=== PATIENT | female | born 1955 | race Caucasian/White ===

== ENCOUNTER 2017-04-01 11:23 | Inpatient (IN) | payer OTHER ==
[~2017-04-01] VITALS: Ht 152.4 cm; Wt 113.9 kg
[2017-04-01] MEDS ORDERED: NITROGLYCERIN OINT 2% 1GM PACKET EXT ONE (12:30)
[2017-04-01 12:33] LABS: INR 1.1 (0.9-1.1)
--- NOTE | 2017-04-01 12:44 | DIAGNOSTIC IMAGING REPORT ---
CHEST ONE VIEW PORTABLE CLINICAL HISTORY: dyspnea, rales dyspnea COMPARISON STUDY: None FINDINGS: Cardiomegaly. Prominent pulmonary vasculature. Mild pulmonary hyperaeration. Severe degenerative change right shoulder. IMPRESSION: Pulmonary edema versus congestive failure The above report was generated using voice recognition software. It may contain grammatical, syntax or spelling errors. Electronically signed by: Chad Yin M.D. 04/01/2017 12:42 PM Dictated Date/Time: 04/01/2017 12:42 PM
--- NOTE | 2017-04-01 12:46 | EMERGENCY ROOM VISIT NOTE ---
History First contact with patient: 11:47 Chief Complaint: SHORTNESS OF BREATH Stated Complaint: SHORTNESS OF BREATH,DOC REFERRED Nursing Triage Summary: Patient ambulatory to triage. Pt states she needs oxygen. SOB x 1 year but got even worse over the last week. Saw Dr prior to coming and Oxygen was 71%. States she hasn't seen the Dr for 30 years. History of Present Illness The patient is a 62 year old female who presents to the Emergency Room with complaints of dyspnea. The patient has not seen his doctor for 30 years. The patient has had dyspnea for the last year. The dyspnea has markedly worsened over the last 2 weeks. Her family and coworkers have strongly encouraged her to seek medical treatment but she had refused until today. The patient was seen at her family doctor's office. She was found to have oxygen saturation around 64% on room air. She was sent to the emergency department for evaluation. The patient denies any pain. She does report significant dyspnea. She often falls asleep when she is sitting in a chair. She states that she can barely walk anywhere because of the significant exertional dyspnea. She also has orthopnea. She has had a cough. She denies any fevers. She denies any chest pain. She denies any abdominal pain, nausea or vomiting. She reports extremity edema. The patient states she does not have any medical problems. However, she has not seen a doctor for 30 years. Review of Systems A 10 system review of systems was completed with positives and pertinent negatives listed in the HPI. Past Medical/Surgical History Medical Problems: (1) Shortness of breath patient denies Social History Smoking Status: Never Smoker Marital Status: Housing Status: lives with family Occupation Status: employed Current/Historical Medications No Active Prescriptions or Reported Meds Physical Exam Vital Signs Date Time Temp Pulse Resp B/P (MAP) Pulse Ox O2 Delivery O2 Flow Rate FiO2 04/01/17 13:41 84 18 148/82 92 Nasal Cannula 4.0 04/01/17 12:04 85 04/01/17 11:45 86 20 186/94 94 Nasal Cannula 4.0 04/01/17 11:25 36.4 91 24 153/79 66 Room Air 04/01/17 11:25 66 Room Air Physical Exam VITALS: Vitals are noted on the nurse's note and reviewed by myself. The patient's oxygen saturation was 66% on room air when she arrived. She had only minimal dyspnea. She was able to speak in full sentences. GENERAL: This is a 62-year-old female, in no acute distress, nondiaphoretic, well-developed well-nourished. SKIN: There is marked 3+ bilateral pitting edema to the lower extremities that extends to the abdomen. There is cyanosis noted to the tips of the fingers and toes. There is no tenting of the skin. Capillary reflex less than 2 seconds. HEAD: Normocephalic atraumatic. EARS: External auditory canals clear, tympanic membranes pearly [place] without erythema or effusion bilaterally. EYES: Pupils equal round and reactive to light and accommodation. Conjunctivae without injection, sclerae without icterus. Extraocular movements intact. NOSE: Patent, turbinates without inflammation or discharge. MOUTH: Mucous membranes moist. Tonsils are not enlarged. Pharynx without erythema or exudate. Uvula midline. Airway patent. Tongue does not deviate. NECK: Supple without nuchal rigidity. No JVD. HEART: There is a loud systolic murmur which the patient states is none. LUNGS: Mild dyspnea noted. There are marked diffuse rales noted. ABDOMEN: Positive bowel sounds x 4. Distended. No significant tenderness MUSCULOSKELETAL: No muscle atrophy, erythema, noted. Edema as noted above. Full range of motion without joint tenderness in all extremities. No tenderness to palpation. Normal gait. Strength 5/5 throughout. NEURO: Patient was alert and oriented to person place and time. No focal neurological deficits. Medical Decision & Procedures ER Provider Diagnostic Interpretation: CHEST ONE VIEW PORTABLE CLINICAL HISTORY: dyspnea, rales dyspnea COMPARISON STUDY: None FINDINGS: Cardiomegaly. Prominent pulmonary vasculature. Mild pulmonary hyperaeration. Severe degenerative change right shoulder. IMPRESSION: Pulmonary edema versus congestive failure Laboratory Results 04/01/17 12:10 Red Blood Count 4.08, Mean Corpuscular Volume 83.8, Mean Corpuscular Hemoglobin 22.8, Mean Corpuscular Hemoglobin Concent 27.2, Mean Platelet Volume 9.5, Neutrophils (%) (Auto) 74.2, Lymphocytes (%) (Auto) 13.6, Monocytes (%) (Auto) 9.2, Eosinophils (%) (Auto) 2.3, Basophils (%) (Auto) 0.2, Neutrophils # (Auto) 8.98, Lymphocytes # (Auto) 1.65, Monocytes # (Auto) 1.11, Eosinophils # (Auto) 0.28, Basophils # (Auto) 0.03 04/01/17 12:10 Test 04/01/17 12:10 04/01/17 13:22 White Blood Count 12.11 K/uL (4.8-10.8) Red Blood Count 4.08 M/uL (4.2-5.4) Hemoglobin 9.3 g/dL (12.0-16.0) Hematocrit 34.2 % (37-47) Mean Corpuscular Volume 83.8 fL (80-100) Mean Corpuscular Hemoglobin 22.8 pg (25-34) Mean Corpuscular Hemoglobin Concent 27.2 g/dl (32-36) Platelet Count 360 K/uL (130-400) Mean Platelet Volume 9.5 fL (7.4-10.4) Neutrophils (%) (Auto) 74.2 % Lymphocytes (%) (Auto) 13.6 % Monocytes (%) (Auto) 9.2 % Eosinophils (%) (Auto) 2.3 % Basophils (%) (Auto) 0.2 % Neutrophils # (Auto) 8.98 K/uL (1.4-6.5) Lymphocytes # (Auto) 1.65 K/uL (1.2-3.4) Monocytes # (Auto) 1.11 K/uL (0.11-0.59) Eosinophils # (Auto) 0.28 K/uL (0-0.5) Basophils # (Auto) 0.03 K/uL (0-0.2) RDW Standard Deviation 60.8 fL (36.4-46.3) RDW Coefficient of Variation 20.1 % (11.5-14.5) Immature Granulocyte % (Auto) 0.5 % Immature Granulocyte # (Auto) 0.06 K/uL (0.00-0.02) Nucleated RBC Absolute Count (auto) 0.20 K/uL (0-0) Nucleated Red Blood Cells % 1.6 % Hypochromasia PRESENT Anisocytosis PRESENT Prothrombin Time 12.0 SECONDS (9.0-12.0) Prothromb Time International Ratio 1.1 (0.9-1.1) Activated Partial Thromboplast Time 26.6 SECONDS (21.0-31.0) Partial Thromboplastin Ratio 1.0 Anion Gap 3.0 mmol/L (3-11) Est Creatinine Clear Calc Drug Dose 96.4 ml/min Estimated GFR () 106.6 Estimated GFR (Non- 92.0 BUN/Creatinine Ratio 32.3 (10-20) Calcium Level 8.5 mg/dl (8.5-10.1) Magnesium Level 2.3 mg/dl (1.8-2.4) Total Bilirubin 0.4 mg/dl (0.2-1) Aspartate Amino Transf (AST/SGOT) 17 U/L (15-37) Alanine Aminotransferase (ALT/SGPT) 19 U/L (12-78) Alkaline Phosphatase 68 U/L (45-117) Total Creatine Kinase 70 U/L (26-192) Creatine Kinase MB 1.8 ng/ml (0.5-3.6) Creatine Kinase MB Ratio 2.6 (0-3.0) Pro-B-Type Natriuretic Peptide 1515 pg/ml (0-900) Total Protein 6.9 gm/dl (6.4-8.2) Albumin 3.1 gm/dl (3.4-5.0) Globulin 3.8 gm/dl (2.5-4.0) Albumin/Globulin Ratio 0.8 (0.9-2) Venous Blood pH 7.32 (7.36-7.41) Venous Blood Partial Pressure CO2 67 mmHg (38.0-50.0) Venous Blood Partial Pressure O2 37 mmHg Venous Blood HCO3 34 mmol/L Venous Blood Oxygen Saturation 63.2 % Venous Blood Base Excess 6.5 mmol/L Medications Administered Medications (Trade) Dose Ordered Sig/Nicolette Route Start Time Stop Time Status Last Admin Dose Admin Nitroglycerin (Nitroglycerin 2% Oint) 1 inch NOW ONCE EXT 04/01/17 12:30 04/01/17 12:31 DC 04/01/17 12:30 1 INCH Furosemide (Lasix Inj) 20 mg NOW STAT IV 04/01/17 13:42 04/01/17 13:43 DC 04/01/17 13:59 20 MG Furosemide 20 mg/ Syringe 2 ml @ 4 mls/min NOW ONCE IV 04/01/17 14:30 04/01/17 15:30 DC 04/01/17 15:00 4 MLS/MIN Procedure The patient was monitored on a motor power connector. She maintained a normal sinus rhythm. The patient was noted to be hypoxic upon initial evaluation with oxygen saturation 66% on room air. The patient did quite well with 4 L of oxygen via nasal cannula. Her oxygen saturation improved to 97-98%. ECG Indication: SOB/dyspnea Rate (beats per minute): 84 Rhythm: normal sinus Findings: no acute ischemic change Comparison ECG Date: no prior available ED Course The patient was seen and examined. Previous visits were reviewed. The patient does not have a fever. She does have a mild leukocytosis of 12.11. She is mildly anemic with hemoglobin 9.3 and hematocrit 34.2. There is no prior for comparison. She does not have any significant electrolyte abnormalities. Glucose is 111. Initial cardiac markers are not elevated. BNP was 1515. INR was 1.1. Urinalysis suggests contamination. Chest x-ray suggests pulmonary edema versus congestive change The patient was given 1 inch Nitropaste She was given 20 mg IV Lasix. I feel the patient will require significant diuresis. I recommended placing a Calvert catheter but the patient refused. The patient presents to the emergency department with dyspnea. This has been ongoing for the last year but worse over the last 1-2 weeks. The patient does not seek routine medical care. She has not seen a doctor for 30 years. The patient was hypoxic and does have significant peripheral edema. X-ray suggests congestive change. There may be some degree of obesity hypoventilation syndrome as well. The patient seems to compensate fairly well for her significant hypoxia and did well with oxygen via nasal cannula. The patient will require further evaluation and management in the hospital. The case was discussed with the hospitalist service and they will evaluate the patient. The case was discussed with Dr. Lopez who agrees with the assessment and treatment plan. Medical Decision DIFFERENTIAL DIAGNOSIS: Aortic dissection, myocarditis, pericarditis, cervical disc disease, costochondritis, herpes zoster, rib fracture, pleuritis, pneumonia , pulmonary embolus, tension pneumothorax, anxiety disorder, somatoform disorder , choledocholithiasis, status, esophagitis, esophageal spasm, esophageal reflux , esophageal rupture, pancreatitis, peptic ulcer disease, cardiac ischemia, ST elevation HI, acute coronary syndrome, arrhythmia, coronary artery vasospasm. vavular heart disease, coronary artery disease, among others. Medication Reconcilliation Current Medication List: was personally reviewed by me Blood Pressure Screening Patient's blood pressure: Elevated blood pressure Blood pressure disposition: Referred to PCP Impression Primary Impression: Congestive heart failure Additional Impressions: Hypoxia Dyspnea Departure Information Dispostion Admitted as an inpatient Prescriptions No Active Prescriptions or Reported Meds Referrals Dayne Rodriguez III, CRNP (PCP) Patient Instructions [facility] Problem Qualifiers
[2017-04-01 12:49] LABS: BUN/CREATININE RATIO 32.3 (10-20); CALCIUM 8.5 mg/dl (8.5-10.1); CREATININE 0.69 mg/dl (0.60-1.20); MAGNESIUM 2.3 mg/dl (1.8-2.4); POTASSIUM 4.1 mmol/L (3.5-5.1)
[2017-04-01 12:54] LABS: ALB/GLOB RATIO 0.8 (0.9-2); CKMB/CK RATIO 2.6 (0-3.0)
[2017-04-01 13:07] LABS: HEMATOCRIT 34.2 % (37-47); MEAN CELL VOLUME 83.8 fL (80-100); MEAN CORPUSCULAR HEMOGLOBIN 22.8 pg (25-34); MEAN CORPUSCULAR HGB CONC 27.2 g/dl (32-36); MEAN PLATELET VOLUME 9.5 fL (7.4-10.4); PLATELET COUNT 360 K/uL (130-400); RED BLOOD COUNT 4.08 M/uL (4.2-5.4); WHITE BLOOD COUNT 12.11 K/uL (4.8-10.8)
[2017-04-01 13:13] LABS: ANISOCYTOSIS PRESENT; BASO % 0.2 %; BASO ABS # 0.03 K/uL (0-0.2); COMPLETE YES; EOS % 2.3 %; HYPOCHROMIA PRESENT; IG% 0.5 %; LYMPH % 13.6 %; LYMPH ABS # 1.65 K/uL (1.2-3.4); MONO % 9.2 %; NEUT % 74.2 %
[2017-04-01 13:38] LABS: VEN BLD GAS O2 SATURATION 63.2 %; VEN BLOOD GAS BASE EXCESS 6.5 mmol/L
[2017-04-01] MEDS ORDERED: FUROSEMIDE 40 MG/4 ML VIAL IV STA (13:42)
[2017-04-01] MEDS ORDERED: FUROSEMIDE INJ 20 MG in SYRINGE 0 ML IV ONE (14:30)
--- NOTE | 2017-04-01 14:55 | History and Physical ---
History & Physical Date & Time of Service: Apr 01, 2017 at 14:35 Chief Complaint: Shortness Of Breath,Doc Referred Primary Care Physician: Dayne Rodriguez III, CRNP History of Present Illness Source: patient, family This is a 62-year-old female with a past medical history of seasonal allergies and chronic sinusitis who presents to the ER today with worsening shortness of breath 1.5 weeks. She reports not seeing her family physician for greater than 30 years but previously saw Dr. Flor. Patient reports that she has become acutely short of breath with ambulation and can only walk approximately 5 feet before getting short of breath. She denies orthopnea although prefers to sleep in a recliner and has been doing this for some time now. The patient is unaware if she has gained a large amount of weight recently, although thinks that she has gained some weight. She cannot remember the last time she weighed himself. Pt typically eats twice daily, and frequently orders out food. She denies watching her diet or type of fluids she drinks specifically, basically only drinks sweetended ice tea. She denies history of smoking. She reports using nasal saline spray and [id number] congestion for her sinusitis recently. She does not wear oxygen at baseline. She reports taking a full dose aspirin every evening for chronic low back pain. Here in the ER the patient was reported to be satting in the low 60s on room air , BNP is equal to 1515, and a chest x-ray was completed showing pulmonary edema versus congestive failure. At bedside the patient ambulated to the restroom and dropped to 61% on room air, it took her approximately 2 minutes to come back up into the mid 80s to low 90s once placed back on oxygen. Past Medical/Surgical History Chronic sinusitis Shortness of breath Social History Smoking Status: Never Smoker Alcohol Use: patient stopped drinking alcohol approximately 3 years ago where she did drink heavily on weekends, rum Marital Status: Occupational Status: employed (durable medical equipment employee) Allergies Coded Allergies: No Known Allergies (Unverified , 04/01/17) Home Medications No Active Prescriptions or Reported Meds Review of Systems Constitutional: No fever, sweats or chills Eyes: No diplopia, no worsening or blurred vision ENT: normal hearing, no trouble swallowing Respiratory: + short of breath, See HPI. No cough, sputum, or dyspnea at rest. Cardiovascular: No chest pain, tightness or palpitations Abdomen: No pain, nausea, vomiting, diarrhea or constipation, Last BM was this morning. Musculoskeletal: + Chronic low back pain, + swelling worsening in both lower extremities times ~2 weeks. No joint pain, calf pain. Neurologic: No weakness, numbness/tingling, or balance problems Psychiatric: No anxiety or depression Skin: No rash or itch Physical Exam Vital Signs Date Time Temp Pulse Resp B/P (MAP) Pulse Ox O2 Delivery O2 Flow Rate FiO2 04/01/17 13:41 84 18 148/82 92 Nasal Cannula 4.0 04/01/17 12:04 85 04/01/17 11:45 86 20 186/94 94 Nasal Cannula 4.0 04/01/17 11:25 36.4 91 24 153/79 66 Room Air 04/01/17 11:25 66 Room Air General: awake, alert, no apparent distress, morbidly obese BMI equals 50.4 Head: Normocephalic, atraumatic ENT: PERRL, EOMI, no pharyngeal exudate, mucous membranes moist Chest: + On 4 L via NC, + inspiratory and expiratory wheezing throughout, tachypneic with ambulation and O2 sats to 61% on room air. Cardiac: + Tachycardic, no murmur, no JVD, normal peripheral pulses, good capillary refill Abdominal: NABS x 4 quadrants, soft, nontender to palpation, no rebound, guarding or tenderness Extremities: Normal inspection, +2 pitting peripheral edema bilaterally, no erythema, calfs nontender to palpation Psych: Normal mood and affect Neuro: AAO x 3, strength intact bilaterally and related 5/5, no motor deficits, speech is clear, no peripheral sensory deficits Diagnostics Laboratory Results Results Past 24 Hours Test 04/01/17 12:10 04/01/17 12:16 04/01/17 13:22 Range/Units White Blood Count 12.11 4.8-10.8 K/uL Red Blood Count 4.08 4.2-5.4 M/uL Hemoglobin 9.3 12.0-16.0 g/dL Hematocrit 34.2 37-47 % Mean Corpuscular Volume 83.8 80-100 fL Mean Corpuscular Hemoglobin 22.8 25-34 pg Mean Corpuscular Hemoglobin Concent 27.2 32-36 g/dl Platelet Count 360 130-400 K/uL Mean Platelet Volume 9.5 7.4-10.4 fL Neutrophils (%) (Auto) 74.2 % Lymphocytes (%) (Auto) 13.6 % Monocytes (%) (Auto) 9.2 % Eosinophils (%) (Auto) 2.3 % Basophils (%) (Auto) 0.2 % Neutrophils # (Auto) 8.98 1.4-6.5 K/uL Lymphocytes # (Auto) 1.65 1.2-3.4 K/uL Monocytes # (Auto) 1.11 0.11-0.59 K/uL Eosinophils # (Auto) 0.28 0-0.5 K/uL Basophils # (Auto) 0.03 0-0.2 K/uL RDW Standard Deviation 60.8 36.4-46.3 fL RDW Coefficient of Variation 20.1 11.5-14.5 % Immature Granulocyte % (Auto) 0.5 % Immature Granulocyte # (Auto) 0.06 0.00-0.02 K/uL Nucleated RBC Absolute Count (auto) 0.20 0-0 K/uL Nucleated Red Blood Cells % 1.6 % Hypochromasia PRESENT Anisocytosis PRESENT Prothrombin Time 12.0 9.0-12.0 SECONDS Prothromb Time International Ratio 1.1 0.9-1.1 Activated Partial Thromboplast Time 26.6 21.0-31.0 SECONDS Partial Thromboplastin Ratio 1.0 Sodium Level 139 136-145 mmol/L Potassium Level 4.1 3.5-5.1 mmol/L Chloride Level 103 98-107 mmol/L Carbon Dioxide Level 33 21-32 mmol/L Anion Gap 3.0 3-11 mmol/L Blood Urea Nitrogen 22 7-18 mg/dl Creatinine 0.69 0.60-1.20 mg/dl Est Creatinine Clear Calc Drug Dose 96.4 ml/min Estimated GFR () 106.6 Estimated GFR (Non- 92.0 BUN/Creatinine Ratio 32.3 10-20 Random Glucose 111 70-99 mg/dl Calcium Level 8.5 8.5-10.1 mg/dl Magnesium Level 2.3 1.8-2.4 mg/dl Total Bilirubin 0.4 0.2-1 mg/dl Aspartate Amino Transf (AST/SGOT) 17 15-37 U/L Alanine Aminotransferase (ALT/SGPT) 19 12-78 U/L Alkaline Phosphatase 68 45-117 U/L Total Creatine Kinase 70 26-192 U/L Creatine Kinase MB 1.8 0.5-3.6 ng/ml Creatine Kinase MB Ratio 2.6 0-3.0 Troponin I 0.022 0-0.045 ng/ml Pro-B-Type Natriuretic Peptide 1515 0-900 pg/ml Total Protein 6.9 6.4-8.2 gm/dl Albumin 3.1 3.4-5.0 gm/dl Globulin 3.8 2.5-4.0 gm/dl Albumin/Globulin Ratio 0.8 0.9-2 Venous Blood pH 7.38 7.32 7.36-7.41 Venous Blood Partial Pressure CO2 67 38.0-50.0 mmHg Venous Blood Partial Pressure O2 37 mmHg Venous Blood HCO3 34 mmol/L Venous Blood Oxygen Saturation 63.2 % Venous Blood Base Excess 6.5 mmol/L Diagnostic Radiology CHEST ONE VIEW PORTABLE CLINICAL HISTORY: dyspnea, rales dyspnea COMPARISON STUDY: None FINDINGS: Cardiomegaly. Prominent pulmonary vasculature. Mild pulmonary hyperaeration. Severe degenerative change right shoulder. IMPRESSION: Pulmonary edema versus congestive failure The above report was generated using voice recognition software. It may contain grammatical, syntax or spelling errors. Electronically signed by: Chad Yin M.D. 04/01/2017 12:42 PM Dictated Date/Time: 04/01/2017 12:42 PM The status of this report is Signed. EKG Vent. rate 84 BPM VT interval 182 ms QRS duration 88 ms QT/QTc 376/444 ms P-R-T axes 66 38 74 Normal sinus rhythm Normal ECG No previous ECGs available Confirmed by KEYA HERNANDEZ ([id number]) on 04/01/2017 1:32:43 PM Impression Assessment and Plan This is a 62-year-old female with a past medical history of seasonal allergies and chronic sinusitis who presents to the ER today with worsening shortness of breath 1.5 weeks. Shortness of breath - Admit to telemetry for likely new onset of CHF: Patient reports she has been short of breath for a year now, although acutely worsened within the past 1-2 weeks associated with peripheral edema, orthopnea and diminished appetite. - Trend troponins, first set was negative - Echo ordered - Lasix 20 mg IV given in the ER, will order an additional 20 mg IV now. Consider rechecking chest x-ray in the morning. - Potassium 20 Mg Q ordered every morning with aggressive diuresis - Cont Aspirin, pt normally takes 325 QPM for back pain - Checking lipid panel and a hemoglobin A1c with a.m. labs - Strict I's and O's - Daily weights - Heart healthy / low-sodium diet - Currently on 4 L via NC, does not wear supplemental O2 at baseline, may require a 2 step for home oxygen needs. Hgb of 9.3 - Will check iron panel, heme occult stool x 1 - Pt has never had a colonoscopy and denies changes in bowels/dark tarry stools Chronic sinusitis - We will order nasal saline spray the patient has been using this at home Chronic low back pain - Cont asa 325 mg QPM Morbid obesity BMI= 50.4 - Diet and weight loss encouraged at bedside, patient should be encouraged to eat a healthier diet again DVT prophylaxis: Teds, SCDs, heparin subcutaneous CODE STATUS: Full code Disposition: Patient from home, lives with her , CM to assist with discharge planning Level of Care Telemetry Advanced Directives Existing Advance Directive: No Existing Living Will: No Existing Power of Transportation Specialist: No Existing Health Care Proxy: No Resuscitation Status FULL RESUSCITATION VTE Prophylaxis VTE Risk Assessment Done? Y/N: Yes Risk Level: Low Given or contraindicated: Unfractionated heparin SQ, T.E.D. Stockings, SCD's Reviewed: Pt Seen/Exam by Me History Pt states she is feeling a bit improved. LE edema still present, but improving. Ongoing SOB with exertion only. Has not been present at rest during entire episode, but was starting to have SOB with even minimal effort. No chest pain. Tolerating PO without issue. States she has not had a c-scope. Denies blood in stool. Denies prior hx of anemia. Agree with HPI/ROS as noted above. Pt with second hand smoke exposure from grandfather "who I basically lived with ". General Appearance: no apparent distress, obese Respiratory: no respiratory distress, crackles, wheezing Cardiovascular: normal peripheral pulses, regular rate, rhythm Gastrointestinal: non tender, soft Extremities: non-tender, pedal edema (b/l, 2+ pitting) Neurologic/Psychiatric: alert, normal mood/affect, oriented x 3 Skin Characteristics: normal color, warm/dry Assessment/Plan Agree with plan as outlined above Likely CHF exacerbation per CXR and elevated BNP, ECHO pending Nebs for wheezing, possibly related to irritation from CHF, however pt with substantial second hand smoke exposure from grandfather "who I basically lived with" Hold on steroids for now and will likely need formal PFTs once outpt Anemia: microcytic, no hx of c-scope and does not plan to have one hemoccult pending Iron panel, B12, folate pending Morbid obesity: lipids, A1c pending
[2017-04-01 14:59] LABS: URINE APPEARANCE CLEAR (CLEAR); URINE BILIRUBIN NEG (NEG); URINE COLOR YELLOW; URINE EPITHELIAL CELL AUTO >30 /lpf (0-5); URINE NITRITE NEG (NEG); URINE SPECIFIC GRAVITY 1.014 (1.000-1.030); UROBILINOGEN NEG (NEG); ZZUR CULT IF INDIC CLEAN CATCH NO
[2017-04-01 15:04] LABS: MANUAL MICROSCOPIC REQUIRED? NO; REVIEW REQ? NO
[2017-04-01] MEDS ORDERED: ALBUT/IPRATROP 3MG/0.5MG NEB 3 ML VIAL INH PRN (15:15)
[2017-04-01] MEDS: ALBUT/IPRATROP 3MG/0.5MG NEB 3 ML VIAL INH SCH ×2 (16:00→18:58)
[2017-04-01 17:00] VITALS: BP 138/63; PULSE 88; TEMP 37; O2SAT 99; BMI 49.4
--- NOTE | 2017-04-01 18:56 | ECHOCARDIOGRAM REPORT ---
*NOTICE TO RECEIVING REPUBLICAN AGENCY This information is strictly Confidential and protected under [place] law. [place] law prohibits you from making any further disclosure of this information unless further disclosure is expressly permitted by the written consent of the person to whom it pertains or is authorized by law. A general authorization for the release of medical or other information is not sufficient for this purpose. Hospital accepts no responsibility if the information is made available to any other person, INCLUDING THE PATIENT. Interpretation Summary * Name: PAIGE GUZMAN Study Date: 04/01/2017 03:39 PM BP: 148/82 mmHg * Patient Location: [facility] HR: 86 * : 1955 (M/d/yyyy) Gender: Female Height: 60 in * Age: 62 yrs Ethnicity: CA Weight: 257 lb * Ordering Physician: Kamini Chavez * Referring Physician: Dayne Rodriguez * Performed By: Balbina Cardenas RDCS * * Reason For Study: CHF * BSA: 2.1 m2 * Low normal left ventricular systolic function. * Mild concentric left ventricular hypertrophy. * Normal chamber dimensions. * Possible bicuspid aortic valve with moderate stenosis. * Mild aortic regurgitation. * Trace pulmonic, tricuspid, and mitral regurgitation. * Elevated central venous pressure. * Mildly elevated estimated right ventricular systolic pressure. * Elevated left atrial pressure. Procedure Details * A complete two-dimensional transthoracic echocardiogram was performed (2D, M-mode, Doppler and color flow Doppler). * A contrast injection of Definity was performed to improve assessment of LV function. * Contrast was injected into an intravenous site in the left arm. * One vial of Definity ultrasound contrast was diluted in normal saline to a total volume of 10 ml. A total of '2' ml of solution was administered during imaging. * Lot # [id number] of Definity utilized for procedure. * Expiration date APR 26. * The attending nurse who injected the contrast agent was Herbie Osorio RN. Left Ventricle * The left ventricle is normal in size. * There is mild concentric left ventricular hypertrophy. * Ejection Fraction = 50-55%. * Left ventricular systolic function is low normal. * Diastolic dysfunction, Grade II (pseudonormalization pattern). * E/e' consistent with elevated left atrial pressure. * No regional wall motion abnormalities noted. Right Ventricle * The right ventricle is normal in size and function. Atria * The left atrium is moderately dilated. * Right atrial size is normal. * No ASD detected; PFO is not assessed. Mitral Valve * The mitral valve is normal. * There is no mitral valve stenosis. * There is trace mitral regurgitation. Tricuspid Valve * The tricuspid valve is not well visualized. * Right ventricular systolic pressure is elevated at 30-40mmHg. * There is trace tricuspid regurgitation. Aortic Valve * A bicuspid aortic valve cannot be excluded. * Moderate valvular aortic stenosis. * Dimensionless aortic valve index 0.28. * Mild aortic regurgitation. Pulmonic Valve * The pulmonary valve is inadequately visualized, but the Doppler data is adequate for interpretation. * There is no pulmonic valvular stenosis. * Trace pulmonic valvular regurgitation. Great Vessels * The aortic root is normal size. Pericardium/Pleural * There is no pericardial effusion. Great Vessels * The inferior vena cava is mildly dilated. MMode 2D Measurements and Calculations IVSd 1.4 cm LVIDd 4.9 cm LVIDs 3.6 cm LVPWd 1.4 cm IVS/LVPW 0.97 FS 25.6 % EDV(Teich) 111.9 ml ESV(Teich) 55.6 ml EF(Teich) 50.3 % EDV(cubed) 116.4 ml ESV(cubed) 47.9 ml EF(cubed) 58.8 % LV mass(C)d 275.2 grams LV mass(C)dI 132.5 grams/m\S\2 CO(Teich) 4.7 l/min CI(Teich) 2.3 l/min/m\S\2 SV(Teich) 56.2 ml SI(Teich) 27.1 ml/m\S\2 CO(cubed) 5.7 l/min CI(cubed) 2.8 l/min/m\S\2 SV(cubed) 68.4 ml SI(cubed) 33.0 ml/m\S\2 Ao root diam 3.2 cm Ao root area 8.2 cm\S\2 ACS 2.0 cm LA dimension 4.8 cm asc Aorta Diam 3.7 cm LA/Ao 1.5 LVAd ap4 36.1 cm\S\2 LVLd ap4 7.8 cm EDV(MOD-sp4) 139.0 ml LVAs ap4 23.2 cm\S\2 LVLs ap4 6.7 cm ESV(MOD-sp4) 65.3 ml EF(MOD-sp4) 53.0 % LVAd ap2 35.3 cm\S\2 LVLd ap2 7.3 cm EDV(MOD-sp2) 139.0 ml LVAs ap2 22.6 cm\S\2 LVLs ap2 6.3 cm ESV(MOD-sp2) 67.0 ml EF(MOD-sp2) 51.8 % CO(MOD-sp4) 6.2 l/min CI(MOD-sp4) 3.0 l/min/m\S\2 SV(MOD-sp4) 73.7 ml SI(MOD-sp4) 35.5 ml/m\S\2 CO(MOD-sp2) 6.0 l/min CI(MOD-sp2) 2.9 l/min/m\S\2 SV(MOD-sp2) 72.0 ml SI(MOD-sp2) 34.7 ml/m\S\2 Doppler Measurements and Calculations MV E max alhaji 125.1 cm/sec MV A max alhaji 104.8 cm/sec MV E/A 1.2 MV dec time 0.19 sec Ao V2 max 270.1 cm/sec Ao max PG 29.2 mmHg Ao max PG (full) 26.9 mmHg Ao V2 mean 200.3 cm/sec Ao mean PG 18.0 mmHg Ao V2 VTI 57.1 cm AI max alhaji 358.3 cm/sec AI max PG 51.4 mmHg AI dec slope 258.6 cm/sec\S\2 AI P1/2t 405.9 msec LV V1 max PG 2.3 mmHg LV V1 max 75.7 cm/sec SV(Ao) 466.2 ml SI(Ao) 224.5 ml/m\S\2 PA V2 max 138.5 cm/sec PA max PG 7.7 mmHg PA acc slope 1059.0 cm/sec\S\2 PA acc time 0.06 sec TR max alhaji 237.5 cm/sec PA pr(Accel) 53.6 mmHg
[2017-04-01 19:24] VITALS: PULSE 93; O2SAT 91
[2017-04-01 20:00] VITALS: O2SAT 96
[2017-04-01 20:33] VITALS: BP 91/70; PULSE 90; TEMP 36.6; O2SAT 96
[2017-04-01] MEDS: ASPIRIN 325 MG ECTAB PO SCH (20:40)
[2017-04-01] MEDS: HEPARIN SOD 5000 UNIT/0.5 ML CARP SQ SCH (22:08)
[2017-04-02] VITALS (10 sets, daily range): BP systolic 91–137; BP diastolic 56–71; PULSE 72–98; TEMP 36.6–37; O2SAT 91–97
[2017-04-02 05:05] LABS: BUN/CREATININE RATIO 23.6 (10-20); CALCIUM 8.1 mg/dl (8.5-10.1); CREATININE 0.66 mg/dl (0.60-1.20); POTASSIUM 3.9 mmol/L (3.5-5.1)
[2017-04-02 05:13] LABS: CHOLESTEROL/HDL RATIO 3.3; FERRITIN 36.8 ng/ml (8.0-388.0)
[2017-04-02] MEDS: HEPARIN SOD 5000 UNIT/0.5 ML CARP SQ SCH ×3 (06:46→20:58)
[2017-04-02] MEDS: ALBUT/IPRATROP 3MG/0.5MG NEB 3 ML VIAL INH SCH ×4 (08:07→19:00)
[2017-04-02] MEDS: POTASSIUM CHLORIDE 20 MEQ TABCR PO SCH (08:22)
[2017-04-02] MEDS: MAGNESIUM OXIDE 400 MG TAB PO SCH ×2 (08:22→20:57)
[2017-04-02] MEDS ORDERED: FUROSEMIDE INJ 40 MG in SYRINGE 0 ML IV ONE (08:30)
[2017-04-02] MEDS: FERROUS SULFATE 325 MG TAB PO SCH ×3 (08:49→16:57)
[2017-04-02] MEDS: CARVEDILOL 3.125 MG TAB PO SCH ×2 (08:50→20:56)
[2017-04-02] MEDS ORDERED: POTASSIUM CHLORIDE 20 MEQ TABCR PO SCH (09:00)
[2017-04-02] MEDS ORDERED: ASPIRIN 81 MG ECTAB PO SCH (09:00)
[2017-04-02 13:22] LABS: ESTIMATED AVERAGE GLUCOSE 169 mg/dl; HA1C FLAG Normal (Normal)
--- NOTE | 2017-04-02 14:42 | Hospitalist Progress Note ---
Hospitalist Progress Note Date of Service Apr 02, 2017. (Kamini Chavez PA-C) Subjective Pt evaluation today including: conversation w/ patient, physical exam, chart review, lab review, review of studies Pain: None PO Intake: Good Voiding: no voiding problems The patient was seen and examined this morning. Pt reports doing better today, her ability to breath overall is improved. She had peed out a large amount of fluid. Constitutional: No fever, No chills, No sweats Eyes: No redness, No diplopia ENT: No nasal symptoms, No sore throat Respiratory: + wheezing, + dyspnea on exertion (however improved compared to yesterday), No cough, No sputum, No dyspnea at rest Cardiovascular: No chest pain, No palpitations Abdomen: No pain, No nausea, No vomiting, No diarrhea, No constipation Musculoskeletal: + swelling (BLE), No joint pain, No muscle pain Female : No dysuria, No hematuria Neurologic: No weakness, No numbness/tingling Endo: No fatigue Skin: No rash, No itch (Kamini Chavez PA-C) Objective Vital Signs Date Time Temp Pulse Resp B/P (MAP) Pulse Ox O2 Delivery O2 Flow Rate FiO2 04/02/17 12:00 Nasal Cannula 3.0 04/02/17 11:48 36.9 78 20 130/67 (88) 96 Nasal Cannula 2.0 04/02/17 11:15 88 16 96 Nasal Cannula 3.0 04/02/17 08:19 36.7 98 20 116/56 (76) 91 Nasal Cannula 3.0 04/02/17 08:00 Nasal Cannula 3.0 04/02/17 07:32 86 16 96 Nasal Cannula 3.0 04/02/17 04:00 Nasal Cannula 3.0 04/02/17 03:55 36.8 81 21 137/71 (93) 93 Nasal Cannula 3.0 04/02/17 00:10 36.6 84 22 91/57 (68) 91 Nasal Cannula 3.0 04/02/17 00:07 Nasal Cannula 3.0 04/01/17 20:33 36.6 90 22 91/70 (77) 96 Nasal Cannula 2.0 04/01/17 20:00 96 Nasal Cannula 3.0 04/01/17 19:24 93 16 91 Nasal Cannula 3.0 04/01/17 17:00 37.0 88 18 138/63 99 Nasal Cannula 2.0 04/01/17 16:59 85 18 167/89 97 04/01/17 16:56 86 20 95 Nasal Cannula 4.0 04/01/17 15:00 78 18 95 Nasal Cannula 4.0 (Kamini Chavez PA-C) Physical Exam General Appearance: WD/WN, no apparent distress, + obese Eyes: PERRL, EOMI ENT: hearing grossly normal, pharynx normal Neck: supple, no JVD Respiratory/Chest: no respiratory distress, no accessory muscle use, + pertinent finding (on 2 L via NC, + expiratory wheeze in RUL, +diminished breath sounds throughout,) Cardiovascular: regular rate, rhythm, no JVD, + systolic murmur (holosystolic grade III/) Abdomen: normal bowel sounds, non tender, soft, + pertinent finding (obese, + pannis) Extremities: non-tender, normal inspection, no calf tenderness, + pedal edema ( 2+ pitting edema BLE to below the knee.) Neurologic/Psychiatric: alert, normal mood/affect, oriented x 3 Skin: normal color, warm/dry (Kamini Chavez, PA-C) Laboratory Results Last 24 Hours Test 04/01/17 14:40 04/01/17 20:34 04/02/17 04:30 Urine Color YELLOW Urine Appearance CLEAR Urine pH 6.0 Urine Specific [place] 1.014 Urine Protein 1+ Urine Glucose (UA) NEG Urine Ketones NEG Urine Occult Blood TRACE Urine Nitrite NEG Urine Bilirubin NEG Urine Urobilinogen NEG Urine Leukocyte Esterase TRACE Urine WBC (Auto) 1-5 /hpf Urine RBC (Auto) 0-4 /hpf Urine Hyaline Casts (Auto) 0 /lpf Urine Epithelial Cells (Auto) >30 /lpf Urine Bacteria (Auto) NEG Troponin I 0.028 ng/ml 0.020 ng/ml Sodium Level 138 mmol/L Potassium Level 3.9 mmol/L Chloride Level 100 mmol/L Carbon Dioxide Level 38 mmol/L Anion Gap 0.0 mmol/L Blood Urea Nitrogen 16 mg/dl Creatinine 0.66 mg/dl Est Creatinine Clear Calc Drug Dose 99.5 ml/min Estimated GFR () 108.2 Estimated GFR (Non- 93.4 BUN/Creatinine Ratio 23.6 Random Glucose 114 mg/dl Estimated Average Glucose 169 mg/dl Hemoglobin A1c 7.5 % Calcium Level 8.1 mg/dl Iron Level 20 mcg/dl Total Iron Binding Capacity 382 mcg/dl Ferritin 36.8 ng/ml Triglycerides Level 103 mg/dl Cholesterol Level 118 mg/dl HDL Cholesterol 36 mg/dl LDL Cholesterol, Calculated 61 mg/dl VLDL Cholesterol, Calculated 21 mg/dl Cholesterol/HDL Ratio 3.3 Vitamin B12 Level 430 pg/mL Folate 11.35 ng/mL (Kamini Chavez, DELVIS) Assessment and Plan This is a 62-year-old female with a past medical history of seasonal allergies and chronic sinusitis who presents to the ER today with worsening shortness of breath 1.5 weeks. New onset Acute diastolic CHF exacerbation Shortness of breath - Admit to telemetry : Patient reports she has been short of breath for a year now, although acutely worsened within the past 1-2 weeks associated with peripheral edema, orthopnea and diminished appetite. - cardiac biomarkers were negative x 2 - Formal cardiology consult placed per pt request with Dr. Collier - Echo ordered: Grade II diastolic dysfunction with moderate aortic stenosis, trace [place], TR and MR. Likely pulmonary hypertension with elevated right systolic ventricular pressure. * Low normal left ventricular systolic function. * Mild concentric left ventricular hypertrophy. * Normal chamber dimensions. * Possible bicuspid aortic valve with moderate stenosis. * Mild aortic regurgitation. * Trace pulmonic, tricuspid, and mitral regurgitation. * Elevated central venous pressure. * Mildly elevated estimated right ventricular systolic pressure. * Elevated left atrial pressure. - Aggressive IV diuresis to continue, 40 mg this morning, and another dose this afternoon at 1600. - Potassium 20 Mg Q ordered every morning with aggressive diuresis - Cont Aspirin, pt normally takes 325 QPM for back pain - Checking lipid panel - wnl - Strict I's and O's: -1300mL yesterday with Lasix 40 mg IV - Daily weights - Heart healthy / low-sodium diet - Currently on 2 L via NC, does not wear supplemental O2 at baseline, may require a 2 step for home oxygen needs. DM II, new onset - Hgb A1C of 7.5 - Will ask a inclusion special educator to see the patient as she does not have a history of this. - Diet and exercise encouraged at bedside - Start on ISS with accuchecks ACHS Hgb of 9.3 - Will check iron panel, ferritin very low, will start on supplementation - Pt will need outpatient workup at time of discharge with colonoscopy as she has never had one before. Denies changes in bowels/dark tarry stools Chronic sinusitis - We will order nasal saline spray the patient has been using this at home Chronic low back pain - Cont asa 325 mg QPM Morbid obesity BMI= 50.4 - Diet and weight loss encouraged at bedside DVT prophylaxis: Teds, SCDs, heparin subcutaneous CODE STATUS: Full code Disposition: Patient from home, lives with her , CM to assist with discharge planning (Kamini Chavez, DELVIS) Attending Attestation: Pt seen/examined, chart reviewed, care plan d/w TRACEY Chavez. I agree w/ the saleem components of her documentation. Pt feeling better - less cough, wheeze, sob. Still w/ O2 requirement. Family confirms severe snoring. Family concerned about "mental fogginess" for about 2 weeks and tremor for same time. h/o severe restless legs. VSS afebrile gen - obese neck - no obvious JVD heart - 2-3/6 systolic murmur RUSB, RRR, s1, s2 lungs - diffuse rhonchi, wheezing and faint rales bases abd - obese, cannot exclude ascites ext - 1-2+ edema b/l neuro - fine asterixis Hb 9's BMP stable A/P: 1. acute (on probable chronic) diastolic CHF 2. moderate in setting of probable bicuspid valve 3. probable BEN 4. ?hepatic encephalopathy in light of mental fogginess, tremor, and asterixis 5. Fe deficiency anemia 6. acute hypercarbic/hypoxic resp failure 2nd to #1 lasix 40mg IV BID coreg 3.125mg BID agree with aldactone as recommended by Dr. Collier check ammonia due to #4 check TSH due to obesity, etc Ferrous sulfate 325mg TID; will need outpatient GI w/u for the low Fe needs sleep study appreciate Dr. Collier's consultation family updated Bill BAEZA MD (Tyron Baeza MD)
[2017-04-02] MEDS ORDERED: GLUCAGON FOR INJ 1 MG VIAL SQ PRN (14:45)
[2017-04-02] MEDS ORDERED: GLUCOSE 40% GEL 15 GM TUBE PO PRN (14:45)
[2017-04-02] MEDS ORDERED: GLUCOSE 10 TABS/TUBE PO PRN (14:45)
[2017-04-02] MEDS ORDERED: DEXTROSE 50% 50 ML SYR IV PRN (14:45)
[2017-04-02] MEDS ORDERED: FUROSEMIDE INJ 40 MG in SYRINGE 0 ML IV SCH (15:30)
[2017-04-02] MEDS: INSULIN ASPART 100 UNITS/ML 3 ML PEN SC SCH ×2 (16:15→20:26)
--- NOTE | 2017-04-02 17:06 | CARDIOLOGY CONSULTATION ---
DATE OF CONSULTATION: 04/02/2017 REFERRING PHYSICIAN: Tyron Baeza MD ATTENDING PHYSICIAN: Tyron Baeza MD PRIMARY PHYSICIAN: RIC Peña. HISTORY OF PRESENT ILLNESS: The patient is a 62-year-old white female. She has not had medical care for many years. She reports that over the past year, she has had slowly progressing dyspnea on exertion. She attributes this to her weight. In approximately 10 days prior to this admission, she had a marked worsening in her dyspnea on exertion. This progressed on a daily basis to where she was dyspneic with just this walking several feet. She also had dyspnea at rest. She also noted increased orthopnea. She normally sleeps with 2 pillows. In the few nights prior to admission, she was sleeping more upright in a recliner. No definite PND. She normally has nocturia 3-4 times per night. In the few days prior to admission, she was having nocturia on an hourly basis. She has also noted increased edema of her ankles, feet and lower legs over the past week and a half. She did not weigh herself at home. She has had this sensation of increased abdominal girth over the past several days. No complaints of palpitations, lightheadedness, or syncope. No chest pain or other anginal type pains. She states that as a young child, she had a heart murmur. She underwent repair of the patent ductus arteriosus at age 3. This was performed via open heart surgery. Her murmur then resolved. When she was with her daughter, she was again noted to have a heart murmur. Since then, she has been noted to have a heart murmur. No history of rheumatic fever. There is a family history of several cousins having bicuspid aortic valves. No family history of premature coronary artery disease. The patient denies any history of diabetes mellitus, hypertension, or dyslipidemia. No history of cerebrovascular disease or peripheral vascular disease. No prior [facility] admissions. As stated above, the patient has not had medical followup for many years. At the insistence of her family, she did see Mr. Dayne Rodriguez yesterday. She was referred to [facility]. She was seen in the Emergency Department and then admitted to the telemetry unit. In the Emergency Department, she was diagnosed with congestive heart failure. She was given intravenous furosemide. A few hours later, she received another dose of intravenous furosemide. By the evening of April 01, her dyspnea had improved. This morning, she received an additional dose of intravenous furosemide. She states that today, she feels much better than yesterday. She is able to walk in the rock to the nursing station without any dyspnea. Yesterday, she had marked dyspnea just walking from the bed to the toilet. This was a distance of only several feet. She had no orthopnea overnight. No PND. She is not sure if her abdominal girth has changed any since admission. She thinks that her peripheral edema in her legs may be slightly improved today compared to yesterday. She continues without any episodes of lightheadedness. No postural lightheadedness. No palpitations. No syncope. No chest pains or other anginal type pains today. PAST MEDICAL HISTORY: 1. Patent ductus arteriosus. Repair at age 3. 2. Chronic sinusitis. 3. History of heart murmur as an adult. She had a heart murmur when she was a young child, but this resolved after the repair of the PDA. MEDICATIONS AT THE TIME OF ADMISSION: None. ALLERGIES AND ADVERSE DRUG REACTIONS: No known drug allergies. SOCIAL HISTORY: The patient is and lives with her . She has never smoked cigarettes. No alcohol use for approximately the past 3 years. She and her have a daughter. The patient is employed by a [employer]. REVIEW OF SYSTEMS: 1. As above. 2. Cough productive of grayish brown sputum over the past several days. 3. Wheezing over the past few days. 4. No headache, earache, or sore throat. 5. Occasional paresthesias of the lower legs and feet. 6. No focal motor weakness. 7. No acute visual changes. 8. Other than nocturia, no other urinary complaints. 9. Frequent episodes of constipation. 10. No symptoms of GI bleeding. 11. No other bleeding complaints. 12. No significant musculoskeletal type complaints. 13. No skin rash complaints. The patient snores loudly. This is according to her . Her has also noted her to have episodes of apnea. Medications today include furosemide 40 mg IV given this morning. Another dose ordered for 03:30 p.m. Potassium chloride 40 mEq daily, magnesium oxide 400 mg b.i.d., carvedilol 3.125 mg b.i.d., subQ heparin 5000 units q. 8 hours, ferrous sulfate 325 mg b.i.d., aspirin 325 mg daily, and DuoNeb 3 mL q.i.d. Intake and output yesterday 300/1300. Today 520/1500. Yesterday's weight 114.8 kg. Today's weight 114.6 kg. PHYSICAL EXAMINATION: VITAL SIGNS: Late this morning with oral temperature 36.9, pulse 78, blood pressure 130/67, and pulse oximetry on 2 liters per nasal cannula oxygen 96%. On arrival to the Emergency Room yesterday morning, her oxygen saturation was documented to be 66%. GENERAL APPEARANCE: Shows her to be in no distress. HEAD: Normal. EYES: Pupils equal and round. Anicteric. Conjunctivae normal. No xanthelasma. NECK: Short, thick neck. No obvious jugular venous distension. Carotids 2/2 bilaterally. Normal upstroke. No bruits or transmitted murmur. LUNGS: Today, normal respiratory effort. Diffuse rhonchi and expiratory wheezing in all lung alvarez. No rales. HEART: PMI not palpable. No lifts or heaves. Regular rate and rhythm. Diminished, but present aortic valvular closing sound. A 2/6 crescendo-decrescendo murmur second right intercostal space. A 3/6 systolic murmur left sternal border. No diastolic murmur or rub heard. When I examined the patient last evening, she had an S3 present. I do not hear this today. ABDOMEN: Obese. Soft. Nontender. No palpable masses or organomegaly. Normal bowel sounds. No bruits. EXTREMITIES: No cyanosis or clubbing. 2+ pretibial and pedal edema bilaterally. No calf tenderness. PULSES: Distal pulses in all extremities palpable. NEUROLOGIC: Alert and oriented x3. Motor grossly intact. PSYCHIATRIC: Affect is normal. DATA: Echocardiogram performed yesterday interpreted and reviewed by me showed low normal LV systolic function with LV ejection fraction of 50%-55%. Mild concentric LVH. Possible bicuspid aortic valve with moderate aortic stenosis. The dimensionless aortic valve index was 0.28. The calculated aortic valve area was 1.1 square cm. Mild aortic regurgitation. Normal right ventricular size and systolic function. Moderate left atrial dilatation. Trace mitral, tricuspid, and pulmonic regurgitation. Mildly elevated estimated right ventricular systolic pressure of 30-40 mmHg. Dilated inferior vena cava with no significant variation in diameter with respiration. This is consistent with an elevated central venous pressure. Echo findings were also consistent with elevated left atrial pressure and grade 2 left ventricular diastolic dysfunction. Chest x-ray performed yesterday and reviewed by me showed pulmonary vascular congestion consistent with congestive heart failure. Electrocardiogram performed yesterday and reviewed by me was normal. No evidence of myocardial ischemia or injury. CBC yesterday with WBC 12.11, hemoglobin 9.3, hematocrit 34.2, and platelet count 360. INR yesterday 1.1. PTT 26.6. Metabolic profile yesterday with sodium 139, potassium 4.1, chloride 103, carbon dioxide 33, BUN 22, creatinine 0.69, and random glucose 111. AST 17 and ALT 19. CK total 70 with MB of 1.8. Total protein 6.9. Serum albumin 3.1. Calcium 8.5. Magnesium 2.3. Troponin I's have been 0.022, 0.028, and 0.020. Labs today with triglycerides 103, total cholesterol 118, calculated LDL 61, and HDL 36. Labs today with sodium 138, potassium 3.9, chloride 100, carbon dioxide 38, BUN 60, creatinine 0.66, and random glucose of 114. Hemoglobin A1c has returned at 7.5. Iron level 20. TIBC 382. Ferritin 36.8. ProB natriuretic peptide yesterday was 1515. ASSESSMENT: 1. Dyspnea on exertion for at least the past year. Marked worsening of dyspnea on exertion and involvement of dyspnea at rest as well as orthopnea in the past week and a half prior to admission. Evidence of elevated intracardiac pressures on echocardiography. Evidence of volume overload on exam. With the diuresis, her dyspnea has markedly improved. The etiology for her acute heart failure is likely her aortic stenosis and left ventricular diastolic dysfunction. She has low normal LV systolic function. Thus, her current heart failure would be acute diastolic heart failure. There is no evidence of myocardial ischemia based on electrocardiogram or cardiac enzymes. She has no segmental wall motion abnormalities of the left ventricle. She has no anginal type complaints. 2. Marked oxygen desaturation. Multifactorial. Her acute congestive heart failure would be a main contributor. Her obesity would cause her to have restrictive lung disease. She also likely has reactive airway disease. She was noted to have wheezing on exam yesterday and still has wheezing on exam today. 3. Cough productive of a dark colored sputum yesterday. She states that her cough and sputum production have improved today. Cannot exclude a component of bronchitis. 4. Bicuspid aortic valve with moderate stenosis and mild regurgitation. For most of her adult life, she has had a history of heart murmur. There is a family history of bicuspid aortic valve. 5. Status post repair of patent ductus arteriosus at age 3. 6. Microcytic anemia. Her MCH is 22.8 and MCHC is 27.2. MCV is 83.8. She has a low iron level. She has no symptoms of bleeding at this time. With her aortic stenosis, cannot exclude bleeding from a GI tract from angiodysplasia. 7. Possible sleep apnea. 8. Prerenal azotemia at the time of admission. Her BUN today is actually improved despite the diuresis. 9. Metabolic alkalosis. This was present at the time of admission. Suspect that she may have a significant respiratory acidosis with compensatory metabolic alkalosis. 10. No history of hypertension. She states that usually her blood pressure is on the low side. Her left ventricular hypertrophy noted on echocardiography would be secondary to her aortic stenosis. 11. A 6-beat run of nonsustained ventricular tachycardia this morning. This was asymptomatic. Her potassium level today is normal. Magnesium level yesterday was normal. Certainly, her magnesium level may be decreased today secondary to diuresis overnight and yesterday. 12. There is no evidence of myocardial injury by enzymes or electrocardiogram. She has low normal overall left ventricular systolic function. RECOMMENDATIONS: 1. Agree with initiation of carvedilol therapy. 2. Agree with continued IV diuretics today. If she has significant diuresis today, could consider switching to oral furosemide tomorrow. 3. Start spironolactone 25 mg daily. 4. When she is stabilized, it would be beneficial for undergo complete pulmonary function testing as well as a sleep study. Sleep study would be to evaluate for significant sleep apnea and oxygen desaturation. 5. Recheck potassium and magnesium levels tomorrow. 6. Consider arterial blood gas to document her pCO2. Her body habitus would predispose her to CO2 retention from restrictive lung disease. 7. Stool Hemoccult to assess for GI bleeding. 8. Repeat CBC tomorrow. 9. She will need outpatient cardiology followup when discharged. The patient desires to see me in followup. This can be arranged at the time of discharge. 10. Would consider repeating echocardiogram in 6 months to see if there is any progression of her aortic stenosis. If the aortic stenosis is stable, would then perform a yearly echocardiogram. 11. The patient was initially seen by me last night unofficially. The official consult was placed this morning. The patient and her daughter had requested that I see her last night. The results of all of her cardiac testing and my assessment and recommendations as documented above were discussed with the patient and her . Thank you for asking us to see this patient in cardiology consultation. CATY
[2017-04-02] MEDS: ASPIRIN 325 MG ECTAB PO SCH (20:57)
[2017-04-03] VITALS (10 sets, daily range): BP systolic 94–145; BP diastolic 55–76; PULSE 56–88; TEMP 36.7–37.2; O2SAT 91–100; Ht 152.4 cm; Wt 113.9 kg
[2017-04-03] MEDS: HEPARIN SOD 5000 UNIT/0.5 ML CARP SQ SCH ×3 (06:02→21:10)
[2017-04-03] MEDS: ALBUT/IPRATROP 3MG/0.5MG NEB 3 ML VIAL INH SCH ×4 (07:22→19:23)
[2017-04-03] MEDS: FERROUS SULFATE 325 MG TAB PO SCH ×3 (08:01→17:09)
[2017-04-03] MEDS: SPIRONOLACTONE 25 MG TAB PO SCH (08:01)
[2017-04-03] MEDS: CARVEDILOL 3.125 MG TAB PO SCH ×2 (08:01→21:00)
[2017-04-03] MEDS: MAGNESIUM OXIDE 400 MG TAB PO SCH ×2 (08:01→21:09)
[2017-04-03] MEDS: POTASSIUM CHLORIDE 20 MEQ TABCR PO SCH (08:02)
[2017-04-03] MEDS: LACTULOSE SYRUP 10 GM/15 ML BTL 473 ML PO SCH (08:02)
[2017-04-03] MEDS: INSULIN ASPART 100 UNITS/ML 3 ML PEN SC SCH ×4 (08:11→21:00)
--- NOTE | 2017-04-03 09:19 | Hospitalist Progress Note ---
Hospitalist Progress Note Date of Service Apr 03, 2017. (Kamini Chavez PA-C) Subjective Pt evaluation today including: conversation w/ patient, physical exam, chart review, lab review, review of studies Pain: None PO Intake: Good Voiding: no voiding problems The patient was seen and examined this morning. Pt reports diuresing a lot. She had one significant bowel movement since administration of lactulose, and another smaller one. She did not sleep overnight very well. She reports ability to breath is improving, and that she's not wheezing as much. She has not yet walked with PT/OT. Additional Comments: Constitutional: No fever, No chills, No sweats Eyes: No redness, No diplopia ENT: No nasal symptoms, No sore throat Respiratory: + wheezing, + dyspnea on exertion (however improved compared to yesterday), No cough, No sputum, No dyspnea at rest Cardiovascular: No chest pain, No palpitations Abdomen: No pain, No nausea, No vomiting, No diarrhea, No constipation Musculoskeletal: + swelling (BLE), No joint pain, No muscle pain Female : No dysuria, No hematuria Neurologic: No weakness, No numbness/tingling Endo: No fatigue Skin: No rash, No itch (Kamini Chavez PA-C) Objective Vital Signs Date Time Temp Pulse Resp B/P (MAP) Pulse Ox O2 Delivery O2 Flow Rate FiO2 04/03/17 08:00 37.2 88 18 139/73 (95) 91 Nasal Cannula 2.0 04/03/17 07:25 56 16 96 Nasal Cannula 3.0 04/03/17 04:00 Nasal Cannula 3.0 04/03/17 04:00 37.0 82 21 95/55 (68) 98 Nasal Cannula 3.0 04/03/17 00:00 37.1 82 22 125/69 (87) 96 Nasal Cannula 3.0 04/02/17 23:59 Nasal Cannula 3.0 04/02/17 20:00 Nasal Cannula 3.0 04/02/17 19:42 37.0 82 20 111/68 (82) 97 Nasal Cannula 2.0 04/02/17 19:00 72 16 94 Nasal Cannula 3.0 04/02/17 16:00 Nasal Cannula 3.0 04/02/17 15:42 81 16 95 Nasal Cannula 3.0 04/02/17 15:36 36.9 78 20 110/69 (83) 97 Nasal Cannula 2.0 04/02/17 12:00 Nasal Cannula 3.0 04/02/17 11:48 36.9 78 20 130/67 (88) 96 Nasal Cannula 2.0 04/02/17 11:15 88 16 96 Nasal Cannula 3.0 (Kamini Chavez PA-C) Physical Exam Notes: General Appearance: WD/WN, no apparent distress, + obese Eyes: PERRL, EOMI ENT: hearing grossly normal, pharynx normal Neck: supple, no JVD Respiratory/Chest: no respiratory distress, no accessory muscle use, + pertinent finding (on 2 L via NC, + expiratory wheeze in LONNIE, +breath sounds improving) Cardiovascular: regular rate, rhythm, no JVD, + systolic murmur (holosystolic grade III/) Abdomen: normal bowel sounds, non tender, soft, + pertinent finding (obese, + pannus) Extremities: non-tender, normal inspection, no calf tenderness, + pedal edema ( 2+ pitting edema BLE to below the knee.) Neurologic/Psychiatric: alert, normal mood/affect, oriented x 3 Skin: normal color, warm/dry (Kamini Chavez PA-C) Laboratory Results Last 24 Hours Test 04/02/17 16:18 04/02/17 17:25 04/02/17 20:05 04/03/17 04:44 Bedside Glucose 112 mg/dl 128 mg/dl Ammonia 43.0 umol/L Thyroid Stimulating Hormone (TSH) 1.890 uIu/ml Test 04/03/17 06:39 Bedside Glucose 144 mg/dl (Kamini Chavez PA-C) Assessment and Plan This is a 62-year-old female with a past medical history of seasonal allergies and chronic sinusitis who presents to the ER today with worsening shortness of breath 1.5 weeks. New onset Acute diastolic CHF exacerbation Shortness of breath - Admit to telemetry : Patient reports she has been short of breath for a year now, although acutely worsened within the past 1-2 weeks associated with peripheral edema, orthopnea and diminished appetite. - cardiac biomarkers were negative x 2 - Formal cardiology consult placed per pt request with Dr. Collier: appreciate recommendations - Start spironolactone 25 mg PO daily - Pt was administered dose of lactulose for hyperammonemia, likely due to hepatic congestion with volume overload. Pt admitted to worsening confusion prior to admission, tremor. - Echo ordered: Grade II diastolic dysfunction with moderate aortic stenosis, trace GA, TR and MR. Likely pulmonary hypertension with elevated right systolic ventricular pressure. * Low normal left ventricular systolic function. * Mild concentric left ventricular hypertrophy. * Normal chamber dimensions. * Possible bicuspid aortic valve with moderate stenosis. * Mild aortic regurgitation. * Trace pulmonic, tricuspid, and mitral regurgitation. * Elevated central venous pressure. * Mildly elevated estimated right ventricular systolic pressure. * Elevated left atrial pressure. - Aggressive diuresis to continue: Lasix 40 mg IV BID for now. Creatinine hasn' t changed at all yet, so likely still have a ways to go. - Potassium 20 Mg Q ordered every morning with aggressive diuresis - Cont Aspirin, pt normally takes 325 QPM for back pain - Checking lipid panel - wnl - Strict I's and O's: 3.5 L yesterday, continue fluid restriction of 1500ml/day - Daily weights - Heart healthy / low-sodium diet - Currently on 2 L via NC, does not wear supplemental O2 at baseline, 2 step for home oxygen needs ordered DM II, new onset - Hgb A1C of 7.5 - Discussion with the patient about diet and exercise was reinforced with the patient this morning. An option of Metformin ER 500 mg daily would be an option for the patient, but she'd like a little time to think about this. - Fleshing Machine Operator has seen the pt. - Cont ISS with accuchecks ACHS Hgb of 9.3 - Iron deficient, continue supplementation - Pt will need outpatient workup at time of discharge with colonoscopy as she has never had one before. Denies changes in bowels/dark tarry stools Chronic sinusitis - We will order nasal saline spray the patient has been using this at home Chronic low back pain - Cont asa 325 mg QPM Morbid obesity BMI= 50.4 - Diet and weight loss encouraged at bedside DVT prophylaxis: Teds, SCDs, heparin subcutaneous CODE STATUS: Full code Disposition: Patient from home, lives with her , CM to assist with discharge planning (Filipowicz,Kamini G., PA-C) Attending Attestation: Pt seen/examined, chart reviewed, care plan d/w TRACEY Chavez. I agree w/ the saleem components of her documentation. Pt feeling better and anxious to leave. tele stable. tremor and mental "fogginess" improved. VSS afebrile gen - obese neck - no obvious JVD heart - 2-3/6 systolic murmur RUSB, RRR, s1, s2 lungs - apices clear, still with crackles bases, occasional wheeze abd - obese, soft ext - 2+ edema remains neuro - asterixis resolved; tremor resolved BMP, mag stable A/P: 1. acute (on probable chronic) diastolic CHF - improving 2. moderate in setting of probable bicuspid valve 3. probable BEN 4. hepatic encephalopathy - improved 5. Fe deficiency anemia 6. acute hypercarbic/hypoxic resp failure 2nd to #1 7. T2DM - new cont lasix 40mg IV BID and aldactone coreg 3.125mg BID lactulose 15cc daily Ferrous sulfate 325mg TID; will need outpatient GI w/u for the low Fe needs sleep study appreciate Dr. Collier's recs family updated I encouraged patient to be patient with her diuresis and to allow her to become euvolemic before d/c home Bill BAEZA MD (Tyron Baeza MD)
[2017-04-03] MEDS: FUROSEMIDE INJ 40 MG in SYRINGE 0 ML IV SCH ×2 (09:39→17:08)
[2017-04-03 10:53] LABS: ARTERIAL BLD GAS O2 SATURATION 90.5 % (90-95); ARTERIAL BLOOD GAS BASE EXCESS 12.3 mEq/L (-9-1.8); ARTERIAL BLOOD GAS HCO3 39 mmol/L (19-24); ARTERIAL BLOOD GAS PO2 66 mm/Hg (80-95)
[2017-04-03 10:55] LABS: ALLEN TEST POSITIVE (POS); O2 ADMINISTRATION 2 LITERS
[2017-04-03 11:04] LABS: HEMATOCRIT 35.4 % (37-47); MEAN CELL VOLUME 87.4 fL (80-100); MEAN CORPUSCULAR HEMOGLOBIN 23.2 pg (25-34); MEAN CORPUSCULAR HGB CONC 26.6 g/dl (32-36); MEAN PLATELET VOLUME 9.7 fL (7.4-10.4); PLATELET COUNT 318 K/uL (130-400); RED BLOOD COUNT 4.05 M/uL (4.2-5.4); WHITE BLOOD COUNT 11.09 K/uL (4.8-10.8)
[2017-04-03 11:42] LABS: CALCIUM 8.7 mg/dl (8.5-10.1); CREATININE 0.69 mg/dl (0.60-1.20); MAGNESIUM 2.2 mg/dl (1.8-2.4); POTASSIUM 4.6 mmol/L (3.5-5.1)
--- NOTE | 2017-04-03 12:52 | CARDIOLOGY PROGRESS NOTE ---
DATE: 04/03/2017 SUBJECTIVE: The patient was seen by me in late this morning in the telemetry unit room. She states that she is feeling better than yesterday. Last evening, she was able to walk around the unit 2 times without any supplemental oxygen. With this, she denied any dyspnea. She denies any dyspnea this morning. She states that her wheezing has resolved. Her cough has improved over the past 2 days. It is still occasionally productive of a brownish to yellow sputum. She denies any fevers or chills. No palpitations. No lightheadedness or syncope. No chest pain or other anginal type pains. No abdominal pain or nausea. She does not think there has been any significant change in her leg edema today compared to yesterday. No neurological type complaints. She does complain of fatigue from not being able to sleep in the hospital. CURRENT MEDICATIONS: Spironolactone 25 mg daily, furosemide 40 mg IV b.i.d., NovoLog sliding scale insulin, potassium chloride 40 mEq daily, magnesium oxide 400 mg b.i.d., carvedilol 3.125 mg b.i.d., ferrous sulfate 325 mg t.i.d., subQ heparin 5000 units q. 8 hours, aspirin 325 mg daily, and DuoNeb 3 mL q.i.d. ALLERGIES AND ADVERSE DRUG REACTIONS: None. Monitor history over the past 24 hours reviewed by me. Sinus rhythm. Rare premature ventricular beats. No further nonsustained ventricular tachycardia since early yesterday morning. At that time, she had a 6-beat run. This was just before 07:00 a.m. yesterday morning. Intake and output yesterday 1460/3300. PHYSICAL EXAMINATION: VITAL SIGNS: This morning with oral temperature 37.2, pulse 88, blood pressure 139/73, and pulse oximetry on 2 liters per minute nasal cannula oxygen 91%. Repeat oxygen saturation at 11:42 a.m. 96% on 2 liters per minute nasal cannula oxygen. GENERAL APPEARANCE: Shows her to be sitting on the side of her bed. No distress. NECK: Difficult to evaluate jugular venous pressure secondary to neck size. LUNGS: Normal respiratory effort. Clear posteriorly. No rales or wheezes. No rhonchi. HEART: Regular rate and rhythm. Diminished aortic valvular closing sound. A 2/6 systolic murmur at the second intercostal space and left sternal border. No diastolic murmur, rub, or gallop heard today. ABDOMEN: Obese. Soft. Nontender. No palpable masses or organomegaly. EXTREMITIES: 2+ pretibial edema bilaterally. No calf tenderness. NEUROLOGIC: Alert and oriented x3. Motor grossly intact. PSYCHIATRIC: Affect is normal. DATA: Electrocardiogram performed today and reviewed by me shows normal sinus rhythm. The electrocardiogram is normal. Metabolic profile today with sodium 136, potassium 4.6, chloride 97, carbon dioxide 38, BUN 12, creatinine 0.69, and random glucose 96. Calcium 8.7. Magnesium 2.2. TSH yesterday was 1.890. Ammonia level yesterday was elevated at 43.0. She received lactulose yesterday. This did produce a bowel movement. CBC today with WBC 11.09, hemoglobin 9.4, hematocrit 35.4, and platelet count 318. Arterial blood gas this morning with pH 7.40, pCO2 of 65, pO2 of 66, bicarbonate 39, and oxygen saturation 90.5. This is on 2 liters per minute nasal cannula oxygen. ASSESSMENT: 1. Acute diastolic heart failure. Lung exam today markedly improved from yesterday and 2 days ago. She has no rales or wheezes on exam today. No rhonchi. She still has a relatively low oxygen saturation on supplemental nasal oxygen. However, she was able to walk around the unit last evening 2 times without any dyspnea. This was without supplemental oxygen. Suspect her oxygen saturation when she is sitting at rest or lying in bed is actually lower than when she exerts herself. This is from hypoventilation. She still has peripheral edema. 2. Bicuspid aortic valve on echocardiogram this admission. Moderate aortic stenosis. Left ventricular diastolic dysfunction and left ventricular hypertrophy on echo. She has a longstanding history of a heart murmur as an adult. 3. Blood pressure this morning with mildly elevated systolic reading. However, overnight her blood pressure is 95/55. 4. No further significant ventricular arrhythmias since yesterday morning. Magnesium and potassium levels today are normal. 5. Stable creatinine with diuresis. Her BUN is actually improving with diuresis. This likely reflects improved cardiac function and increased perfusion of the kidneys. 6. CO2 retention. Metabolic acidosis. Compensatory metabolic alkalosis. With this compensation, her pH is normal. This would go with the CO2 retention being a chronic issue. She has a body habitus for CO2 retention. Her body habitus predisposes her to a restrictive ventilatory defect and hypoventilation. 7. Suspect that she has underlying reactive airway disease. She had wheezing earlier on admission. Today, there is no wheezing on exam. 8. Iron deficiency anemia. Hemoglobin stable. No symptoms of bleeding. 9. Probable significant obstructive sleep apnea. RECOMMENDATIONS: 1. Continue current dose of carvedilol. 2. She received intravenous furosemide this morning. Could switch her to oral furosemide. 3. Continue potassium and magnesium supplementation at this time. 4. Consider decreasing aspirin to 81 mg daily. 5. Two-step test today to reevaluate need for home oxygen. 6. Outpatient cardiology followup with me. 7. She needs medical followup. 8. Would recommend that she be referred to resort manager/sleep specialist. 9. Outpatient pulmonary function test and a sleep study.
[2017-04-03] MEDS ORDERED: ACETAMINOPHEN 325 MG TAB PO PRN (21:00)
[2017-04-03] MEDS: ASPIRIN 325 MG ECTAB PO SCH (21:09)
[2017-04-03] MEDS ORDERED: CYCLOBENZAPRINE HCL 5 MG TAB PO PRN (22:15)
[2017-04-04] VITALS (7 sets, daily range): BP systolic 104–123; BP diastolic 62–81; PULSE 68–93; TEMP 36.7–36.9; O2SAT 92–97
[2017-04-04] MEDS: HEPARIN SOD 5000 UNIT/0.5 ML CARP SQ SCH ×2 (05:02→13:43)
[2017-04-04] MEDS: ALBUT/IPRATROP 3MG/0.5MG NEB 3 ML VIAL INH SCH ×2 (07:29→11:32)
[2017-04-04] MEDS: FERROUS SULFATE 325 MG TAB PO SCH ×2 (08:04→12:04)
[2017-04-04] MEDS: MAGNESIUM OXIDE 400 MG TAB PO SCH (08:04)
[2017-04-04] MEDS: LACTULOSE SYRUP 10 GM/15 ML BTL 473 ML PO SCH (08:04)
[2017-04-04] MEDS: SPIRONOLACTONE 25 MG TAB PO SCH (08:04)
[2017-04-04] MEDS: POTASSIUM CHLORIDE 20 MEQ TABCR PO SCH (08:05)
[2017-04-04] MEDS: FUROSEMIDE INJ 40 MG in SYRINGE 0 ML IV SCH (08:05)
[2017-04-04] MEDS: CARVEDILOL 3.125 MG TAB PO SCH (08:05)
[2017-04-04] MEDS: INSULIN ASPART 100 UNITS/ML 3 ML PEN SC SCH ×2 (08:14→12:07)
[2017-04-04 08:19] LABS: BUN/CREATININE RATIO 17.4 (10-20); CALCIUM 8.7 mg/dl (8.5-10.1); CREATININE 0.68 mg/dl (0.60-1.20); POTASSIUM 4.3 mmol/L (3.5-5.1)
[2017-04-04] MEDS ORDERED: SPR25 PO (11:49)
[2017-04-04] MEDS ORDERED: CRG3125 PO (11:49)
[2017-04-04] MEDS ORDERED: FRS/40 PO (11:49)
[2017-04-04] MEDS ORDERED: MCRK20 PO (11:49)
[2017-04-04] MEDS ORDERED: FRRS300 PO (11:49)
[2017-04-04] MEDS ORDERED: ASPEC325 PO (11:49)
--- NOTE | 2017-04-04 12:11 | Discharge Instructions ---
Discharge Instructions Date of Service Apr 04, 2017. Admission Reason for Admission: Shortness Of Breath Discharge Discharge Diagnosis / Problem: Acute Diastolic Heart Failure, shortness of breath, fluid overload Discharge Goals Goal(s): Decrease discomfort, Improve function, Increase independence, Improve disease control Activity Recommendations Activity Limitations: per Instructions/Follow-up section Lifting Limitations: gradually increase as tolerated Exercise/Sports Limitations: as tolerated, gradually increase as tolerated May Resume Sexual Activity: when tolerated Shower/Bathe: no limitations Driving or Machine Use: resume 1 day after discharge . Instructions / Follow-Up Instructions / Follow-Up You were admitted to [facility] with shortness of breath and diagnosed with Diastolic Heart Failure, grade 2. - During your stay here you were treated with intravenous diuretics (lasix) to remove extra fluid which was causing shortness of breath. - You were also treated with a one time dose of lactulose to treat elevated ammonia level, which was due to fluid congestion in the liver from heart failure. - An oxygen test was completed and you will need supplemental O2 at 3L at all times, including sleep. You have a new diagnosis of Diabetes Mellitus Type 2 - Check your glucose daily with meals, and before bed. - You decided to trial diet and exercise, and it is very important to try to loose weight. Weight loss goal is 5-10 pounds per month. Please discuss this with your family doctor at follow up. Lab Work: - You need to have blood work completed prior to your follow up appointment with Dr. Collier, cardiology. - Have labs drawn on - this will be once you return from vacation. Follow up: - Follow up with Dr. Collier as scheduled - Follow up with PCP within 1-2 weeks, an appointment has been requested for you - Follow up with the heart failure clinic within 1-2 weeks Specific Heart Failure Instructions; Call your Primary Care doctor if any of the following symptoms or problems start or get worse: * Shortness of breath or difficulty breathing * Wake up at night short of breath * Chest pain * Cough * Swelling of your hands, feet, or legs * More fatigued or tired with your normal activity * Palpitations - sudden fast heart beats WEIGHT * Weigh yourself every morning after using the bathroom. * Use the same scale. * Wear the same amount of clothing. * Write your weight down on a chart. * Call your Primary Care doctor if you gain more than 2-3 pounds in 1-2 days or more than 5 pounds in 1 week. MEDICATIONS * Use this discharge instruction sheet for medication instructions. * Take your medications at the time your doctor ordered. * Do not skip a dose of your medicines. * If you miss a dose of medicine, take it as soon as possible, but DO NOT DOUBLE A DOSE. * Read your medicine information when you get home. * Know all of the side effects of your medicine. If in doubt, ask your pharmacist * Call your Primary Care doctor's office if you have any side effects. * Be sure all of your doctors know what medicine and herbs you take (including cold, flu, and herbal medicine). Take the following with you to your follow-up doctor appointments: * Weight Chart * Medication List * List of questions Do not drink excessive alcohol, beer or wine. Current Hospital Diet Patient's current hospital diet: AHA Diet (Heart Healthy), Diabetes Type 2 Diet Discharge Diet Recommended Diet: AHA Diet (Heart Healthy), Diabetes Type 2 Diet Fluid Restriction: 1500 ml (6 cups) Pending Studies Studies pending at discharge: no Laboratory Results Hemoglobin A1c Test 04/02/17 04:30 Range/Units Estimated Average Glucose 169 mg/dl Hemoglobin A1c 7.5 H 4.5-5.6 % Lipid Panel Test 04/02/17 04:30 Range/Units Triglycerides Level 103 0-150 mg/dl Cholesterol Level 118 0-200 mg/dl HDL Cholesterol 36 mg/dl Cholesterol/HDL Ratio 3.3 LDL Cholesterol, Calculated 61 mg/dl Medical Emergencies . Who to Call and When: Call 911 or go to the Emergency Room if: * If at any time you feel your situation is an emergency * You have tightness or pain in your chest that does not go away with rest or Nitroglycerin * You are very short of breath even with rest . Non-Emergent Contact Non-Emergency issues call your: Primary Care Provider, Contracts Paralegal Call Non-Emergent contact if: you have a fever (chills, sweats, chest pain, shortness of breath, worsening swelling in lower legs, abdominal pain, nausea, vomiting, diarrhea, ), temperature is above 100.5, your pain is not controlled, you have any medication questions . Past History Medical & Surgical History: (1) Acute on chronic diastolic (congestive) heart failure (2) Diabetes type 2, uncontrolled (3) Dyspnea (4) Shortness of breath (5) Morbid obesity with BMI of 45.0-49.9, adult (6) CO2 retention . "Provider Documentation" section prepared by Cathy Chavez. . VTE Core Measure Inpt VTE Proph given/why not?: Unfractionated heparin SQ, T.E.D. Stockings, SCD 's [place] Drug Monitoring Program Search Results: no issues identified
--- NOTE | 2017-04-04 14:58 | Discharge Summary ---
Discharge Summary Date of Service Apr 04, 2017. (Kamini Chavez PA-C) Discharge Summary Admission Date: Apr 01, 2017 at 14:34 Discharge Date: Apr 04, 2017 Discharge Disposition: Home Principal Diagnosis: Acute on chronic diastolic CHF, DM II, Co2 retention Problems/Secondary Diagnoses: Acute on chronic diastolic CHF CO 2 Retention Restrictive airway disease Obesity, BMI 49.0 DM II HTN Procedures: CHEST ONE VIEW PORTABLE 04/01/17 IMPRESSION: Pulmonary edema versus congestive failure Consultations: Cardiology (Kamini Chavez PA-C) Medication Reconciliation New Medications: Furosemide (Lasix) 40 Mg Tab 80 MG PO DAILY for 30 Days, #60 TAB Aspirin (Aspirin) 325 Mg Ectab 325 MG PO QPM for 30 Days, #30 TAB Carvedilol (Carvedilol) 3.125 Mg Tab 3.125 MG PO BID for 30 Days, #60 TAB Ferrous Sulfate (Ferrous Sulfate) 325 Mg Tab 325 MG PO BID for 30 Days, #60 TAB Potassium Chloride (Klor-Con M20) 20 Meq Tabcr 20 MEQ PO QAM for 30 Days, #30 TAB Spironolactone (Spironolactone) 25 Mg Tab 25 MG PO QAM for 30 Days, #30 TAB Discharge Exam The patient was seen and examined this morning. Pt reports feeling well today. She is requesting to go home. States her breathing continues to improve and that she isn't feeling near short of breath. (Kamini Chavez PA-C) Hospital Course History of Present Illness Source: patient, family This is a 62-year-old female with a past medical history of seasonal allergies and chronic sinusitis who presents to the ER today with worsening shortness of breath 1.5 weeks. She reports not seeing her family physician for greater than 30 years but previously saw Dr. Flor. Patient reports that she has become acutely short of breath with ambulation and can only walk approximately 5 feet before getting short of breath. She denies orthopnea although prefers to sleep in a recliner and has been doing this for some time now. The patient is unaware if she has gained a large amount of weight recently, although thinks that she has gained some weight. She cannot remember the last time she weighed himself. Pt typically eats twice daily, and frequently orders out food. She denies watching her diet or type of fluids she drinks specifically, basically only drinks sweetended ice tea. She denies history of smoking. She reports using nasal saline spray and [id number] congestion for her sinusitis recently. She does not wear oxygen at baseline. She reports taking a full dose aspirin every evening for chronic low back pain. Here in the ER the patient was reported to be satting in the low 60s on room air , BNP is equal to 1515, and a chest x-ray was completed showing pulmonary edema versus congestive failure. At bedside the patient ambulated to the restroom and dropped to 61% on room air, it took her approximately 2 minutes to come back up into the mid 80s to low 90s once placed back on oxygen. Physical Exam Vital Signs Date Time Temp Pulse Resp B/P (MAP) Pulse Ox O2 Delivery O2 Flow Rate FiO2 04/01/17 13:41 84 18 148/82 92 Nasal Cannula 4.0 04/01/17 12:04 85 04/01/17 11:45 86 20 186/94 94 Nasal Cannula 4.0 04/01/17 11:25 36.4 91 24 153/79 66 Room Air 04/01/17 11:25 66 Room Air General: awake, alert, no apparent distress, morbidly obese BMI equals 50.4 Head: Normocephalic, atraumatic ENT: PERRL, EOMI, no pharyngeal exudate, mucous membranes moist Chest: + On 4 L via NC, + inspiratory and expiratory wheezing throughout, tachypneic with ambulation and O2 sats to 61% on room air. Cardiac: + Tachycardic, no murmur, no JVD, normal peripheral pulses, good capillary refill Abdominal: NABS x 4 quadrants, soft, nontender to palpation, no rebound, guarding or tenderness Extremities: Normal inspection, +2 pitting peripheral edema bilaterally, no erythema, calfs nontender to palpation Psych: Normal mood and affect Neuro: AAO x 3, strength intact bilaterally and related 5/5, no motor deficits, speech is clear, no peripheral sensory deficits Hospital Course: This is a 62-year-old female with a past medical history of seasonal allergies and chronic sinusitis who presents to the ER today with worsening shortness of breath 1.5 weeks. New onset Acute diastolic CHF exacerbation Shortness of breath - cardiac biomarkers were negative x 2 - Formal cardiology consult placed per pt request with Dr. Collier: appreciate recommendations - IV diuresis was obtained and Cr. function actually improved likely due to improved hypervolemia. The patient diuresed well. Continue fluid restriction of 1500ml/day on discharge. She was continued on Lasix 80 mg PO QAM, spironolactone 25 mg PO daily and potassium supplement at the time of discharge. - Pt was administered dose of lactulose for hyperammonemia, likely due to hepatic congestion with volume overload. Pt admitted to worsening confusion prior to admission, tremor. Tremor resolved and the patient ammonia level decreased with dosing of lactulose. - Echo completed: * Low normal left ventricular systolic function. * Mild concentric left ventricular hypertrophy. * Normal chamber dimensions. * Possible bicuspid aortic valve with moderate stenosis. * Mild aortic regurgitation. * Trace pulmonic, tricuspid, and mitral regurgitation. * Elevated central venous pressure. * Mildly elevated estimated right ventricular systolic pressure. * Elevated left atrial pressure. - Cont Aspirin, pt normally takes 325 QPM for back pain - lipid panel - wnl - Daily weights - Heart healthy / low-sodium diet - Currently on 2 L via NC, does not wear supplemental O2 at baseline, 2 step for home oxygen needs ordered - Patient was given CHF discharge instructions. DM II, new onset - Hgb A1C of 7.5, will need recheck within 3 months. - Discussion with the patient about diet and exercise was reinforced with the patient this morning. An option of Metformin ER 500 mg daily would be an option for the patient, but is agreeable to trying diet and exercise first. She plans to speak with her PCP about this at follow-up appointment. - Pediatric Psychiatrist has seen the pt. - Cont ISS with farzaneh TRAORE -Patient has been given a glucometer to monitor sugar here, and has a prescription for glucose testing strips and lancets Hgb of 9.3 - Iron deficient, continue supplementation - Pt will need outpatient workup at time of discharge with colonoscopy as she has never had one before. Denies changes in bowels/dark tarry stools Chronic sinusitis - We will order nasal saline spray the patient has been using this at home Chronic low back pain - Cont asa 325 mg QPM Morbid obesity BMI= 50.4 - Diet and weight loss encouraged at bedside DVT prophylaxis: Teds, SCDs, heparin subcutaneous CODE STATUS: Full code Disposition: Patient from home, lives with her , discharge to home today. Total Time Spent: Greater than 30 minutes This includes examination of the patient, discharge planning, medication reconciliation, and communication with other providers. (Kamini Chavez PA-C) [facility] Physician Supervision Note: I interviewed and examined the patient. Discussed with Kamini Chavez PAC and agree with findings and plan as documented in the note. Any exceptions or clarifications are listed here: None Patient is seen prior to discharge, she may not be exactly dry weight which is given education about Lasix use and daily weight. Patient states that she is leaving today to go to the beach and would not stay even up asked to. Next Her dry weight is 113.9 kg Cardiac exam is distant and regular with systolic murmur she had bibasilar crackles she had morbid obesity with intertrigo and lower extremity edema is 1+ Acute diastolic heart failure valvular heart disease the patient name maintained by heart failure clinic under the direction of Dr. Collier she'll be out on intravenous Lasix with instructions to increase if she gains 3 pounds in 1 day or 5 pounds in 1 week. She is encouraged to have close contact with cardiology for any questions and establish primary care in the community We had discussions regarding her glucose intolerance she's going to try dietary modification at this time Documented By: Carlos Beckford (Carlos Beckford M.D.) Discharge Instructions Please refer to the electronic Patient Visit Report (Discharge Instructions) for additional information. (Kamini Chavez PA-C) Follow-Up Follow up with your Primary Care Provider within 1 week. Follow-up with cardiology within 1-2 weeks Follow up with heart failure clinic within 1-2 weeks. (Kamini Chavez PA-C)
--- NOTE | 2017-04-04 17:55 | CARDIOLOGY PROGRESS NOTE ---
DATE: 04/04/2017 SUBJECTIVE: The patient was seen by me this morning in her telemetry unit room. She is feeling better than yesterday. No dyspnea at rest. No orthopnea or PND overnight. No palpitations, lightheadedness, or syncope. She thinks her peripheral edema has decreased from yesterday. No abdominal pain or nausea. No fevers or chills. Her productive cough is decreasing on a daily basis. Only minimal cough today. No significant sputum production by her account. Her appetite is good. She states that with walking in the room, she has no dyspnea. She states that she underwent an oxygen 2-step test yesterday. I am not able to locate the results in the medical records. It is noted that the 2-step exercise was completed. It is in case management note. It states that she will need home oxygen at discharge. This is being arranged. MEDICATIONS: This morning were cyclobenzaprine 10 mg q. 8 hours p.r.n. leg cramping, spironolactone 25 mg daily, lactulose 15 grams p.o. daily a.m., furosemide 40 mg IV b.i.d., potassium chloride 40 mEq p.o. daily, magnesium oxide 400 mg b.i.d., carvedilol 3.125 mg b.i.d., ferrous sulfate 325 mg t.i.d., subQ heparin 5000 units q. 8 hours, aspirin 325 mg daily, and DuoNeb 3 mL q.i.d. ALLERGIES AND ADVERSE DRUG REACTIONS: None. Monitor history over the past 24 hours reveals a 6-second episode of atrial fibrillation at 23:39 last evening. Rate 121 beats per minute. No other atrial fibrillation episodes noted. No further ventricular tachycardia noted. PHYSICAL EXAMINATION: VITAL SIGNS: This morning with oral temperature 36.8, pulse 79, blood pressure 113/71, and pulse oximetry on 2 liters per nasal cannula oxygen 94%. GENERAL APPEARANCE: Shows her to be in no distress. HEAD: Normal. EYES: Pupils equal and round. Anicteric. NECK: Short, thick neck. No obvious jugular venous distention. LUNGS: Normal respiratory effort. No rales or wheezes. No rhonchi. HEART: Regular rate and rhythm. Diminished, but present aortic valvular closing sound. A 2/6 systolic murmur at the second intercostal space and left sternal border. No diastolic murmur or rub. ABDOMEN: Obese. Soft. Nontender. No palpable masses or organomegaly. EXTREMITIES: 1-2+ pretibial edema bilaterally. No cyanosis or clubbing. NEUROLOGIC: Alert and oriented x3. Motor grossly intact. PSYCHIATRIC: Affect normal. LABORATORY DATA: Metabolic profile today with sodium 137, potassium 4.3, chloride 94, carbon dioxide 40, BUN 12, creatinine 0.68, and random glucose 103. ASSESSMENT: 1. Resolving acute diastolic heart failure. No evidence of pulmonary vascular congestion on exam today. 2. Slight improvement in peripheral edema today compared to yesterday. 3. Bicuspid aortic valve with moderate stenosis. 4. CO2 retention. 5. Acute on chronic respiratory failure. 6. Report of oxygen desaturation with exercise. She meets criteria for home oxygen. 7. Good diuresis yesterday. Negative fluid balance yesterday 2110 mL. 8. Brief episode of nonsustained atrial fibrillation last evening. On this admission, no other episodes of atrial fibrillation noted. 9. No anginal type complaints. 10. Elevated serum bicarbonate. Metabolic alkalosis compensating for respiratory acidosis. 11. Renal function stable. BUN and creatinine are normal today. 12. Diabetes mellitus. 13. Blood pressure adequately controlled. RECOMMENDATIONS AND PLAN: 1. Discharge the patient home. 2. Furosemide 80 mg p.o. daily. 3. Continue carvedilol, potassium, and spironolactone. 4. Continue aspirin. 5. Follow up in [facility] heart failure clinic in 1-2 weeks. The patient will actually be away next week. Follow up metabolic profile after she returns to [place]. 6. The patient was advised to adhere to a low sodium diet. 7. As an outpatient, she should have pulmonary function test and a sleep study performed. 8. Check metabolic profile in 1 week. CATY
== END 2017-04-04 14:57 | disposition home or self-care (01) | DRG 291 ==
LOC: C.EDB 11:24 → C.2E 14:34 → ENRESERV 14:44
PROVIDERS: ADMIT Family Medicine; ATTEND Internal Medicine
DX: I50.33 Acute on chronic diastolic (congestive) heart failure (principal); J96.22 Acute and chronic respiratory failure with hypercapnia; J96.21 Acute and chronic respiratory failure with hypoxia; I47.2 Ventricular tachycardia; E87.4 Mixed disorder of acid-base balance; Q23.1 Congenital insufficiency of aortic valve; Z68.43 Body mass index [BMI] 50.0-59.9, adult; K72.90 Hepatic failure, unspecified without coma; R79.89 Other specified abnormal findings of blood chemistry; I10 Essential (primary) hypertension; E11.9 Type 2 diabetes mellitus without complications; J45.909 Unspecified asthma, uncomplicated; D50.9 Iron deficiency anemia, unspecified; G89.29 Other chronic pain; M54.5 Low back pain; J32.9 Chronic sinusitis, unspecified; G47.33 Obstructive sleep apnea (adult) (pediatric); E66.01 Morbid (severe) obesity due to excess calories; Z77.22 Contact with and (suspected) exposure to environmental tobacco smoke (acute) (chronic); Z87.74 Personal history of (corrected) congenital malformations of heart and circulatory system; Z79.82 Long term (current) use of aspirin

== ENCOUNTER → 2017-06-18 | Outpatient (CLI) | payer OTHER ==
[~2017-06-18] MED LIST: ASPEC325 PO; CRG3125 PO; FRRS300 PO; MCRK20 PO; SPR25 PO
--- NOTE | 2017-06-18 12:56 | DIAGNOSTIC IMAGING REPORT ---
CHEST 2 VIEWS ROUTINE CLINICAL HISTORY: Diastolic heart failure. Obstructive sleep apnea. COMPARISON STUDY: Chest radiograph April 01, 2017. FINDINGS: Lung volumes are normal. There is no pneumothorax or pleural effusion. There is no evidence of pulmonary edema. Exam is slightly compromised due to suboptimal penetration related to body habitus. Moderate cardiomegaly is noted. Suspected surgical material is noted within the left chest wall. There is apparent left pleural thickening. IMPRESSION: 1. No acute cardiopulmonary findings. 2. Apparent left pleural thickening. This is nonspecific but could reflect extrapleural fat. 3. Moderate cardiomegaly without evidence of pulmonary edema. Electronically signed by: Per Weaver M.D. 06/18/2017 12:54 PM Dictated Date/Time: 06/18/2017 12:52 PM
== END | disposition home or self-care (01) ==
LOC: C.RAD1850 11:57
PROVIDERS: ATTEND Internal Medicine Pulmonary Disease
DX: I50.30 Unspecified diastolic (congestive) heart failure (principal); E66.2 Morbid (severe) obesity with alveolar hypoventilation; G47.33 Obstructive sleep apnea (adult) (pediatric)

== ENCOUNTER 2020-02-06 01:58 | Inpatient (IN) ==
--- NOTE | 2020-02-06 02:11 | Emergency Department Note ---
Impression & Plan Closed fracture of tibial plateau ED Provider Note Name: PAIGE GUZMAN Age: 64 Sex: F Arrives Via: Ambulance Informant: Patient, EMS ED Provider: Joe Almeida MD Chief Complaint: Right Knee Pain Impression: Closed fracture of tibial plateau, right Medical Decision Makin yr old female with history CHF, BEN, DLP, HTN, Diet Controlled DMII, Aortic S tenosis with cardiac surgery at 3 yrs old arrives after trip/slip and fall on right knee resulting in inability to walk and thus arrived by EMS a few hours later. She has extensive tibial plateau fracture. Reviewed with Dr Al of Ortho and plan will be immobilize, ct scan knee, and hospitalist admission with planned OR later today. Work-up for pre-op done by me unremarkable. BP coming down without needing labetalol. Pain meds given. I personally placed straight leg splint with underlying padding with it just fitting and patient tolerating well. There is no evidence of compartment syndrome at this time and n/v exam is completely intact on several rechecks before and after splinting. Mild leukocytosis noted likely reactionary as no evidence infection. Prior Medical Record and Triage/Nursing Notes reviewed by Me Differentials:Fracture, dislocation, neuro injury, vascular injury, compartment syndrome amongst other pathologies. Vital Signs: reviewed and remarkable for HTN, improving Interventions: Saline Lock, Dilaudid 0.5mg IV Labs:Reviewed and remarkable for no significant abnormalities other than mild leukocytosis Imaging:X ray results are stated below per my interpretation: Chest: 1 view: No infiltrate, no effusion, normal cardiac border. Knee: right 3 view: comminuted, displaced tibial plateau fracture with mild femur deviation medially EKG:Per My Interpretation: Indication Pre-op: Sinus Tach 109 bpm, qtc 452. No Ectopy. No Ischemia. Compared to EKG 04/03/17, no significant changes. Cardiac/Tele Monitoring: Cardiac Monitoring: An Order was placed for continuous cardiac monitoring. The monitor shows a rate of 81 with a normal sinus rhythm. Consults:Dr Al: [facility]: Splint knee with padding, ct knee, hospitalist admit, regular n/v exams Dr Karly SCHULTZ Hospitalist Plan: Disposition:Hospitalization. Condition: Good Blood pressure:Elevated - Referred to Hospitalist Prescriptions:none PDMP: n/a History of Present Illness:64 / F arrives for evaluation of right knee pain. Patient slipped and fell in bathtub earlier in evening. She notes she was unable to bear weight so she crawled to bedroom. Admits she feel asleep a few hours and then awoke with worsening pain. She did sleep on floor but denies any pressure bruising/pain. Right knee is worst with movement. Pain better with rest. No medications taken for this. No previous injury to knee. No other pain nor injuries. Takes no blood thinners. Denies head injury, headache, neck pain, cp, arm pain nor other symptoms. Denies syncope, sob, cp, abdominal pain, stroke like symptoms nor other symptoms. Takes no blood thinners. ROS: See above HPI for pertinent positives & negatives. A total of 10 systems reviewed and were otherwise negative. Past Medical History:CHF, BEN, DLP, HTN, Diet Controlled DMII, Aortic Stenosis Past Surgical History:Cardiac Surgery at 3yrs old Family History:Extensive, see below Social History:Lives with , retired, occassionl etoh, no drugs, no tobacco Home Medications:Atorvastatin, carvedilol, iron, furosemide, potassium, spironolactone Allergies:KNDA Vitals:Blood Pressure: 139/75, Pulse 81, RR 20, T 36.4C, O2 93% on RA Physical Exam: GENERAL: Patient is uncomfortable appearing and in mild distress. EYES: No scleral icterus, unremarkable pupils. ENT: Mucous membranes moist, no nasal congestion. NECK: No masses appreciated, nomeningismus, trachea is midline. RESPIRATORY: No dyspnea. Clear to auscultation and equal bilaterally. No wheeze, no rhonchi. CARDIOVASCULAR: Regular rate and rhythm.No murmurs, rubs, gallops appreciated. GASTROINTESTINAL: Abdomen soft, non-tender, no peritonitis.Bowel sounds positive.No masses appreciated. BACK: No midline tenderness, no CVA tenderness EXTREMITIES: Severe pain with ROM Right knee, moderate effusion, distal n/v intact. Otherwise normal motion all extremities, no cyanosis, no edema. NEUROLOGIC: Alert and oriented, no acute motor or sensory deficits, no focal weakness, cranial nerves grossly intact. SKIN: Abrasions/bruising left knee and left elbow, mild abrasion anterior left knee PSYCH: Appropriate GCS: 15 ED Course: Times/Reassessments: multiple, stable and breathing comfortable. Repeat knee exam stable n/v. Procedures: Right knee splint: applied by me. Padded anterior knee with soft padding then gently wrapped with stefanie wrap. Followed with straight let velcro knee immobilizer. Repeat n/v exam normal and stable. Patient tolerated this well. Immobilizer instructions reviewed with patient. Joe Almeida MD Past Med/Surg History Medical History Acute on chronic diastolic (congestive) heart failure (Resolved) Aortic stenosis Bicuspid aortic valve Chronic diastolic heart failure CO2 retention (Chronic) Conjunctival edema, bilateral Dyslipidemia Hyperglycemia Hypertension Hypoventilation syndrome Iron (Fe) deficiency anemia Leg edema Obstructive apnea (Resolved) Restrictive airway disease Sinusitis (Resolved) Surgical History H/O heart surgery Performed age 3 for repair of patent ductus arteriosus Family History Mother Depression Diabetes Father Stroke Coronary heart disease Hypertension Depression Diabetes Myocardial infarction Daughter Gallbladder disease Grandfather Prostate cancer Aunt Breast cancer Other Bicuspid aortic valve Denies family history of Ovarian cancer Colorectal cancer Social History Preferred Language: B[place] Communication Ability: Effective Visual Impairment: No Limitations Hearing Ability: Normal [employer]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 Beliefs That Will Affect Care: None marital status: marital status details: One daughter Current Living Situation: Spouse current occupational status: retired Feels Safe at Home: Yes Smoking Status: Never smoker Hx Alcohol Use: No Hx Substance Use: No Childhood Exposure to Second-Hand Smoke: No Dental Care, Regularly: No Physical Activity Frequency: 5-6 Times per Week Seatbelt Use: always Sunscreen Use: No Do you think of yourself as: straight/heterosexual Allergies Allergies Allergy/AdvReac Type Severity Reaction Status Date / Time No Known Drug Allergies Allergy Unknown Verified 02/06/20 02:36 Home Meds Previous Rx's Medication Instructions Recorded spironolactone 25 mg tablet 25 mg PO DAILY #30 tab 07/08/19 potassium chloride 20 mEq 20 meq PO DAILY #90 tab 07/15/19 tablet,extended release furosemide 40 mg tablet 80 mg PO DAILY #60 tab 09/17/19 carvedilol 3.125 mg tablet See Rx Instructions PO BID #60 tab 09/23/19 atorvastatin 80 mg tablet 80 mg PO DAILY #90 tab 10/14/19 ferrous sulfate 325 mg (65 mg 325 mg PO BID #180 tab 01/26/20 iron) tablet Results & Data (ED) Vital Signs Vital Signs - 24 hr 02/06/20 02:14 02/06/20 03:16 02/06/20 04:02 Temperature 36.4 C L Temperature Source Oral Pulse Rate 110 H Pulse Rate [Apical] 81 104 H Respiratory Rate 20 20 18 Respiratory Effort / Characteristics Non-Labored Respiratory Depth Normal Blood Pressure 191/131 H Blood Pressure [Left Arm] 139/75 112/67 Blood Pressure Mean 151 Blood Pressure Mean [Left Arm] 96 82 Pulse Oximetry 93 93 88 L Oxygen Delivery Method Room Air Room Air Oxygen Flow Rate Sepsis Recent Fever Within 48 Hours No Sepsis New/Unexplained Change in Mental Status No Sepsis Action Taken by Nursing No Action Required 02/06/20 04:07 Temperature Temperature Source Pulse Rate Pulse Rate [Apical] Respiratory Rate Respiratory Effort / Characteristics Respiratory Depth Blood Pressure Blood Pressure [Left Arm] Blood Pressure Mean Blood Pressure Mean [Left Arm] Pulse Oximetry 98 Oxygen Delivery Method Nasal Cannula Oxygen Flow Rate 2 Sepsis Recent Fever Within 48 Hours Sepsis New/Unexplained Change in Mental Status Sepsis Action Taken by Nursing Laboratory Data Result diagrams: 02/06/20 03:12 02/06/20 03:12 Lab Results 02/06/20 02/06/20 02/06/20 Range/Units 03:12 03:12 03:12 WBC 15.01 H (4.8-10.8) K/uL RBC 4.50 (4.2-5.4) M/uL Hgb 15.0 (12.0-16.0) g/dL Hct 46.2 (37-47) % MCV 102.7 H (80-100) fL MCH 33.3 (25-34) pg MCHC 32.5 (32-36) g/dL RDW Std Deviation 50.7 H (36.4-46.3) fL RDW Coeff of [place]ito 13.5 (11.5-14.5) % Plt Count 236 (130-400) K/uL MPV 11.7 H (7.4-10.4) fL Immature Gran % (Auto) 0.3 % Neut % (Auto) 84.7 % Lymph % (Auto) 6.8 % [place] % (Auto) 7.8 % Eos % (Auto) 0.3 % Baso % (Auto) 0.1 % Immature Gran # (Auto) 0.05 H (0.00-0.02) K/uL Neut # (Auto) 12.72 H (1.4-6.5) K/uL Lymph # (Auto) 1.02 L (1.2-3.4) K/uL [place] # (Auto) 1.17 H (0.11-0.59) K/uL Eos # (Auto) 0.04 (0-0.5) K/uL Baso # (Auto) 0.01 (0-0.2) K/uL PT 10.7 (9.0-12.0) Seconds INR 1.0 (0.9-1.1) APTT 23.7 (21.0-31.0) Seconds PTT Ratio 0.8 Sodium 138 (136-145) mmol/L Potassium 4.2 (3.5-5.1) mmol/L Chloride 104 (98-107) mmol/L Carbon Dioxide 26 (21-32) mmol/L Anion Gap 8.0 (3-11) BUN 35 H (7-18) mg/dl Creatinine 1.43 H (0.6-1.2) mg/dl Est Cr Clr Drug Dosing 45.4 ml/min Est GFR ( Amer) 44.1 Est GFR (Non-Af Amer) 38.1 BUN/Creatinine Ratio 24.6 H (10-20) Glucose 190 H (70-99) mg/dl Calcium 9.3 (8.5-10.1) mg/dl Magnesium 2.0 (1.8-2.4) mg/dl Total Creatine Kinase 333 H (26-192) U/L TSH 2.290 (0.300-4.500) uIu/ml Specimen Hemolysis Administered Medications Atorvastatin Calcium (Lipitor) 80 mg PO DAILY ESHA Stop: 03/07/20 08:59 Last Admin: 02/06/20 07:54 Dose: 80 mg Documented by: [id number] Bupivacaine HCl (Marcaine 0.5% Mpf) 20 ml INFIL ONCE ESHA Stop: 03/07/20 15:59 Last Admin: 02/06/20 15:52 Dose: 18 ml Documented by: [id number] Carvedilol (Coreg) 3.125 mg PO BID [facility] Stop: 03/07/20 08:59 Last Admin: 02/06/20 20:48 Dose: Not Given Documented by: [id number] Admin: 02/06/20 07:54 Dose: 3.125 mg Documented by: [id number] Docusate Sodium (Colace) 100 mg PO BID [facility] Stop: 03/07/20 20:59 Last Admin: 02/06/20 20:44 Dose: 100 mg Documented by: [id number] Ferrous Sulfate (Feosol) 325 mg PO BID [facility] Stop: 03/07/20 20:59 Last Admin: 02/06/20 20:44 Dose: 325 mg Documented by: [id number] Hydromorphone HCl (Dilaudid) 0.5 mg IV Q3H PRN PRN Reason: Severe Pain Stop: 02/20/20 06:22 Last Admin: 02/06/20 11:02 Dose: 0.5 mg Documented by: [id number] Admin: 02/06/20 07:24 Dose: 0.5 mg Documented by: [id number] Cefazolin Sodium (Ancef 2000mg) 2,000 mg in 15 mls @ 3.75 mls/min IV Q8H [facility]; Protocol Stop: 02/07/20 06:03 Last Admin: 02/06/20 21:00 Dose: 3.75 mls/min Documented by: [id number] Insulin Aspart (Novolog Flexpen) 0 units SC ACHS [facility] Stop: 03/07/20 07:29 Last Admin: 02/06/20 21:26 Dose: Not Given Documented by: [id number] Admin: 02/06/20 20:53 Dose: Not Given Documented by: [id number] Cosigned by: [id number] Admin: 02/06/20 20:52 Dose: 2 units Documented by: [id number] Cosigned by: [id number] Admin: 02/06/20 12:17 Dose: Not Given Documented by: [id number] Cosigned by: [id number] Admin: 02/06/20 07:54 Dose: 1 units Documented by: [id number] Cosigned by: [id number] Lidocaine/Epinephrine (Xylocaine/Epine 2% 1:200,000) 20 ml INFIL ONCE [facility] Stop: 03/07/20 15:59 Last Admin: 02/06/20 15:54 Dose: 18 ml Documented by: [id number] Oxycodone HCl (Roxicodone Immediate Rel) 5 - 10 mg PO Q4H PRN PRN Reason: Pain or Pre PT Stop: 02/20/20 17:44 Last Admin: 02/06/20 19:55 Dose: 5 mg Documented by: [id number] Sennosides (Senokot) 17.2 mg PO HS ESHA Stop: 03/07/20 20:59 Last Admin: 02/06/20 20:02 Dose: 17.2 mg Documented by: [id number] Discontinued Medications Fluconazole (Diflucan) 150 mg PO ONE ONE Stop: 02/06/20 18:01 Last Admin: 02/06/20 20:48 Dose: Not Given Documented by: [id number] Hydromorphone HCl (Dilaudid) 0.5 mg IV NOW STA Stop: 02/06/20 03:28 Last Admin: 02/06/20 04:00 Dose: 0.5 mg Documented by: [id number] Cefazolin Sodium (Ancef 3000mg) 72.5 mls @ 130 mls/hr IV PREOP ONE Stop: 02/06/20 11:50 Last Admin: 02/06/20 14:09 Dose: Not Given Documented by: [id number] Labetalol HCl (Normodyne) 10 mg IV NOW STA Stop: 02/06/20 02:45 Last Admin: 02/06/20 03:19 Dose: Not Given Documented by: [id number] Ondansetron HCl (Zofran) 4 mg IV ONCE PRN PRN Reason: PACU Use Only-Nausea/Vomiting Stop: 02/06/20 20:22 Last Admin: 02/06/20 16:47 Dose: 4 mg Documented by: [id number] Ondansetron HCl (Zofran) Confirm Administered Dose 4 mg .ROUTE .STK-MED ONE Stop: 02/06/20 16:45 Last Admin: 02/06/20 18:07 Dose: Not Given Documented by: [id number] Discharge Plan Visit Data *Final* Discharge Date/Time: 02/06/20 05:34 Chief Complaint: Fall Stated Complaint: FALL/KNEE PAIN Other Complaint: Knee Injury/Pain ED Provider: Joe Almeida Discharge Problem: Closed fracture of tibial plateau Patient Disposition: Admitted As Inpatient Discharge Instructions Interventions: ED Discharge Assessment Last Done: 02/06/20 05:34 Discharge Problem: Closed fracture of tibial plateau Qualifiers: Encounter type: initial encounter Laterality: right Qualified Code(s): S82.141A - Displaced bicondylar fracture of right tibia, initial encounter for closed fracture
[2020-02-06] MEDS ORDERED: LABETALOL HCL IV 5 MG/ML 20ML IV STA (02:44)
[2020-02-06 03:21] LABS: Basophils # (auto) 0.01 K/uL (0-0.2); Basophils % (auto) 0.1 %; Eosinophils # (auto) 0.04 K/uL (0-0.5); Eosinophils % (auto) 0.3 %; Hematocrit (blood only) 46.2 % (37-47); Immature Granulocytes # (auto) 0.05 K/uL (0.00-0.02); Immature Granulocytes % (auto) 0.3 %; Lymphocytes # (auto) 1.02 K/uL (1.2-3.4); Lymphocytes % (auto) 6.8 %; Mean Corpuscular Hemoglobin 33.3 pg (25-34); Mean Corpuscular Hgb Conc 32.5 g/dL (32-36); Mean Corpuscular Volume 102.7 fL (80-100); Mean Platelet Volume 11.7 fL (7.4-10.4); Monocytes # (auto) 1.17 K/uL (0.11-0.59); Monocytes % (auto) 7.8 %; Neutrophils # (auto) 12.72 K/uL (1.4-6.5); Neutrophils % (auto) 84.7 %; Platelet Count 236 K/uL (130-400); RDW Coefficient of Variation 13.5 % (11.5-14.5); RDW Standard Deviation 50.7 fL (36.4-46.3); White Blood Count 15.01 K/uL (4.8-10.8)
[2020-02-06] MEDS ORDERED: HYDROmorphone INJ 0.5 MG/0.5 ML SYR IV STA (03:27)
[2020-02-06 03:34] LABS: Partial Thromboplastin Ratio 0.8; Partial Thromboplastin Time 23.7 Seconds (21.0-31.0); Prothrombin Time 10.7 Seconds (9.0-12.0)
[2020-02-06 03:57] LABS: BUN Creatinine Ratio 24.6 (10-20); Calcium 9.3 mg/dl (8.5-10.1); Creatinine Clr Calc Pharmacy 45.4 ml/min; Est GFR (African American) 44.1; Est GFR (Non-African American) 38.1; Thyroid Stimulating Hormone 2.29 uIu/ml (0.300-4.500)
[2020-02-06 04:22] LABS: Potassium 4.2 mmol/L (3.5-5.1)
--- NOTE | 2020-02-06 05:12 | History & Physical Report ---
Date of Service February 06, 2020 Assessment & Plan (1) Closed fracture of tibial plateau: NPO IV fluids Acetaminophen 1000 mg IV every 8 hours PRN mild pain or temperature. Dilaudid 0.5 mg IV every 3 hours as needed for severe pain. Zofran 4 mg IV every 6 hours PRN. Famotidine 20 mg IV every 12 hours Consult orthopedic surgery. We will consult cardiology for help in preoperative assessment Present on Admission?: Yes (2) Chronic diastolic heart failure: For now hold furosemide, spironolactone and potassium. Gentle IV fluids Present on Admission?: Yes (3) Dyslipidemia: Atorvastatin 80 mg at bedtime Present on Admission?: Yes (4) Obstructive sleep apnea of adult: Obstructive sleep apnea/obesity hypoventilation syndrome Nasal cannula oxygen, and will add CPAP if needed. Present on Admission?: Yes (5) H/O heart surgery: History of PDA surgery at age 3 Present on Admission?: Yes (6) Hypoventilation syndrome: See above Present on Admission?: Yes (7) Hypertension: Continue carvedilol 3.125 mg p.o. twice daily with hold parameters Present on Admission?: Yes (8) Bicuspid aortic valve: Bicuspid aortic valve/aortic stenosis- Consult cardiology regarding preoperative assessment Present on Admission?: Yes (9) Aortic stenosis: See above Present on Admission?: Yes (10) Diabetes type 2, uncontrolled: Placed on Accu-Cheks before meals and at bedtime/every 6 hours, with NovoLog coverage per scale Present on Admission?: Yes History of Present Illness Chief Complaint: The patient presents to the emergency department with complaint of severe right knee pain, and inability to walk, after falling on it earlier in the evening prior to arrival Primary Care Provider: Layla Childs MD The patient is a 64-year-old female with a past medical history including chronic diastolic heart failure, dyslipidemia, obstructive sleep apnea, dyslipidemia, reactive airway disease, obesity hypoventilation syndrome, hypertension, diabetes mellitus type 2, bicuspid aortic valve, aortic stenosis and morbid obesity with BMI 45.0-49.9. She presents to the emergency department after falling on her right knee earlier in the evening, after slipping and falling while trying to clean a bathtub. Imaging studies in the ED revealed an extensive tibial plateau fracture on the right. Dr. Al from orthopedics has been consulted, and has asked that the patient's knee be immobilized, and be admitted to the hospitalist medical service for cardiac preoperative risk assessment. Patient follows with Dr. Reno from cardiology. Allergies Allergy/AdvReac Type Severity Reaction Status Date / Time No Known Drug Allergies Allergy Unknown Verified 02/06/20 02:36 Home Medications Home Medications Medication Instructions Recorded Confirmed Type spironolactone 25 mg tablet 25 mg PO DAILY #30 tab 07/08/19 02/06/20 Rx potassium chloride 20 mEq 20 meq PO DAILY #90 tab 07/15/19 02/06/20 Rx tablet,extended release furosemide 40 mg tablet 80 mg PO DAILY #60 tab 09/17/19 02/06/20 Rx carvedilol 3.125 mg tablet See Rx Instructions PO BID #60 tab 09/23/19 02/06/20 Rx atorvastatin 80 mg tablet 80 mg PO DAILY #90 tab 10/14/19 02/06/20 Rx ferrous sulfate 325 mg (65 mg 325 mg PO BID #180 tab 01/26/20 02/06/20 Rx iron) tablet Past Med/Surg History Medical History (Updated 02/06/20 @ 05:26 by Billy Brandt MD) Acute on chronic diastolic (congestive) heart failure (Resolved) Aortic stenosis Bicuspid aortic valve Chronic diastolic heart failure CO2 retention (Chronic) Conjunctival edema, bilateral Dyslipidemia Hyperglycemia Hypertension Hypoventilation syndrome Iron (Fe) deficiency anemia Leg edema Obstructive apnea (Resolved) Restrictive airway disease Sinusitis (Resolved) Surgical History H/O heart surgery Performed age 3 for repair of patent ductus arteriosus Family History (Updated 01/11/20 @ 12:50 by RIC Barbosa) Mother Depression Diabetes Father Stroke Coronary heart disease Hypertension Depression Diabetes Myocardial infarction Daughter Gallbladder disease Grandfather Prostate cancer Aunt Breast cancer Other Bicuspid aortic valve Denies family history of Ovarian cancer Colorectal cancer Social History Preferred Language: Kinyarwanda Communication Ability: Effective Visual Impairment: No Limitations Hearing Ability: Normal marital status: marital status details: One daughter Current Living Situation: Spouse current occupational status: retired Feels Safe at Home: Yes Smoking Status: Never smoker Hx Alcohol Use: Yes Alcohol type: hard liquor Alcohol Intake Frequency: Rarely Hx Substance Use: No Childhood Exposure to Second-Hand Smoke: No Dental Care, Regularly: No Physical Activity Frequency: 5-6 Times per Week Seatbelt Use: always Sunscreen Use: No Do you think of yourself as: straight/heterosexual Review of Systems Review of Systems: The patient denies chest pain, palpitations, cough, lower extremity edema, sore throat, fevers, chills, sweats, weight change, fatigue, nausea, vomiting, diarrhea, constipation, abdominal pain, pelvic pain, blood in urine or stool, dysuria, urinary frequency or urgency, lightheadedness, dizziness, headache, memory loss, loss of consciousness, rash, abnormal bruising or bleeding, imbalance, generalized weakness, numbness or tingling in arms, generalized arthralgias or myalgias, back or neck pain, or night sweats. The review of systems is otherwise negative other than for that already noted above, and at least 10 systems have been reviewed. Physical Exam Physical Exam: The patient is awake, alert and oriented 3, well developed and well nourished, normocephalic and atraumatic, lying in bed and in no acute distress. HEENT--PERRL, EOMI, mucous membranes and oropharynx normal. Neck--supple. No JVD. No bruits. Thyroid normal, trachea midline, no adenopathy. Heart--normal S1 and S2. III/ SM, No rubs or gallops. Lungs--clear bilaterally, no respiratory distress, no accessory muscle use. Abdomen--normal bowel sounds and soft. Nontender. Nondistended. Extremities--no cyanosis or clubbing. No edema. RLE in knee immobilizer Dermatologic--normal skin turgor, normal color, no abnormal lymph nodes, no rash. Neurologic--cranial nerves II through XII grossly intact. Rheumatologic--normal range of motion. Psychiatric--normal affect. Results & Data Results & Data ([facility]) Vital Signs (Past 12 Hours) Vital Signs Temp Pulse Pulse Resp BP BP Pulse Ox 02/06/20 04:07 98 02/06/20 04:02 104 H 18 112/67 88 L 02/06/20 03:16 81 20 139/75 93 02/06/20 02:14 97.5 F L 110 H 20 191/131 H 93 Laboratory Results Laboratory Results WBC 15.01 K/uL (4.8-10.8) H 02/06/20 03:12 RBC 4.50 M/uL (4.2-5.4) 02/06/20 03:12 Hgb 15.0 g/dL (12.0-16.0) 02/06/20 03:12 Hct 46.2 % (37-47) 02/06/20 03:12 MCV 102.7 fL (80-100) H 02/06/20 03:12 MCH 33.3 pg (25-34) 02/06/20 03:12 MCHC 32.5 g/dL (32-36) 02/06/20 03:12 RDW Std Deviation 50.7 fL (36.4-46.3) H 02/06/20 03:12 RDW Coeff of Betito 13.5 % (11.5-14.5) 02/06/20 03:12 Plt Count 236 K/uL (130-400) 02/06/20 03:12 MPV 11.7 fL (7.4-10.4) H 02/06/20 03:12 Immature Gran % (Auto) 0.3 % 02/06/20 03:12 Neut % (Auto) 84.7 % 02/06/20 03:12 Lymph % (Auto) 6.8 % 02/06/20 03:12 Mathews % (Auto) 7.8 % 02/06/20 03:12 Eos % (Auto) 0.3 % 02/06/20 03:12 Baso % (Auto) 0.1 % 02/06/20 03:12 Immature Gran # (Auto) 0.05 K/uL (0.00-0.02) H 02/06/20 03:12 Neut # (Auto) 12.72 K/uL (1.4-6.5) H 02/06/20 03:12 Lymph # (Auto) 1.02 K/uL (1.2-3.4) L 02/06/20 03:12 Mathews # (Auto) 1.17 K/uL (0.11-0.59) H 02/06/20 03:12 Eos # (Auto) 0.04 K/uL (0-0.5) 02/06/20 03:12 Baso # (Auto) 0.01 K/uL (0-0.2) 02/06/20 03:12 PT 10.7 Seconds (9.0-12.0) 02/06/20 03:12 INR 1.0 (0.9-1.1) 02/06/20 03:12 APTT 23.7 Seconds (21.0-31.0) 02/06/20 03:12 PTT Ratio 0.8 02/06/20 03:12 Sodium 138 mmol/L (136-145) 02/06/20 03:12 Potassium 4.2 mmol/L (3.5-5.1) 02/06/20 03:12 Chloride 104 mmol/L (98-107) 02/06/20 03:12 Carbon Dioxide 26 mmol/L (21-32) 02/06/20 03:12 Anion Gap 8.0 (3-11) 02/06/20 03:12 BUN 35 mg/dl (7-18) H 02/06/20 03:12 Creatinine 1.43 mg/dl (0.6-1.2) H 02/06/20 03:12 Est Cr Clr Drug Dosing 45.4 ml/min 02/06/20 03:12 Est GFR ( Amer) 44.1 02/06/20 03:12 Est GFR (Non-Af Amer) 38.1 02/06/20 03:12 BUN/Creatinine Ratio 24.6 (10-20) H 02/06/20 03:12 Glucose 190 mg/dl (70-99) H 02/06/20 03:12 Calcium 9.3 mg/dl (8.5-10.1) 02/06/20 03:12 Magnesium 2.0 mg/dl (1.8-2.4) 02/06/20 03:12 Total Creatine Kinase 333 U/L (26-192) H 02/06/20 03:12 TSH 2.290 uIu/ml (0.300-4.500) 02/06/20 03:12 Specimen Hemolysis 02/06/20 03:12 Diagnostic Findings [facility] Patient: PAIGE GUZMAN (Female) : 51 Status: ER Date: 02/06/20 04:07 Room #: History: RT KNEE PAIN, FALL, R/O TRAUMA Slices: [id number] Priors: Tech: Jina Aviles @ [phone] Exams: CT RIGHT KNEE Accession Numbers: [id number] Preliminary Findings Only See Final Report For Complete Findings CT RIGHT KNEE: Comminuted fracture of the medial and lateral tibial plateau extending to the tibial spines and to the tibial metaphysis. The fracture extends anteriorly to posteriorly with distraction of the posterior tibial fragments by at least 1 cm. There is mild lateral displacement of the posterior lateral tibial cortex. The femur, patella, and fibula are intact. Large hemarthrosis. Radiologist: Veronica Decker MD Study ready at 04:12 and initial results transmitted at 04:25 *This report constitutes a preliminary interpretation only. Non-acute findings felt to be unrelated to the clinical presentation may not be discussed in this report. The study will be interpreted and a final report will be generated by the local Radiologist the following shift. To reach the hospital radiology department call [phone]. If a discrepancy is found between the preliminary and final interpretations of this study, please notify us via our Client Portal at [email or web address] QA [email or web address].You can also fax this report with a description of the discrepancy, or include the final report, to our daytime fax number [phone].If faxing, please indicate the severity of discrepancy using one of the following categories: [ ] 1 - Agree/Informational [ ] 2 - Unlikely to Affect Management [ ] 3 - Possible Eventual Change of Management [ ] 4 - Probable Immediate Change of Management For all other patient related information, please fax us at [phone]. [id number] Code Status & VTE Plan Code Status Full code VTE Prophylaxis Plan VTE Prophylaxis will be ordered: Yes PG Care Time/CCT Total # of Minutes Spent Total Time Spent with Patient: Total time spent is greater than 50% in coordination of care (as documented) at patient's floor/unit and/or counseling patient: Coding Level of Care Code 96904 Initial Inpt Care Lvl 3 Diagnoses Closed fracture of tibial plateau S82.141A Encounter type: initial encounter Laterality: right Chronic diastolic heart failure I50.32 Dyslipidemia E78.5 Obstructive sleep apnea of adult G47.33 H/O heart surgery Z98.890 Hypoventilation syndrome R06.89 Hypertension I10 Bicuspid aortic valve Q23.1 Aortic stenosis I35.0 Diabetes type 2, uncontrolled E11.65 (1) Closed fracture of tibial plateau Encounter type: initial encounter Laterality: right Qualified Code(s): S82.141A - Displaced bicondylar fracture of right tibia, initial encounter for closed fracture
[2020-02-06] MEDS ORDERED: CARBOHYDRATES FOR HYPOGLYCEMIA PO PRN (05:23)
[2020-02-06] MEDS ORDERED: DEXTROSE 50% 50 ML SYRINGE IV PRN (05:23)
[2020-02-06] MEDS ORDERED: GLUCAGON FOR INJ 1 MG VIAL SQ PRN (05:23)
[2020-02-06] MEDS ORDERED: GLUCOSE 10 TABS/TUBE PO PRN (05:23)
[2020-02-06] MEDS ORDERED: GLUCOSE 40% GEL 15 GM TUBE PO PRN (05:23)
[2020-02-06] MEDS ORDERED: ONDANSETRON INJ 2 MG/ML 2 ML VIAL IV PRN ×2 (06:23→12:22)
[2020-02-06] MEDS ORDERED: ACETAMINOPHEN 1,000 MG/100 ML VIAL IV PRN (06:23)
[2020-02-06] MEDS: HYDROmorphone INJ 0.5 MG/0.5 ML SYR IV PRN ×2 (07:24→11:02)
--- NOTE | 2020-02-06 07:47 | XRay Report ---
XR chest 1V portable CLINICAL HISTORY: Preoperative chest COMPARISON STUDY: 04/01/2017 FINDINGS: The heart remains enlarged. There is aortic tortuosity/ectasia. There is no overt failure. There is no lobar consolidation. There are chronically increased basilar markings. Advanced arthritic changes are present within the right shoulder.[ IMPRESSION: Cardiomegaly. No acute findings. ACT 112: Negative or not required by law. Electronically signed by: Nelson Mendenhall M.D. 02/06/2020 7:46 AM
--- NOTE | 2020-02-06 07:50 | XRay Report ---
XR knee RT 1 or 2V routine CLINICAL HISTORY: Right knee pain status post trauma COMPARISON: None. DISCUSSION: There is an acute comminuted proximal tibial fracture with a vertical component extending to the medial aspect of the lateral tibial plateau. There is also a possible component involving the medial tibial plateau and tibial spines. No fibular fractures are visualized. There is a small joint effusion. IMPRESSION: Comminuted fractures of the proximal tibia with tibial plateau involvement ACT 112: Negative or not required by law. Electronically signed by: Nelson Mendenhall M.D. 02/06/2020 7:48 AM
[2020-02-06] MEDS: carvediloL 3.125 MG TAB PO SCH ×2 (07:54→20:48)
[2020-02-06] MEDS: INSULIN ASPART 100 UNITS/ML 3 ML PEN SC SCH ×5 (07:54→21:26)
[2020-02-06] MEDS: ATORVASTATIN 40 MG TAB PO SCH (07:54)
--- NOTE | 2020-02-06 08:04 | CT Scan Report ---
CT knee RT wo con CT DOSE: 200.56 mGy.cm HISTORY: Fracture. Pain. Right knee fracture TECHNIQUE: Multiaxial CT images of the right knee were performed and reformatted in the sagittal and coronal plane without the use of contrast. A dose lowering technique was utilized adhering to the pr inciples of ABDIFATAH. COMPARISON: None. FINDINGS: Comminuted fracture of the proximal tibia. There is an oblique component extending transver sely across the proximal tibia. There is linear extension to the medial as well as lateral tibial carlos teaus. There is fragmentation of the tibial tubercles. Multiple small localized ossific fragments are presen t. There is 1 mm depression of the lateral tibial plateau into millimeters on the medial tibial plateau region. There is considerable surrounding soft tissue edematous change with a large joint effusion. All remaining bony structures are intact. Femoral condyles specifically are intact as is the patella. IMPRESSION: 1. Comminuted fracture proximal tibia extending to the tibial plateaus as well as tibial spines. 2. Considerable bony fragmentation of the tibial spine regions. 3. Large joint effusion. ACT 112: Negative or not required by law. The above report was generated using voice recognition software. It may contain grammatical, syntax or spelling errors. Electronically signed by: Chad Yin M.D. 02/06/2020 8:02 AM
--- NOTE | 2020-02-06 08:59 | Orthopedic Consultation ---
Date of Consultation February 06, 2020 Assessment & Plan (1) Closed fracture of tibial plateau: After a lengthy discussion regarding their treatment options of conservative versus surgical intervention and due to the displacement, I recommended surgical intervention with an ORIF. The patient understands the risks of surgery, which include but are not limited to: bleeding, infection, re- operation, damage to nerves and arteries, continued pain, progression of arthritis, failure of the hardware, possible need for removal of the hardware, decreased level of activity, malunion, nonunion, compartment syndrome, possible need for additional surgery, and DVT. She also understands that she will need to be NWB for 3 months. The patient understands all of these instructions and explanations, all of their questions have been satisfactorily addressed. The patient has elected to proceed with surgery and the informed consent was signed for ORIF right knee. Her right thigh was initialled. She has been placed on the add-on list. Will plan on proceeding with surgery when she is medically stable and the OR is available. Continue NPO and NWB RLE. Ancef on-call to the OR. Present on Admission?: Yes History of Present Illness Reason for Consultation: Right Tibial Plateau fracture Requesting Physician: Enoch Al MD Attending Physician: Raymundo Benjamin DO History of Present Illness 64 year old female who fell on tile directly on her right knee. She was unable to bear weight and was evaluated in the ED with x-rays and found to have a tibial plateau fracture. Due to her multiple medical problems, she was admitted to the hospitalist service. Her pain has started to worsen over the last hour or so. Denies any numbness or tingling. Allergies Allergy/AdvReac Type Severity Reaction Status Date / Time No Known Drug Allergies Allergy Unknown Verified 02/06/20 02:36 Home Medications Home Medications Medication Instructions Recorded Confirmed Type spironolactone 25 mg tablet 25 mg PO DAILY #30 tab 07/08/19 02/06/20 Rx potassium chloride 20 mEq 20 meq PO DAILY #90 tab 07/15/19 02/06/20 Rx tablet,extended release furosemide 40 mg tablet 80 mg PO DAILY #60 tab 09/17/19 02/06/20 Rx carvedilol 3.125 mg tablet See Rx Instructions PO BID #60 tab 09/23/19 02/06/20 Rx atorvastatin 80 mg tablet 80 mg PO DAILY #90 tab 10/14/19 02/06/20 Rx ferrous sulfate 325 mg (65 mg 325 mg PO BID #180 tab 01/26/20 02/06/20 Rx iron) tablet Patient History Medical History Acute on chronic diastolic (congestive) heart failure (Resolved) Aortic stenosis Bicuspid aortic valve Chronic diastolic heart failure CO2 retention (Chronic) Conjunctival edema, bilateral Dyslipidemia Hyperglycemia Hypertension Hypoventilation syndrome Iron (Fe) deficiency anemia Leg edema Obstructive apnea (Resolved) Restrictive airway disease Sinusitis (Resolved) Surgical History H/O heart surgery Performed age 3 for repair of patent ductus arteriosus Family History Mother Depression Diabetes Father Stroke Coronary heart disease Hypertension Depression Diabetes Myocardial infarction Daughter Gallbladder disease Grandfather Prostate cancer Aunt Breast cancer Other Bicuspid aortic valve Denies family history of Ovarian cancer Colorectal cancer Social History Preferred Language: Swedish Communication Ability: Effective Visual Impairment: No Limitations Hearing Ability: Normal 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 Beliefs That Will Affect Care: None marital status: marital status details: One daughter Current Living Situation: Spouse current occupational status: retired Feels Safe at Home: Yes Smoking Status: Never smoker Hx Alcohol Use: No Hx Substance Use: No Childhood Exposure to Second-Hand Smoke: No Dental Care, Regularly: No Physical Activity Frequency: 5-6 Times per Week Seatbelt Use: always Sunscreen Use: No Do you think of yourself as: straight/heterosexual Review of Systems Review of Systems: All systems reviewed & are unremarkable except as noted in HPI & below Physical Exam Physical Exam: RLE: Immobilizer in place. Brisk cap refill less than 2 sec. Sensation to light touch intact. Moving toes and ankle. Calf soft and non- tender. Results & Data ([facility]) Vital Signs (Past 12 Hours) Vital Signs Temp Pulse Pulse Pulse Pulse Resp BP 02/06/20 08:00 36.8 C 104 H 18 02/06/20 06:24 36.9 C 111 H 02/06/20 06:21 36.9 C 111 H 02/06/20 05:34 110 H 18 106/67 02/06/20 04:07 02/06/20 04:02 104 H 18 02/06/20 03:16 81 20 02/06/20 02:14 36.4 C L 110 H 20 191/131 H BP Pulse Ox 02/06/20 08:00 113/74 97 02/06/20 06:24 120/81 89 L 02/06/20 06:21 120/81 90 02/06/20 05:34 96 02/06/20 04:07 98 02/06/20 04:02 112/67 88 L 02/06/20 03:16 139/75 93 02/06/20 02:14 93 Laboratory Results 02/06/20 02/06/20 02/06/20 Range/Units 07:53 03:12 03:12 WBC (4.8-10.8) K/uL RBC (4.2-5.4) M/uL Hgb (12.0-16.0) g/dL Hct (37-47) % MCV (80-100) fL MCH (25-34) pg MCHC (32-36) g/dL RDW Std Deviation (36.4-46.3) fL RDW Coeff of Betito (11.5-14.5) % Plt Count (130-400) K/uL MPV (7.4-10.4) fL Immature Gran % (Auto) % Neut % (Auto) % Lymph % (Auto) % [place] % (Auto) % Eos % (Auto) % Baso % (Auto) % Immature Gran # (Auto) (0.00-0.02) K/uL Neut # (Auto) (1.4-6.5) K/uL Lymph # (Auto) (1.2-3.4) K/uL Huntington # (Auto) (0.11-0.59) K/uL Eos # (Auto) (0-0.5) K/uL Baso # (Auto) (0-0.2) K/uL PT 10.7 (9.0-12.0) Seconds INR 1.0 (0.9-1.1) APTT 23.7 (21.0-31.0) Seconds PTT Ratio 0.8 Sodium 138 (136-145) mmol/L Potassium 4.2 (3.5-5.1) mmol/L Chloride 104 (98-107) mmol/L Carbon Dioxide 26 (21-32) mmol/L Anion Gap 8.0 (3-11) BUN 35 H (7-18) mg/dl Creatinine 1.43 H (0.6-1.2) mg/dl Est Cr Clr Drug Dosing 45.4 ml/min Est GFR ( Amer) 44.1 Est GFR (Non-Af Amer) 38.1 BUN/Creatinine Ratio 24.6 H (10-20) Glucose 190 H (70-99) mg/dl POC Glucose 159 H (70-99) mg/dl Calcium 9.3 (8.5-10.1) mg/dl Magnesium 2.0 (1.8-2.4) mg/dl Total Creatine Kinase 333 H (26-192) U/L TSH 2.290 (0.300-4.500) uIu/ml Specimen Hemolysis 02/06/20 Range/Units 03:12 WBC 15.01 H (4.8-10.8) K/uL RBC 4.50 (4.2-5.4) M/uL Hgb 15.0 (12.0-16.0) g/dL Hct 46.2 (37-47) % MCV 102.7 H (80-100) fL MCH 33.3 (25-34) pg MCHC 32.5 (32-36) g/dL RDW Std Deviation 50.7 H (36.4-46.3) fL RDW Coeff of Betito 13.5 (11.5-14.5) % Plt Count 236 (130-400) K/uL MPV 11.7 H (7.4-10.4) fL Immature Gran % (Auto) 0.3 % Neut % (Auto) 84.7 % Lymph % (Auto) 6.8 % Huntington % (Auto) 7.8 % Eos % (Auto) 0.3 % Baso % (Auto) 0.1 % Immature Gran # (Auto) 0.05 H (0.00-0.02) K/uL Neut # (Auto) 12.72 H (1.4-6.5) K/uL Lymph # (Auto) 1.02 L (1.2-3.4) K/uL Huntington # (Auto) 1.17 H (0.11-0.59) K/uL Eos # (Auto) 0.04 (0-0.5) K/uL Baso # (Auto) 0.01 (0-0.2) K/uL PT (9.0-12.0) Seconds INR (0.9-1.1) APTT (21.0-31.0) Seconds PTT Ratio Sodium (136-145) mmol/L Potassium (3.5-5.1) mmol/L Chloride (98-107) mmol/L Carbon Dioxide (21-32) mmol/L Anion Gap (3-11) BUN (7-18) mg/dl Creatinine (0.6-1.2) mg/dl Est Cr Clr Drug Dosing ml/min Est GFR ( Amer) Est GFR (Non-Af Amer) BUN/Creatinine Ratio (10-20) Glucose (70-99) mg/dl POC Glucose (70-99) mg/dl Calcium (8.5-10.1) mg/dl Magnesium (1.8-2.4) mg/dl Total Creatine Kinase (26-192) U/L TSH (0.300-4.500) uIu/ml Specimen Hemolysis Diagnostic Findings RADIOGRAPHS: AP & Lateral right knee show a Schatzker 6 Tibial plateau fracture that is displaced. CT: right knee again shows a Schatzker 6 Tibial plateau fracture with depression and comminution, most notably in posterior lateral tibial plateau (1) Closed fracture of tibial plateau Encounter type: initial encounter Laterality: right Qualified Code(s): S82.141A - Displaced bicondylar fracture of right tibia, initial encounter for closed fracture
--- NOTE | 2020-02-06 09:50 | Cardiology Consultation ---
Date of Consultation February 06, 2020 Assessment & Plan (1) Bicuspid aortic valve: She has a bicuspid valve with moderate to severe aortic stenosis. Based on different parameters it is either moderate or severe, based on the least specific parameter (calculated valve area) it is severe, however by the more predictive measures it is moderate and on exam I believe it to be moderate. I would therefore feel that she is not at great risk for surgery, although of course it does carry some risk. (2) Chronic diastolic heart failure: She has a history of chronic diastolic heart failure, she has been hospitalized for heart failure but has been diastolic. With fluid management she has not had difficulty with that lately. (3) Dyslipidemia: She does have risk factors for coronary artery disease which include diabetes, dyslipidemia, possibly hypertension although she tells me her blood pressure is usually low when she is not on much for blood pressure, as well as obesity and inactivity. She does not have symptoms to suggest coronary disease however and I do not think we should consider stress testing to look for it at this juncture. History of Present Illness Reason for Consultation: Preoperative orthopedic surgery, history of aortic stenosis and congestive heart failure Attending Physician: Raymundo Benjamin DO History of Present Illness This is a 64-year-old woman with a history of obesity, sleep apnea or obesity hypoventilation syndrome, hypertension, diabetes mellitus, dyslipidemia and aortic stenosis. She also has a history of PDA surgery at age 3. Her aortic stenosis is due to a bicuspid valve and was moderate to severe when last evaluated on October 12, 2019, the severity is dependent on which parameter is used (the calculated valve area is consistent with severe stenosis (0.73 cm), the dimensionless index and mean gradient are consistent with moderate aortic stenosis (0.29 and 20.3 mmHg). She has normal left ventricular function but has had admissions for diastolic heart failure and has left ventricular hypertrophy. She has not had symptoms of lightheadedness, dizziness or syncope, she does not have anginal symptoms to suggest significant coronary artery disease and she has not had findings of congestive heart failure recently. She presents now having fallen while cleaning her bathtub and has a right tibial plateau fracture for which surgery is being considered. Her blood pressure was markedly elevated on presentation but has improved and she is on minimal antihypertensives at home. She has been tachycardic since admission but has not in the past and the rhythm appears to be sinus. She is on very low-dose carvedilol (3.125 mg twice daily), this probably has very little beta-blocking effect. At the time my evaluation she was laying in bed, she was having some knee pain but no cardiovascular symptoms. She confirmed the events surrounding her fall and it appears that she slipped on some water during cleanup and did not have any lightheadedness, dizziness, presyncope or syncope to suggest that was a cause of her fall. She has been doing her normal activities and not having difficulty with chest discomfort. She is not having orthopnea or PND and is not having difficulty with fluid retention currently. Allergies Allergy/AdvReac Type Severity Reaction Status Date / Time No Known Drug Allergies Allergy Unknown Verified 02/06/20 02:36 Home Medications Home Medications Medication Instructions Recorded Confirmed Type spironolactone 25 mg tablet 25 mg PO DAILY #30 tab 07/08/19 02/06/20 Rx potassium chloride 20 mEq 20 meq PO DAILY #90 tab 07/15/19 02/06/20 Rx tablet,extended release furosemide 40 mg tablet 80 mg PO DAILY #60 tab 09/17/19 02/06/20 Rx carvedilol 3.125 mg tablet See Rx Instructions PO BID #60 tab 09/23/19 02/06/20 Rx atorvastatin 80 mg tablet 80 mg PO DAILY #90 tab 10/14/19 02/06/20 Rx ferrous sulfate 325 mg (65 mg 325 mg PO BID #180 tab 01/26/20 02/06/20 Rx iron) tablet Patient History Medical History Acute on chronic diastolic (congestive) heart failure (Resolved) Aortic stenosis Bicuspid aortic valve Chronic diastolic heart failure CO2 retention (Chronic) Conjunctival edema, bilateral Dyslipidemia Hyperglycemia Hypertension Hypoventilation syndrome Iron (Fe) deficiency anemia Leg edema Obstructive apnea (Resolved) Restrictive airway disease Sinusitis (Resolved) Surgical History H/O heart surgery Performed age 3 for repair of patent ductus arteriosus Family History Mother Depression Diabetes Father Stroke Coronary heart disease Hypertension Depression Diabetes Myocardial infarction Daughter Gallbladder disease Grandfather Prostate cancer Aunt Breast cancer Other Bicuspid aortic valve Denies family history of Ovarian cancer Colorectal cancer Social History Preferred Language: [place]i Communication Ability: Effective Visual Impairment: No Limitations Hearing Ability: Normal Mechanical Reliability Engineer Required: No Beliefs That Will Affect Care: None marital status: marital status details: One daughter Current Living Situation: Spouse current occupational status: retired Feels Safe at Home: Yes Smoking Status: Never smoker Hx Alcohol Use: No Hx Substance Use: No Childhood Exposure to Second-Hand Smoke: No Dental Care, Regularly: No Physical Activity Frequency: 5-6 Times per Week Seatbelt Use: always Sunscreen Use: No Do you think of yourself as: straight/heterosexual Physical Exam Physical Exam: Constitutional: Alert, cooperative and in no distress. She is obese. HEENT: Unremarkable Neck: No jugular venous distention, carotid pulses are normal and equal bilaterally without bruits. I do not hear a transmitted murmur. Pulmonary: Clear to auscultation bilaterally. Cardiac: Regular rhythm with a grade 2/6 crescendo decrescendo murmur at the base, no gallop or rub. Abdomen: Soft, nontender with normal bowel sounds. Extremities: No edema. Distal pulses intact. Neurologic: No focal findings. Gait was not tested. Skin: No rash, ecchymoses or petechiae. Results & Data ([facility]) Vital Signs (Past 12 Hours) Vital Signs Temp Pulse Pulse Pulse Pulse Resp BP 02/06/20 09:00 703 H 02/06/20 08:00 36.8 C 104 H 18 02/06/20 06:24 36.9 C 111 H 18 02/06/20 06:21 36.9 C 111 H 19 02/06/20 05:34 110 H 18 106/67 02/06/20 04:07 02/06/20 04:02 104 H 18 02/06/20 03:16 81 20 02/06/20 02:14 36.4 C L 110 H 20 191/131 H BP Pulse Ox 02/06/20 09:00 02/06/20 08:00 113/74 97 02/06/20 06:24 120/81 89 L 02/06/20 06:21 120/81 90 02/06/20 05:34 96 02/06/20 04:07 98 02/06/20 04:02 112/67 88 L 02/06/20 03:16 139/75 93 02/06/20 02:14 93 Laboratory Results Coagulation 02/06/20 Range/Units 03:12 PT 10.7 (9.0-12.0) Seconds APTT 23.7 (21.0-31.0) Seconds CBC 02/06/20 Range/Units 03:12 WBC 15.01 H (4.8-10.8) K/uL RBC 4.50 (4.2-5.4) M/uL Hgb 15.0 (12.0-16.0) g/dL Hct 46.2 (37-47) % Plt Count 236 (130-400) K/uL Neut # (Auto) 12.72 H (1.4-6.5) K/uL Lymph # (Auto) 1.02 L (1.2-3.4) K/uL [place] # (Auto) 1.17 H (0.11-0.59) K/uL Eos # (Auto) 0.04 (0-0.5) K/uL Baso # (Auto) 0.01 (0-0.2) K/uL Comprehensive Metabolic Panel 02/06/20 Range/Units 03:12 Sodium 138 (136-145) mmol/L Potassium 4.2 (3.5-5.1) mmol/L Chloride 104 (98-107) mmol/L Carbon Dioxide 26 (21-32) mmol/L BUN 35 H (7-18) mg/dl Creatinine 1.43 H (0.6-1.2) mg/dl Glucose 190 H (70-99) mg/dl Calcium 9.3 (8.5-10.1) mg/dl Intake and Output 02/05/20 02/06/20 02/06/20 22:59 06:59 14:59 Other: Weight 105.9 kg Diagnostic Findings An electrocardiogram done February 06, 2020 shows sinus tachycardia at 109 bpm, very minor ST-T abnormalities, otherwise unremarkable. Telemetry: Predominantly sinus tachycardia just over 100, no significant arrhythmia. PG Care Time/CCT Total # of Minutes Spent Total Time Spent with Patient: Total time spent is greater than 50% in coordination of care (as documented) at patient's floor/unit and/or counseling patient: Coding Level of Care Code 81526 Initial Inpt Care Lvl 3 Diagnoses Bicuspid aortic valve Q23.1 Chronic diastolic heart failure I50.32 Dyslipidemia E78.5
[2020-02-06] MEDS ORDERED: SUCCINYLCHOLINE CHLORIDE 20 MG/ML 10 ML VIAL IV ONE (11:10)
[2020-02-06] MEDS ORDERED: ONDANSETRON INJ 2 MG/ML 2 ML VIAL ONE ×2 (11:10→16:44)
[2020-02-06] MEDS ORDERED: LIDOCAINE HCL 2% 2 ML VIAL/AMP(20MG/ML) INFIL ONE (11:10)
[2020-02-06] MEDS ORDERED: PROPOFOL IV EMULSION 10 MG/ML 20 ML VIAL IV ONE (11:10)
[2020-02-06] MEDS ORDERED: ROCURONIUM BROMIDE 10 MG/ML 5 ML VIAL ONE (11:10)
[2020-02-06] MEDS ORDERED: ROPIVACAINE 0.5% 5 MG/ML 30 ML VIAL ONE (11:13)
[2020-02-06] MEDS ORDERED: CEFAZOLIN 3000MG 72.5 ML IV ONE (11:17)
--- NOTE | 2020-02-06 11:22 | Anesthesiology Consultation ---
Date of Service February 06, 2020 Assessment & Plan (1) Encounter for pre-operative examination: Chart Review Chart Review: Acceptable Risk for Surgery Consults Requested none ASA ASA3 Proposed Anesthesia Anesthesia Type: General Regional Regional Laterality: Right Site: Femoral Risk / Benefits Reviewed With: PT / POA / Parent / Guardian, Accepts Plan and Informed Consent Obtained Additional Comments: I spoke with Dr. Stack, he noted the patient likely has moderate and not severe . I consented the patient for an arterial line, but I will assess the patient's hemodynamics during the procedure before deciding to place the arterial line. History Surgery Operation Date: 02/06/20 14:00 Proposed Procedures p ORIF Tibial Plateau Fracture(Right) - Enoch Al MD Operation Date: 02/06/20 14:00 Proposed Procedures p ORIF Tibial Plateau(Right) - Enoch Al MD Height/Weight Height: 5 ft Weight: 105.9 kg Allergies Allergy/AdvReac Type Severity Reaction Status Date / Time No Known Drug Allergies Allergy Unknown Verified 02/06/20 02:36 Medications Home Medications Medication Instructions Recorded Confirmed Last Taken spironolactone 25 mg tablet 25 mg PO DAILY #30 tab 07/08/19 02/06/20 Unknown potassium chloride 20 mEq 20 meq PO DAILY #90 tab 07/15/19 02/06/20 Unknown tablet,extended release furosemide 40 mg tablet 80 mg PO DAILY #60 tab 09/17/19 02/06/20 Unknown carvedilol 3.125 mg tablet See Rx Instructions PO BID #60 tab 09/23/19 02/06/20 Unknown atorvastatin 80 mg tablet 80 mg PO DAILY #90 tab 10/14/19 02/06/20 Unknown ferrous sulfate 325 mg (65 mg 325 mg PO BID #180 tab 01/26/20 02/06/20 Unknown iron) tablet Active Medications Generic Name Dose Route Start Last Admin Trade Name Freq PRN Reason Stop Dose Admin Atorvastatin Calcium 80 mg 02/06/20 09:00 02/06/20 07:54 Lipitor PO 03/07/20 08:59 80 mg DAILY ESHA Administration Carvedilol 3.125 mg 02/06/20 09:00 02/06/20 07:54 Coreg PO 03/07/20 08:59 3.125 mg BID ESHA Administration Hydromorphone HCl 0.5 mg 02/06/20 06:23 02/06/20 11:02 Dilaudid IV 02/20/20 06:22 0.5 mg Q3H PRN Administration Severe Pain Insulin Aspart 0 units 02/06/20 07:30 02/06/20 07:54 Novolog Flexpen SC 03/07/20 07:29 1 units ACHS ESHA Administration NPO Date Last Intake of Fluids: 02/06/20 Time Last Intake of Fluids: 00:00 Date Last Intake of Solids: 02/06/20 Time Last Intake of Solids: 00:00 Past Medical History Medical History Acute on chronic diastolic (congestive) heart failure (Resolved) Aortic stenosis Bicuspid aortic valve Chronic diastolic heart failure CO2 retention (Chronic) Conjunctival edema, bilateral Dyslipidemia Hyperglycemia Hypertension Hypoventilation syndrome Iron (Fe) deficiency anemia Leg edema Obstructive apnea (Resolved) Restrictive airway disease Sinusitis (Resolved) Exercise / Class Metabolic Activity III < 4 Walking/Shop/Light housework Past Family History Family History Mother Depression Diabetes Father Stroke Coronary heart disease Hypertension Depression Diabetes Myocardial infarction Daughter Gallbladder disease Grandfather Prostate cancer Aunt Breast cancer Other Bicuspid aortic valve Denies family history of Ovarian cancer Colorectal cancer Past Surgical History Surgical History H/O heart surgery Performed age 3 for repair of patent ductus arteriosus Past Anesthesia History No Hx of Anesthesia Complications and No Family Hx of Anesthesia Complications History of PONV No Hx of PONV and No Hx of Motion Sickness Social History Smoking Status: Never smoker Hx Alcohol Use: No Alcohol type: hard liquor Hx Substance Use: No substance use type: does not use Physical Exam Vital Signs Last Vital Signs Temp 98.2 F 02/06/20 08:00 Pulse 103 H 02/06/20 09:00 Resp 18 02/06/20 08:00 BP 113/74 02/06/20 08:00 Pulse Ox 97 02/06/20 08:00 ENMT Mouth: no dentition abnormality Thyromental Distance: > or= 3.5 Finger Breadths Mallampati Class: III Neck normal visual inspection Respiratory normal respiratory effort Auscultation: lungs clear to auscultation bilaterally Cardiovascular Rate/Rhythm: regular rate and regular rhythm Heart Sounds: + murmur (3/6 KALI) Testing Laboratory Results 02/06/20 03:12 02/06/20 03:12 PT 10.7 Seconds (9.0-12.0) 02/06/20 03:12 INR 1.0 (0.9-1.1) 02/06/20 03:12 APTT 23.7 Seconds (21.0-31.0) 02/06/20 03:12 02/06/20 07:53 POC Glucose 159 H Electrocardiogram Date: 02/06/20 Poor data quality, interpretation may be adversely affected Sinus tachycardia, rate 109 bpm Otherwise normal ECG When compared with ECG of 03-APR-2017 06:36, No significant change was found Chest X-Ray Date: 02/06/20 FINDINGS: The heart remains enlarged. There is aortic tortuosity/ectasia. There is no overt failure. There is no lobar consolidation. There are chronically increased basilar markings. Advanced arthritic changes are present within the right shoulder.[ IMPRESSION: Cardiomegaly. No acute findings. Echocardiogram Date: 10/12/19 Normal biventricular systolic function Mild concentric LVH Grade 1 left LV diastolic dysfunction Normal chamber dimensions Mod to severe Trace AR Compared to an echocardiogram of October 15, 2018 the aortic stenosis has progressed
[2020-02-06] MEDS ORDERED: MIDAZOLAM HCL 1 MG/ML 2ML VIAL ONE (11:38)
[2020-02-06] MEDS ORDERED: fentaNYL citrate 100 MCG/2 ML VIAL ONE (11:38)
[2020-02-06] MEDS ORDERED: ATROPINE SULFATE 0.1 MG/ML 10ML SYR IV PRN (12:22)
[2020-02-06] MEDS ORDERED: fentaNYL citrate 100 MCG/2 ML VIAL IV PRN (12:22)
[2020-02-06] MEDS ORDERED: ePHEDrine sulfate 50 MG/ML AMP IV PRN (12:22)
[2020-02-06] MEDS ORDERED: CEFAZOLIN 250 MG/ML 1 GM VIAL ONE (12:38)
--- NOTE | 2020-02-06 12:59 | Communication Note ---
Date of Service: February 06, 2020 Pt seen this AM. Very pleasant. States her pain is well controlled, no nausea/vomiting. Vitals stable, noted blowing murmur, umbilical hernia noted, right leg in black immobilizing cast, left leg with some bruising. Appreciate cardio recs, cleared for surgery. Appreciate orthopedic service, ORIF for tibial plateau fracture. Pt previously declined DEXA. Consider Vit D evaluation and supplementation as needed. Otherwise as noted in H&P of same date d/w dr caceres, d/w ortho several times post op. attempted to see pt multiple times today - was out of room operatively. as above, as per ortho. Resident Activity Tracking Resident Involvement: Resident Care Provided Care Provided: Adult Hospital Medicine
[2020-02-06] MEDS ORDERED: LIDOCAINE/EPINEPHRINE 2% 1:200,000 20 ML SDV ONE (13:00)
[2020-02-06] MEDS ORDERED: BUPIVACAINE 0.5 % 5 MG/1 ML PF 10ML VIAL ONE (13:00)
[2020-02-06] MEDS ORDERED: GLYCOPYRROLATE 0.2 MG/ML VIAL ONE (14:28)
[2020-02-06] MEDS ORDERED: NEOSTIGMINE METHYLSULFATE 5 MG/5 ML SYR ONE (14:28)
[2020-02-06] MEDS ORDERED: PHENYLEPHRINE HCL 10 MG/ML VIAL ONE (14:36)
[2020-02-06] MEDS ORDERED: ePHEDrine sulfate 50 MG/ML AMP ONE (14:36)
--- NOTE | 2020-02-06 15:48 | Fluoroscopy Report ---
FL tibia/fibula RT 2V CLINICAL HISTORY: RT TIBIAL NAIL COMPARISON STUDY: 02/06/2020 FLUOROSCOPY TIME: 18 seconds. NUMBER OF FLUOROSCOPIC IMAGES: 3 FINDINGS: There has been internal fixation of the comminuted tibial plateau fracture utilizing both m edial and lateral plate fixation. IMPRESSION: Internally fixated proximal tibial fracture. ACT 112: Negative or not required by law. Electronically signed by: Nelson Mendenhall M.D. 02/06/2020 3:47 PM
[2020-02-06] MEDS ORDERED: LIDOCAINE/EPINEPHRINE 2% 1:200,000 20 ML SDV INFIL SCH (16:00)
[2020-02-06] MEDS ORDERED: BUPIVACAINE 0.5 % 5 MG/1 ML MPF 30ML VIAL INFIL SCH (16:00)
--- NOTE | 2020-02-06 16:02 | Post Operative Brief Note ---
Immediate Post Op Note v1 Date of Surgery February 06, 2020 Pre & Post Diagnosis Operation Date: 02/06/20 14:00 Pre-Op Diagnosis: Right Tibial Plateau Fracture Post-Op Diagnosis: Right Tibial Plateau Fracture Operation Date: 02/06/20 14:00 <No data on this case meets the specified criteria> I identified the patient and participated in the time-out.: Yes Procedure Operation Date: 02/06/20 14:00 Actual Procedures p ORIF Tibial Plateau Fracture(Right) - Enoch Al MD Surgeon Enoch Al MD Water Resource Specialist Elgin Mancia MD & Ad Mccarthy PA-C Estimated Blood Loss 100 Findings Consistent with Post-Op Diagnosis Fluids 1200 cc Drains Calvert Catheter Anesthesia Type General Regional Complications none
--- NOTE | 2020-02-06 16:04 | Operative Report ---
Post Operative Report Pre & Post Diagnosis Operation Date: 02/06/20 14:00 Pre-Op Diagnosis: Right Tibial Plateau Fracture Post-Op Diagnosis: Right Tibial Plateau Fracture Operation Date: 02/06/20 14:00 <No data on this case meets the specified criteria> I identified the patient and participated in the time-out.: Yes Procedure Operation Date: 02/06/20 14:00 Actual Procedures p ORIF Tibial Plateau Fracture(Right) - Enoch Al MD Operation Date: 02/06/20 14:00 <No data on this case meets the specified criteria> Surgeon Dr. Romelia Al MD Youth Accommodation Support Worker Dayton Mccarthy PA-C Estimated Blood Loss 100 Findings Consistent with Post-Op Diagnosis Specimens none Drains none Complications none Disposition Accompanied Patient To Recovery: Yes Disposition: Recovery Room Indications This 64-year-old white female presented to the ED after falling at home while cleaning her bathroom. She sustained a right tibial plateau fracture. Patient was taken educated regarding potential risks and outcomes. She elected to proceed with surgical intervention in hopes of improving her function and pain. Preoperative imaging was obtained. Description of Procedure Patient was given a regional block and then taken to the operating room where she was given general anesthesia. She was prepped and draped in the usual sterile fashion. Please see Dr. Al's operative report for specifics of the procedure. I was present for the entire case from initial patient positioning through final wound closure. Assistance was provided in tissue retraction, hemostasis, fracture reduction, hardware placement, and final wound closure. Patient was taken to ICU for recovery in satisfactory condition. I attest to the content of the Intraoperative Record and any orders documented therein. Any exceptions are noted below.
--- NOTE | 2020-02-06 16:04 | Operative Report ---
Post Operative Report Pre & Post Diagnosis Operation Date: 02/06/20 14:00 Pre-Op Diagnosis: Right Tibial Plateau Fracture Post-Op Diagnosis: Right Tibial Plateau Fracture I identified the patient and participated in the time-out.: Yes Procedure Operation Date: 02/06/20 14:00 Actual Procedures p ORIF Tibial Plateau Fracture, Schatzker 6 (Right) - Enoch Al MD Surgeon Enoch Al MD Neuro Intensivist Physician Elgin Mancia MD & Ad Mccarthy PA-C Estimated Blood Loss 100 Findings See Below Displaced Schatzker 6 Right Tibial Plateau fracture Fluids 1200 cc Specimens n/a Drains Calvert Anesthesia Type General Regional Complications none Indications The patient is a 64 female with a right tibial plateau fracture that occurred following a ground-level fall. After a lengthy discussion regarding their treatment options of conservative versus surgical intervention and due to the displacement, I recommended surgical intervention with an ORIF of the right knee. The patient understands the risks of surgery, which include but are not limited to: bleeding, infection, re-operation, damage to nerves and arteries, continued pain, progression of arthritis, failure of the hardware, possible need for removal of the hardware, decreased level of activity, malunion, nonunion, compartment syndrome, additional surgery, and DVT. The patient understands all of these instructions and explanations, all of their questions have been satisfactorily addressed. The patient has elected to proceed with surgery and the informed consent was signed. Description of Procedure IMPLANTS: Synthes Medial side: 1. 3.5 mm, 4 hole LCP Proximal Posteromedial Proximal Tibia plate 2. 3.5 mm locking screws (36 & 65 mm) 3. 3.5 mm cortical screws (28 mm x 2) Lateral side: 1. 3.5 mm, 10 hole LCP Locking Lateral Proximal Tibia plate 2. 3.5 mm locking screws (45, 60 x2, 70 x2, & 75 mm) 3. 3.5 mm cortical screws (28, 30 mm) PROCEDURE: The patella, tibial tubercle, Shira's tubercle, and the fibular head as well as the planned medial and lateral incisions were marked and injected with a 50:50 mix of 1% lidocaine with epi and 0.5% Marcaine plain for a total of 40 cc. The medial side was addressed first. The incision was carried down through the extensive subcutaneous fat and plane was developed between the pes tendons and the medial gastroc. The saphenous vein and nerve were protected throughout. To allow for better exposure at the fracture site the sartorius fascia was released and later loosely repaired with 0 Vicryl at the end of the case. A reduction maneuver was performed and held with slight traction and confirmed under fluoroscopy. A posteromedial plate was obtained and its placement confirmed under fluoroscopy. A nonlocking screw was placed in the shaft in the distal oblong hole, to reduce the plate to the bone, and to perform a posterior buttress. The plate was adjusted slightly distal and the screw was then tightened, again confirming excellent placement under fluoroscopy. 2 nonlocking screws were placed in the distal holes. Locking screws were later placed, after completing the ORIF of the lateral side, proximally as well as exchanging the initial nonlocking screw which happened to end up in the locking portion of the hole after adjusting the plate. Next our attention was brought to the lateral side and a standard curved linear incision from the distal femur brought distally just posterior to Shira's tubercle and carried distally adjacent to the tibial crest was made, ensuring that there was at least a 7 cm skin bridge between the medial and lateral incisions. An additional small incision was made to access the distal to holes of the plate after it had been placed. The IT band was split and the proximal anterior and lateral fascia was incised to tease the muscle of the anterior and lateral compartment off the proximal tibia. A Peralta was used to elevate the muscle off the tibia and allow placement of the plate. A lateral plate was then placed and a K wire was placed through the proximal hole and under fluoroscopy this was adjusted until it was seated properly. Then 2 non-locking screws were placed through the distal incision to secure the plate to the bone. An additional nonlocking screw was placed through the middle home-run screw hole to reduce the proximal aspect of the plate to the bone after confirming anatomic reduction both in the AP and lateral projections. The joint line looked anatomic both in the medial and lateral plateaus. An additional nonlocking screw was placed in the most proximal hole. Locking screws were then placed proximally and in the distal home-run screw hole. The most proximal nonlocking screw was removed and replaced with a locking screw. Final fluoroscopy fluoroscopic images were obtained, that showed near anatomic reduction. The hardware was in good position. The IT band and lateral fascia was closed with 0 Vicryl. Both wounds were copiously irrigated. The anterolateral compartment fascia was pie crusted to allow closure over the plate and decompressed those compartments. The subcutaneous tissue was closed with 3-0 Vicryl. The limb was cleaned with peroxide, followed by water and dried. The skin was closed with ZipLine and covered with Telfa. The wounds were further covered with 4 x 4's, ABDs, sterile cast padding, and a foot to thigh Johnny bandage. A range of motion knee brace was placed blocked 0-30 degrees, it may be unlocked further to work on range of motion, but with ambulation, it should be block between 0 and 30 degrees to allow her to clear her foot.. POSTOP INSTRUCTIONS: The patient will be non-weight bearing for 3 months. The patient will be re- admitted and pain control with oral and IV pain medicine. She will start PT/OT in the morning. Her Calvert will be DC'd in the morning. Her dressing will be changed postop day #2 and the ZipLine will be adjusted as needed and then have this shield placed over top. DVT prophylaxis will consist of teds, foot pumps, Lovenox 40 mg subcutaneous for 3 weeks followed by aspirin 325 mg orally for another 3 weeks. I attest to the content of the Intraoperative Record and any orders documented therein. Any exceptions are noted below.
--- NOTE | 2020-02-06 16:17 | Operative Report ---
Post Operative Report Pre & Post Diagnosis Operation Date: 02/06/20 14:00 Pre-Op Diagnosis: Right Tibial Plateau Fracture Post-Op Diagnosis: Right Tibial Plateau Fracture Operation Date: 02/06/20 14:00 <No data on this case meets the specified criteria> I identified the patient and participated in the time-out.: Yes Procedure Operation Date: 02/06/20 14:00 Actual Procedures p ORIF Tibial Plateau Fracture(Right) - Enoch Al MD Operation Date: 02/06/20 14:00 <No data on this case meets the specified criteria> Surgeon Enoch Al MD [employer] Courier Elgin Mancia MD & Ad Mccarthy PA-C Estimated Blood Loss 100 Findings Consistent with Post-Op Diagnosis Specimens None Complications none Disposition Accompanied Patient To Recovery: Yes Disposition: Recovery Room Description of Procedure Supine, standard prep and drape, time out ORIF Tibial Plateau Fracture(Right) Please see Dr Al's procedure notes for specific details I was present throughout the case, assisted for wound closure and transferred the patient to PACU in stable condition I attest to the content of the Intraoperative Record and any orders documented therein. Any exceptions are noted below.
[2020-02-06] MEDS ORDERED: METOPROLOL TARTRATE 1 MG/ML VIAL IV ONE (16:22)
[2020-02-06] MEDS ORDERED: ESMOLOL HCL INJ 10 MG/ML 10ML VIAL IV ONE (16:22)
--- NOTE | 2020-02-06 16:54 | Anesthesiology Progress Note ---
Date of Service February 06, 2020 Anesthesia Post Procedure Vital Signs Vital Signs: Temp Pulse Pulse Pulse Pulse Resp BP 02/06/20 09:00 103 H 02/06/20 08:00 98.2 F 104 H 18 02/06/20 06:24 98.4 F 111 H 18 02/06/20 06:21 98.4 F 111 H 19 02/06/20 05:34 110 H 18 106/67 02/06/20 04:07 02/06/20 04:02 104 H 18 02/06/20 03:16 81 20 02/06/20 02:14 97.5 F L 110 H 20 191/131 H BP Pulse Ox 02/06/20 09:00 02/06/20 08:00 113/74 97 02/06/20 06:24 120/81 89 L 02/06/20 06:21 120/81 90 02/06/20 05:34 96 02/06/20 04:07 98 02/06/20 04:02 112/67 88 L 02/06/20 03:16 139/75 93 02/06/20 02:14 93 Pain Intensity Right Knee: Pain Intensity: 4 Transfer of Care Handoff Completed per policy Notes Mental Status: alert / awake / arousable and participated in evaluation Patient Amnestic to Procedure: Yes Nausea / Vomiting: adequately controlled Pain: adequately controlled Airway Patency, RR, SpO2: stable & adequate BP & HR: stable & adequate Hydration State: stable & adequate Anesthetic Complications: no major complications apparent and Pt Satisfied with anesthetic care
[2020-02-06] MEDS ORDERED: DiphenhydrAMINE HCL 50 MG/ML VIAL IV PRN (17:30)
[2020-02-06] MEDS ORDERED: NALOXONE HCL 0.4 MG/1 ML VIAL/CARP IV PRN (17:30)
[2020-02-06] MEDS ORDERED: MAGNESIUM HYDROXIDE SUSP 30 ML UDC PO PRN (17:45)
[2020-02-06] MEDS ORDERED: METOCLOPRAMIDE HCL INJ 5 MG/ML 2 ML VIAL IV PRN (17:45)
[2020-02-06] MEDS ORDERED: bisacodyL 10 MG SUPP PR PRN (17:45)
[2020-02-06] MEDS ORDERED: ALUMINUM/MAGNESIUM SUSP 30 ML UDC PO PRN (17:45)
[2020-02-06] MEDS ORDERED: FLUCONAZOLE 50 MG TAB PO ONE (18:00)
[2020-02-06] MEDS: OXYCODONE HCL IR 5 MG TAB (IMMEDIATE RELEASE) PO PRN (19:55)
[2020-02-06] MEDS: SENNA 8.6 MG TAB PO SCH (20:02)
[2020-02-06] MEDS: DOCUSATE SODIUM 100 MG CAP PO SCH (20:44)
[2020-02-06] MEDS: FERROUS SULFATE 325 MG TAB PO SCH (20:44)
[2020-02-06] MEDS: CEFAZOLIN 2000MG 2,000 MG/15 ML SYR IV SCH (21:00)
[2020-02-07] MEDS: OXYCODONE HCL IR 5 MG TAB (IMMEDIATE RELEASE) PO PRN ×5 (01:43→19:54)
[2020-02-07] MEDS: CEFAZOLIN 2000MG 2,000 MG/15 ML SYR IV SCH (06:02)
[2020-02-07 07:17] LABS: Basophils # (auto) 0.01 K/uL (0-0.2); Basophils % (auto) 0.1 %; Eosinophils # (auto) 0.03 K/uL (0-0.5); Eosinophils % (auto) 0.3 %; Hematocrit (blood only) 39.4 % (37-47); Hemoglobin 12.5 g/dL (12.0-16.0); Immature Granulocytes # (auto) 0.03 K/uL (0.00-0.02); Immature Granulocytes % (auto) 0.3 %; Lymphocytes # (auto) 1.19 K/uL (1.2-3.4); Lymphocytes % (auto) 10.1 %; Mean Corpuscular Hemoglobin 33.2 pg (25-34); Mean Corpuscular Hgb Conc 31.7 g/dL (32-36); Mean Corpuscular Volume 104.8 fL (80-100); Mean Platelet Volume 11.8 fL (7.4-10.4); Monocytes # (auto) 2.28 K/uL (0.11-0.59); Monocytes % (auto) 19.4 %; Neutrophils # (auto) 8.21 K/uL (1.4-6.5); Neutrophils % (auto) 69.8 %; Platelet Count 192 K/uL (130-400); RDW Coefficient of Variation 13.6 % (11.5-14.5); RDW Standard Deviation 51.8 fL (36.4-46.3); Red Blood Count 3.76 M/uL (4.2-5.4); White Blood Count 11.75 K/uL (4.8-10.8)
[2020-02-07 07:26] LABS: Partial Thromboplastin Time 27.3 Seconds (21.0-31.0); Prothrombin Time 10.9 Seconds (9.0-12.0)
--- NOTE | 2020-02-07 07:28 | Electrocardiogram Report ---
Test Reason : Blood Pressure : / mmHG Vent. Rate : 109 BPM Atrial Rate : 109 BPM P-R Int : 198 ms QRS Dur : 084 ms QT Int : 336 ms P-R-T Axes : 072 065 069 degrees QTc Int : 452 ms Poor data quality, interpretation may be adversely affected Sinus tachycardia Otherwise normal ECG When compared with ECG of 03-APR-2017 06:36, No significant change was found Confirmed by Bartolo Stack ([id number]) on 02/07/2020 7:27:35 AM Referred By: REFERRED SELF Confirmed By:Bartolo Stack
[2020-02-07 07:44] LABS: Albumin Level 2.9 gm/dl (3.4-5.0); Calcium 9.2 mg/dl (8.5-10.1); Creatinine Clr Calc Pharmacy 54.6 ml/min; Est GFR (Non-African American) 50.1; Potassium 4.4 mmol/L (3.5-5.1)
[2020-02-07 07:47] LABS: Albumin Globulin Ratio 0.8 (0.9-2); Bilirubin,Total 0.6 mg/dl (0.2-1); Globulin 3.6 gm/dl (2.5-4.0); Total Protein 6.5 gm/dl (6.4-8.2)
[2020-02-07] MEDS: DOCUSATE SODIUM 100 MG CAP PO SCH ×2 (08:10→20:02)
[2020-02-07] MEDS: SPIRONOLACTONE 25 MG TAB PO SCH (08:10)
[2020-02-07] MEDS: carvediloL 3.125 MG TAB PO SCH ×2 (08:11→20:01)
[2020-02-07] MEDS: FUROSEMIDE 80 MG TAB PO SCH (08:11)
[2020-02-07] MEDS: POTASSIUM CHLORIDE 20 MEQ TABCR PO SCH (08:11)
[2020-02-07] MEDS: FERROUS SULFATE 325 MG TAB PO SCH ×2 (08:11→20:01)
[2020-02-07] MEDS: ENOXAPARIN INJ 40 MG/0.4 ML SYR SQ SCH (08:12)
[2020-02-07] MEDS: MULTIVITAMIN TAB PO SCH (08:12)
[2020-02-07] MEDS: ATORVASTATIN 40 MG TAB PO SCH (08:12)
[2020-02-07] MEDS: INSULIN ASPART 100 UNITS/ML 3 ML PEN SC SCH ×4 (08:17→20:04)
--- NOTE | 2020-02-07 08:42 | Orthopedic Progress Note ---
Date of Service February 07, 2020 Assessment & Plan (1) Closed fracture of tibial plateau: POD #1 s/p ORIF right Tibial plateau. TTWB RLE with walker and brace blocked between 0-30 degrees. Brace otherwise can match her ROM when in bed or chair. PT/OT. Will obtain Overhead Trapeze. Diabetic diet. Enrike d/c 02/07/2020. Continue pain control. DVT Prophylaxis: Lovenox 40 mg subq q24 x 3 weeks then ASA 325mg BID for another 3 weeks. TEDs for 3 weeks. SCD's while in hospital. D/C planning. Continue care per primary service. Admission and Anticipated Discharge Date Admission Date: February 06, 2020 Subjective Right knee and occasional ankle pain. Review of Systems Review of Systems: All systems reviewed & are unremarkable except as noted in HPI & below Physical Exam Physical Exam: RLE: Dressing clean, dry, intact. Brace in place. calf soft & non-tender. Wiggling toes and ankle. Sensation to light touch intact. BCR < 2 sec. Results & Data ([facility]) Vital Signs (Past 12 Hours) Vital Signs Temp Pulse Pulse Pulse Resp BP Pulse Ox 02/07/20 08:00 36.7 C 105 H 18 114/60 96 02/07/20 04:13 36.8 C 104 H 18 108/73 93 02/06/20 23:24 36.9 C 106 H 20 121/67 95 02/06/20 22:20 99 H Laboratory Results 02/07/20 02/07/20 02/07/20 Range/Units 07:47 06:58 06:58 WBC (4.8-10.8) K/uL RBC (4.2-5.4) M/uL Hgb (12.0-16.0) g/dL Hct (37-47) % MCV (80-100) fL MCH (25-34) pg MCHC (32-36) g/dL RDW Std Deviation (36.4-46.3) fL RDW Coeff of Betito (11.5-14.5) % Plt Count (130-400) K/uL MPV (7.4-10.4) fL Immature Gran % (Auto) % Neut % (Auto) % Lymph % (Auto) % [place] % (Auto) % Eos % (Auto) % Baso % (Auto) % Immature Gran # (Auto) (0.00-0.02) K/uL Neut # (Auto) (1.4-6.5) K/uL Lymph # (Auto) (1.2-3.4) K/uL [place] # (Auto) (0.11-0.59) K/uL Eos # (Auto) (0-0.5) K/uL Baso # (Auto) (0-0.2) K/uL PT 10.9 (9.0-12.0) Seconds INR 1.0 (0.9-1.1) APTT 27.3 (21.0-31.0) Seconds PTT Ratio 1.0 Sodium 137 (136-145) mmol/L Potassium 4.4 (3.5-5.1) mmol/L Chloride 101 (98-107) mmol/L Carbon Dioxide 32 (21-32) mmol/L Anion Gap 4.0 (3-11) BUN 31 H (7-18) mg/dl Creatinine 1.14 (0.6-1.2) mg/dl Est Cr Clr Drug Dosing 54.6 ml/min Est GFR ( Amer) 58.0 Est GFR (Non-Af Amer) 50.1 BUN/Creatinine Ratio 27.0 H (10-20) Glucose 147 H (70-99) mg/dl POC Glucose 136 H (70-99) mg/dl Calcium 9.2 (8.5-10.1) mg/dl Magnesium 2.0 (1.8-2.4) mg/dl Total Bilirubin 0.6 (0.2-1) mg/dl AST 30 (15-37) U/L ALT 20 (12-78) U/L Alkaline Phosphatase 56 (45-117) U/L Troponin I (0-0.045) ng/ml Total Protein 6.5 (6.4-8.2) gm/dl Albumin 2.9 L (3.4-5.0) gm/dl Globulin 3.6 (2.5-4.0) gm/dl Albumin/Globulin Ratio 0.8 L (0.9-2) 02/07/20 02/06/20 02/06/20 Range/Units 06:58 22:49 20:04 WBC 11.75 H (4.8-10.8) K/uL RBC 3.76 L (4.2-5.4) M/uL Hgb 12.5 (12.0-16.0) g/dL Hct 39.4 (37-47) % MCV 104.8 H (80-100) fL MCH 33.2 (25-34) pg MCHC 31.7 L (32-36) g/dL RDW Std Deviation 51.8 H (36.4-46.3) fL RDW Coeff of Betito 13.6 (11.5-14.5) % Plt Count 192 (130-400) K/uL MPV 11.8 H (7.4-10.4) fL Immature Gran % (Auto) 0.3 % Neut % (Auto) 69.8 % Lymph % (Auto) 10.1 % [place] % (Auto) 19.4 % Eos % (Auto) 0.3 % Baso % (Auto) 0.1 % Immature Gran # (Auto) 0.03 H (0.00-0.02) K/uL Neut # (Auto) 8.21 H (1.4-6.5) K/uL Lymph # (Auto) 1.19 L (1.2-3.4) K/uL [place] # (Auto) 2.28 H (0.11-0.59) K/uL Eos # (Auto) 0.03 (0-0.5) K/uL Baso # (Auto) 0.01 (0-0.2) K/uL PT (9.0-12.0) Seconds INR (0.9-1.1) APTT (21.0-31.0) Seconds PTT Ratio Sodium (136-145) mmol/L Potassium (3.5-5.1) mmol/L Chloride (98-107) mmol/L Carbon Dioxide (21-32) mmol/L Anion Gap (3-11) BUN (7-18) mg/dl Creatinine (0.6-1.2) mg/dl Est Cr Clr Drug Dosing ml/min Est GFR ( Amer) Est GFR (Non-Af Amer) BUN/Creatinine Ratio (10-20) Glucose (70-99) mg/dl POC Glucose 180 H (70-99) mg/dl Calcium (8.5-10.1) mg/dl Magnesium (1.8-2.4) mg/dl Total Bilirubin (0.2-1) mg/dl AST (15-37) U/L ALT (12-78) U/L Alkaline Phosphatase (45-117) U/L Troponin I 0.035 (0-0.045) ng/ml Total Protein (6.4-8.2) gm/dl Albumin (3.4-5.0) gm/dl Globulin (2.5-4.0) gm/dl Albumin/Globulin Ratio (0.9-2) 02/06/20 02/06/20 02/06/20 Range/Units 18:06 18:00 08:36 WBC (4.8-10.8) K/uL RBC (4.2-5.4) M/uL Hgb (12.0-16.0) g/dL Hct (37-47) % MCV (80-100) fL MCH (25-34) pg MCHC (32-36) g/dL RDW Std Deviation (36.4-46.3) fL RDW Coeff of Betito (11.5-14.5) % Plt Count (130-400) K/uL MPV (7.4-10.4) fL Immature Gran % (Auto) % Neut % (Auto) % Lymph % (Auto) % [place] % (Auto) % Eos % (Auto) % Baso % (Auto) % Immature Gran # (Auto) (0.00-0.02) K/uL Neut # (Auto) (1.4-6.5) K/uL Lymph # (Auto) (1.2-3.4) K/uL [place] # (Auto) (0.11-0.59) K/uL Eos # (Auto) (0-0.5) K/uL Baso # (Auto) (0-0.2) K/uL PT (9.0-12.0) Seconds INR (0.9-1.1) APTT (21.0-31.0) Seconds PTT Ratio Sodium (136-145) mmol/L Potassium (3.5-5.1) mmol/L Chloride (98-107) mmol/L Carbon Dioxide (21-32) mmol/L Anion Gap (3-11) BUN (7-18) mg/dl Creatinine (0.6-1.2) mg/dl Est Cr Clr Drug Dosing ml/min Est GFR ( Amer) Est GFR (Non-Af Amer) BUN/Creatinine Ratio (10-20) Glucose (70-99) mg/dl POC Glucose 195 H (70-99) mg/dl Calcium (8.5-10.1) mg/dl Magnesium (1.8-2.4) mg/dl Total Bilirubin (0.2-1) mg/dl AST (15-37) U/L ALT (12-78) U/L Alkaline Phosphatase (45-117) U/L Troponin I 0.024 0.077 H* (0-0.045) ng/ml Total Protein (6.4-8.2) gm/dl Albumin (3.4-5.0) gm/dl Globulin (2.5-4.0) gm/dl Albumin/Globulin Ratio (0.9-2) (1) Closed fracture of tibial plateau Encounter type: initial encounter Laterality: right Qualified Code(s): S82.141A - Displaced bicondylar fracture of right tibia, initial encounter for closed fracture
--- NOTE | 2020-02-07 10:15 | Hospitalist Progress Note ---
Date of Service February 07, 2020 Assessment & Plan (1) Closed fracture of tibial plateau: Pt is a 64yo female with a significant Hx of HFpEF, aortic stenosis, Dyslipidemia, HTN, DMII and BEN who was admitted for surgical management of a right tibial plateau fracture. Right leg Tibial plateau fracture -post-op day #1 -Appreciate ortho recs "-TTWB RLE with walker and brace blocked between 0-30 degrees. Brace otherwise can match her ROM when in bed or chair. -PT/OT. -Will obtain Overhead Trapeze. -Diabetic diet. -Continue pain control. -DVT Prophylaxis: Lovenox 40 mg subq q24 x 3 weeks then ASA 325mg BID for another 3 weeks. TEDs for 3 weeks. SCD's while in hospital. -Appreciate CARDS recs for surgical clearance -Previously declined DEXA as outpt -Consider Vit D, calcium supplementation on discharge HFpEF -on home lasix 80mg daily, spironolactone 25mg daily and KCl 20meQ HTN -as above + carvedilol 3.125mg BID HLD -continue home atorvastatin 80mg DMII -ISS FEN/GI: DMII/Carb count CODE STATUS: full DVT prophylaxis: Lovenox SQ Dispo: ?rehab based on recs of PT/OT Admission and Anticipated Discharge Date Admission Date: February 06, 2020 Supervising Physician Co-Signing Physician Notes I personally examined the patient and verified all saleem points of history and exam, discussed case, and agree with decision making with Dr Pritchard. pain in knee but pain control reasonable. no new complaints. discussed high likelihood of needing rehab, although we discussed that PT/OT evals would help guide this. vitals noted nad heent nc at mmm breathing unlabored no accessory muscles good effort skin no rashes no pallor or icterus tibial plateau fracture -now post op, pain control, PT/OT, rehab vs home (probably rehab) to be determined -outpt osteoporosis w/u if she allows as this is possibly an osteoporotic fracture otherwise as above, medically stable Subjective Pt seen this AM. Was eating breakfast and states she was doing as well as she could. Pain well controlled. Denies any chest pain, SOB, palpitations, N/V or abdominal pain. States she occasionally gets a spasm in the leg. Review of Systems Review of Systems: All systems reviewed & are unremarkable except as noted in Subjective Physical Exam Physical Exam: General: Alert, oriented. No acute distress Skin: No noted rashes or bruises Psych: Appropriate mood and affect Neuro: No gross deficits HEENT: NC/AT Chest: Nontender to palpation. CV: RRR, Normal s1, s2. Blowing murmur appreciated Resp: Breath sounds clear bilaterally, no increased effort of breathing. Abdomen: BS+. Soft, nontender, nondistended. No guarding. Umbilical hernia noted. Extremities: right leg in black immobilizing cast, left leg with some bruising. Results & Data Results & Data ([facility]) Vital Signs (Past 12 Hours) Vital Signs Temp Pulse Pulse Pulse Resp BP Pulse Ox 02/07/20 08:00 36.7 C 105 H 18 114/60 96 02/07/20 04:13 36.8 C 104 H 18 108/73 93 02/06/20 23:24 36.9 C 106 H 20 121/67 95 02/06/20 22:20 99 H Resident Activity Tracking Resident Involvement: Resident Care Provided Care Provided: Adult Hospital Medicine (1) Closed fracture of tibial plateau Encounter type: initial encounter Laterality: right Qualified Code(s): S82.141A - Displaced bicondylar fracture of right tibia, initial encounter for closed fracture
--- NOTE | 2020-02-07 10:50 | Cardiology Progress Note ---
Date of Service February 07, 2020 Assessment & Plan (1) Bicuspid aortic valve: She has a bicuspid valve with moderate to severe aortic stenosis. Based on different parameters it is either moderate or severe, based on the least specific parameter (calculated valve area) it is severe, however by the more predictive measures it is moderate and on exam I believe it to be moderate. She went through surgery without cardiovascular difficulty. (2) Chronic diastolic heart failure: She has a history of chronic diastolic heart failure, she has been hospitalized for heart failure but has been diastolic. With fluid management she has not had difficulty with that lately. (3) Dyslipidemia: She does have risk factors for coronary artery disease which include diabetes, dyslipidemia, possibly hypertension although she tells me her blood pressure is usually low when she is not on much for blood pressure, as well as obesity and inactivity. She does not have symptoms to suggest coronary disease however and I would not pursue further evaluation at this time. I will sign off, she is doing well from a cardiovascular standpoint. If we can be of any further help please contact us. Admission and Anticipated Discharge Date Admission Date: February 06, 2020 Subjective She is feeling well and is sitting by her bedside. She does have some residual knee pain but no cardiovascular complaints. Physical Exam Physical Exam: Constitutional: Alert, cooperative and in no distress. She is obese. HEENT: Unremarkable Neck: No jugular venous distention, carotid pulses are normal and equal bilaterally without bruits. I do not hear a transmitted murmur. Pulmonary: Clear to auscultation bilaterally. Cardiac: Regular rhythm with a grade 2/6 crescendo decrescendo murmur at the base, no gallop or rub. Abdomen: Soft, nontender with normal bowel sounds. Extremities: No edema. Distal pulses intact. Her right leg is in a cast. Neurologic: No focal findings. Gait was not tested. Skin: No rash, ecchymoses or petechiae. Results & Data ([facility]) Vital Signs (Past 12 Hours) Vital Signs Temp Pulse Pulse Resp BP Pulse Ox 02/07/20 08:00 36.7 C 105 H 18 114/60 96 02/07/20 04:13 36.8 C 104 H 18 108/73 93 02/06/20 23:24 36.9 C 106 H 20 121/67 95 PG Care Time/CCT Total # of Minutes Spent Total Time Spent with Patient: Total time spent is greater than 50% in coordination of care (as documented) at patient's floor/unit and/or counseling patient: Coding Level of Care Code 15457 Subseq Hosp Care Lvl 2 Diagnoses Bicuspid aortic valve Q23.1 Chronic diastolic heart failure I50.32 Dyslipidemia E78.5
--- NOTE | 2020-02-07 13:43 | Billing Data ---
Date of Service February 07, 2020 Coding Level of Care Code 01382 Subseq Hosp Care Lvl 3
[2020-02-07] MEDS: SENNA 8.6 MG TAB PO SCH (20:03)
[2020-02-08] MEDS: OXYCODONE HCL IR 5 MG TAB (IMMEDIATE RELEASE) PO PRN ×3 (02:33→18:52)
[2020-02-08 06:20] LABS: Basophils # (auto) 0.02 K/uL (0-0.2); Basophils % (auto) 0.2 %; Eosinophils # (auto) 0.04 K/uL (0-0.5); Eosinophils % (auto) 0.3 %; Hematocrit (blood only) 33.4 % (37-47); Hemoglobin 10.7 g/dL (12.0-16.0); Immature Granulocytes # (auto) 0.06 K/uL (0.00-0.02); Immature Granulocytes % (auto) 0.5 %; Lymphocytes # (auto) 1.17 K/uL (1.2-3.4); Lymphocytes % (auto) 9.6 %; Mean Corpuscular Hemoglobin 32.9 pg (25-34); Mean Corpuscular Volume 102.8 fL (80-100); Mean Platelet Volume 11.9 fL (7.4-10.4); Monocytes # (auto) 2.18 K/uL (0.11-0.59); Monocytes % (auto) 17.9 %; Neutrophils # (auto) 8.69 K/uL (1.4-6.5); Neutrophils % (auto) 71.5 %; Platelet Count 181 K/uL (130-400); RDW Coefficient of Variation 13.1 % (11.5-14.5); Red Blood Count 3.25 M/uL (4.2-5.4); White Blood Count 12.16 K/uL (4.8-10.8)
[2020-02-08 06:30] LABS: INR 1.1 (0.9-1.1); Partial Thromboplastin Ratio 1.1; Prothrombin Time 11.1 Seconds (9.0-12.0)
[2020-02-08 06:48] LABS: Albumin Level 2.6 gm/dl (3.4-5.0); BUN Creatinine Ratio 28.4 (10-20); Calcium 9.1 mg/dl (8.5-10.1); Creatinine Clr Calc Pharmacy 55.2 ml/min; Est GFR (African American) 59.3; Est GFR (Non-African American) 51.1; Magnesium 1.9 mg/dl (1.8-2.4); Potassium 4.7 mmol/L (3.5-5.1)
[2020-02-08 06:51] LABS: Albumin Globulin Ratio 0.7 (0.9-2); Bilirubin,Total 0.7 mg/dl (0.2-1); Globulin 3.6 gm/dl (2.5-4.0); Total Protein 6.2 gm/dl (6.4-8.2)
[2020-02-08] MEDS ORDERED: ACETAMINOPHEN 325 MG TAB PO PRN (06:59)
[2020-02-08] MEDS: INSULIN ASPART 100 UNITS/ML 3 ML PEN SC SCH ×4 (08:29→22:10)
[2020-02-08] MEDS: carvediloL 3.125 MG TAB PO SCH ×2 (08:31→22:11)
[2020-02-08] MEDS: FERROUS SULFATE 325 MG TAB PO SCH ×2 (08:31→22:06)
[2020-02-08] MEDS: POTASSIUM CHLORIDE 20 MEQ TABCR PO SCH (08:31)
[2020-02-08] MEDS: DOCUSATE SODIUM 100 MG CAP PO SCH ×2 (08:31→22:06)
[2020-02-08] MEDS: SPIRONOLACTONE 25 MG TAB PO SCH (08:31)
[2020-02-08] MEDS: ATORVASTATIN 40 MG TAB PO SCH (08:32)
[2020-02-08] MEDS: FUROSEMIDE 80 MG TAB PO SCH (08:32)
[2020-02-08] MEDS: ENOXAPARIN INJ 40 MG/0.4 ML SYR SQ SCH (08:32)
[2020-02-08] MEDS: MULTIVITAMIN TAB PO SCH (08:32)
--- NOTE | 2020-02-08 13:49 | Hospitalist Progress Note ---
Date of Service February 08, 2020 Assessment & Plan (1) Closed fracture of tibial plateau: Pt is a 64yo female with a significant Hx of HFpEF, aortic stenosis, Dyslipidemia, HTN, DMII and BEN who was admitted for surgical management of a right tibial plateau fracture. Right leg Tibial plateau fracture -post-op day #2 ORIF R Tibial Plateau (closed fx) -Appreciate ortho recs -TTWB RLE with walker and brace blocked between 0-30 degrees. Brace otherwise can match her ROM when in bed or chair. -PT/OT- recs inpt rehab- pending placement -Continue pain control- PO Roxycodone IR 5-10mg q4h prn -DVT Prophylaxis: Lovenox 40 mg subq q24 x 3 weeks then ASA 325mg BID for another 3 weeks. TEDs for 3 weeks on d/c. SCD's while in hospital. -Previously declined DEXA as outpt, will consider again on d/c -Consider Vit D, calcium supplementation on discharge Hypoxia -O2 89 on admit. Pt requiring 4L NC. Notes no home O2 requirment. Will wean as tolerated -pt with h/o Obstructive sleep apnea/obesity hypoventilation syndrome -follows with Bert Syed, pulmonology as outpt. Will look into outpt notes for further clarification HFpEF -on home lasix 80mg daily, spironolactone 25mg daily and KCl 20meQ HTN -as above + carvedilol 3.125mg BID HLD -continue home atorvastatin 80mg DMII -ISS FEN/GI: DMII/Carb count CODE STATUS: Full DVT prophylaxis: Lovenox SQ Dispo: Pending inpt rehab placement--Appreciate CM assistance Admission and Anticipated Discharge Date Admission Date: February 06, 2020 Supervising Physician Co-Signing Physician Notes Resident Physician Supervision Note: I independently interviewed and examined the patient and verified the saleem history and physical, reviewed labs and image studies, discussed the case with the resident Dr. Prieto and agree with the findings and care plan. Subjective 64 yo F found in chair this AM in NAD. No reported overnight events. Pain tolerable, 6/10, improving. Has not needed IV meds. Pt with no other acute concerns or complaints. Review of Systems Review of Systems: All systems reviewed & are unremarkable except as noted in HPI & below Physical Exam Constitutional: WD/WN, vitals as above + morbidly obese Eyes: PERRL, conjunctivae normal, anicteric sclerae ENMT: external ear and nose normal, oropharynx normal Respiratory: normal respiratory effort, lungs clear to auscultation Cardiovascular: RRR, no murmur, no edema Gastrointestinal (Abdomen): normal bowel sounds, soft, nontender, no hepatosplenomegaly Musculoskeletal: R LE in cast Skin: no rashes, warm and dry Psychiatric: A+Ox3, euthymic affect Results & Data Results & Data ([facility]) Vital Signs (Past 12 Hours) Vital Signs Temp Pulse Pulse Resp BP Pulse Ox 02/08/20 11:00 36.8 C 101 H 20 89/57 L 98 02/08/20 08:50 106 H 02/08/20 07:00 37.2 C 108 H 20 105/53 L 92 02/08/20 04:00 37.2 C 115 H 18 104/56 L 93 Laboratory Results Laboratory Results - last 24 hr 02/07/20 02/07/20 02/08/20 16:26 19:33 05:29 WBC 12.16 H RBC 3.25 L Hgb 10.7 L Hct 33.4 L MCV 102.8 H MCH 32.9 MCHC 32.0 RDW Std Deviation 49.0 H RDW Coeff of Betito 13.1 Plt Count 181 MPV 11.9 H Immature Gran % (Auto) 0.5 Neut % (Auto) 71.5 Lymph % (Auto) 9.6 [place] % (Auto) 17.9 Eos % (Auto) 0.3 Baso % (Auto) 0.2 Immature Gran # (Auto) 0.06 H Neut # (Auto) 8.69 H Lymph # (Auto) 1.17 L [place] # (Auto) 2.18 H Eos # (Auto) 0.04 Baso # (Auto) 0.02 PT INR APTT PTT Ratio Sodium Potassium Chloride Carbon Dioxide Anion Gap BUN Creatinine Est Cr Clr Drug Dosing Est GFR ( Amer) Est GFR (Non-Af Amer) BUN/Creatinine Ratio Glucose POC Glucose 141 H 153 H Calcium Magnesium Total Bilirubin AST ALT Alkaline Phosphatase Total Protein Albumin Globulin Albumin/Globulin Ratio 02/08/20 02/08/20 02/08/20 05:29 05:29 07:47 WBC RBC Hgb Hct MCV MCH MCHC RDW Std Deviation RDW Coeff of Betito Plt Count MPV Immature Gran % (Auto) Neut % (Auto) Lymph % (Auto) [place] % (Auto) Eos % (Auto) Baso % (Auto) Immature Gran # (Auto) Neut # (Auto) Lymph # (Auto) [place] # (Auto) Eos # (Auto) Baso # (Auto) PT 11.1 INR 1.1 APTT 31.0 PTT Ratio 1.1 Sodium 133 L Potassium 4.7 Chloride 97 L Carbon Dioxide 30 Anion Gap 6.0 BUN 32 H Creatinine 1.12 Est Cr Clr Drug Dosing 55.2 Est GFR ( Amer) 59.3 Est GFR (Non-Af Amer) 51.1 BUN/Creatinine Ratio 28.4 H Glucose 144 H POC Glucose 179 H Calcium 9.1 Magnesium 1.9 Total Bilirubin 0.7 AST 41 H ALT 14 Alkaline Phosphatase 50 Total Protein 6.2 L Albumin 2.6 L Globulin 3.6 Albumin/Globulin Ratio 0.7 L 02/08/20 11:21 WBC RBC Hgb Hct MCV MCH MCHC RDW Std Deviation RDW Coeff of Betito Plt Count MPV Immature Gran % (Auto) Neut % (Auto) Lymph % (Auto) [place] % (Auto) Eos % (Auto) Baso % (Auto) Immature Gran # (Auto) Neut # (Auto) Lymph # (Auto) [place] # (Auto) Eos # (Auto) Baso # (Auto) PT INR APTT PTT Ratio Sodium Potassium Chloride Carbon Dioxide Anion Gap BUN Creatinine Est Cr Clr Drug Dosing Est GFR ( Amer) Est GFR (Non-Af Amer) BUN/Creatinine Ratio Glucose POC Glucose 156 H Calcium Magnesium Total Bilirubin AST ALT Alkaline Phosphatase Total Protein Albumin Globulin Albumin/Globulin Ratio Medications Administered Current Inpatient Medications Acetaminophen (Tylenol) 650 mg PO Q4H PRN PRN Reason: Pain Stop: 03/09/20 06:58 Al Hydrox/Mg Hydrox/Simethicone (Maalox) 15 ml PO Q4H PRN PRN Reason: Heartburn Stop: 03/07/20 17:44 Atorvastatin Calcium (Lipitor) 80 mg PO DAILY ESHA Stop: 03/07/20 08:59 Last Admin: 02/08/20 08:32 Dose: 80 mg Documented by: Bisacodyl (Dulcolax) 10 mg AK DAILY PRN PRN Reason: Constipation Stop: 03/07/20 17:44 Bupivacaine HCl (Marcaine 0.5% Mpf) 20 ml INFIL ONCE ESHA Stop: 03/07/20 15:59 Last Admin: 02/06/20 15:52 Dose: 18 ml Documented by: Carvedilol (Coreg) 3.125 mg PO BID ESHA Stop: 03/07/20 08:59 Last Admin: 02/08/20 08:31 Dose: 3.125 mg Documented by: Dextrose (Dextrose 50%) 25 - 50 ml IV UD PRN; Protocol PRN Reason: Hypoglycemia Protocol Stop: 03/07/20 05:22 Diphenhydramine HCl (Benadryl) 25 mg IV Q8H PRN PRN Reason: Itching Stop: 03/07/20 17:29 Docusate Sodium (Colace) 100 mg PO BID ESHA Stop: 03/07/20 20:59 Last Admin: 02/08/20 08:31 Dose: 100 mg Documented by: Enoxaparin Sodium (Lovenox) 40 mg SQ QAM ESHA Stop: 03/08/20 08:59 Last Admin: 02/08/20 08:32 Dose: 40 mg Documented by: Ferrous Sulfate (Feosol) 325 mg PO BID ESHA Stop: 03/07/20 20:59 Last Admin: 02/08/20 08:31 Dose: 325 mg Documented by: Furosemide (Lasix) 80 mg PO DAILY ESHA Stop: 03/08/20 08:59 Last Admin: 02/08/20 08:32 Dose: 80 mg Documented by: Glucagon (Glucagen) 1 mg SQ UD PRN; Protocol PRN Reason: Hypoglycemia Protocol Stop: 03/07/20 05:22 Glucose (Dex4 Glucose) 4 - 8 tabs PO UD PRN; Protocol PRN Reason: Hypoglycemia Protocol Stop: 03/07/20 05:22 Glucose (Glucose 40%) 15 - 30 gm PO UD PRN; Protocol PRN Reason: Hypoglycemia Protocol Stop: 03/07/20 05:22 Hydromorphone HCl (Dilaudid) 0.5 mg IV Q3H PRN PRN Reason: Severe Pain Stop: 02/20/20 06:22 Last Admin: 02/06/20 11:02 Dose: 0.5 mg Documented by: Acetaminophen (Ofirmev) 1,000 mg in 100 mls @ 400 mls/hr IV Q8H PRN PRN Reason: Mild Pain Stop: 02/09/20 06:22 Insulin Aspart (Novolog Flexpen) 0 units SC ACHS ESHA Stop: 03/07/20 07:29 Last Admin: 02/08/20 12:09 Dose: 3 units Documented by: Lidocaine/Epinephrine (Xylocaine/Epine 2% 1:200,000) 20 ml INFIL ONCE ESHA Stop: 03/07/20 15:59 Last Admin: 02/06/20 15:54 Dose: 18 ml Documented by: Magnesium Hydroxide (Milk Of Magnesia) 30 ml PO Q6H PRN PRN Reason: Constipation Stop: 03/07/20 17:44 Metoclopramide HCl (Reglan) 10 mg IV Q6H PRN PRN Reason: Nausea And Vomiting Stop: 03/07/20 17:44 Miscellaneous (Carbohydrates For Hypoglycemia) 15 - 30 gm PO UD PRN PRN Reason: Hypoglycemia Protocol Stop: 03/07/20 05:22 Multivitamins (Multivitamin Tab) 1 tab PO QAM ESHA Stop: 03/08/20 08:59 Last Admin: 02/08/20 08:32 Dose: 1 tab Documented by: Naloxone HCl (Narcan) 0.1 mg IV Q5M PRN PRN Reason: Oversedation/Resp Depression Stop: 03/07/20 17:29 Ondansetron HCl (Zofran) 4 mg IV Q6H PRN PRN Reason: Nausea Stop: 03/07/20 06:22 Oxycodone HCl (Roxicodone Immediate Rel) 5 - 10 mg PO Q4H PRN PRN Reason: Pain or Pre PT Stop: 02/20/20 17:44 Last Admin: 02/08/20 06:49 Dose: 10 mg Documented by: Potassium Chloride (Klor-Con M20) 20 meq PO DAILY ESHA Stop: 03/08/20 08:59 Last Admin: 02/08/20 08:31 Dose: 20 meq Documented by: Sennosides (Senokot) 17.2 mg PO HS ESHA Stop: 03/07/20 20:59 Last Admin: 02/07/20 20:03 Dose: 17.2 mg Documented by: Spironolactone (Aldactone) 25 mg PO DAILY ESHA Stop: 03/08/20 08:59 Last Admin: 02/08/20 08:31 Dose: 25 mg Documented by: Resident Activity Tracking Resident Involvement: Resident Care Provided Care Provided: Adult Hospital Medicine (1) Closed fracture of tibial plateau Encounter type: initial encounter Laterality: right Qualified Code(s): S82.141A - Displaced bicondylar fracture of right tibia, initial encounter for closed fracture
--- NOTE | 2020-02-08 14:16 | Orthopedic Progress Note ---
Date of Service February 08, 2020 Assessment & Plan (1) Closed fracture of tibial plateau: POD #2 s/p ORIF right Tibial plateau, doing as well as expected. Right knee Zip line reinforced. Silverlon waterproof dressing applied and to remain on for 2wks until seen in the office. TTWB RLE with walker and brace blocked between 0-30 degrees. Brace otherwise can match her ROM when in bed or chair. PT/OT. Will obtain Overhead Trapeze. Diabetic diet. Continue pain control. Ice to right knee as needed. Encourage every hour for 20min. Patient is able to use bed hollins at times if she isnt able to use BSC or bathroom, however we encouraged getting out of bed. DVT Prophylaxis: Lovenox 40 mg subq q24 x 3 weeks then ASA 325mg BID for another 3 weeks. SCDs while in hospital. On day of D/C please place knee high TEDS to B LE (remove right MARTIN). TEDs for 3 weeks. D/C planning. Per patient she wishes to go home with HHPT. She is aware she will need to work with PT to be able to do steps to get into her home. Continue care per primary service. I, Dr. Al, saw and examined the patient and agree with the above findings and plan of care discussed with my PA. Admission and Anticipated Discharge Date Admission Date: February 06, 2020 Subjective Resting in bed. Just finished PT. Following TTWBING restrictions to RLE. Pain "mostly" controlled. Tolerating PO diet. States she is trying to drink more fluids. Initially she felt bad asking nurses to assist to use bathroom so wasnt drinking as much. She said she hopes to go home with therapy when she is discharged. Has 6 steps to get into home. Denies F/C/S, chest pain, SOB, nausea/vomiting. Physical Exam Physical Exam: Right knee incision with dry blood on post-op dressings. Zip line intact and wound edges aligned nicely. Fracture blister to lateral knee area, quarter size. Diffuse bruising. Calve is soft, diffusely tender-to entire leg. Negative homans. 1-2+ pitting edema R LE, 1+ pitting edema L LE. Sensation intact B LE other than altered to r knee around the incisions. Palpable B DP and PT pulses and brisk capillary refill. Able to wiggle B toes and ankles. Right knee with had brace donned and ice wrap. Calf is soft. Results & Data ([facility]) Vital Signs (Past 12 Hours) Vital Signs Temp Pulse Pulse Resp BP Pulse Ox 02/08/20 11:00 36.8 C 101 H 20 89/57 L 98 02/08/20 08:50 106 H 02/08/20 07:00 37.2 C 108 H 20 105/53 L 92 02/08/20 04:00 37.2 C 115 H 18 104/56 L 93 Laboratory Results 02/08/20 02/08/20 02/08/20 Range/Units 11:21 07:47 05:29 WBC (4.8-10.8) K/uL RBC (4.2-5.4) M/uL Hgb (12.0-16.0) g/dL Hct (37-47) % MCV (80-100) fL MCH (25-34) pg MCHC (32-36) g/dL RDW Std Deviation (36.4-46.3) fL RDW Coeff of Betito (11.5-14.5) % Plt Count (130-400) K/uL MPV (7.4-10.4) fL Immature Gran % (Auto) % Neut % (Auto) % Lymph % (Auto) % [place] % (Auto) % Eos % (Auto) % Baso % (Auto) % Immature Gran # (Auto) (0.00-0.02) K/uL Neut # (Auto) (1.4-6.5) K/uL Lymph # (Auto) (1.2-3.4) K/uL [place] # (Auto) (0.11-0.59) K/uL Eos # (Auto) (0-0.5) K/uL Baso # (Auto) (0-0.2) K/uL PT (9.0-12.0) Seconds INR (0.9-1.1) APTT (21.0-31.0) Seconds PTT Ratio Sodium 133 L (136-145) mmol/L Potassium 4.7 (3.5-5.1) mmol/L Chloride 97 L (98-107) mmol/L Carbon Dioxide 30 (21-32) mmol/L Anion Gap 6.0 (3-11) BUN 32 H (7-18) mg/dl Creatinine 1.12 (0.6-1.2) mg/dl Est Cr Clr Drug Dosing 55.2 ml/min Est GFR ( Amer) 59.3 Est GFR (Non-Af Amer) 51.1 BUN/Creatinine Ratio 28.4 H (10-20) Glucose 144 H (70-99) mg/dl POC Glucose 156 H 179 H (70-99) mg/dl Calcium 9.1 (8.5-10.1) mg/dl Magnesium 1.9 (1.8-2.4) mg/dl Total Bilirubin 0.7 (0.2-1) mg/dl AST 41 H (15-37) U/L ALT 14 (12-78) U/L Alkaline Phosphatase 50 (45-117) U/L Total Protein 6.2 L (6.4-8.2) gm/dl Albumin 2.6 L (3.4-5.0) gm/dl Globulin 3.6 (2.5-4.0) gm/dl Albumin/Globulin Ratio 0.7 L (0.9-2) 02/08/20 02/08/20 02/07/20 Range/Units 05:29 05:29 19:33 WBC 12.16 H (4.8-10.8) K/uL RBC 3.25 L (4.2-5.4) M/uL Hgb 10.7 L (12.0-16.0) g/dL Hct 33.4 L (37-47) % MCV 102.8 H (80-100) fL MCH 32.9 (25-34) pg MCHC 32.0 (32-36) g/dL RDW Std Deviation 49.0 H (36.4-46.3) fL RDW Coeff of Betito 13.1 (11.5-14.5) % Plt Count 181 (130-400) K/uL MPV 11.9 H (7.4-10.4) fL Immature Gran % (Auto) 0.5 % Neut % (Auto) 71.5 % Lymph % (Auto) 9.6 % [place] % (Auto) 17.9 % Eos % (Auto) 0.3 % Baso % (Auto) 0.2 % Immature Gran # (Auto) 0.06 H (0.00-0.02) K/uL Neut # (Auto) 8.69 H (1.4-6.5) K/uL Lymph # (Auto) 1.17 L (1.2-3.4) K/uL [place] # (Auto) 2.18 H (0.11-0.59) K/uL Eos # (Auto) 0.04 (0-0.5) K/uL Baso # (Auto) 0.02 (0-0.2) K/uL PT 11.1 (9.0-12.0) Seconds INR 1.1 (0.9-1.1) APTT 31.0 (21.0-31.0) Seconds PTT Ratio 1.1 Sodium (136-145) mmol/L Potassium (3.5-5.1) mmol/L Chloride (98-107) mmol/L Carbon Dioxide (21-32) mmol/L Anion Gap (3-11) BUN (7-18) mg/dl Creatinine (0.6-1.2) mg/dl Est Cr Clr Drug Dosing ml/min Est GFR ( Amer) Est GFR (Non-Af Amer) BUN/Creatinine Ratio (10-20) Glucose (70-99) mg/dl POC Glucose 153 H (70-99) mg/dl Calcium (8.5-10.1) mg/dl Magnesium (1.8-2.4) mg/dl Total Bilirubin (0.2-1) mg/dl AST (15-37) U/L ALT (12-78) U/L Alkaline Phosphatase (45-117) U/L Total Protein (6.4-8.2) gm/dl Albumin (3.4-5.0) gm/dl Globulin (2.5-4.0) gm/dl Albumin/Globulin Ratio (0.9-2) 02/07/20 Range/Units 16:26 WBC (4.8-10.8) K/uL RBC (4.2-5.4) M/uL Hgb (12.0-16.0) g/dL Hct (37-47) % MCV (80-100) fL MCH (25-34) pg MCHC (32-36) g/dL RDW Std Deviation (36.4-46.3) fL RDW Coeff of Betito (11.5-14.5) % Plt Count (130-400) K/uL MPV (7.4-10.4) fL Immature Gran % (Auto) % Neut % (Auto) % Lymph % (Auto) % [place] % (Auto) % Eos % (Auto) % Baso % (Auto) % Immature Gran # (Auto) (0.00-0.02) K/uL Neut # (Auto) (1.4-6.5) K/uL Lymph # (Auto) (1.2-3.4) K/uL [place] # (Auto) (0.11-0.59) K/uL Eos # (Auto) (0-0.5) K/uL Baso # (Auto) (0-0.2) K/uL PT (9.0-12.0) Seconds INR (0.9-1.1) APTT (21.0-31.0) Seconds PTT Ratio Sodium (136-145) mmol/L Potassium (3.5-5.1) mmol/L Chloride (98-107) mmol/L Carbon Dioxide (21-32) mmol/L Anion Gap (3-11) BUN (7-18) mg/dl Creatinine (0.6-1.2) mg/dl Est Cr Clr Drug Dosing ml/min Est GFR ( Amer) Est GFR (Non-Af Amer) BUN/Creatinine Ratio (10-20) Glucose (70-99) mg/dl POC Glucose 141 H (70-99) mg/dl Calcium (8.5-10.1) mg/dl Magnesium (1.8-2.4) mg/dl Total Bilirubin (0.2-1) mg/dl AST (15-37) U/L ALT (12-78) U/L Alkaline Phosphatase (45-117) U/L Total Protein (6.4-8.2) gm/dl Albumin (3.4-5.0) gm/dl Globulin (2.5-4.0) gm/dl Albumin/Globulin Ratio (0.9-2) (1) Closed fracture of tibial plateau Encounter type: initial encounter Laterality: right Qualified Code(s): S82.141A - Displaced bicondylar fracture of right tibia, initial encounter for closed fracture
[2020-02-08] MEDS: SENNA 8.6 MG TAB PO SCH (22:06)
[2020-02-09 07:38] LABS: Basophils # (auto) 0.03 K/uL (0-0.2); Basophils % (auto) 0.3 %; Eosinophils % (auto) 0.9 %; Hematocrit (blood only) 32.5 % (37-47); Hemoglobin 10.5 g/dL (12.0-16.0); Immature Granulocytes % (auto) 0.9 %; Mean Corpuscular Hemoglobin 33.3 pg (25-34); Mean Corpuscular Hgb Conc 32.3 g/dL (32-36); Mean Corpuscular Volume 103.2 fL (80-100); Mean Platelet Volume 11.6 fL (7.4-10.4); Monocytes # (auto) 1.94 K/uL (0.11-0.59); Monocytes % (auto) 17.6 %; Neutrophils # (auto) 7.73 K/uL (1.4-6.5); Neutrophils % (auto) 70.3 %; Platelet Count 211 K/uL (130-400); Red Blood Count 3.15 M/uL (4.2-5.4)
[2020-02-09 07:48] LABS: Partial Thromboplastin Time 28.2 Seconds (21.0-31.0); Prothrombin Time 10.9 Seconds (9.0-12.0)
[2020-02-09 08:08] LABS: Albumin Level 2.6 gm/dl (3.4-5.0); BUN Creatinine Ratio 31.6 (10-20); Calcium 9.8 mg/dl (8.5-10.1); Creatinine Clr Calc Pharmacy 61.8 ml/min; Est GFR (African American) 68.8; Est GFR (Non-African American) 59.4; Magnesium 2.3 mg/dl (1.8-2.4); Potassium 4.3 mmol/L (3.5-5.1)
[2020-02-09 08:11] LABS: Albumin Globulin Ratio 0.7 (0.9-2); Bilirubin,Total 0.7 mg/dl (0.2-1); Globulin 3.8 gm/dl (2.5-4.0); Total Protein 6.4 gm/dl (6.4-8.2)
[2020-02-09] MEDS: POTASSIUM CHLORIDE 20 MEQ TABCR PO SCH (09:40)
[2020-02-09] MEDS: FUROSEMIDE 80 MG TAB PO SCH (09:40)
[2020-02-09] MEDS: OXYCODONE HCL IR 5 MG TAB (IMMEDIATE RELEASE) PO PRN ×3 (09:40→21:19)
[2020-02-09] MEDS: FERROUS SULFATE 325 MG TAB PO SCH ×2 (09:40→21:05)
[2020-02-09] MEDS: DOCUSATE SODIUM 100 MG CAP PO SCH ×2 (09:40→21:04)
[2020-02-09] MEDS: MULTIVITAMIN TAB PO SCH (09:40)
[2020-02-09] MEDS: carvediloL 3.125 MG TAB PO SCH ×2 (09:41→21:04)
[2020-02-09] MEDS: ATORVASTATIN 40 MG TAB PO SCH (09:41)
[2020-02-09] MEDS: SPIRONOLACTONE 25 MG TAB PO SCH (09:41)
[2020-02-09] MEDS: ENOXAPARIN INJ 40 MG/0.4 ML SYR SQ SCH (09:41)
[2020-02-09] MEDS: INSULIN ASPART 100 UNITS/ML 3 ML PEN SC SCH ×4 (09:43→21:05)
--- NOTE | 2020-02-09 13:03 | Hospitalist Progress Note ---
Date of Service February 09, 2020 Assessment & Plan (1) Closed fracture of tibial plateau: Pt is a 64yo female with a significant Hx of HFpEF, aortic stenosis, Dyslipidemia, HTN, DMII and BEN who was admitted for surgical management of a right tibial plateau fracture. Stable to d/c to [facility]--d/c tomorrow. Right leg Tibial plateau fracture -post-op day #3 ORIF R Tibial Plateau (closed fx) -Appreciate ortho recs -TTWB RLE with walker and brace blocked between 0-30 degrees. Brace otherwise can match her ROM when in bed or chair. -PT/OT- recs inpt rehab- pt accepted at [facility]--d/c tomorrow -Continue pain control- PO Roxycodone IR 5-10mg q4h prn -DVT Prophylaxis: Lovenox 40 mg subq q24 x 3 weeks then ASA 325mg BID for another 3 weeks. TEDs for 3 weeks on d/c. SCD's while in hospital. -Previously declined DEXA as outpt, will consider again on d/c -Consider Vit D, calcium supplementation on discharge Hypoxia -O2 89 on admit. Pt requiring 2L-4L NC. Notes no home O2 requirement. Will wean as tolerated -in reviewing outpt notes from Dr. Collier (Cardiology) Oct 2019- pt with severe and was d/c on supplemental O2 after being admitted for acute diastolic HF. Pt trialed this for a year, after which, per pt, she no longer needed O2 and was stopped -pt with h/o Obstructive sleep apnea/obesity hypoventilation syndrome/diastolic HF. Likely multifactorial contributing to present O2 needs -pt adamant that she will not go home on O2. -ordered nocturnal pulse ox for tonight. HFpEF -on home lasix 80mg daily, spironolactone 25mg daily and KCl 20meQ HTN -as above + carvedilol 3.125mg BID HLD -continue home atorvastatin 80mg DMII -ISS FEN/GI: DMII/Carb count CODE STATUS: Full DVT prophylaxis: Lovenox SQ Dispo: Pt accepted to [facility]. Will go tomorrow--Appreciate CM assistance Admission and Anticipated Discharge Date Admission Date: February 06, 2020 Supervising Physician Co-Signing Physician Notes Resident Physician Supervision Note: I independently interviewed and examined the patient and verified the saleem history and physical, reviewed labs and image studies, discussed the case with the resident Dr. Prieto and agree with the findings and care plan. Subjective pt found in bed this AM in NAD. No reported overnight events. Pain minimal. Tolerating PO intake. No other acute concerns or complaints. Pt spoke with [facility], plan to go tomorrow. Review of Systems Review of Systems: All systems reviewed & are unremarkable except as noted in HPI & below Physical Exam Constitutional: WD/WN, vitals as above + morbidly obese Eyes: PERRL, conjunctivae normal, anicteric sclerae ENMT: external ear and nose normal, oropharynx normal Respiratory: normal respiratory effort, lungs clear to auscultation Cardiovascular: RRR, no murmur, no edema Gastrointestinal (Abdomen): normal bowel sounds, soft, nontender, no hepatosplenomegaly Musculoskeletal: R LE cast Skin: no rashes, warm and dry Psychiatric: A+Ox3, euthymic affect Lymphatic: +1 LE edema Results & Data Results & Data ([facility]) Vital Signs (Past 12 Hours) Vital Signs Temp Pulse Pulse Pulse Resp BP Pulse Ox 02/09/20 11:35 36.8 C 85 18 90/57 L 96 02/09/20 09:45 96 02/09/20 07:43 86 02/09/20 07:23 37.1 C 85 18 105/72 96 02/09/20 05:25 95 H 02/09/20 04:00 36.7 C 93 H 19 121/79 98 Laboratory Results Laboratory Results - last 24 hr 02/08/20 02/08/20 02/09/20 16:52 20:15 07:10 WBC 11.00 H RBC 3.15 L Hgb 10.5 L Hct 32.5 L MCV 103.2 H MCH 33.3 MCHC 32.3 RDW Std Deviation 49.0 H RDW Coeff of Betito 13.0 Plt Count 211 MPV 11.6 H Immature Gran % (Auto) 0.9 Neut % (Auto) 70.3 Lymph % (Auto) 10.0 [place] % (Auto) 17.6 Eos % (Auto) 0.9 Baso % (Auto) 0.3 Immature Gran # (Auto) 0.10 H Neut # (Auto) 7.73 H Lymph # (Auto) 1.10 L [place] # (Auto) 1.94 H Eos # (Auto) 0.10 Baso # (Auto) 0.03 PT INR APTT PTT Ratio Sodium Potassium Chloride Carbon Dioxide Anion Gap BUN Creatinine Est Cr Clr Drug Dosing Est GFR ( Amer) Est GFR (Non-Af Amer) BUN/Creatinine Ratio Glucose POC Glucose 143 H 157 H Calcium Magnesium Total Bilirubin AST ALT Alkaline Phosphatase Total Protein Albumin Globulin Albumin/Globulin Ratio 02/09/20 02/09/20 02/09/20 07:10 07:10 07:43 WBC RBC Hgb Hct MCV MCH MCHC RDW Std Deviation RDW Coeff of Betito Plt Count MPV Immature Gran % (Auto) Neut % (Auto) Lymph % (Auto) [place] % (Auto) Eos % (Auto) Baso % (Auto) Immature Gran # (Auto) Neut # (Auto) Lymph # (Auto) [place] # (Auto) Eos # (Auto) Baso # (Auto) PT 10.9 INR 1.0 APTT 28.2 PTT Ratio 1.0 Sodium 134 L Potassium 4.3 Chloride 97 L Carbon Dioxide 34 H Anion Gap 4.0 BUN 31 H Creatinine 0.99 Est Cr Clr Drug Dosing 61.8 Est GFR ( Amer) 68.8 Est GFR (Non-Af Amer) 59.4 BUN/Creatinine Ratio 31.6 H Glucose 119 H POC Glucose 126 H Calcium 9.8 Magnesium 2.3 Total Bilirubin 0.7 AST 42 H ALT 15 Alkaline Phosphatase 54 Total Protein 6.4 Albumin 2.6 L Globulin 3.8 Albumin/Globulin Ratio 0.7 L 02/09/20 11:37 WBC RBC Hgb Hct MCV MCH MCHC RDW Std Deviation RDW Coeff of Betito Plt Count MPV Immature Gran % (Auto) Neut % (Auto) Lymph % (Auto) [place] % (Auto) Eos % (Auto) Baso % (Auto) Immature Gran # (Auto) Neut # (Auto) Lymph # (Auto) [place] # (Auto) Eos # (Auto) Baso # (Auto) PT INR APTT PTT Ratio Sodium Potassium Chloride Carbon Dioxide Anion Gap BUN Creatinine Est Cr Clr Drug Dosing Est GFR ( Amer) Est GFR (Non-Af Amer) BUN/Creatinine Ratio Glucose POC Glucose 167 H Calcium Magnesium Total Bilirubin AST ALT Alkaline Phosphatase Total Protein Albumin Globulin Albumin/Globulin Ratio Medications Administered Current Inpatient Medications Acetaminophen (Tylenol) 650 mg PO Q4H PRN PRN Reason: Pain Stop: 03/09/20 06:58 Al Hydrox/Mg Hydrox/Simethicone (Maalox) 15 ml PO Q4H PRN PRN Reason: Heartburn Stop: 03/07/20 17:44 Atorvastatin Calcium (Lipitor) 80 mg PO DAILY ESHA Stop: 03/07/20 08:59 Last Admin: 02/09/20 09:41 Dose: 80 mg Documented by: Bisacodyl (Dulcolax) 10 mg [place] DAILY PRN PRN Reason: Constipation Stop: 03/07/20 17:44 Bupivacaine HCl (Marcaine 0.5% Mpf) 20 ml INFIL ONCE ESHA Stop: 03/07/20 15:59 Last Admin: 02/06/20 15:52 Dose: 18 ml Documented by: Carvedilol (Coreg) 3.125 mg PO BID ESHA Stop: 03/07/20 08:59 Last Admin: 02/09/20 09:41 Dose: 3.125 mg Documented by: Dextrose (Dextrose 50%) 25 - 50 ml IV UD PRN; Protocol PRN Reason: Hypoglycemia Protocol Stop: 03/07/20 05:22 Diphenhydramine HCl (Benadryl) 25 mg IV Q8H PRN PRN Reason: Itching Stop: 03/07/20 17:29 Docusate Sodium (Colace) 100 mg PO BID ESHA Stop: 03/07/20 20:59 Last Admin: 02/09/20 09:40 Dose: 100 mg Documented by: Enoxaparin Sodium (Lovenox) 40 mg SQ QAM ESHA Stop: 03/08/20 08:59 Last Admin: 02/09/20 09:41 Dose: 40 mg Documented by: Ferrous Sulfate (Feosol) 325 mg PO BID ESHA Stop: 03/07/20 20:59 Last Admin: 02/09/20 09:40 Dose: 325 mg Documented by: Furosemide (Lasix) 80 mg PO DAILY ESHA Stop: 03/08/20 08:59 Last Admin: 02/09/20 09:40 Dose: 80 mg Documented by: Glucagon (Glucagen) 1 mg SQ UD PRN; Protocol PRN Reason: Hypoglycemia Protocol Stop: 03/07/20 05:22 Glucose (Dex4 Glucose) 4 - 8 tabs PO UD PRN; Protocol PRN Reason: Hypoglycemia Protocol Stop: 03/07/20 05:22 Glucose (Glucose 40%) 15 - 30 gm PO UD PRN; Protocol PRN Reason: Hypoglycemia Protocol Stop: 03/07/20 05:22 Hydromorphone HCl (Dilaudid) 0.5 mg IV Q3H PRN PRN Reason: Severe Pain Stop: 02/20/20 06:22 Last Admin: 02/06/20 11:02 Dose: 0.5 mg Documented by: Insulin Aspart (Novolog Flexpen) 0 units SC ACHS ESHA Stop: 03/07/20 07:29 Last Admin: 02/09/20 12:26 Dose: 3 units Documented by: Lidocaine/Epinephrine (Xylocaine/Epine 2% 1:200,000) 20 ml INFIL ONCE ESHA Stop: 03/07/20 15:59 Last Admin: 02/06/20 15:54 Dose: 18 ml Documented by: Magnesium Hydroxide (Milk Of Magnesia) 30 ml PO Q6H PRN PRN Reason: Constipation Stop: 03/07/20 17:44 Metoclopramide HCl (Reglan) 10 mg IV Q6H PRN PRN Reason: Nausea And Vomiting Stop: 03/07/20 17:44 Miscellaneous (Carbohydrates For Hypoglycemia) 15 - 30 gm PO UD PRN PRN Reason: Hypoglycemia Protocol Stop: 03/07/20 05:22 Multivitamins (Multivitamin Tab) 1 tab PO QAM ESHA Stop: 03/08/20 08:59 Last Admin: 02/09/20 09:40 Dose: 1 tab Documented by: Naloxone HCl (Narcan) 0.1 mg IV Q5M PRN PRN Reason: Oversedation/Resp Depression Stop: 03/07/20 17:29 Ondansetron HCl (Zofran) 4 mg IV Q6H PRN PRN Reason: Nausea Stop: 03/07/20 06:22 Oxycodone HCl (Roxicodone Immediate Rel) 5 - 10 mg PO Q4H PRN PRN Reason: Pain or Pre PT Stop: 02/20/20 17:44 Last Admin: 02/09/20 09:40 Dose: 10 mg Documented by: Potassium Chloride (Klor-Con M20) 20 meq PO DAILY ESHA Stop: 03/08/20 08:59 Last Admin: 02/09/20 09:40 Dose: 20 meq Documented by: Sennosides (Senokot) 17.2 mg PO HS [facility] Stop: 03/07/20 20:59 Last Admin: 02/08/20 22:06 Dose: 17.2 mg Documented by: Spironolactone (Aldactone) 25 mg PO DAILY ESHA Stop: 03/08/20 08:59 Last Admin: 02/09/20 09:41 Dose: 25 mg Documented by: Resident Activity Tracking Resident Involvement: Resident Care Provided Care Provided: Adult Hospital Medicine (1) Closed fracture of tibial plateau Encounter type: initial encounter Laterality: right Qualified Code(s): S82.141A - Displaced bicondylar fracture of right tibia, initial encounter for closed fracture
--- NOTE | 2020-02-09 16:15 | Orthopedic Progress Note ---
Date of Service February 09, 2020 Assessment & Plan (1) Closed fracture of tibial plateau: POD #3 s/p ORIF right Tibial plateau, from ortho standpoint doing well. TTWB RLE with walker and brace blocked between 0-30 degrees. Brace otherwise can match her ROM when in bed or chair. Patient aware motion is encouraged at rest. No motion limitations at rest. Continue PT/OT. Continue diabetic diet. Continue pain control. Ice to right knee as needed. Encourage every hour for 20min. DVT Prophylaxis: Lovenox 40 mg subq q24 x 3 weeks then ASA 325mg BID for another 3 weeks. SCDs while in hospital. On day of D/C please place knee high TEDS to B LE (remove right MARTIN). TEDs for 3 weeks. D/C planning. Plan for patient to be DCd to [facility] tomorrow. Continue care per primary service. I, Dr. Al, saw and examined the patient and agree with the above findings and plan of care discussed with my PA. Admission and Anticipated Discharge Date Admission Date: February 06, 2020 Subjective Patient in bed. Says had PT today. Pain minimal. Tolerating PO intake. Has had low BP and elevated HR being followed by Medicine. No other acute concerns or complaints. Pt spoke with [facility], plan is to go tomorrow. Physical Exam Physical Exam: Right knee exam: No drainage thru MARTIN. Silverlon intact. Able to wiggle toes and ankles B. NV intact B LE to light touch to feet/toes. Palpable DP and PT pulses. Brisk capillary refill. Neg homans B. Results & Data ([facility]) Vital Signs (Past 12 Hours) Vital Signs Temp Pulse Pulse Pulse Resp BP Pulse Ox 02/09/20 15:30 37.0 C 106 H 18 94/67 L 90 02/09/20 14:48 108 H 02/09/20 13:09 95 02/09/20 11:35 36.8 C 85 18 90/57 L 96 02/09/20 09:45 96 02/09/20 07:43 86 02/09/20 07:23 37.1 C 85 18 105/72 96 02/09/20 05:25 95 H Laboratory Results 02/09/20 02/09/20 02/09/20 Range/Units 11:37 07:43 07:10 WBC (4.8-10.8) K/uL RBC (4.2-5.4) M/uL Hgb (12.0-16.0) g/dL Hct (37-47) % MCV (80-100) fL MCH (25-34) pg MCHC (32-36) g/dL RDW Std Deviation (36.4-46.3) fL RDW Coeff of Betito (11.5-14.5) % Plt Count (130-400) K/uL MPV (7.4-10.4) fL Immature Gran % (Auto) % Neut % (Auto) % Lymph % (Auto) % [place] % (Auto) % Eos % (Auto) % Baso % (Auto) % Immature Gran # (Auto) (0.00-0.02) K/uL Neut # (Auto) (1.4-6.5) K/uL Lymph # (Auto) (1.2-3.4) K/uL [place] # (Auto) (0.11-0.59) K/uL Eos # (Auto) (0-0.5) K/uL Baso # (Auto) (0-0.2) K/uL PT (9.0-12.0) Seconds INR (0.9-1.1) APTT (21.0-31.0) Seconds PTT Ratio Sodium 134 L (136-145) mmol/L Potassium 4.3 (3.5-5.1) mmol/L Chloride 97 L (98-107) mmol/L Carbon Dioxide 34 H (21-32) mmol/L Anion Gap 4.0 (3-11) BUN 31 H (7-18) mg/dl Creatinine 0.99 (0.6-1.2) mg/dl Est Cr Clr Drug Dosing 61.8 ml/min Est GFR ( Amer) 68.8 Est GFR (Non-Af Amer) 59.4 BUN/Creatinine Ratio 31.6 H (10-20) Glucose 119 H (70-99) mg/dl POC Glucose 167 H 126 H (70-99) mg/dl Calcium 9.8 (8.5-10.1) mg/dl Magnesium 2.3 (1.8-2.4) mg/dl Total Bilirubin 0.7 (0.2-1) mg/dl AST 42 H (15-37) U/L ALT 15 (12-78) U/L Alkaline Phosphatase 54 (45-117) U/L Total Protein 6.4 (6.4-8.2) gm/dl Albumin 2.6 L (3.4-5.0) gm/dl Globulin 3.8 (2.5-4.0) gm/dl Albumin/Globulin Ratio 0.7 L (0.9-2) 02/09/20 02/09/20 02/08/20 Range/Units 07:10 07:10 20:15 WBC 11.00 H (4.8-10.8) K/uL RBC 3.15 L (4.2-5.4) M/uL Hgb 10.5 L (12.0-16.0) g/dL Hct 32.5 L (37-47) % MCV 103.2 H (80-100) fL MCH 33.3 (25-34) pg MCHC 32.3 (32-36) g/dL RDW Std Deviation 49.0 H (36.4-46.3) fL RDW Coeff of Betito 13.0 (11.5-14.5) % Plt Count 211 (130-400) K/uL MPV 11.6 H (7.4-10.4) fL Immature Gran % (Auto) 0.9 % Neut % (Auto) 70.3 % Lymph % (Auto) 10.0 % [place] % (Auto) 17.6 % Eos % (Auto) 0.9 % Baso % (Auto) 0.3 % Immature Gran # (Auto) 0.10 H (0.00-0.02) K/uL Neut # (Auto) 7.73 H (1.4-6.5) K/uL Lymph # (Auto) 1.10 L (1.2-3.4) K/uL [place] # (Auto) 1.94 H (0.11-0.59) K/uL Eos # (Auto) 0.10 (0-0.5) K/uL Baso # (Auto) 0.03 (0-0.2) K/uL PT 10.9 (9.0-12.0) Seconds INR 1.0 (0.9-1.1) APTT 28.2 (21.0-31.0) Seconds PTT Ratio 1.0 Sodium (136-145) mmol/L Potassium (3.5-5.1) mmol/L Chloride (98-107) mmol/L Carbon Dioxide (21-32) mmol/L Anion Gap (3-11) BUN (7-18) mg/dl Creatinine (0.6-1.2) mg/dl Est Cr Clr Drug Dosing ml/min Est GFR ( Amer) Est GFR (Non-Af Amer) BUN/Creatinine Ratio (10-20) Glucose (70-99) mg/dl POC Glucose 157 H (70-99) mg/dl Calcium (8.5-10.1) mg/dl Magnesium (1.8-2.4) mg/dl Total Bilirubin (0.2-1) mg/dl AST (15-37) U/L ALT (12-78) U/L Alkaline Phosphatase (45-117) U/L Total Protein (6.4-8.2) gm/dl Albumin (3.4-5.0) gm/dl Globulin (2.5-4.0) gm/dl Albumin/Globulin Ratio (0.9-2) 02/08/20 Range/Units 16:52 WBC (4.8-10.8) K/uL RBC (4.2-5.4) M/uL Hgb (12.0-16.0) g/dL Hct (37-47) % MCV (80-100) fL MCH (25-34) pg MCHC (32-36) g/dL RDW Std Deviation (36.4-46.3) fL RDW Coeff of Betito (11.5-14.5) % Plt Count (130-400) K/uL MPV (7.4-10.4) fL Immature Gran % (Auto) % Neut % (Auto) % Lymph % (Auto) % [place] % (Auto) % Eos % (Auto) % Baso % (Auto) % Immature Gran # (Auto) (0.00-0.02) K/uL Neut # (Auto) (1.4-6.5) K/uL Lymph # (Auto) (1.2-3.4) K/uL [place] # (Auto) (0.11-0.59) K/uL Eos # (Auto) (0-0.5) K/uL Baso # (Auto) (0-0.2) K/uL PT (9.0-12.0) Seconds INR (0.9-1.1) APTT (21.0-31.0) Seconds PTT Ratio Sodium (136-145) mmol/L Potassium (3.5-5.1) mmol/L Chloride (98-107) mmol/L Carbon Dioxide (21-32) mmol/L Anion Gap (3-11) BUN (7-18) mg/dl Creatinine (0.6-1.2) mg/dl Est Cr Clr Drug Dosing ml/min Est GFR ( Amer) Est GFR (Non-Af Amer) BUN/Creatinine Ratio (10-20) Glucose (70-99) mg/dl POC Glucose 143 H (70-99) mg/dl Calcium (8.5-10.1) mg/dl Magnesium (1.8-2.4) mg/dl Total Bilirubin (0.2-1) mg/dl AST (15-37) U/L ALT (12-78) U/L Alkaline Phosphatase (45-117) U/L Total Protein (6.4-8.2) gm/dl Albumin (3.4-5.0) gm/dl Globulin (2.5-4.0) gm/dl Albumin/Globulin Ratio (0.9-2) (1) Closed fracture of tibial plateau Encounter type: initial encounter Laterality: right Qualified Code(s): S82.141A - Displaced bicondylar fracture of right tibia, initial encounter for closed fracture
[2020-02-09] MEDS: SENNA 8.6 MG TAB PO SCH (21:05)
[2020-02-10 08:07] LABS: Basophils # (auto) 0.05 K/uL (0-0.2); Basophils % (auto) 0.5 %; Eosinophils % (auto) 2.8 %; Hematocrit (blood only) 34.1 % (37-47); Hemoglobin 10.6 g/dL (12.0-16.0); Immature Granulocytes # (auto) 0.22 K/uL (0.00-0.02); Lymphocytes % (auto) 15.7 %; Mean Corpuscular Hemoglobin 32.2 pg (25-34); Mean Corpuscular Hgb Conc 31.1 g/dL (32-36); Mean Corpuscular Volume 103.6 fL (80-100); Mean Platelet Volume 11.1 fL (7.4-10.4); Monocytes # (auto) 1.56 K/uL (0.11-0.59); Monocytes % (auto) 14.4 %; Neutrophils # (auto) 6.98 K/uL (1.4-6.5); Neutrophils % (auto) 64.6 %; Nucleated RBC # (auto) 0.08 K/uL (0-0); Nucleated RBC % (auto) 0.7 %; Platelet Count 293 K/uL (130-400); Red Blood Count 3.29 M/uL (4.2-5.4); White Blood Count 10.81 K/uL (4.8-10.8)
[2020-02-10] MEDS: POTASSIUM CHLORIDE 20 MEQ TABCR PO SCH (08:37)
[2020-02-10] MEDS: ATORVASTATIN 40 MG TAB PO SCH (08:37)
[2020-02-10] MEDS: DOCUSATE SODIUM 100 MG CAP PO SCH (08:38)
[2020-02-10] MEDS: FUROSEMIDE 80 MG TAB PO SCH (08:38)
[2020-02-10] MEDS: SPIRONOLACTONE 25 MG TAB PO SCH (08:38)
[2020-02-10] MEDS: FERROUS SULFATE 325 MG TAB PO SCH (08:38)
[2020-02-10] MEDS: MULTIVITAMIN TAB PO SCH (08:38)
[2020-02-10] MEDS: carvediloL 3.125 MG TAB PO SCH (08:39)
[2020-02-10] MEDS: ENOXAPARIN INJ 40 MG/0.4 ML SYR SQ SCH (08:39)
[2020-02-10] MEDS: INSULIN ASPART 100 UNITS/ML 3 ML PEN SC SCH ×2 (08:40→12:13)
[2020-02-10 08:48] LABS: BUN Creatinine Ratio 31.5 (10-20); Calcium 9.9 mg/dl (8.5-10.1); Creatinine Clr Calc Pharmacy 68.7 ml/min; Est GFR (African American) 77.2; Est GFR (Non-African American) 66.6; Potassium 4.2 mmol/L (3.5-5.1)
--- NOTE | 2020-02-10 10:01 | Discharge Summary ---
Date of Service February 10, 2020 Admission HPI Per Admitting Provider The patient is a 64-year-old female with a past medical history including chronic diastolic heart failure, dyslipidemia, obstructive sleep apnea, dyslipidemia, reactive airway disease, obesity hypoventilation syndrome, hy pertension, diabetes mellitus type 2, bicuspid aortic valve, aortic stenosis and morbid obesity with BMI 45.0-49.9. She presents to the emergency department after falling on her right knee earlier in the evening, after slipping and falling while trying to clean a bathtub. Imaging studies in the ED revealed an extensive tibial plateau fracture on the right. Dr. Al from orthopedics has been consulted, and has asked that the patient's knee be immobilized, and be admitted to the hospitalist medical service for cardiac preoperative risk assessment. Patient follows with Dr. Reno from cardiology. Principal Diagnosis tibial fx Discharge Exam Constitutional WD/WN, vitals as above + morbidly obese Eyes PERRL, conjunctivae normal, anicteric sclerae ENMT external ear and nose normal, oropharynx normal Respiratory normal respiratory effort, lungs clear to auscultation Cardiovascular RRR, no murmur, no edema Gastrointestinal (Abdomen) normal bowel sounds, soft, nontender, no hepatosplenomegaly Musculoskeletal R LE in cast Skin no rashes, warm and dry Psychiatric A+Ox3, euthymic affect Lymphatic +1 LE Edema Discharge Data Allergies Allergy/AdvReac Type Severity Reaction Status Date / Time No Known Drug Allergies Allergy Unknown Verified 02/06/20 02:36 Consultations 02/06/20 02:44 Consult Orthopedic Surgery Routine 02/06/20 03:10 ED Decision to Admit Stat 02/06/20 06:23 Consult Cardiology Routine Consult Case Management - Discharge Planning Routine Procedures Performed Operation Date: 02/06/20 14:00 Actual Procedures p ORIF Tibial Plateau Fracture(Right) - Enoch Luna Al MD Operation Date: 02/06/20 14:00 <No data on this case meets the specified criteria> Ordered Studies 02/06/20 FL fluoroscopy <1hr Routine FL tibia/fibula RT 2V Routine 02/06/20 02:44 CT knee RT wo con Urgent 02/06/20 11:20 US - OR guided needle placemen Routine Hospital Course (1) Closed fracture of tibial plateau: Pt is a 64yo female with a significant Hx of HFpEF, aortic stenosis, Dys lipidemia, HTN, DMII and BEN who was admitted for surgical management of a right tibial plateau fracture. The following is the medical management during stay here: Right leg Tibial plateau fracture -post-op day #3 ORIF R Tibial Plateau (closed fx) -Appreciate ortho recs -TTWB RLE with walker and brace blocked between 0-30 degrees. Brace otherwise can match her ROM when in bed or chair. -Continue pain control- PO Roxycodone IR 5-10mg q4h prn while here. Will be given script for PO [place] on d/c -Ice to right knee as needed. Encourage every hour for 20min. -DVT Prophylaxis: Lovenox 40 mg subq q24 x 3 weeks (started 02/06) then ASA 325mg BID for another 3 weeks. TEDs for 3 weeks on d/c. SCD's while in hospital. -Previously declined DEXA as outpt, will consider again on d/c -Consider Vit D, calcium supplementation on discharge Hypoxia -O2 89 on admit. Pt requiring 2L-4L NC. Notes no home O2 requirement. -in reviewing outpt notes from Dr. Collier (Cardiology) Oct 2019- pt with severe and was d/c on supplemental O2 after being admitted for acute diastolic HF. Pt trialed this for a year, after which, per pt, she no longer needed O2 and was stopped -pt with h/o Obstructive sleep apnea/obesity hypoventilation syndrome/diastolic HF. Likely multifactorial contributing to present O2 needs -ordered nocturnal pulse ox for tonight, which showed O2 as low as 21. Recommend nocturnal O2 2L on d/c home after rehab stay. Can make further arrangements with PCP after d/c -consider repeat oupt sleep study as an outpt. Pt reportedly had one in the past, but unclear if/why CPAP was discontinued. Follows with Dr. Burgess HFpEF -on home lasix 80mg daily, spironolactone 25mg daily and KCl 20meQ HTN -as above + carvedilol 3.125mg BID HLD -continue home atorvastatin 80mg DMII -ISS DVT prophylaxis with Lovenox SQ, to be continued as above. Pt with no other acute concerns or complaints at time of d/c. Total Time Total Time Spent Total Time Spent (In Minutes): 30 Discharge Plan Discharge Items Patient Disposition: Transfer Inpatient Rehab Fac Reason For Visit: RT TIBIAL PLATEAU FRACTURE Discharge Diagnosis: Right Tibial Plateau Fracture Activity: Per Instructions section Non-emergency contact: Primary Care Provider Call non-emergency contact if: your symptoms worsen and you have a fever Follow-up/Referrals: Layla Childs MD [Primary Care Provider] - Enoch Al MD [Physician] - 02/22/20 1:30 pm (with Julienne Magana PA-C with [facility] for wound check) Diet: Carb Consistent or DM2 Addtl Attending Provider Instructions: Orthopedic Recommendations: Silverlon waterproof dressing to remain on for 2wks until seen in the office. Toe Touch Weightbearing Right Leg with walker and brace blocked between 0-30 degrees. Brace otherwise can match ROM (range of motion) when in bed or chair OR can be removed at rest. Encourage motion at rest. Home Health Physical Therapy Ice to right knee as needed for pain and swelling. Encourage at least 3xs a day. DVT Prophylaxis: Lovenox 40 mg subq q24 x 3 weeks then ASA 325mg BID for another 3 weeks. Knee high TEDS for 3wks. Can remove to bath and at night. Please call the office at [phone] with any questions or concerns. Pt is a 64yo female with a significant Hx of HFpEF, aortic stenosis, Dyslipidemia, HTN, DMII and BEN who was admitted for surgical management of a right tibial plateau fracture. The following is the medical management during stay here: Right leg Tibial plateau fracture -post-op day #3 ORIF R Tibial Plateau (closed fx) -Appreciate ortho recs -TTWB RLE with walker and brace blocked between 0-30 degrees. Brace otherwise can match her ROM when in bed or chair. -Continue pain control- PO Roxycodone IR 5-10mg q4h prn while here. Will be given script for PO [place] on d/c -Ice to right knee as needed. Encourage every hour for 20min. -DVT Prophylaxis: Lovenox 40 mg subq q24 x 3 weeks (started 02/06) then ASA 325mg BID for another 3 weeks. TEDs for 3 weeks on d/c. SCD's while in hospital. -Previously declined DEXA as outpt, will consider again on d/c -Consider Vit D, calcium supplementation on discharge Hypoxia -O2 89 on admit. Pt requiring 2L-4L NC. Notes no home O2 requirement. -in reviewing outpt notes from Dr. Collier (Cardiology) Oct 2019- pt with severe and was d/c on supplemental O2 after being admitted for acute diastolic HF. Pt trialed this for a year, after which, per pt, she no longer needed O2 and was stopped -pt with h/o Obstructive sleep apnea/obesity hypoventilation syndrome/diastolic HF. Likely multifactorial contributing to present O2 needs -ordered nocturnal pulse ox for tonight, which showed O2 as low as 21. Recommend nocturnal O2 2L on d/c. Can make further arrangements with PCP after d/c -consider repeat oupt sleep study as an outpt. Pt reportedly had one in the past, but unclear if/why CPAP was discontinued. Follows with Dr. Burgess HFpEF -on home lasix 80mg daily, spironolactone 25mg daily and KCl 20meQ HTN -as above + carvedilol 3.125mg BID HLD -continue home atorvastatin 80mg DMII -ISS DVT prophylaxis with Lovenox SQ, to be continued as above. Pt with no other acute concerns or complaints at time of d/c. Pending Studies at Discharge: No Stand-Alone Forms: My Influx, Smoking Cessation Skilled Items Patient informed of condition?: Yes DNR: No Discharge Level of Care: Acute rehab Communicable Disease: No Discharge Prognosis: Stable Lines: None Urinary Catheter: No Medications and DC Order Prescriptions: New hydrocodone-acetaminophen [[place]] 5-325 mg tablet 1 tab PO Q6H PRN (Reason: pain) Qty: 14 RF: 0 Continued spironolactone 25 mg tablet 25 mg PO DAILY Qty: 30 RF: 5 potassium chloride 20 mEq tablet extended release 20 meq PO DAILY Qty: 90 RF: 1 furosemide 40 mg tablet 80 mg PO DAILY Qty: 60 RF: 5 carvedilol 3.125 mg tablet See Patient Comments mg PO BID Qty: 60 RF: 5 atorvastatin 80 mg tablet 80 mg PO DAILY Qty: 90 RF: 3 ferrous sulfate 325 mg (65 mg iron) tablet 325 mg PO BID Qty: 180 RF: 1 Discharge Orders: Discharge Order (Routine); Ordered 02/10/20 Ordered By: Von Prieto Admission Data Admit Date/Time: 02/06/20 05:02 Attending Provider: Melody Dempsey Admit Provider: Billy Brandt Primary Care Provider: Layla Childs Other Providers: Enoch Al ; Billy Brandt ; Armen Collier Jr ; Raymundo Benjamin ; [facility] Other Interventions: Discharge Summary Assessment (RN) Last Done: 02/10/20 12:29 DC Date/Time DO NOT enter until pt leaves facility: 02/10/20 13:40 Supervising Physician Co-Signing Physician Notes Resident Physician Supervision Note: I independently interviewed and examined the patient and verified the saleem history and physical, reviewed labs and image studies, discussed the case with the resident Dr. Prieto and agree with the findings and care plan. Time spent in discharge 35 min Resident Activity Tracking Resident Involvement: Resident Care Provided Care Provided: Adult Hospital Medicine
[2020-02-10] MEDS: OXYCODONE HCL IR 5 MG TAB (IMMEDIATE RELEASE) PO PRN (12:14)
== END 2020-02-10 13:40 | DRG 493 ==
LOC: ED 01:58 → 2W 05:02 → SUATTDRO 05:02 → 2W 05:34

== ENCOUNTER 2020-07-05 14:41 | Inpatient (IN) ==
--- NOTE | 2020-07-05 15:51 | History & Physical Report ---
Date of Service July 05, 2020 Assessment & Plan (1) Infection associated with internal fixation device of bone of lower leg: Dr. Al had a long discussion with the patient today. He cultured the wound and applied dry dressing with an MARTIN. He sent for cultures. He is recommending the patient be directly admitted to [facility] for IV antibiotics. Patient is in agreement. Dr. Al also did discuss with the patient surgery tomorrow informed consent signed. This will consist of irrigation and debridement of right lower extremity wound. She will be n.p.o. after midnight. We will start IV vancomycin. We will contact pharmacy for appropriate dosing. We will also consult medicine for preoperative clearance. I will also order appropriate preoperative work-up to include a CBC BMP ESR CRP PT/INR and PTT the patient displayed understanding of the above. She is aware we will see her tomorrow morning. Present on Admission?: Yes Admission and Anticipated Discharge Date Admission Date: 07/05/2020 History of Present Illness Chief Complaint: Status post ORIF right tibial plateau fracture 02/06/[address] Al with current right lower extremity infection. Primary Care Provider: Layla Childs MD Patient was seen in our office today by Dr. Al. History of ORIF right tibial plateau fracture 02/06/20. She began having right proximal tibia pain about a week ago. She developed a "bump" and last night it started to drain. Per patient the leg itself has become more red and warm. She also notes increased swelling. She denies fevers chills or sweats. She denies any recent injuries, recent illness. Dr Al saw patient in office. He expressed some fluid from the cyst like structure and it drained blood and yellow cloudy fluid. This are tracked to her hardware which was visible. Dr. Al feels it is best that she be direct admitted to the hospital to start IV vancomycin and for planned surgery tomorrow for irrigation and debridement of right lower extremity infection. Patient agreed to be direct admitted today. She also signed consent for surgery. Allergies Allergy/AdvReac Type Severity Reaction Status Date / Time No Known Drug Allergies Allergy Unknown Verified 02/06/20 02:36 Home Medications Home Medications Medication Instructions Recorded Confirmed Type spironolactone 25 mg tablet 25 mg PO DAILY #30 tab 07/08/19 02/26/20 Rx potassium chloride 20 mEq 20 meq PO DAILY #90 tab 07/15/19 02/26/20 Rx tablet,extended release atorvastatin 80 mg tablet 80 mg PO DAILY #90 tab 10/14/19 02/26/20 Rx ferrous sulfate 325 mg (65 mg 325 mg PO BID #180 tab 01/26/20 02/26/20 Rx iron) tablet acetaminophen 325 mg tablet 650 mg PO Q4H PRN tab 02/26/20 02/26/20 History aspirin 325 mg tablet 325 mg PO BID 02/26/20 02/26/20 History enoxaparin 40 mg/0.4 mL 40 mg SQ DAILY 02/26/20 02/26/20 History subcutaneous syringe hydrocodone 5 mg-acetaminophen 325 1 tab PO Q6H PRN #14 tab 03/04/20 Rx mg tablet furosemide 40 mg tablet 80 mg PO DAILY #60 tab 06/02/20 Rx carvedilol 3.125 mg tablet See Rx Instructions PO BID #180 tab 06/20/20 Rx Past Med/Surg History Medical History (Updated 07/05/20 @ 17:40 by Marcos Calderon MD) Acute on chronic diastolic (congestive) heart failure Aortic stenosis Bicuspid aortic valve Chronic diastolic heart failure CO2 retention Conjunctival edema, bilateral Dyslipidemia Hyperglycemia Hypertension Hypoventilation syndrome Iron (Fe) deficiency anemia Leg edema Obstructive apnea Restrictive airway disease Sinusitis Surgical History H/O heart surgery Performed age 3 for repair of patent ductus arteriosus Family History Mother Depression Diabetes Father Stroke Coronary heart disease Hypertension Depression Diabetes Myocardial infarction Daughter Gallbladder disease Grandfather Prostate cancer Aunt Breast cancer Other Bicuspid aortic valve Denies family history of Ovarian cancer Colorectal cancer Social History Smoking Status: Never smoker Do You Dip or Chew Tobacco: No; Hx Alcohol Use: Yes Alcohol type: hard liquor Hx Substance Use: No Preferred Language: Uzbek Communication Ability: Effective Visual Impairment: No Limitations Hearing Ability: Normal Director Of Retail Required: No Beliefs That Will Affect Care: None marital status: marital status details: One daughter Current Living Situation: Spouse current occupational status: retired Other Information That Helps Us Care for You: No Feels Safe at Home: Yes Safety Concerns: Feels Safe At This Time Childhood Exposure to Second-Hand Smoke: No Dental Care, Regularly: No Physical Activity Frequency: 5-6 Times per Week Seatbelt Use: always Sunscreen Use: No Do you think of yourself as: straight/heterosexual Assistive Devices: Walker Review of Systems Review of Systems: All systems reviewed & are unremarkable except as noted in HPI & below Patient admits to "occasionally" having SOB at rest. Physical Exam Physical Exam: Patient is a pleasant 65-year-old female. She is in no acute distress. She is alert and oriented x3 with normal mood and affect. She is in a wheelchair. Her head: is normocephalic atraumatic. External ear: intact. Eyes: pupils equal round reactive to light, sclera normal, extraocular movements intact. Nose: nares are patent. Mouth: dentition good, mucosa moist, no erythema edema or exudate. Functional cervical spine motion. Neck: no carotid bruits, no JVD, no lymphadenopathy. Lungs: clear to auscultation bilaterally, no wheezes rales or rhonchi. Cardiac: grade 3 murmur, normal S1 and S2, no rubs or gallops. Extremities: Patient has no cyanosis or clubbing to her lower extremities. Right lower extremity exam: Patient has 1+ pitting edema to her right lower extremity, palpable dorsalis pedis and posterior tib pulse, sensation grossly intact to light touch, brisk capillary refill. She has redness tracking from her right proximal tibia down to her anterior camacho. She has warmth to this area. Proximal tibia where she had her previous surgery and incision reveals an open wound laterally. No foul odor.
[2020-07-05] MEDS ORDERED: VANCOMYCIN HCL 1,000 MG/270 ML BAG IV STA (15:59)
[2020-07-05] MEDS ORDERED: VANCOMYCIN CONSULT ACTIVE PRN (15:59)
[2020-07-05] MEDS ORDERED: PATIENT'S HEIGHT AND/OR WEIGHT NEEDED SCH (16:15)
[2020-07-05] MEDS ORDERED: FERROUS SULFATE 325 MG TAB PO SCH (17:00)
--- NOTE | 2020-07-05 17:49 | Hospitalist Consultation ---
Date of Consultation July 05, 2020 Assessment & Plan (1) Infection associated with internal fixation device of bone of lower leg: Arose very quickly with papules noted yesterday. Otherwise, she felt her leg had just been a bit "stiff" for the last few days. - Plan for ORIF tomorrow with Dr. Al - Wound cultures collected in clinic - Will order blood cultures as well - Will order ultrasound of LEs to r/o DVT given her recent long car trip - Continue vancomycin and follow cultures. Medicine will be happy to help manage abx if needed. - Apart from Dopplers, I do not see the need for any further pre-operative testing. Her NSQIP risk is 12% for any complication, 11% for a serious co mplication, and 0.6% for a cardiac complication. These are all above average, but that is understandable given her risk profile. That said, she was cleared for surgery by cardiology in 01/2020, and I do not see any clinically significant change in her status from that time. - Given urgency and necessity of surgery, I would recommend proceeding with surgery at the discretion of the surgical and anesthesiology teams. (2) Diastolic heart failure: EF was 60-65% on echo in 10/2019. Has done well with no recent exacerbations of her CHF. - Presently appears euvolemic. Will hold AM furosemide and spironolactone, but continue beta-umu. - Restart Lasix after surgery. - Closely monitor volume status (3) Aortic stenosis: Echo in 10/2019 indicates moderate/severe , with it being moderate on exam per cardiology. - Avoid rapid drops in blood pressures as this can greatly reduce cardiac output. (4) Hypertension: BP presently 150/80. - Cardiac meds as above (5) Diabetes type 2, uncontrolled: A1c was 7.5% in 10/2019. - Sliding scale insulin - Recheck A1c (6) Obstructive sleep apnea of adult: Does not use CPAP/BiPap per patient. - Monitor O2; may have hypoxemia post-extubation. (7) DVT prophylaxis: SCDs - Heparin/other per primary team, likely after surgery History of Present Illness Attending Physician: Enoch Al MD History of Present Illness 65yo F w/ hx of ORIF after a tibial plateau fracture on 02/06/2020 and CHF. She presents with a concern for right knee infection. She reports she took a trip about 2 weeks ago and did some driving. Afterward, it felt very stiff which she just assumed was from pushing herself too hard. However, last night she noted two small papules on her right knee. Around 3am, she woke up and noted that one of the papules had ruptured and leaked blood and pus. She came to the ortho office and was sent to the hospital for an I&D tomorrow. She reports that she otherwise feels fine. She has a history of CHF; however, she reports that her symptoms have been well-controlled recently and she denies any recent weight gain or other concerning symptoms of an exacerbation. Allergies Allergy/AdvReac Type Severity Reaction Status Date / Time No Known Drug Allergies Allergy Unknown Verified 02/06/20 02:36 Home Medications Home Medications Medication Instructions Recorded Confirmed Type spironolactone 25 mg tablet 25 mg PO DAILY #30 tab 07/08/19 02/26/20 Rx potassium chloride 20 mEq 20 meq PO DAILY #90 tab 07/15/19 02/26/20 Rx tablet,extended release atorvastatin 80 mg tablet 80 mg PO DAILY #90 tab 10/14/19 02/26/20 Rx ferrous sulfate 325 mg (65 mg 325 mg PO BID #180 tab 01/26/20 02/26/20 Rx iron) tablet acetaminophen 325 mg tablet 650 mg PO Q4H PRN tab 02/26/20 02/26/20 History aspirin 325 mg tablet 325 mg PO BID 02/26/20 02/26/20 History enoxaparin 40 mg/0.4 mL 40 mg SQ DAILY 02/26/20 02/26/20 History subcutaneous syringe hydrocodone 5 mg-acetaminophen 325 1 tab PO Q6H PRN #14 tab 03/04/20 Rx mg tablet furosemide 40 mg tablet 80 mg PO DAILY #60 tab 06/02/20 Rx carvedilol 3.125 mg tablet See Rx Instructions PO BID #180 tab 06/20/20 Rx Patient History Medical History Acute on chronic diastolic (congestive) heart failure Aortic stenosis Bicuspid aortic valve Chronic diastolic heart failure CO2 retention Conjunctival edema, bilateral Dyslipidemia Hyperglycemia Hypertension Hypoventilation syndrome Iron (Fe) deficiency anemia Leg edema Obstructive apnea Restrictive airway disease Sinusitis Surgical History H/O heart surgery Performed age 3 for repair of patent ductus arteriosus Family History Mother Depression Diabetes Father Stroke Coronary heart disease Hypertension Depression Diabetes Myocardial infarction Daughter Gallbladder disease Grandfather Prostate cancer Aunt Breast cancer Other Bicuspid aortic valve Denies family history of Ovarian cancer Colorectal cancer Social History Smoking Status: Never smoker Do You Dip or Chew Tobacco: No; Hx Alcohol Use: Yes Alcohol type: hard liquor Hx Substance Use: No Preferred Language: Burmese Communication Ability: Effective Visual Impairment: No Limitations Hearing Ability: Normal Body And Frame Man Required: No Beliefs That Will Affect Care: None marital status: marital status details: One daughter Current Living Situation: Spouse current occupational status: retired Other Information That Helps Us Care for You: No Feels Safe at Home: Yes Safety Concerns: Feels Safe At This Time Childhood Exposure to Second-Hand Smoke: No Dental Care, Regularly: No Physical Activity Frequency: 5-6 Times per Week Seatbelt Use: always Sunscreen Use: No Do you think of yourself as: straight/heterosexual Assistive Devices: Glasses Review of Systems Review of Systems: All systems reviewed & are unremarkable except as noted in HPI & below Physical Exam Constitutional: WD/WN, vitals as above Eyes: EOM intact bilaterally; no conjunctival abnormality ENMT: external ear and nose normal, oropharynx normal Neck: trachea midline, no thyromegaly normal visual inspection Respiratory: normal respiratory effort, lungs clear to auscultation no respiratory distress Cardiovascular: RRR, no murmur, no edema Gastrointestinal (Abdomen): Inspection/Auscultation: abdomen normal to inspection; abdomen not distended Musculoskeletal: no cyanosis or clubbing, extremities motor strength 5/5 Extremities: + extremities abnormal to inspection (Erythema over right knee. ) Skin: no rashes, warm and dry Neurologic: moves all extremities and awake Psychiatric: Orientation: alert, oriented to person and cooperative Results & Data Results & Data ([facility]) Vital Signs (Past 12 Hours) Vital Signs Temp Pulse Resp BP Pulse Ox 07/05/20 16:00 36.7 C 87 18 149/79 H 95 PG Care Time/CCT Total # of Minutes Spent Total Time Spent with Patient: Total time spent is greater than 50% in coordination of care (as documented) at patient's floor/unit and/or counseling patient: Coding Level of Care Code 60824 Inpt Consult Level 5 Diagnoses Infection associated with internal fixation device of bone of lower leg T84.629A Diastolic heart failure I50.30 Aortic stenosis I35.0 Hypertension I10 Diabetes type 2, uncontrolled E11.65 Obstructive sleep apnea of adult G47.33 DVT prophylaxis Z29.9
[2020-07-05 18:02] LABS: Basophils # (auto) 0.03 K/uL (0-0.2); Basophils % (auto) 0.1 %; Eosinophils # (auto) 0.32 K/uL (0-0.5); Eosinophils % (auto) 1.5 %; Hematocrit (blood only) 39.7 % (37-47); Hemoglobin 12.9 g/dL (12.0-16.0); Immature Granulocytes # (auto) 0.65 K/uL (0.00-0.02); Immature Granulocytes % (auto) 3.1 %; Lymphocytes # (auto) 1.09 K/uL (1.2-3.4); Lymphocytes % (auto) 5.1 %; Mean Corpuscular Hemoglobin 31.7 pg (25-34); Mean Corpuscular Hgb Conc 32.5 g/dL (32-36); Mean Corpuscular Volume 97.5 fL (80-100); Mean Platelet Volume 11.4 fL (7.4-10.4); Monocytes # (auto) 2.87 K/uL (0.11-0.59); Monocytes % (auto) 13.5 %; Neutrophils # (auto) 16.29 K/uL (1.4-6.5); Neutrophils % (auto) 76.7 %; Platelet Count 363 K/uL (130-400); RDW Coefficient of Variation 13.7 % (11.5-14.5); RDW Standard Deviation 48.9 fL (36.4-46.3); Red Blood Count 4.07 M/uL (4.2-5.4); White Blood Count 21.25 K/uL (4.8-10.8)
[2020-07-05 18:20] LABS: BUN Creatinine Ratio 25.2 (10-20); Blood Urea Nitrogen 25 mg/dl (7-18); Calcium 9.7 mg/dl (8.5-10.1); Carbon Dioxide 28 mmol/L (21-32); Chloride 104 mmol/L (98-107); Est GFR (African American) 67.5; Est GFR (Non-African American) 58.3; Glucose 208 mg/dl (70-99); Potassium 3.8 mmol/L (3.5-5.1); Sodium 138 mmol/L (136-145)
[2020-07-05] MEDS ORDERED: VANCOMYCIN HCL 2,500 MG in SODIUM CHLORIDE 0.9% 500 ML IV ONE (19:00)
--- NOTE | 2020-07-05 19:26 | Ultrasound Report ---
BILATERAL LOWER EXTREMITY VENOUS DOPPLER HISTORY: Acute pain and swelling of the bilateral lower extremities DVT COMPARISON STUDY: None FINDINGS: There is normal compressibility, flow, and augmentation within the bilateral lower extremit y deep venous systems.. Limited evaluation of the calf veins. The right anterior tibial vein is not d iagnostically visualized. IMPRESSION: No DVT within the right or left lower extremity. ACT 112: Negative or not required by law. Electronically signed by: Romaine Strong M.D. 07/05/2020 7:25 PM
[2020-07-05 20:15] LABS: INR 1.1 (0.9-1.1); Partial Thromboplastin Ratio 1.1; Partial Thromboplastin Time 30.1 Seconds (21.0-31.0); Prothrombin Time 11.3 Seconds (9.0-12.0)
[2020-07-05] MEDS: carvediloL 3.125 MG TAB PO SCH (20:22)
[2020-07-06 06:51] LABS: Estimated Average Glucose 203 mg/dl; Hemoglobin A1C 8.7 % (4.5-5.6)
[2020-07-06] MEDS: carvediloL 3.125 MG TAB PO SCH ×2 (07:20→21:02)
[2020-07-06] MEDS: ATORVASTATIN 40 MG TAB PO SCH (07:20)
[2020-07-06] MEDS ORDERED: POTASSIUM CHLORIDE CRTAB 20 MEQ TABCR PO SCH (09:00)
[2020-07-06] MEDS ORDERED: SPIRONOLACTONE 25 MG TAB PO SCH (09:00)
[2020-07-06] MEDS ORDERED: FUROSEMIDE 80 MG TAB PO SCH (09:00)
--- NOTE | 2020-07-06 09:42 | Orthopedic Progress Note ---
Date of Service July 06, 2020 Assessment & Plan (1) Infection associated with internal fixation device of bone of lower leg: Hospital day #2, infected right lower extremity 5 months status post ORIF right tibial plateau fracture, + wound and blood cultures Gram + cocci. Continue IV vancomycin. Appreciate pharmacy consult. Continue n.p.o. COVID rapid test, Nasal Swab for MRSA Plan OR later today for I&D and possible wound VAC placement. Patient understands that she may require repeat I&D. Reviewed labs, gram-positive cocci, staph species, vancomycin is appropriate for the time being. Sensitivities to follow. Appreciate medicine input. The informed consent was signed in the office yesterday and right lower extremity was initialed. Appreciate medicine input. Will obtain infectious disease consult after surgery. Present on Admission?: Yes Admission and Anticipated Discharge Date Admission Date: July 05, 2020 Subjective RLE pain, more medially today Review of Systems Review of Systems: All systems reviewed & are unremarkable except as noted in HPI & below Physical Exam Physical Exam: RLE: Neurovascularly intact. Dressing is with Purulent drainage laterally. Decreased swelling and erythema. Calf soft and non-tender. Packing still within lateral wound. Results & Data ([facility]) Vital Signs (Past 12 Hours) Vital Signs Temp Pulse Resp BP Pulse Ox 07/06/20 07:27 36.6 C 95 H 18 149/80 H 90 07/06/20 00:11 37.3 C 101 H 18 136/76 91 Laboratory Results 07/05/20 07/05/20 07/05/20 Range/Units 19:52 17:42 17:42 WBC (4.8-10.8) K/uL RBC (4.2-5.4) M/uL Hgb (12.0-16.0) g/dL Hct (37-47) % MCV (80-100) fL MCH (25-34) pg MCHC (32-36) g/dL RDW Std Deviation (36.4-46.3) fL RDW Coeff of Betito (11.5-14.5) % Plt Count (130-400) K/uL MPV (7.4-10.4) fL Immature Gran % (Auto) % Neut % (Auto) % Lymph % (Auto) % Wells % (Auto) % Eos % (Auto) % Baso % (Auto) % Neut # (Auto) (1.4-6.5) K/uL Lymph # (Auto) (1.2-3.4) K/uL Wells # (Auto) (0.11-0.59) K/uL Eos # (Auto) (0-0.5) K/uL Baso # (Auto) (0-0.2) K/uL Immature Gran # (Auto) (0.00-0.02) K/uL ESR (0-21) mm/hr PT 11.3 Cancelled INR 1.1 Cancelled APTT 30.1 Cancelled PTT Ratio 1.1 Cancelled Sodium (136-145) mmol/L Potassium (3.5-5.1) mmol/L Chloride (98-107) mmol/L Carbon Dioxide (21-32) mmol/L Anion Gap (3-11) BUN (7-18) mg/dl Creatinine (0.6-1.2) mg/dl Est Cr Clr Drug Dosing Est GFR ( Amer) Est GFR (Non-Af Amer) BUN/Creatinine Ratio (-20) Glucose (70-99) mg/dl Estimat Average Glucose 203 mg/dl Hemoglobin A1c 8.7 H (4.5-5.6) % Calcium (8.5-10.1) mg/dl C-Reactive Protein (0-0.29) mg/dl 07/05/20 07/05/20 07/05/20 Range/Units 17:42 17:42 17:42 WBC 21.25 H (4.8-10.8) K/uL RBC 4.07 L (4.2-5.4) M/uL Hgb 12.9 (12.0-16.0) g/dL Hct 39.7 (37-47) % MCV 97.5 (80-100) fL MCH 31.7 (25-34) pg MCHC 32.5 (32-36) g/dL RDW Std Deviation 48.9 H (36.4-46.3) fL RDW Coeff of Betito 13.7 (11.5-14.5) % Plt Count 363 (130-400) K/uL MPV 11.4 H (7.4-10.4) fL Immature Gran % (Auto) 3.1 % Neut % (Auto) 76.7 % Lymph % (Auto) 5.1 % Wells % (Auto) 13.5 % Eos % (Auto) 1.5 % Baso % (Auto) 0.1 % Neut # (Auto) 16.29 H (1.4-6.5) K/uL Lymph # (Auto) 1.09 L (1.2-3.4) K/uL Wells # (Auto) 2.87 H (0.11-0.59) K/uL Eos # (Auto) 0.32 (0-0.5) K/uL Baso # (Auto) 0.03 (0-0.2) K/uL Immature Gran # (Auto) 0.65 H (0.00-0.02) K/uL ESR > 90 H (0-21) mm/hr PT INR APTT PTT Ratio Sodium 138 (136-145) mmol/L Potassium 3.8 (3.5-5.1) mmol/L Chloride 104 (98-107) mmol/L Carbon Dioxide 28 (21-32) mmol/L Anion Gap 6.0 (3-11) BUN 25 H (7-18) mg/dl Creatinine 1.00 (0.6-1.2) mg/dl Est Cr Clr Drug Dosing Not Reportable Est GFR ( Amer) 67.5 Est GFR (Non-Af Amer) 58.3 BUN/Creatinine Ratio 25.2 H (10-20) Glucose 208 H (70-99) mg/dl Estimat Average Glucose mg/dl Hemoglobin A1c (4.5-5.6) % Calcium 9.7 (8.5-10.1) mg/dl C-Reactive Protein 36.90 H (0-0.29) mg/dl Gram stain showed many gram-positive cocci, Staph species, sensitivities to follow. Blood Culture Aerobic PENDING Blood Culture Anaerobic Preliminary 07/06/20-1006 Organism 1 Gram positive cocci clusters Sens Sensitivities Dependent on Further Identification
[2020-07-06] MEDS ORDERED: VANCOMYCIN HCL 1,250 MG in SODIUM CHLORIDE 0.9% 250 ML IV SCH (10:00)
[2020-07-06] MEDS ORDERED: LIDOCAINE HCL 2% 2 ML VIAL/AMP(20MG/ML) INFIL ONE (10:41)
[2020-07-06] MEDS ORDERED: PROPOFOL IV EMULSION 10 MG/ML 20 ML VIAL IV ONE (10:41)
[2020-07-06] MEDS ORDERED: ePHEDrine sulfate 50 MG/ML SYR ONE (10:41)
[2020-07-06] MEDS ORDERED: ONDANSETRON INJ 2 MG/ML 2 ML VIAL ONE (10:41)
[2020-07-06] MEDS ORDERED: MIDAZOLAM HCL 1 MG/ML 2ML VIAL ONE (10:42)
[2020-07-06] MEDS ORDERED: fentaNYL citrate 100 MCG/2 ML VIAL ONE ×2 (10:42→12:07)
[2020-07-06] MEDS ORDERED: MUPIROCIN 2% OINT 22 GM TUBE INTNAS ONE (11:00)
--- NOTE | 2020-07-06 11:13 | Pharmacy Report ---
Pharmacy Abx Initial Consult - Date of Service July 06, 2020 - Pharmacy Dosing Scope Date of Consult: 07/05/2020 Consultation requested by: Stephanie Magana PA-C Pharmacy is consulted to initiate Vancomycin IV dosing therapy, order appropriate labs and adjust drug dose/frequency. - Subjective The patient is a 65 year old F admitted on 07/05/20 15:43. - Objective Height: 5 ft Weight: 103.8 kg Vital Signs (Past 12hrs): Vital Signs Temp Pulse Resp BP Pulse Ox 07/06/20 07:27 36.6 C 95 H 18 149/80 H 90 07/06/20 00:11 37.3 C 101 H 18 136/76 91 Lab Results (24hrs): Laboratory Tests (24 Hours) 07/05/20 07/05/20 07/05/20 17:42 17:42 17:42 WBC 21.25 H Neut # (Auto) 16.29 H ESR > 90 H Creatinine 1.00 Est Cr Clr Drug Dosing Not Reportable C-Reactive Protein 36.90 H Micro Results: 07/05/20 19:52 Aerobic Blood Culture - Pending Blood Anaerobic Blood Culture - Pending - Risk Factors for Resistance * None - Assessment & Plan Assessment 65 year old F admitted secondary to right lower extremity infection * Patient underwent ORIF right tibial plateau fracture on 02/06/2020. Started having pain about one week ago. Developed a bump that started to drain. Leg has become more red, swollen and warm according to the patient. She was seen in outpatient surgery office where the wound drained blood and yellow cloudy fluid. This tracked to her hardware so she was a direct admit. * She is to undergo irrigation and debridement of right lower extremity wound today. * Upon admission: she was afebrile, leukocytosis of 21.3k, and renal function is near baseline with SCr of 1.00. Her inflammatory markers were elevated with ESR > 90 and CRP of 37. * Preliminary R leg culture is growing staphylococcus species. Blood cultures are growing gram positive cocci in clusters, indicating staph spp as well. Plan Vancomycin for treatment of RLE infection Vancomycin IV * Loading dose: 2250 mg (22 mg/kg) * Maintenance dose: 1250 mg IV (12 mg/kg) every 12 hours * Goal trough level: 15 to 20 mcg/mL * Trough level ordered for Saturday, July 08, to reflect steady state levels Pharmacy will continue to follow and will adjust dose/frequency as necessary. Thank you.
[2020-07-06] MEDS ORDERED: LIDOCAINE/EPINEPHRINE 1% 20 ML VIAL ONE (11:30)
[2020-07-06] MEDS ORDERED: BUPIVACAINE 0.5 % 5 MG/1 ML MPF 30ML VIAL ONE (11:30)
--- NOTE | 2020-07-06 11:45 | Anesthesiology Consultation ---
Date of Service July 06, 2020 Assessment & Plan Chart Review Chart Review: Acceptable Risk for Surgery and Patient NOT seen in Pre Admission Testing Consults Requested none ASA ASA4 Proposed Anesthesia Anesthesia Type: General Risk / Benefits Reviewed With: PT / POA / Parent / Guardian, Accepts Plan and Informed Consent Obtained Additional Comments: covid test neg History Surgery Operation Date: 07/06/20 10:30 Proposed Procedures p Debrasion Right Lower Extremity Infection - Enoch Luna Al MD Height/Weight Height: 5 ft Weight: 103.8 kg Allergies Allergy/AdvReac Type Severity Reaction Status Date / Time No Known Drug Allergies Allergy Unknown Verified 02/06/20 02:36 Medications Home Medications Medication Instructions Recorded Confirmed Last Taken spironolactone 25 mg tablet 25 mg PO DAILY #30 tab 07/08/19 02/26/20 Unknown potassium chloride 20 mEq 20 meq PO DAILY #90 tab 07/15/19 02/26/20 Unknown tablet,extended release atorvastatin 80 mg tablet 80 mg PO DAILY #90 tab 10/14/19 02/26/20 Unknown ferrous sulfate 325 mg (65 mg 325 mg PO BID #180 tab 01/26/20 02/26/20 Unknown iron) tablet acetaminophen 325 mg tablet 650 mg PO Q4H PRN tab 02/26/20 02/26/20 Unknown aspirin 325 mg tablet 325 mg PO BID 02/26/20 02/26/20 Unknown enoxaparin 40 mg/0.4 mL 40 mg SQ DAILY 02/26/20 02/26/20 Unknown subcutaneous syringe hydrocodone 5 mg-acetaminophen 325 1 tab PO Q6H PRN #14 tab 03/04/20 Unknown mg tablet furosemide 40 mg tablet 80 mg PO DAILY #60 tab 06/02/20 Unknown carvedilol 3.125 mg tablet See Rx Instructions PO BID #180 tab 06/20/20 Unknown Active Medications Generic Name Dose Route Start Last Admin Trade Name Freq PRN Reason Stop Dose Admin Atorvastatin Calcium 80 mg 07/06/20 09:00 07/06/20 07:20 Atorvastatin 40 Mg Tab PO 08/05/20 08:59 Not Given QAM ESHA Carvedilol 3.125 mg 07/05/20 21:00 07/06/20 07:20 Carvedilol 3.125 Mg Tab PO 08/04/20 20:59 Not Given BID ESHA NPO Date Last Intake of Fluids: 07/05/20 Time Last Intake of Fluids: 18:00 Date Last Intake of Solids: 07/05/20 Time Last Intake of Solids: 18:00 Past Medical History Medical History Acute on chronic diastolic (congestive) heart failure Aortic stenosis Bicuspid aortic valve Chronic diastolic heart failure CO2 retention Conjunctival edema, bilateral Dyslipidemia Hyperglycemia Hypertension Hypoventilation syndrome Iron (Fe) deficiency anemia Leg edema Obstructive apnea Restrictive airway disease Sinusitis Exercise / Class Metabolic Activity III < 4 Walking/Shop/Light housework Past Family History Family History Mother Depression Diabetes Father Stroke Coronary heart disease Hypertension Depression Diabetes Myocardial infarction Daughter Gallbladder disease Grandfather Prostate cancer Aunt Breast cancer Other Bicuspid aortic valve Denies family history of Ovarian cancer Colorectal cancer Past Surgical History Surgical History H/O heart surgery Performed age 3 for repair of patent ductus arteriosus Past Anesthesia History No Hx of Anesthesia Complications and No Family Hx of Anesthesia Complications History of PONV No Hx of PONV and No Hx of Motion Sickness Social History Smoking Status: Never smoker Do You Dip or Chew Tobacco: No Hx Alcohol Use: Yes Alcohol type: hard liquor alcohol intake frequency: holidays/special occasions only Hx Substance Use: No substance use type: does not use Physical Exam Vital Signs Last Vital Signs Temp 36.4 C L 07/06/20 11:33 Pulse 88 07/06/20 11:33 Resp 18 07/06/20 11:33 BP 148/77 H 07/06/20 11:33 Pulse Ox 93 07/06/20 11:33 Constitutional + morbidly obese ENMT Mouth: no dentition abnormality Thyromental Distance: < 3.5 Finger Breadths Mallampati Class: II Neck normal visual inspection, trachea midline, + short neck and + thick neck; neck extension not limited Respiratory normal respiratory effort Auscultation: lungs clear to auscultation bilaterally Cardiovascular Rate/Rhythm: regular rate and regular rhythm Heart Sounds: + murmur (;RUSB 3/6) Vessels: no carotid bruit Musculoskeletal Spine: normal cervical ROM Extremities: extremities normal to inspection Neurologic moves all extremities Motor/Sensory: no sensory deficit Psychiatric Orientation: alert and oriented x 3 Testing Laboratory Results 07/05/20 17:42 07/05/20 17:42 PT 11.3 Seconds (9.0-12.0) 07/05/20 19:52 INR 1.1 (0.9-1.1) 07/05/20 19:52 APTT 30.1 Seconds (21.0-31.0) 07/05/20 19:52 Hemoglobin A1c 8.7 % (4.5-5.6) H 07/05/20 17:42 07/05/20 17:41 Aerobic Blood Culture - Preliminary Blood Gram positive cocci clusters Anaerobic Blood Culture - Preliminary Gram positive cocci clusters Electrocardiogram Date: 02/06/20 Findings: + ST @ (at 109) Echocardiogram Date: 10/12/19 EF: 60 LV Function: normal RWMA: + none Other Findings: + LVH and + diastolic dysfunction (grade 1) Valvular Disease: + (severe)
[2020-07-06] MEDS ORDERED: FLUMAZENIL 0.1 MG/1 ML 10 ML VIAL IV PRN (12:24)
[2020-07-06] MEDS ORDERED: ONDANSETRON INJ 2 MG/ML 2 ML VIAL IV PRN ×2 (12:24→15:26)
[2020-07-06] MEDS ORDERED: ATROPINE SULFATE 0.1 MG/ML 10ML SYR IV PRN (12:24)
[2020-07-06] MEDS ORDERED: NALOXONE HCL 0.4 MG/1 ML VIAL/CARP IV PRN ×2 (12:24→15:26)
[2020-07-06] MEDS ORDERED: ePHEDrine sulfate 50 MG/ML AMP IV PRN (12:24)
[2020-07-06] MEDS ORDERED: PROMETHAZINE HCL 12.5 MG in SODIUM CHLORIDE 0.9% 50 ML IV PRN (12:24)
[2020-07-06] MEDS ORDERED: LABETALOL HCL IV 5 MG/ML 20ML IV PRN (12:24)
--- NOTE | 2020-07-06 13:27 | Post Operative Brief Note ---
Immediate Post Op Note v1 Date of Surgery July 06, 2020 Pre & Post Diagnosis Operation Date: 07/06/20 10:30 Pre-Op Diagnosis: RIGTH LOWER EXTREMITY INFECTION Post-Op Diagnosis: RIGTH LOWER EXTREMITY INFECTION I identified the patient and participated in the time-out.: Yes Procedure Operation Date: 07/06/20 10:30 Actual Procedures p Irrigation and debridement Right Lower Extremity Infection and Placement of Wound Vac(Right) - Enoch Al MD Surgeon Enoch Al MD Ice Cream Chef Bill Magana PA-C (No fellow avail) Estimated Blood Loss 50 Findings Consistent with Post-Op Diagnosis Fluids 500 cc Specimens Cultures x 2 Soft tissue specimen for path Drains Other (wound vac) Anesthesia Type General Complications none
--- NOTE | 2020-07-06 13:31 | Operative Report ---
Post Operative Report Pre & Post Diagnosis Operation Date: 07/06/20 10:30 Pre-Op Diagnosis: RIGTH LOWER EXTREMITY INFECTION Post-Op Diagnosis: RIGTH LOWER EXTREMITY INFECTION I identified the patient and participated in the time-out.: Yes Procedure Operation Date: 07/06/20 10:30 Actual Procedures p Irrigation and debridement Right Lower Extremity Infection and Placement of Wound Vac(Right) - Enoch Al MD Surgeon Enoch Al MD Manager Bakery Bill Magana PA-C (No fellow avail) Estimated Blood Loss 50 Findings See Below Necrotic skin along the proximal lateral incision. Hardware visible. No pocket of purulence. Healthy viable muscle. Hardware was stable. Bone was intact. A 4 x 2.1 cm wound, 2 cm deep wound remained. Fluids 500 cc Specimens Cultures x 2 Soft tissue specimen for path Drains Wound Vac Anesthesia Type General Complications none Indications The patient had acute draining wound from there lateral incision that appears infected. She is 5 months s/p ORIF Right Tibial Plateau. Cultures taken in the office yesterday and blood cultures in the hospital where + for Gram positive Cocci. The patient understands the risks of surgery, which include but are not limited to: bleeding, infection, re-operation, damage to nerves and arteries, continued pain and DVT. The patient understands all of these instructions and explanations, all of their questions have been satisfactorily addressed. The patient has elected to proceed with surgery and the informed consent was signed. Description of Procedure Bill Magana PA-C is assisting with positioning and closure due to fellow not available. Procedure The patient was taken to the Operating Room and placed in the supine position on the operating table. After general anesthetic was administered a multidisciplinary time-out was performed identifying my initials on the right limb as the correct and operative limb. Antibiotics were held until cultures were obtained and then intravenous Vancomycin was given. The right leg was prepped and draped in the usual Orthopaedic sterile fashion. The patient's previous incisions laterally with extension to connect them, as well as elliptical excision of the open lesion were marked. The skin edges were injected with a 50:50 mixture of 1% lidocaine and 0.5 % Marcaine with epi for a total of 15cc. The skin lesion was ellipsed and excised with a scalpel as well as connecting this to the distal incisions. Large skin flaps were created exposing the fascia of the anterior compartment. The anterior compartment was released to expose the anterior compartment muscle. There was no purulence distally. There was devitalized, necrotic soft tissue as well as a suture noted within the excised soft tissue most proximally. There was no purulent drainage. Cultures were taken proximally anterior along the Tibia and deeper, distally along the plate in the proximal wound. The non-viable skin, soft tissue down to the Tibia and plate were removed with a combination of sharp dissection with the scalpel, curette, and rongeur. The wound was copiously irrigated with 6L normal saline. Following irrigation and debridement there was healthy viable red beefy tissue that was bleeding. The plate was covered as best as possible using Antibiotic coated 0 Vicryl. The fascia was left released. The skin were closed with 0 & 2-0 Prolene. A 4 x 2.1 cm wound, 2 cm deep remained in the area of the previous necrotic skin. A wound Vac was placed in the standard fashion and the incision was included. An ABDs and an MARTIN covered the RLE. The sponge and needle counts were correct. POST-OP: Patient will be re-admitted and continued on IV Vancomycin and infectious disease will be consulted. I attest to the content of the Intraoperative Record and any orders documented therein. Any exceptions are noted below.
[2020-07-06] MEDS: fentaNYL citrate 100 MCG/2 ML VIAL IV PRN ×3 (13:48→14:03)
--- NOTE | 2020-07-06 13:53 | Operative Report ---
Post Operative Report Pre & Post Diagnosis Operation Date: 07/06/20 10:30 Pre-Op Diagnosis: RIGTH LOWER EXTREMITY INFECTION Post-Op Diagnosis: RIGTH LOWER EXTREMITY INFECTION Operation Date: 07/08/20 10:35 <No data on this case meets the specified criteria> I identified the patient and participated in the time-out.: Yes Procedure Operation Date: 07/06/20 10:30 Actual Procedures p Incision and debridement Right Lower Extremity Infection and Placement of Wound Vac(Right) - Enoch Al MD Operation Date: 07/08/20 10:35 <No data on this case meets the specified criteria> Surgeon Enoch Al MD Cloth Tester Bill Magana PA-C (No fellow avail) Estimated Blood Loss 50 Findings Consistent with Post-Op Diagnosis Specimens soft tissue; fluid Complications none Indications See Dr Al operative report. Description of Procedure See Dr Al operative report. I was assistant technician during entire case to include prepping, draping, limb and instrument handling. wound closure, wound vac placement. I attest to the content of the Intraoperative Record and any orders documented therein. Any exceptions are noted below.
--- NOTE | 2020-07-06 14:33 | Anesthesiology Progress Note ---
Date of Service July 06, 2020 Anesthesia Post Procedure Vital Signs Vital Signs: Temp Pulse Pulse Pulse Resp BP Pulse Ox 07/06/20 14:25 90 18 151/58 H 96 07/06/20 14:15 36.3 C L 89 20 138/65 95 07/06/20 14:05 89 18 138/70 92 07/06/20 13:55 87 16 142/71 H 94 07/06/20 13:45 89 22 156/83 H 94 07/06/20 13:35 36.1 C L 95 H 23 164/75 H 87 L 07/06/20 11:33 36.4 C L 88 18 148/77 H 93 07/06/20 07:27 36.6 C 95 H 18 149/80 H 90 07/06/20 00:11 37.3 C 101 H 18 136/76 91 07/05/20 20:20 96 H 140/83 07/05/20 16:00 36.7 C 87 18 149/79 H 95 Pain Intensity Right Knee: Pain Intensity: 4 Transfer of Care Handoff Completed per policy Notes Mental Status: alert / awake / arousable Patient Amnestic to Procedure: Yes Nausea / Vomiting: adequately controlled Pain: adequately controlled Airway Patency, RR, SpO2: stable & adequate BP & HR: stable & adequate Hydration State: stable & adequate Anesthetic Complications: no major complications apparent
--- NOTE | 2020-07-06 14:59 | Hospitalist Progress Note ---
Date of Service July 06, 2020 Assessment & Plan (1) Infection associated with internal fixation device of bone of lower leg: Arose very quickly with papules noted yesterday. Otherwise, she felt her leg had just been a bit "stiff" for the last few days. - S/p I&D with Dr. Al on 07/06 - Wound cultures collected in clinic & during I&D - Blood cultures growing S. aureus. - Continue vancomycin and follow cultures. Medicine will be happy to help manage abx if needed. - Will repeat blood cultures tomorrow morning. Echo ordered to r/o endocarditis. (2) Bacteremia: Blood cultures on 07/05 were positive. - Repeat blood cultures - Abx as above (3) Diastolic heart failure: EF was 60-65% on echo in 10/2019. Has done well with no recent exacerbations of her CHF. - Presently appears euvolemic, but did get >1 L IVFs during surgery. - Restart Lasix & spironolactone tomorrow. - Closely monitor volume status (4) Aortic stenosis: Echo in 10/2019 indicates moderate/severe , with it being moderate on exam per cardiology. - Avoid rapid drops in blood pressures as this can greatly reduce cardiac output. (5) Hypertension: BP presently 120/55. - Cardiac meds as above (6) Diabetes type 2, uncontrolled: A1c was 7.5% in 10/2019. Repeat this admission is 8.7%. - Sliding scale insulin -> Sugars overall under ok control in last 24 hours. (7) Obstructive sleep apnea of adult: Does not use CPAP/BiPap at home per patient. - Monitor O2; may have hypoxemia post-extubation. (8) DVT prophylaxis: SCDs - Heparin/other per primary team, likely after surgery Admission and Anticipated Discharge Date Admission Date: July 05, 2020 Subjective Seen after surgery. Doing well. Some pain in the surgical site. Reports no fevers/chills, chest pain, shortness of breath, abdominal pain, nausea, or vomiting. Physical Exam Constitutional: WD/WN, vitals as above Eyes: EOM intact bilaterally; no conjunctival abnormality ENMT: external ear and nose normal, oropharynx normal Neck: trachea midline, no thyromegaly normal visual inspection Respiratory: normal respiratory effort, lungs clear to auscultation no respiratory distress Cardiovascular: RRR, no murmur, no edema Gastrointestinal (Abdomen): Inspection/Auscultation: abdomen normal to inspection; abdomen not distended Musculoskeletal: no cyanosis or clubbing, extremities motor strength 5/5 Extremities: + extremities abnormal to inspection (Right knee bandaged with drain.) Skin: no rashes, warm and dry Neurologic: moves all extremities and awake Psychiatric: Orientation: alert, oriented to person and cooperative Results & Data Results & Data ([facility]) Vital Signs (Past 12 Hours) Vital Signs Temp Pulse Pulse Pulse Resp BP Pulse Ox 07/06/20 14:42 37.2 C 85 18 119/55 L 91 07/06/20 14:25 90 18 151/58 H 96 07/06/20 14:15 36.3 C L 89 20 138/65 95 07/06/20 14:05 89 18 138/70 92 07/06/20 13:55 87 16 142/71 H 94 07/06/20 13:45 89 22 156/83 H 94 07/06/20 13:35 36.1 C L 95 H 23 164/75 H 87 L 07/06/20 11:33 36.4 C L 88 18 148/77 H 93 07/06/20 07:27 36.6 C 95 H 18 149/80 H 90 PG Care Time/CCT Total # of Minutes Spent Total Time Spent with Patient: Total time spent is greater than 50% in coordination of care (as documented) at patient's floor/unit and/or counseling patient: Coding Level of Care Code 66373 Subseq Hosp Care Lvl 3 Diagnoses Infection associated with internal fixation device of bone of lower leg T84.629A Bacteremia R78.81 Diastolic heart failure I50.30 Aortic stenosis I35.0 Hypertension I10 Diabetes type 2, uncontrolled E11.65 Obstructive sleep apnea of adult G47.33 DVT prophylaxis Z29.9
[2020-07-06] MEDS ORDERED: GLUCAGON FOR INJ 1 MG VIAL SQ PRN (15:11)
[2020-07-06] MEDS ORDERED: CARBOHYDRATES FOR HYPOGLYCEMIA PO PRN (15:11)
[2020-07-06] MEDS ORDERED: DEXTROSE 50% 50 ML SYRINGE IV PRN (15:11)
[2020-07-06] MEDS ORDERED: GLUCOSE 40% GEL 15 GM TUBE PO PRN (15:11)
[2020-07-06] MEDS ORDERED: GLUCOSE 10 TABS/TUBE PO PRN (15:11)
[2020-07-06] MEDS ORDERED: diphenhydrAMINE Capsule 25 MG CAP PO PRN (15:26)
[2020-07-06] MEDS ORDERED: ACETAMINOPHEN 500 MG TAB PO PRN (15:26)
[2020-07-06] MEDS ORDERED: METOCLOPRAMIDE HCL INJ 5 MG/ML 2 ML VIAL IV PRN (15:26)
[2020-07-06] MEDS ORDERED: diphenhydrAMINE 50 MG/ML VIAL IV PRN (15:26)
[2020-07-06] MEDS ORDERED: MAGNESIUM HYDROXIDE SUSP 30 ML UDC PO PRN (15:26)
[2020-07-06] MEDS ORDERED: bisacodyL 10 MG SUPP PR PRN (15:26)
[2020-07-06] MEDS: SODIUM CHLORIDE 0.9% 1000ML 1,000 ML IV SCH (15:43)
[2020-07-06] MEDS: oxyCODONE HCL IR 5 MG TAB (IMMEDIATE RELEASE) PO PRN ×2 (17:31→21:35)
[2020-07-06] MEDS: INSULIN ASPART 100 UNITS/ML 3 ML PEN SC SCH ×2 (18:30→21:07)
[2020-07-06] MEDS: FERROUS SULFATE 325 MG TAB PO SCH (20:16)
[2020-07-06] MEDS: SENNA 8.6 MG TAB PO SCH (21:04)
[2020-07-06] MEDS: DOCUSATE SODIUM 100 MG CAP PO SCH (21:04)
[2020-07-06] MEDS: VANCOMYCIN HCL 1,250 MG in SODIUM CHLORIDE 0.9% 250 ML IV SCH (22:12)
[2020-07-07] MEDS: SODIUM CHLORIDE 0.9% 1000ML 1,000 ML IV SCH ×2 (02:45→12:46)
[2020-07-07] MEDS: oxyCODONE HCL IR 5 MG TAB (IMMEDIATE RELEASE) PO PRN ×3 (06:33→20:46)
--- NOTE | 2020-07-07 07:55 | Orthopedic Progress Note ---
Date of Service July 07, 2020 Assessment & Plan (1) Infection associated with internal fixation device of bone of lower leg: POD #1, s/p I&D RLE and placement of WoundVac for infected RLE 5 months status post ORIF right tibial plateau fracture, + wound and blood cultures Gram + cocci. Continue IV vancomycin. Appreciate pharmacy consult. Continue diet, n.p.o. after midnight. Wound VAC will be removed tomorrow am to evaluate wound. Patient understands that she may require repeat I&D. Reviewed labs, gram-positive cocci, staph species, vancomycin is appropriate for the time being. Sensitivities to follow. Today's labs are pending. PT/OT. WBAT RLE. Appreciate medicine input. Will obtain infectious disease consult, awaiting sensitivities. D/C planning. Admission and Anticipated Discharge Date Admission Date: July 05, 2020 Subjective Only having right leg pain when walking. Review of Systems Review of Systems: All systems reviewed & are unremarkable except as noted in HPI & below Physical Exam Physical Exam: RLE: Neurovascularly intact. WoundVac functioning well. Decreased swelling, continued erythema. Calf soft and non-tender. Results & Data ([facility]) Vital Signs (Past 12 Hours) Vital Signs Temp Pulse Resp BP Pulse Ox 07/07/20 03:27 92 07/07/20 03:24 78 L 07/07/20 03:05 37.0 C 102 H 14 106/64 92 07/06/20 23:20 36.8 C 100 H 18 122/77 95 07/06/20 21:09 37.2 C 96 H 18 101/62 91 Laboratory Results Today's labs pending
[2020-07-07 08:24] LABS: BUN Creatinine Ratio 17.8 (10-20); Calcium 9.4 mg/dl (8.5-10.1); Creatinine Clr Calc Pharmacy 63.1 ml/min; Est GFR (African American) 72.8; Est GFR (Non-African American) 62.8; Potassium 4.6 mmol/L (3.5-5.1)
[2020-07-07 08:30] LABS: Hematocrit (blood only) 36.1 % (37-47); Hemoglobin 10.8 g/dL (12.0-16.0); Mean Corpuscular Hemoglobin 30.6 pg (25-34); Mean Corpuscular Hgb Conc 29.9 g/dL (32-36); Mean Corpuscular Volume 102.3 fL (80-100); Platelet Count 366 K/uL (130-400); Red Blood Count 3.53 M/uL (4.2-5.4); White Blood Count 20.69 K/uL (4.8-10.8)
[2020-07-07] MEDS ORDERED: ATORVASTATIN 40 MG TAB PO SCH (09:00)
[2020-07-07] MEDS: MULTIVITAMIN TAB PO SCH (09:52)
[2020-07-07] MEDS: DOCUSATE SODIUM 100 MG CAP PO SCH ×2 (09:52→20:21)
[2020-07-07] MEDS: carvediloL 3.125 MG TAB PO SCH ×2 (09:53→20:21)
[2020-07-07] MEDS: POTASSIUM CHLORIDE CRTAB 20 MEQ TABCR PO SCH (09:53)
[2020-07-07] MEDS: FERROUS SULFATE 325 MG TAB PO SCH ×3 (09:53→20:36)
[2020-07-07] MEDS: SPIRONOLACTONE 25 MG TAB PO SCH (09:54)
[2020-07-07] MEDS: ATORVASTATIN 40 MG TAB PO SCH (09:54)
[2020-07-07] MEDS: INSULIN ASPART 100 UNITS/ML 3 ML PEN SC SCH ×4 (09:56→20:20)
[2020-07-07] MEDS: FUROSEMIDE 80 MG TAB PO SCH (09:57)
[2020-07-07] MEDS: VANCOMYCIN HCL 1,250 MG in SODIUM CHLORIDE 0.9% 250 ML IV SCH (10:50)
--- NOTE | 2020-07-07 15:03 | Orthopedic Progress Note ---
Date of Service July 07, 2020 Assessment & Plan (1) Infection associated with internal fixation device of bone of lower leg: POD #1, s/p I&D RLE and placement of WoundVac for infected RLE 5 months status post ORIF right tibial plateau fracture, + MSSA bacteremia, sepsis Appreciate ID consult and recommendations. D/C Vancomycin. Start Cefaloxin 2mg q 8hrs. Echo to be ordered. NPO after midnight. Spoke to patient about ID recommendations regarding +/- hardware removal. After discussing, patient would like to proceed with hardware removal. This will be followed by at least 6wks of Picc line Cefazolin. Plan for OR tomorrow am 07/08/20. Consent to be signed in AM. PT/OT. WBAT RLE. Appreciate medicine input/continue to follow and review Echo results. DC planning to include wound vac, bw, and picc line. Admission and Anticipated Discharge Date Admission Date: July 05, 2020 Subjective P Patients sleeping in bed. Awoke. Alert and Oriented. Spoke to ID via telehealth this am. Aware I am here to discuss her options and ID recommendations. Pain overall controlled. Tolerated PO fluids and diet. Has been WBAT with walker. No issues with wound vac. Results & Data ([facility]) Vital Signs (Past 12 Hours) Vital Signs Temp Pulse Resp BP Pulse Ox 07/07/20 12:42 36.5 C 104 H 16 103/63 98 07/07/20 08:16 36.5 C 104 H 16 120/79 97 07/07/20 03:27 92 07/07/20 03:24 78 L 07/07/20 03:05 37.0 C 102 H 14 106/64 92 Laboratory Results 07/07/20 07/07/20 07/07/20 Range/Units 11:55 08:34 07:14 WBC (4.8-10.8) K/uL RBC (4.2-5.4) M/uL Hgb (12.0-16.0) g/dL Hct (37-47) % MCV (80-100) fL MCH (25-34) pg MCHC (32-36) g/dL Plt Count (130-400) K/uL Sodium 137 (136-145) mmol/L Potassium 4.6 D (3.5-5.1) mmol/L Chloride 104 (98-107) mmol/L Carbon Dioxide 29 (21-32) mmol/L Anion Gap 4.0 (3-11) BUN 17 (7-18) mg/dl Creatinine 0.94 (0.6-1.2) mg/dl Est Cr Clr Drug Dosing 63.1 ml/min Est GFR ( Amer) 72.8 Est GFR (Non-Af Amer) 62.8 BUN/Creatinine Ratio 17.8 (10-20) Glucose 197 H (70-99) mg/dl POC Glucose 177 H 192 H (70-99) mg/dl Calcium 9.4 (8.5-10.1) mg/dl 07/07/20 07/06/20 07/06/20 Range/Units 07:14 20:38 17:06 WBC 20.69 H (4.8-10.8) K/uL RBC 3.53 L (4.2-5.4) M/uL Hgb 10.8 L (12.0-16.0) g/dL Hct 36.1 L (37-47) % MCV 102.3 H (80-100) fL MCH 30.6 (25-34) pg MCHC 29.9 L (32-36) g/dL Plt Count 366 (130-400) K/uL Sodium (136-145) mmol/L Potassium (3.5-5.1) mmol/L Chloride (98-107) mmol/L Carbon Dioxide (21-32) mmol/L Anion Gap (3-11) BUN (7-18) mg/dl Creatinine (0.6-1.2) mg/dl Est Cr Clr Drug Dosing ml/min Est GFR ( Amer) Est GFR (Non-Af Amer) BUN/Creatinine Ratio (10-20) Glucose (70-99) mg/dl POC Glucose 186 H 159 H (70-99) mg/dl Calcium (8.5-10.1) mg/dl
[2020-07-07] MEDS: ceFAZolin 2000MG 2,000 MG/15 ML SYR IV SCH ×2 (17:00→23:18)
--- NOTE | 2020-07-07 19:15 | XCELERA ---
[id number]
[2020-07-07] MEDS: SENNA 8.6 MG TAB PO SCH (20:21)
[2020-07-08] MEDS: oxyCODONE HCL IR 5 MG TAB (IMMEDIATE RELEASE) PO PRN ×2 (04:02→19:44)
--- NOTE | 2020-07-08 08:19 | Orthopedic Progress Note ---
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 Cefazolin 2mg IV q 8hrs x 6 weeks, after blood cultures are negative (with/without vegetations). f/u with ID 3-5 weeks after d/c PICC line ordered, consent obtained Echo cannot r/o vegetations. Cardiology consult. Has been NPO after midnight. Spoke to patient about ID recommendations regarding +/- hardware removal. After discussing, patient would like to proceed with hardware removal. OR 07/08/20. Consent signed. PT/OT. WBAT RLE. Appreciate medicine input. Wound Care Nurse consult. DC planning to include wound vac, Blood Work (weekly CBC, ESR, CRP with results sent to PCP, Dr. Al, & ID), and PICC line. Admission and Anticipated Discharge Date Admission Date: July 05, 2020 Subjective Right lower leg pain Review of Systems Review of Systems: All systems reviewed & are unremarkable except as noted in HPI & below Physical Exam Physical Exam: RLE: Neurovascularly intact. WoundVac functioning well. Increased swelling, continued erythema. Calf soft and non-tender. Results & Data ([facility]) Vital Signs (Past 12 Hours) Vital Signs Temp Pulse Resp BP Pulse Ox 07/08/20 08:02 36.7 C 88 16 132/74 96 Laboratory Results 07/07/20 07/07/20 07/07/20 Range/Units 20:11 17:33 11:55 WBC (4.8-10.8) K/uL RBC (4.2-5.4) M/uL Hgb (12.0-16.0) g/dL Hct (37-47) % MCV (80-100) fL MCH (25-34) pg MCHC (32-36) g/dL Plt Count (130-400) K/uL Sodium (136-145) mmol/L Potassium (3.5-5.1) mmol/L Chloride (98-107) mmol/L Carbon Dioxide (21-32) mmol/L Anion Gap (3-11) BUN (7-18) mg/dl Creatinine (0.6-1.2) mg/dl Est Cr Clr Drug Dosing ml/min Est GFR ( Amer) Est GFR (Non-Af Amer) BUN/Creatinine Ratio (10-20) Glucose (70-99) mg/dl POC Glucose 193 H 200 H 177 H (70-99) mg/dl Calcium (8.5-10.1) mg/dl 07/07/20 07/07/20 07/07/20 Range/Units 08:34 07:14 07:14 WBC 20.69 H (4.8-10.8) K/uL RBC 3.53 L (4.2-5.4) M/uL Hgb 10.8 L (12.0-16.0) g/dL Hct 36.1 L (37-47) % MCV 102.3 H (80-100) fL MCH 30.6 (25-34) pg MCHC 29.9 L (32-36) g/dL Plt Count 366 (130-400) K/uL Sodium 137 (136-145) mmol/L Potassium 4.6 D (3.5-5.1) mmol/L Chloride 104 (98-107) mmol/L Carbon Dioxide 29 (21-32) mmol/L Anion Gap 4.0 (3-11) BUN 17 (7-18) mg/dl Creatinine 0.94 (0.6-1.2) mg/dl Est Cr Clr Drug Dosing 63.1 ml/min Est GFR ( Amer) 72.8 Est GFR (Non-Af Amer) 62.8 BUN/Creatinine Ratio 17.8 (10-20) Glucose 197 H (70-99) mg/dl POC Glucose 192 H (70-99) mg/dl Calcium 9.4 (8.5-10.1) mg/dl
[2020-07-08] MEDS ORDERED: VANCOMYCIN TROUGH ONE (09:30)
[2020-07-08] MEDS: INSULIN ASPART 100 UNITS/ML 3 ML PEN SC SCH ×4 (09:33→21:55)
[2020-07-08] MEDS: ceFAZolin 2000MG 2,000 MG/15 ML SYR IV SCH ×3 (09:34→17:28)
[2020-07-08] MEDS: FERROUS SULFATE 325 MG TAB PO SCH ×2 (09:38→22:07)
[2020-07-08] MEDS: DOCUSATE SODIUM 100 MG CAP PO SCH ×2 (09:38→22:13)
[2020-07-08] MEDS: POTASSIUM CHLORIDE CRTAB 20 MEQ TABCR PO SCH (09:38)
[2020-07-08] MEDS: carvediloL 3.125 MG TAB PO SCH ×2 (09:38→22:13)
[2020-07-08] MEDS: SPIRONOLACTONE 25 MG TAB PO SCH (09:39)
[2020-07-08] MEDS: FUROSEMIDE 80 MG TAB PO SCH (09:39)
[2020-07-08] MEDS: ATORVASTATIN 40 MG TAB PO SCH (09:40)
[2020-07-08] MEDS: MULTIVITAMIN TAB PO SCH (09:40)
[2020-07-08] MEDS ORDERED: LIDOCAINE HCL 2% 2 ML VIAL/AMP(20MG/ML) INFIL ONE (09:55)
[2020-07-08] MEDS ORDERED: ONDANSETRON INJ 2 MG/ML 2 ML VIAL ONE ×2 (09:55→14:07)
[2020-07-08] MEDS ORDERED: PROPOFOL IV EMULSION 10 MG/ML 20 ML VIAL IV ONE (09:55)
[2020-07-08] MEDS ORDERED: fentaNYL citrate 100 MCG/2 ML VIAL ONE ×3 (09:56→13:15)
[2020-07-08] MEDS ORDERED: MIDAZOLAM HCL 1 MG/ML 2ML VIAL ONE (09:56)
[2020-07-08] MEDS ORDERED: LIDOCAINE/EPINEPHRINE 1% 20 ML VIAL ONE (10:06)
[2020-07-08] MEDS ORDERED: BUPIVACAINE 0.5 % 5 MG/1 ML MPF 30ML VIAL ONE (10:07)
[2020-07-08 10:14] LABS: Hematocrit (blood only) 33.9 % (37-47); Hemoglobin 10.2 g/dL (12.0-16.0); Mean Corpuscular Hemoglobin 31.1 pg (25-34); Mean Corpuscular Hgb Conc 30.1 g/dL (32-36); Mean Corpuscular Volume 103.4 fL (80-100); Mean Platelet Volume 10.3 fL (7.4-10.4); Nucleated RBC # (auto) 0.02 K/uL (0-0); Nucleated RBC % (auto) 0.1 %; Platelet Count 404 K/uL (130-400); RDW Coefficient of Variation 14.1 % (11.5-14.5); RDW Standard Deviation 53.7 fL (36.4-46.3); Red Blood Count 3.28 M/uL (4.2-5.4); White Blood Count 20.97 K/uL (4.8-10.8)
[2020-07-08 10:30] LABS: Basophils # (auto) 0.05 K/uL (0-0.2); Basophils % (auto) 0.2 %; Eosinophils # (auto) 0.43 K/uL (0-0.5); Eosinophils % (auto) 2.1 %; Immature Granulocytes # (auto) 1.39 K/uL (0.00-0.02); Immature Granulocytes % (auto) 6.6 %; Lymphocytes # (auto) 1.15 K/uL (1.2-3.4); Lymphocytes % (auto) 5.5 %; Monocytes # (auto) 1.55 K/uL (0.11-0.59); Monocytes % (auto) 7.4 %; Neutrophils % (auto) 78.2 %
[2020-07-08] MEDS ORDERED: fentaNYL citrate 100 MCG/2 ML VIAL IV PRN (10:31)
[2020-07-08] MEDS ORDERED: ATROPINE SULFATE 0.1 MG/ML 10ML SYR IV PRN (10:31)
[2020-07-08] MEDS ORDERED: ePHEDrine sulfate 50 MG/ML AMP IV PRN (10:31)
[2020-07-08] MEDS ORDERED: ONDANSETRON INJ 2 MG/ML 2 ML VIAL IV PRN ×2 (10:31→14:34)
--- NOTE | 2020-07-08 10:31 | Anesthesiology Consultation ---
Date of Service July 08, 2020 Assessment & Plan (1) Encounter for pre-operative examination: Chart Review Chart Review: Acceptable Risk for Surgery and Patient NOT seen in Pre Admission Testing Consults Requested none ASA ASA3 Proposed Anesthesia Anesthesia Type: General Risk / Benefits Reviewed With: PT / POA / Parent / Guardian, Accepts Plan and Informed Consent Obtained History Surgery Operation Date: 07/06/20 10:30 Proposed Procedures p Debrasion Right Lower Extremity Infection - Enoch A MD Servando Operation Date: 07/08/20 10:35 Proposed Procedures p Right Lower Extremity Incision and Drainage - Enoch Luna Al MD Height/Weight Height: 5 ft Weight: 103.8 kg Allergies Allergy/AdvReac Type Severity Reaction Status Date / Time No Known Drug Allergies Allergy Unknown Verified 02/06/20 02:36 Medications Home Medications Medication Instructions Recorded Confirmed Last Taken spironolactone 25 mg tablet 25 mg PO DAILY #30 tab 07/08/19 02/26/20 Unknown potassium chloride 20 mEq 20 meq PO DAILY #90 tab 07/15/19 02/26/20 Unknown tablet,extended release atorvastatin 80 mg tablet 80 mg PO DAILY #90 tab 10/14/19 02/26/20 Unknown ferrous sulfate 325 mg (65 mg 325 mg PO BID #180 tab 01/26/20 02/26/20 Unknown iron) tablet acetaminophen 325 mg tablet 650 mg PO Q4H PRN tab 02/26/20 02/26/20 Unknown aspirin 325 mg tablet 325 mg PO BID 02/26/20 02/26/20 Unknown enoxaparin 40 mg/0.4 mL 40 mg SQ DAILY 02/26/20 02/26/20 Unknown subcutaneous syringe hydrocodone 5 mg-acetaminophen 325 1 tab PO Q6H PRN #14 tab 03/04/20 Unknown mg tablet furosemide 40 mg tablet 80 mg PO DAILY #60 tab 06/02/20 Unknown carvedilol 3.125 mg tablet See Rx Instructions PO BID #180 tab 06/20/20 Unknown Active Medications Generic Name Dose Route Start Last Admin Trade Name Freq PRN Reason Stop Dose Admin Atorvastatin Calcium 80 mg 07/06/20 09:00 07/08/20 09:40 Atorvastatin 40 Mg Tab PO 08/05/20 08:59 80 mg QAM ESHA Administration Carvedilol 3.125 mg 07/05/20 21:00 07/08/20 09:38 Carvedilol 3.125 Mg Tab PO 08/04/20 20:59 3.125 mg BID ESHA Administration Docusate Sodium 100 mg 07/06/20 21:00 07/08/20 09:38 Docusate Sodium 100 Mg Cap PO 08/05/20 20:59 100 mg BID ESHA Administration Ferrous Sulfate 325 mg 07/06/20 21:00 07/08/20 09:38 Ferrous Sulfate 325 Mg Tab PO 08/05/20 20:59 Not Given BID ESHA Furosemide 80 mg 07/07/20 09:00 07/08/20 09:39 Furosemide 80 Mg Tab PO 08/06/20 08:59 80 mg DAILY ESHA Administration Cefazolin Sodium 2,000 mg in 15 mls @ 3.75 mls/min 07/07/20 16:00 07/08/20 09:34 Ancef 2000mg IV 08/18/20 15:59 3.75 mls/min Q8H ESHA Administration Insulin Aspart 0 units 07/06/20 16:30 07/08/20 09:33 Insulin Aspart 100 Units/Ml 3 Ml Pen SC 08/05/20 16:29 3 units ACHS ESHA Administration Multivitamins 1 tab 07/07/20 09:00 07/08/20 09:40 Multivitamin Tab PO 08/06/20 08:59 Not Given QAM ESHA Oxycodone HCl 5 - 10 mg 07/06/20 15:26 07/08/20 04:02 Oxycodone Hcl Ir 5 Mg Tab (Immediate Release) PO 07/20/20 15:25 10 mg Q4H PRN Administration Pain or Pre PT Potassium Chloride 20 meq 07/07/20 09:00 07/08/20 09:38 Potassium Chloride 20 Meq Tabcr PO 08/06/20 08:59 20 meq DAILY ESHA Administration Sennosides 17.2 mg 07/06/20 21:00 07/07/20 20:21 Senna 8.6 Mg Tab PO 08/05/20 20:59 17.2 mg HS ESHA Administration Spironolactone 25 mg 07/07/20 09:00 07/08/20 09:39 Spironolactone 25 Mg Tab PO 08/06/20 08:59 25 mg DAILY ESHA Administration NPO Date Last Intake of Fluids: 07/05/20 Time Last Intake of Fluids: 18:00 Date Last Intake of Solids: 07/05/20 Time Last Intake of Solids: 18:00 Past Medical History Medical History Acute on chronic diastolic (congestive) heart failure Aortic stenosis Bicuspid aortic valve Chronic diastolic heart failure CO2 retention Conjunctival edema, bilateral Dyslipidemia Hyperglycemia Hypertension Hypoventilation syndrome Iron (Fe) deficiency anemia Leg edema Obstructive apnea Restrictive airway disease Sinusitis Exercise / Class Metabolic Activity II 4-5 Yardwork/Stairs/Walk up hill Past Family History Family History Mother Depression Diabetes Father Stroke Coronary heart disease Hypertension Depression Diabetes Myocardial infarction Daughter Gallbladder disease Grandfather Prostate cancer Aunt Breast cancer Other Bicuspid aortic valve Denies family history of Ovarian cancer Colorectal cancer Past Surgical History Surgical History H/O heart surgery Performed age 3 for repair of patent ductus arteriosus Past Anesthesia History No Hx of Anesthesia Complications and No Family Hx of Anesthesia Complications History of PONV No Hx of PONV and No Hx of Motion Sickness Social History Smoking Status: Never smoker Do You Dip or Chew Tobacco: No Hx Alcohol Use: Yes Alcohol type: hard liquor alcohol intake frequency: holidays/special occasions only Hx Substance Use: No substance use type: does not use Physical Exam Vital Signs Last Vital Signs Temp 36.7 C 07/08/20 08:02 Pulse 89 07/08/20 09:27 Resp 16 07/08/20 08:02 BP 102/68 07/08/20 09:27 Pulse Ox 96 07/08/20 08:02 Constitutional + morbidly obese ENMT Mouth: no dentition abnormality Thyromental Distance: > or= 3.5 Finger Breadths Mallampati Class: II Neck normal visual inspection Respiratory normal respiratory effort Auscultation: lungs clear to auscultation bilaterally Cardiovascular Rate/Rhythm: regular rate and regular rhythm Psychiatric Orientation: alert Testing Laboratory Results 07/08/20 09:22 PT 11.3 Seconds (9.0-12.0) 07/05/20 19:52 INR 1.1 (0.9-1.1) 07/05/20 19:52 APTT 30.1 Seconds (21.0-31.0) 07/05/20 19:52 Hemoglobin A1c 8.7 % (4.5-5.6) H 07/05/20 17:42 07/05/20 19:52 Aerobic Blood Culture - Final Blood Staphylococcus aureus Anaerobic Blood Culture - Final Staphylococcus aureus 07/05/20 17:41 Aerobic Blood Culture - Final Blood Staphylococcus aureus Anaerobic Blood Culture - Final Staphylococcus aureus 07/06/20 Unknown Gram Stain - Final Leg,Right Deep Wound Culture - Preliminary Staphylococcus aureus 07/06/20 15:47 Aerobic Blood Culture - Preliminary Blood No growth in Aerobic bottle after 24 hours. Anaerobic Blood Culture - Preliminary No growth in Anaerobic bottle after 24 hours. 07/06/20 Unknown Gram Stain - Final Leg,Right Aerobic and Anaerobic Culture - Preliminary Staphylococcus aureus 07/08/20 08:22 POC Glucose 204 H
[2020-07-08] MEDS ORDERED: GENTAMICIN SULFATE 40 MG/ML 2 ML VIAL ONE ×2 (10:43→11:06)
[2020-07-08] MEDS ORDERED: VANCOMYCIN HCL 1000MG/20ML VIAL ONE ×2 (10:43→11:06)
[2020-07-08] MEDS ORDERED: LACTATED RINGER'S 1,000 ML IV SCH (10:45)
[2020-07-08 10:52] LABS: BUN Creatinine Ratio 21.5 (10-20); Calcium 9.2 mg/dl (8.5-10.1); Creatinine Clr Calc Pharmacy 60.5 ml/min; Est GFR (African American) 69.2; Est GFR (Non-African American) 59.7; Potassium 4.3 mmol/L (3.5-5.1)
[2020-07-08] MEDS ORDERED: ACETAMINOPHEN 1000 MG/100 ML IV IV ONE (13:04)
[2020-07-08] MEDS ORDERED: bisacodyL 10 MG SUPP PR PRN (14:34)
[2020-07-08] MEDS ORDERED: METOCLOPRAMIDE HCL INJ 5 MG/ML 2 ML VIAL IV PRN (14:34)
[2020-07-08] MEDS ORDERED: NALOXONE HCL 0.4 MG/1 ML VIAL/CARP IV PRN (14:34)
[2020-07-08] MEDS ORDERED: MAGNESIUM HYDROXIDE SUSP 30 ML UDC PO PRN (14:34)
--- NOTE | 2020-07-08 14:37 | Operative Report ---
Post Operative Report Pre & Post Diagnosis Operation Date: 07/06/20 10:30 Pre-Op Diagnosis: RIGTH LOWER EXTREMITY INFECTION Post-Op Diagnosis: RIGTH LOWER EXTREMITY INFECTION Operation Date: 07/08/20 10:35 Pre-Op Diagnosis: RIGHT LEG INFECTION Post-Op Diagnosis: RIGHT LEG INFECTION I identified the patient and participated in the time-out.: Yes Procedure Operation Date: 07/06/20 10:30 Actual Procedures p Incision and debridement Right Lower Extremity Infection and Placement of Wound Vac(Right) - Enoch Al MD Operation Date: 07/08/20 10:35 Actual Procedures p Right Lower Extremity Incision and Drainage, Hardware Removal, Wound Vac Placement with Instillation of Stimulan Beads(Right) - Enoch Al MD Surgeon Enoch Al MD Inbound Customer Service Agent Bill Magana PA-C (No fellow avail) Estimated Blood Loss 100 Findings Consistent with Post-Op Diagnosis Specimens wound culture medial incision Complications none Description of Procedure See Dr Al operative report for full details. I was first aid instructor during entire case to include prepping, draping, limb and instrument handling, wound closure, wound vac placement I attest to the content of the Intraoperative Record and any orders documented therein. Any exceptions are noted below.
--- NOTE | 2020-07-08 14:40 | Post Operative Brief Note ---
Immediate Post Op Note v1 Date of Surgery July 08, 2020 Pre & Post Diagnosis Operation Date: 07/06/20 10:30 Pre-Op Diagnosis: RIGTH LOWER EXTREMITY INFECTION Post-Op Diagnosis: RIGTH LOWER EXTREMITY INFECTION Operation Date: 07/08/20 10:35 Pre-Op Diagnosis: RIGHT LEG INFECTION Post-Op Diagnosis: RIGHT LEG INFECTION I identified the patient and participated in the time-out.: Yes Procedure Operation Date: 07/06/20 10:30 Actual Procedures p Incision and debridement Right Lower Extremity Infection and Placement of Wound Vac(Right) - Enoch Al MD Operation Date: 07/08/20 10:35 Actual Procedures p Right Lower Extremity Incision and Drainage, Hardware Removal, Wound Vac Placement with Instillation of Stimulan Beads(Right) - Enoch Al MD Surgeon Enoch Al MD Engineer Sergeant Bill Magana PA-C (No fellow avail) Estimated Blood Loss 100 Findings Consistent with Post-Op Diagnosis Fluids 800 cc Specimens Cultures Drains Other (wound vac) Anesthesia Type General Complications none
--- NOTE | 2020-07-08 14:42 | Operative Report ---
Post Operative Report Pre & Post Diagnosis Operation Date: 07/06/20 10:30 Pre-Op Diagnosis: RIGTH LOWER EXTREMITY INFECTION Post-Op Diagnosis: RIGTH LOWER EXTREMITY INFECTION Operation Date: 07/08/20 10:35 Pre-Op Diagnosis: RIGHT LEG INFECTION Post-Op Diagnosis: RIGHT LEG INFECTION I identified the patient and participated in the time-out.: Yes Procedure Operation Date: 07/06/20 10:30 Actual Procedures p Incision and debridement Right Lower Extremity Infection and Placement of Wound Vac(Right) - Enoch Al MD Operation Date: 07/08/20 10:35 Actual Procedures p Right Lower Extremity Incision and Drainage, Hardware Removal, Wound Vac Placement with Instillation of Stimulan Beads(Right) - Enoch Al MD Surgeon Enoch Al MD Portal Architect Bill Magana PA-C (No fellow avail) Estimated Blood Loss 100 Findings See Below Viable muscle. Bone intact. Purulent drainage from medial side. Fluids 800 cc Specimens Culture Medial side Drains Wound Vac Anesthesia Type General Complications none Indications The patient is a 65 female with a history of previous right tibial plateau open reduction internal fixation, January 2020, who developed a RLE infection. She had undergone I&D and WoundVac placement over the lateral wound 07/06/2020. As she continues with swelling, erythema, and a desire to have the hardware removed to potentially decrease her antibiotic course, she wished to proceed with re-peat I&D, hardware removal, and WoundVac placement. The patient understands the risks of surgery, which include but are not limited to: bleeding, infection, re- operation, damage to nerves and arteries, continued pain, being unable to remove all of the hardware, and DVT. The patient understands all of these instructions and explanations, all of their questions have been satisfactorily addressed. The patient has elected to proceed with surgery and the informed consent was signed. Description of Procedure Bill Magana PA-C is assisting with positioning and closure due to fellow not available. Procedure The patient was taken to the Operating Room and placed in the supine position on the operating table. After general anesthetic was administered a multidisciplinary time-out was performed identifying my initials on the right limb as the correct and operative limb. Prior to any incisions, 2 grams of intravenous Ancef were given. The right leg was prepped and draped in the usual Orthopaedic sterile fashion after removing the WoundVac and sutures from the lateral incision. The patient's previous incisions were marked and injected with a 50:50 mixture of 1% lidocaine and 0.5 % Marcaine with epi for a total of 25 cc. The lateral wound was addressed first and with gentle pressure the previous incision opened. The proximal portion of the incision was extended to allow removal of the most posterior proximal locking screw. Using a freer the proximal plate and screws were easily identified and removed as they were encountered. A freer was also used to bluntly dissect distally to expose the distal screws, which were also removed. Any fibrinous material was removed with curet and rongeur. The screw holes were also cleared with a curet. The wound was copiously irrigated 3 L of normal saline. The was no purulence. The muscle appeared viable. Stimulin beads were then placed adjacent to the Tibia and packed in the screw holes. The IT Band that had been split proximally was repaired with antibiotic impregnated 0 Vicryl, with minimal exposed bone. The skin was closed with 0 and 2-0 Prolene. again there remained a defect of 4.2 x 2.2 x 1.0 cm. The wound was temporarily covered with Ioban. Our attention was drawn to the medial incision, which was created with a scalpel. Using blunt dissection through scar and fat, a pocket of purulence was encountered as we reached the pes tendons. A culture was obtained. The plate was identified along the medial aspect of the tibia. The 3 distal screws were removed as they were encountered. The 2 proximal locking screws wee removed thr ough a window created with blunt digital dissection over the top of the pes tendons. The plate was easily removed. The wound was copiously irrigated 6 L of normal saline. Any fibrinous material was removed with curet and rongeur. The screw holes were also cleared with a curet. The was no further purulence encountered. The muscle appeared viable. Stimulin beads were then placed adjacent to the Tibia and packed in the screw holes. The skin was closed with 0 and 2-0 Prolene. The limb was cleaned and dried. A Woundvac covering both incisions was placed with the aid of the wound care nurse who scrubbed in at the end. An ABD was placed under the tubing and the limb was covered with an MARTIN. The sponge and needle counts were correct. POST-OP: Patient will be 25% Partial weightbearing. She was re-admitted and transferred to the medicine service. She will have the WoundVac removed and replaced in the hospital on Saturday. She will require 6 weeks of IV Cefazolin from the time of negative blood cultures. I attest to the content of the Intraoperative Record and any orders documented therein. Any exceptions are noted below.
[2020-07-08] MEDS ORDERED: LABETALOL HCL IV 5 MG/ML 20ML IV ONE (14:53)
--- NOTE | 2020-07-08 15:42 | Anesthesiology Progress Note ---
Date of Service July 08, 2020 Anesthesia Post Procedure Vital Signs Vital Signs: Temp Pulse Pulse Resp BP BP Pulse Ox 07/08/20 15:30 36.7 C 81 18 115/60 95 07/08/20 15:20 87 20 144/62 H 93 07/08/20 15:10 87 19 146/70 H 99 07/08/20 15:02 36.4 C L 85 20 145/65 H 96 07/08/20 10:26 36.9 C 87 20 153/113 H 98 07/08/20 09:27 89 102/68 07/08/20 08:02 36.7 C 88 16 132/74 96 07/07/20 20:15 36.8 C 96 H 16 100/57 L 96 Pain Intensity Right Knee: Pain Intensity: 2 Transfer of Care Handoff Completed per policy Notes Mental Status: alert / awake / arousable Patient Amnestic to Procedure: Yes Nausea / Vomiting: adequately controlled Pain: adequately controlled Airway Patency, RR, SpO2: stable & adequate BP & HR: stable & adequate Hydration State: stable & adequate Anesthetic Complications: no major complications apparent and Pt Satisfied with anesthetic care
[2020-07-08] MEDS: SODIUM CHLORIDE 0.9% 1000ML 1,000 ML IV SCH (17:28)
--- NOTE | 2020-07-08 17:54 | Cardiology Consultation ---
Date of Consultation July 08, 2020 Assessment & Plan (1) Bacteremia: (2) Bicuspid aortic valve: (3) Aortic stenosis: (4) Chronic diastolic heart failure: ASSESSMENT/PLAN: 1. Bacteremia: Defer antibiotic therapy to Infectious Disease experts. According to records, the plan is to treat for 6 weeks with intravenous antibiotics. No strong indication for transesophageal echo at this time as there is an identified source of infection with her infected hardware, and her blood cultures have cleared after 1 day of antibiotic therapy. There were no obvious vegetations on transthoracic study and no significant change in her valvular disease to suggest incompetence from a vegetation. If she should develop recurrent bacteremia without identifiable source, would then consider transesophageal echo at that time. Currently, even if she has a vegetation, it would not likely alter her management given recommended 6 weeks of antibiotics currently. 2. Bicuspid aortic valve with aortic stenosis: Non severe stenosis. She is asymptomatic. Continue to follow with her primary batch trucker, Dr. Collier. 3. Chronic diastolic CHF: She appears euvolemic. She is asymptomatic. Continue home dose of diuretics. Low-sodium diet. 4. Disposition: Cardiology will sign off at this time. Follow-up with Dr. Collier, her primary batch trucker. Please call with any other questions or concerns. Patient care discussed with ortho this morning and also communicated with Dr. Morales of the hospitalist service. Thank you for allowing me to participate in the care of your patient. Please call for any other questions or concerns. Sincerely, Jerald Ariza M.D. History of Present Illness Reason for Consultation: MSSA bacteremia and valve disease Requesting Physician: Enoch Al MD Attending Physician: Enoch Al MD History of Present Illness Mrs. Nolan is a pleasant 65-year-old female with history significant for bicuspid aortic valve with aortic stenosis, type 2 diabetes, hypertension, dyslipidemia, chronic diastolic CHF, and obstructive sleep apnea (on no therapy). She was admitted on 07/05/2020 for infected right knee. Her primary batch trucker is Dr. Collier. There was concern for infected right knee as she had noted 2 small papules on her right knee, 1 of which ruptured, leaking blood and purulent fluid. She presented to [facility] for evaluation and was sent to the hospital for I and D. She was found to be bacteremic with MSSA. Infectious disease consult was obtained by the primary service and antibiotic therapy was initiated. Initial blood cultures on 07/05/2020 were positive for MSSA, 2/2 bottles. She had a repeat blood culture on 07/06/2020 which is negative times 48 hours. Wound cultures from 07/06/2020 also grew MSSA. Incision and debridement of her right lower extremity infection and placement of a wound VAC. Previously placed hardware was removed. She underwent an echo on 07/07/2020, which demonstrated normal LV systolic function and wall motion. EF was 65-70%. She had moderate aortic stenosis and top-normal RVSP. The echo was ordered for concern of endocarditis. There were no visualized vegetations however could not exclude valvular vegetations on transthoracic study and not all of her valves were well visualized, including the aortic valve. This prompted Cardiology consultation as per discussion this morning with ortho team (Ms. Magana). Mrs. Nolan denies chest pain, shortness of breath, palpitations, syncope, near-syncope, edema, or bleeding such as melena, hematochezia, or hematuria. She denies fevers or chills. She initially denied any pain within acknowledge that she does have some pain in her right knee. Review of systems: As above. Review of systems otherwise negative/unremarkable. Family history: No known premature CAD or aortic valve disease. Father had stroke. Social history: She denies tobacco, alcohol, or drug abuse. She is and lives at home with her . She has 1 daughter. She was unaccompanied. Allergies Allergy/AdvReac Type Severity Reaction Status Date / Time No Known Drug Allergies Allergy Unknown Verified 02/06/20 02:36 Home Medications Home Medications Medication Instructions Recorded Confirmed Type spironolactone 25 mg tablet 25 mg PO DAILY #30 tab 07/08/19 02/26/20 Rx potassium chloride 20 mEq 20 meq PO DAILY #90 tab 07/15/19 02/26/20 Rx tablet,extended release atorvastatin 80 mg tablet 80 mg PO DAILY #90 tab 10/14/19 02/26/20 Rx ferrous sulfate 325 mg (65 mg 325 mg PO BID #180 tab 01/26/20 02/26/20 Rx iron) tablet acetaminophen 325 mg tablet 650 mg PO Q4H PRN tab 02/26/20 02/26/20 History aspirin 325 mg tablet 325 mg PO BID 02/26/20 02/26/20 History enoxaparin 40 mg/0.4 mL 40 mg SQ DAILY 02/26/20 02/26/20 History subcutaneous syringe hydrocodone 5 mg-acetaminophen 325 1 tab PO Q6H PRN #14 tab 03/04/20 Rx mg tablet furosemide 40 mg tablet 80 mg PO DAILY #60 tab 06/02/20 Rx carvedilol 3.125 mg tablet See Rx Instructions PO BID #180 tab 06/20/20 Rx Patient History Medical History (Updated 07/08/20 @ 18:06 by Owen Ariza MD) Acute on chronic diastolic (congestive) heart failure Aortic stenosis Bicuspid aortic valve Chronic diastolic heart failure CO2 retention Conjunctival edema, bilateral Dyslipidemia Hyperglycemia Hypertension Hypoventilation syndrome Iron (Fe) deficiency anemia Leg edema Obstructive apnea Restrictive airway disease Sinusitis Surgical History H/O heart surgery Performed age 3 for repair of patent ductus arteriosus Family History Mother Depression Diabetes Father Stroke Coronary heart disease Hypertension Depression Diabetes Myocardial infarction Daughter Gallbladder disease Grandfather Prostate cancer Aunt Breast cancer Other Bicuspid aortic valve Denies family history of Ovarian cancer Colorectal cancer Social History Smoking Status: Never smoker Do You Dip or Chew Tobacco: No; Hx Alcohol Use: Yes Alcohol type: hard liquor Hx Substance Use: No Preferred Language: Occitan Communication Ability: Effective Visual Impairment: No Limitations Hearing Ability: Normal Foster Care Case Manager Required: No Beliefs That Will Affect Care: None marital status: marital status details: One daughter Current Living Situation: Spouse current occupational status: retired Other Information That Helps Us Care for You: No Feels Safe at Home: Yes Safety Concerns: Feels Safe At This Time Childhood Exposure to Second-Hand Smoke: No Dental Care, Regularly: No Physical Activity Frequency: 5-6 Times per Week Seatbelt Use: always Sunscreen Use: No Do you think of yourself as: straight/heterosexual Assistive Devices: Walker Physical Exam Physical Exam: Gen.: No acute distress. Alert and oriented. HEENT: Anicteric sclera. Neck: No JVD. Bilateral bruits vs radiation of cardiac murmur. Normal carotid upstrokes bilaterally. Cardiac: PMI was nonpalpable. No ventricular heave. Regular rate and rhythm. Normal S1-S2. 2/6 mid peaking systolic ejection murmur heard best at right upper sternal border. No rubs or gallops. Pulmonary: Clear to auscultation bilaterally without wheezes, rales, or rhonchi. Abdomen: Soft, nontender, nondistended, and quiet. No bruits noted. Extremities: 2+ radial pulses bilaterally. 2+ posterior tibialis pulses bilaterally. No left lower extremity edema. Right lower extremity was dressed s/p surgery. No cyanosis. There were no Janeway lesions, Osler's nodes, or splinter hemorrhages noted, however she does have fingernail new zealander on some fingernails. Psychiatric: Affect appears appropriate. Results & Data ([facility]) Vital Signs (Past 12 Hours) Vital Signs Temp Pulse Pulse Pulse Resp BP BP 07/08/20 17:00 36.7 C 87 16 102/66 07/08/20 16:30 36.9 C 88 16 127/69 07/08/20 16:00 85 22 122/54 L 07/08/20 15:45 79 16 139/50 L 07/08/20 15:30 36.7 C 81 18 115/60 07/08/20 15:20 87 20 144/62 H 07/08/20 15:10 87 19 146/70 H 07/08/20 15:02 36.4 C L 85 20 145/65 H 07/08/20 10:26 36.9 C 87 20 153/113 H 07/08/20 09:27 89 102/68 07/08/20 08:02 36.7 C 88 16 132/74 Pulse Ox 07/08/20 17:00 95 07/08/20 16:30 95 07/08/20 16:00 94 07/08/20 15:45 94 07/08/20 15:30 95 07/08/20 15:20 93 07/08/20 15:10 99 07/08/20 15:02 96 07/08/20 10:26 98 07/08/20 09:27 07/08/20 08:02 96 Laboratory Results Laboratory Results - last 24 hr 07/07/20 07/08/20 07/08/20 20:11 08:22 09:22 WBC 20.97 H RBC 3.28 L Hgb 10.2 L Hct 33.9 L MCV 103.4 H MCH 31.1 MCHC 30.1 L RDW Std Deviation 53.7 H RDW Coeff of Betito 14.1 Plt Count 404 H MPV 10.3 Immature Gran % (Auto) 6.6 Neut % (Auto) 78.2 Lymph % (Auto) 5.5 Bartholomew % (Auto) 7.4 Eos % (Auto) 2.1 Baso % (Auto) 0.2 Neut # (Auto) 16.40 H Lymph # (Auto) 1.15 L Bartholomew # (Auto) 1.55 H Eos # (Auto) 0.43 Baso # (Auto) 0.05 Immature Gran # (Auto) 1.39 H Absolute Nucleated RBC 0.02 H Nucleated RBC % (auto) 0.1 Sodium Potassium Chloride Carbon Dioxide Anion Gap BUN Creatinine Est Cr Clr Drug Dosing Est GFR ( Amer) Est GFR (Non-Af Amer) BUN/Creatinine Ratio Glucose POC Glucose 193 H 204 H Calcium 07/08/20 07/08/20 07/08/20 09:22 15:56 17:19 WBC RBC Hgb Hct MCV MCH MCHC RDW Std Deviation RDW Coeff of Betito Plt Count MPV Immature Gran % (Auto) Neut % (Auto) Lymph % (Auto) Bartholomew % (Auto) Eos % (Auto) Baso % (Auto) Neut # (Auto) Lymph # (Auto) Bartholomew # (Auto) Eos # (Auto) Baso # (Auto) Immature Gran # (Auto) Absolute Nucleated RBC Nucleated RBC % (auto) Sodium 134 L Potassium 4.3 Chloride 98 Carbon Dioxide 34 H Anion Gap 2.0 L BUN 21 H Creatinine 0.98 Est Cr Clr Drug Dosing 60.5 Est GFR ( Amer) 69.2 Est GFR (Non-Af Amer) 59.7 BUN/Creatinine Ratio 21.5 H Glucose 180 H POC Glucose 179 H 208 H Calcium 9.2 Diagnostic Findings Echo 07/07/2020 reviewed as noted above in the HPI. Medications Administered Current Inpatient Medications Acetaminophen (Acetaminophen 500 Mg Tab) 1,000 mg PO Q6H PRN PRN Reason: Moderate Pain Stop: 08/05/20 15:25 Atorvastatin Calcium (Atorvastatin 40 Mg Tab) 80 mg PO QAM [facility] Stop: 08/05/20 08:59 Last Admin: 07/08/20 09:40 Dose: 80 mg Documented by: Bisacodyl (Bisacodyl 10 Mg Supp) 10 mg TX DAILY PRN PRN Reason: Constipation Stop: 08/05/20 15:25 Carvedilol (Carvedilol 3.125 Mg Tab) 3.125 mg PO BID ESHA Stop: 08/04/20 20:59 Last Admin: 07/08/20 09:38 Dose: 3.125 mg Documented by: Dextrose (Dextrose 50% 50 Ml Syringe) 25 - 50 ml IV UD PRN; Protocol PRN Reason: Hypoglycemia Protocol Stop: 08/05/20 15:10 Diphenhydramine HCl (Diphenhydramine Capsule 25 Mg Cap) 25 mg PO Q8H PRN PRN Reason: Itching Stop: 08/05/20 15:25 Diphenhydramine HCl (Diphenhydramine 50 Mg/Ml Vial) 25 mg IV Q8H PRN PRN Reason: Itching Stop: 08/05/20 15:25 Docusate Sodium (Docusate Sodium 100 Mg Cap) 100 mg PO BID ESHA Stop: 08/05/20 20:59 Last Admin: 07/08/20 09:38 Dose: 100 mg Documented by: Ferrous Sulfate (Ferrous Sulfate 325 Mg Tab) 325 mg PO BID ESHA Stop: 08/05/20 20:59 Last Admin: 07/08/20 09:38 Dose: Not Given Documented by: Furosemide (Furosemide 80 Mg Tab) 80 mg PO DAILY ESHA Stop: 08/06/20 08:59 Last Admin: 07/08/20 09:39 Dose: 80 mg Documented by: Glucagon (Glucagon For Inj 1 Mg Vial) 1 mg SQ UD PRN; Protocol PRN Reason: Hypoglycemia Protocol Stop: 08/05/20 15:10 Glucose (Glucose 10 Tabs/Tube) 4 - 8 tabs PO UD PRN; Protocol PRN Reason: Hypoglycemia Protocol Stop: 08/05/20 15:10 Glucose (Glucose 40% Gel 15 Gm Tube) 15 - 30 gm PO UD PRN; Protocol PRN Reason: Hypoglycemia Protocol Stop: 08/05/20 15:10 Hydromorphone HCl (Hydromorphone Inj 1 Mg/Ml Syringe) 1 mg IV Q4H PRN PRN Reason: Pain Stop: 07/20/20 15:25 Cefazolin Sodium (Ancef 2000mg) 2,000 mg in 15 mls @ 3.75 mls/min IV Q8H [facility] Stop: 08/18/20 15:59 Last Admin: 07/08/20 17:28 Dose: 3.75 mls/min Documented by: Lactated Ringer's (Lr) 1,000 mls @ 0 mls/hr IV .Q0M [facility] Stop: 08/07/20 10:44 Sodium Chloride (Nss 1000ml) 1,000 mls @ 100 mls/hr IV .Q10H [facility] Stop: 07/09/20 06:00 Last Admin: 07/08/20 17:28 Dose: 100 mls/hr Documented by: Insulin Aspart (Insulin Aspart 100 Units/Ml 3 Ml Pen) 0 units SC ACHS [facility] Stop: 08/05/20 16:29 Last Admin: 07/08/20 09:33 Dose: 3 units Documented by: Magnesium Hydroxide (Magnesium Hydroxide Susp 30 Ml Udc) 30 ml PO Q6H PRN PRN Reason: Constipation Stop: 08/05/20 15:25 Metoclopramide HCl (Metoclopramide Hcl Inj 5 Mg/Ml 2 Ml Vial) 10 mg IV Q6H PRN PRN Reason: Nausea And Vomiting Stop: 08/05/20 15:25 Miscellaneous (Carbohydrates For Hypoglycemia ) 15 - 30 gm PO UD PRN PRN Reason: Hypoglycemia Protocol Stop: 08/05/20 15:10 Multivitamins (Multivitamin Tab) 1 tab PO QAM [facility] Stop: 08/06/20 08:59 Last Admin: 07/08/20 09:40 Dose: Not Given Documented by: Naloxone HCl (Naloxone Hcl 0.4 Mg/1 Ml Vial/Carp) 0.1 mg IV Q5M PRN PRN Reason: Oversedation/Resp Depression Stop: 08/05/20 15:25 Ondansetron HCl (Ondansetron Inj 2 Mg/Ml 2 Ml Vial) 4 mg IV Q6H PRN PRN Reason: Nausea And Vomiting Stop: 08/05/20 15:25 Oxycodone HCl (Oxycodone Hcl Ir 5 Mg Tab (Immediate Release)) 5 - 10 mg PO Q4H PRN PRN Reason: Pain or Pre PT Stop: 07/20/20 15:25 Last Admin: 07/08/20 04:02 Dose: 10 mg Documented by: Potassium Chloride (Potassium Chloride 20 Meq Tabcr) 20 meq PO DAILY ESHA Stop: 08/06/20 08:59 Last Admin: 07/08/20 09:38 Dose: 20 meq Documented by: Sennosides (Senna 8.6 Mg Tab) 17.2 mg PO HS ESHA Stop: 08/05/20 20:59 Last Admin: 07/07/20 20:21 Dose: 17.2 mg Documented by: Spironolactone (Spironolactone 25 Mg Tab) 25 mg PO DAILY ESHA Stop: 08/06/20 08:59 Last Admin: 07/08/20 09:39 Dose: 25 mg Documented by: PG Care Time/CCT Total # of Minutes Spent Total Time Spent with Patient: Total time spent is greater than 50% in coordination of care (as documented) at patient's floor/unit and/or counseling patient: Coding Level of Care Code 85060 Initial Inpt Care Lvl 2 Diagnoses Bacteremia R78.81 Bicuspid aortic valve Q23.1 Aortic stenosis I35.0 Chronic diastolic heart failure I50.32
--- NOTE | 2020-07-08 19:16 | XRay Report ---
XR tibia fibula RT 2V HISTORY: 65 years-old Female post op right tibia status post removal of right tibial hardware. COMPARISON: Right knee radiographs 07/05/2020, right knee radiographs 02/06/2020 TECHNIQUE: 2 views of the right tibia and fibula FINDINGS: Status post removal of the ORIF hardware of the proximal to mid tibia. There is incomplete bony heali ng of the late subacute minimally displaced proximal tibial fracture with intra-articular extension. Moderate diffuse soft tissue prominence. Antibiotic seeds project over the proximal to mid tibia. Gaye gical drainage catheter. Large enthesophyte of the calcaneus. IMPRESSION: 1. Status post removal of the proximal to mid tibial ORIF hardware with incomplete bony healing of th e late subacute tibial fracture. 2. Moderate diffuse soft tissue swelling. ACT 112: Negative or not required by law. The above report was generated using voice recognition software. It may contain grammatical, syntax o r spelling errors. Electronically signed by: Romaine Strong M.D. 07/08/2020 7:14 PM
[2020-07-08] MEDS ORDERED: SENNA 8.6 MG TAB PO SCH (21:00)
[2020-07-08] MEDS ORDERED: DOCUSATE SODIUM 100 MG CAP PO SCH (21:00)
[2020-07-08] MEDS: SENNA 8.6 MG TAB PO SCH (22:13)
--- NOTE | 2020-07-08 23:02 | Communication Note ---
Date of Service: July 08, 2020 D/W ortho service. Hospitalist service will be taking over primary role of this case starting 07/09/2020. Agree with current plan of long course of abx. Source appears to be leg, no need for NORMA as: vitals are normal, patient 's bacteremia improved rapidly, and there is already evidence of the source of infection. Patient also had the infected hardware removed today. D/W cardio service.
[2020-07-09] MEDS: ceFAZolin 2000MG 2,000 MG/15 ML SYR IV SCH ×3 (01:15→15:59)
[2020-07-09] MEDS: oxyCODONE HCL IR 5 MG TAB (IMMEDIATE RELEASE) PO PRN ×3 (02:06→19:05)
[2020-07-09] MEDS: SODIUM CHLORIDE 0.9% 1000ML 1,000 ML IV SCH (02:19)
[2020-07-09] MEDS: INSULIN ASPART 100 UNITS/ML 3 ML PEN SC SCH ×4 (08:41→20:48)
[2020-07-09] MEDS: FERROUS SULFATE 325 MG TAB PO SCH ×3 (08:42→20:55)
[2020-07-09] MEDS: carvediloL 3.125 MG TAB PO SCH ×2 (08:45→20:54)
[2020-07-09] MEDS: MULTIVITAMIN TAB PO SCH (08:46)
[2020-07-09] MEDS: DOCUSATE SODIUM 100 MG CAP PO SCH ×2 (08:46→20:51)
[2020-07-09] MEDS: ATORVASTATIN 40 MG TAB PO SCH (08:47)
[2020-07-09] MEDS: SPIRONOLACTONE 25 MG TAB PO SCH (08:47)
[2020-07-09] MEDS: POTASSIUM CHLORIDE CRTAB 20 MEQ TABCR PO SCH (08:47)
[2020-07-09] MEDS: FUROSEMIDE 80 MG TAB PO SCH (08:49)
[2020-07-09 08:56] LABS: Hematocrit (blood only) 30.4 % (37-47); Hemoglobin 9.5 g/dL (12.0-16.0); Mean Corpuscular Hemoglobin 31.6 pg (25-34); Mean Corpuscular Hgb Conc 31.3 g/dL (32-36); Mean Platelet Volume 10.1 fL (7.4-10.4); Platelet Count 409 K/uL (130-400); RDW Standard Deviation 51.6 fL (36.4-46.3); Red Blood Count 3.01 M/uL (4.2-5.4); White Blood Count 20.97 K/uL (4.8-10.8)
[2020-07-09] MEDS ORDERED: MULTIVITAMIN TAB PO SCH (09:00)
[2020-07-09 09:31] LABS: BUN Creatinine Ratio 18.1 (10-20); Calcium 9.5 mg/dl (8.5-10.1); Creatinine Clr Calc Pharmacy 59.9 ml/min; Est GFR (African American) 68.3; Potassium 4.1 mmol/L (3.5-5.1)
--- NOTE | 2020-07-09 12:46 | Orthopedic Progress Note ---
Date of Service July 09, 2020 Assessment & Plan (1) Infection associated with internal fixation device of bone of lower leg: POD #3, s/p I&D RLE and placement of WoundVac for infected RLE 5 months status post ORIF right tibial plateau fracture POD # 1, s/p I&D RLE, hardware removal, stimulin beads, and placement of WoundVac + MSSA bacteremia, sepsis Appreciate ID consult and appreciate input. Cefazolin 2mg IV q 8hrs x 6 weeks, after blood cultures are negative (with/without vegetations). f/u with ID 3-5 weeks after d/c PICC line ordered, consent obtained Appreciate Cardiology input, no further work-up at this time will follow up as an outpatient. DM diet. PT/OT. 25% PWB RLE. Wound Care Nurse following, appreciate input. DC planning to include wound vac, Blood Work (weekly CBC, BMP, ESR, CRP with results sent to PCP, Dr. Al, & ID), and PICC line. Admission and Anticipated Discharge Date Admission Date: July 05, 2020 Subjective RLE expected pain Review of Systems Review of Systems: All systems reviewed & are unremarkable except as noted in HPI & below Physical Exam Physical Exam: RLE: Neurovascularly intact. WoundVac functioning well. Decreased swelling, ad erythema. Calf soft and tender. Results & Data ([facility]) Vital Signs (Past 12 Hours) Vital Signs Temp Pulse Resp BP Pulse Ox 07/09/20 08:09 37.0 C 90 16 126/72 97 07/09/20 03:52 36.9 C 84 14 126/63 96 Laboratory Results 07/09/20 07/09/20 07/09/20 Range/Units 11:51 08:36 08:36 WBC 20.97 H (4.8-10.8) K/uL RBC 3.01 L (4.2-5.4) M/uL Hgb 9.5 L (12.0-16.0) g/dL Hct 30.4 L (37-47) % MCV 101.0 H (80-100) fL MCH 31.6 (25-34) pg MCHC 31.3 L (32-36) g/dL RDW Std Deviation 51.6 H (36.4-46.3) fL RDW Coeff of Betito 14.0 (11.5-14.5) % Plt Count 409 H (130-400) K/uL MPV 10.1 (7.4-10.4) fL Sodium 134 L (136-145) mmol/L Potassium 4.1 (3.5-5.1) mmol/L Chloride 97 L (98-107) mmol/L Carbon Dioxide 32 (21-32) mmol/L Anion Gap 5.0 (3-11) BUN 18 (7-18) mg/dl Creatinine 0.99 (0.6-1.2) mg/dl Est Cr Clr Drug Dosing 59.9 ml/min Est GFR ( Amer) 68.3 Est GFR (Non-Af Amer) 59.0 BUN/Creatinine Ratio 18.1 (10-20) Glucose 153 H (70-99) mg/dl POC Glucose 189 H (70-99) mg/dl Calcium 9.5 (8.5-10.1) mg/dl 07/09/20 07/08/20 07/08/20 Range/Units 08:22 20:59 17:19 WBC (4.8-10.8) K/uL RBC (4.2-5.4) M/uL Hgb (12.0-16.0) g/dL Hct (37-47) % MCV (80-100) fL MCH (25-34) pg MCHC (32-36) g/dL RDW Std Deviation (36.4-46.3) fL RDW Coeff of Betito (11.5-14.5) % Plt Count (130-400) K/uL MPV (7.4-10.4) fL Sodium (136-145) mmol/L Potassium (3.5-5.1) mmol/L Chloride (98-107) mmol/L Carbon Dioxide (21-32) mmol/L Anion Gap (3-11) BUN (7-18) mg/dl Creatinine (0.6-1.2) mg/dl Est Cr Clr Drug Dosing ml/min Est GFR ( Amer) Est GFR (Non-Af Amer) BUN/Creatinine Ratio (10-20) Glucose (70-99) mg/dl POC Glucose 166 H 193 H 208 H (70-99) mg/dl Calcium (8.5-10.1) mg/dl 07/08/20 Range/Units 15:56 WBC (4.8-10.8) K/uL RBC (4.2-5.4) M/uL Hgb (12.0-16.0) g/dL Hct (37-47) % MCV (80-100) fL MCH (25-34) pg MCHC (32-36) g/dL RDW Std Deviation (36.4-46.3) fL RDW Coeff of Betito (11.5-14.5) % Plt Count (130-400) K/uL MPV (7.4-10.4) fL Sodium (136-145) mmol/L Potassium (3.5-5.1) mmol/L Chloride (98-107) mmol/L Carbon Dioxide (21-32) mmol/L Anion Gap (3-11) BUN (7-18) mg/dl Creatinine (0.6-1.2) mg/dl Est Cr Clr Drug Dosing ml/min Est GFR ( Amer) Est GFR (Non-Af Amer) BUN/Creatinine Ratio (10-20) Glucose (70-99) mg/dl POC Glucose 179 H (70-99) mg/dl Calcium (8.5-10.1) mg/dl Diagnostic Findings XR tibia fibula RT 2V HISTORY: 65 years-old Female post op right tibia status post removal of right tibial hardware. COMPARISON: Right knee radiographs 07/05/2020, right knee radiographs 02/06/2020 TECHNIQUE: 2 views of the right tibia and fibula FINDINGS: Status post removal of the ORIF hardware of the proximal to mid tibia. There is incomplete bony healing of the tibial plateau fracture along the intra-articular portion laterally. Moderate diffuse soft tissue prominence. Antibiotic beads project over the proximal to mid tibia. Wound Vac catheter. IMPRESSION: 1. Status post removal of the proximal to mid tibial hardware from prior ORIF with incomplete bony healing of the intra-articular portion laterally. 2. Moderate diffuse soft tissue swelling.
[2020-07-09] MEDS: SENNA 8.6 MG TAB PO SCH (20:51)
--- NOTE | 2020-07-09 22:26 | Hospitalist Progress Note ---
Date of Service July 09, 2020 Assessment & Plan (1) Infection associated with internal fixation device of bone of lower leg: Arose very quickly with papules noted yesterday. Otherwise, she felt her leg had just been a bit "stiff" for the last few days. - S/p I&D with Dr. Al on 07/06 - Wound cultures collected in clinic & during I&D - Blood cultures growing S. aureus. - Continue vancomycin and follow cultures. Medicine will be happy to help manage abx if needed. - Latest blood cultures are positive. will repeat today, -TTE is negative, DUKEs critieria is also low. No need for NORMA at tis time as source is likely affected leg with infection associated with internal hardware. This though was removed, Ortho is managing wound and wound vac. -Patient will need 6 weeks of antibiotics. -PICC line will be placed once cultures are negative. (2) Bacteremia: Blood cultures on 07/05 were positive. - Repeat blood cultures - Abx as above (3) Diastolic heart failure: EF was 60-65% on echo in 10/2019. Has done well with no recent exacerbations of her CHF. - Presently appears euvolemic, but did get >1 L IVFs during surgery. - Restart Lasix & spironolactone tomorrow. - Closely monitor volume status (4) Aortic stenosis: Echo in 10/2019 indicates moderate/severe , with it being moderate on exam per cardiology. - Avoid rapid drops in blood pressures as this can greatly reduce cardiac output. (5) Hypertension: BP presently 120/55. - Cardiac meds as above (6) Diabetes type 2, uncontrolled: A1c was 7.5% in 10/2019. Repeat this admission is 8.7%. - Sliding scale insulin -> Sugars overall under ok control in last 24 hours. (7) Obstructive sleep apnea of adult: Does not use CPAP/BiPap at home per patient. - Monitor O2; may have hypoxemia post-extubation. (8) DVT prophylaxis: SCDs - Heparin/other per primary team, likely after surgery Admission and Anticipated Discharge Date Admission Date: July 05, 2020 Subjective Patient reports feeling fine. Has no new complaints. Review of Systems Review of Systems: All systems reviewed & are unremarkable except as noted in HPI & below Physical Exam Physical Exam: Constitutional: WD/WN, vitals as above Eyes: EOM intact bilaterally; no conjunctival abnormality ENMT: external ear and nose normal, oropharynx normal Neck: trachea midline, no thyromegaly normal visual inspection Respiratory: normal respiratory effort, lungs clear to auscultation no respiratory distress Cardiovascular: RRR, no murmur, no edema Gastrointestinal (Abdomen): Inspection/Auscultation: abdomen normal to inspection; abdomen not distended Musculoskeletal: no cyanosis or clubbing, extremities motor strength 5/5 Extremities: + extremities abnormal to inspection (Right knee bandaged with drain.) Skin: no rashes, warm and dry Neurologic: moves all extremities and awake Psychiatric: Orientation: alert, oriented to person and cooperative Results & Data Results & Data ([facility]) Vital Signs (Past 12 Hours) Vital Signs Temp Pulse Resp BP Pulse Ox 07/09/20 15:41 37 C 83 18 120/70 95 PG Care Time/CCT Total # of Minutes Spent Total Time Spent with Patient: Total time spent is greater than 50% in coordination of care (as documented) at patient's floor/unit and/or counseling patient: Coding Level of Care Code 98946 Subseq Hosp Care Lvl 3 Diagnoses Infection associated with internal fixation device of bone of lower leg T 84.629A Bacteremia R78.81 Diastolic heart failure I50.30 Aortic stenosis I35.0 Hypertension I10 Diabetes type 2, uncontrolled E11.65 Obstructive sleep apnea of adult G47.33 DVT prophylaxis Z29.9 Time Spent (min) 35
[2020-07-10] MEDS: ceFAZolin 2000MG 2,000 MG/15 ML SYR IV SCH ×3 (00:15→16:22)
[2020-07-10] MEDS: oxyCODONE HCL IR 5 MG TAB (IMMEDIATE RELEASE) PO PRN ×4 (05:33→22:23)
[2020-07-10 06:08] LABS: Hematocrit (blood only) 28.7 % (37-47); Hemoglobin 8.9 g/dL (12.0-16.0); Mean Corpuscular Hemoglobin 31.1 pg (25-34); Mean Corpuscular Volume 100.3 fL (80-100); Mean Platelet Volume 9.6 fL (7.4-10.4); Nucleated RBC # (auto) 0.05 K/uL (0-0); Nucleated RBC % (auto) 0.3 %; Platelet Count 381 K/uL (130-400); RDW Coefficient of Variation 13.9 % (11.5-14.5); RDW Standard Deviation 50.8 fL (36.4-46.3); Red Blood Count 2.86 M/uL (4.2-5.4)
[2020-07-10 06:40] LABS: BUN Creatinine Ratio 25.3 (10-20); Calcium 9.6 mg/dl (8.5-10.1); Creatinine Clr Calc Pharmacy 70.6 ml/min; Est GFR (African American) 83.4; Est GFR (Non-African American) 71.9; Potassium 4.2 mmol/L (3.5-5.1)
[2020-07-10] MEDS: FERROUS SULFATE 325 MG TAB PO SCH ×2 (08:20→21:58)
[2020-07-10] MEDS: POTASSIUM CHLORIDE CRTAB 20 MEQ TABCR PO SCH (08:20)
[2020-07-10] MEDS: MULTIVITAMIN TAB PO SCH (08:20)
[2020-07-10] MEDS: DOCUSATE SODIUM 100 MG CAP PO SCH ×2 (08:20→21:58)
[2020-07-10] MEDS: FUROSEMIDE 80 MG TAB PO SCH (08:20)
[2020-07-10] MEDS: ATORVASTATIN 40 MG TAB PO SCH (08:20)
[2020-07-10] MEDS: carvediloL 3.125 MG TAB PO SCH ×2 (08:20→21:58)
[2020-07-10] MEDS: SPIRONOLACTONE 25 MG TAB PO SCH (08:21)
[2020-07-10] MEDS: INSULIN ASPART 100 UNITS/ML 3 ML PEN SC SCH ×4 (08:49→21:59)
--- NOTE | 2020-07-10 09:37 | Orthopedic Progress Note ---
Date of Service July 10, 2020 Assessment & Plan (1) Infection associated with internal fixation device of bone of lower leg: POD #4, s/p I&D RLE and placement of Wound Vac for infected RLE 5 months status post ORIF right tibial plateau fracture POD #2, s/p I&D RLE, hardware removal, stimulin beads, and placement of Wound Vac + MSSA bacteremia, sepsis ID consult, appreciate input. Cefazolin 2mg IV q 8hrs x 6 weeks, after blood cultures are negative (with/without vegetations). f/u with ID 3-5 weeks after d/c Blood Cultures repeated 07/09/2020 (As previous blood Cx became +) PICC line to be placed prior to d/c, consent obtained, awaiting negative blood cultures to insert. Appreciate Cardiology input. DM diet. PT/OT. 25% PWB RLE. DVT Prophylaxis: TEDs for 3 weeks LLE, Foot pumps while in hospital, ASA 81mg BID for 6 weeks. Wound Care Nurse following, appreciate input, Wound Vac will be changed 07/11/2020. DC planning to include Wound Vac, Blood Work (weekly CBC, BMP, ESR, CRP with results sent to PCP, Dr. Al, & ID), and PICC line. Continue care per primary service. Admission and Anticipated Discharge Date Admission Date: July 05, 2020 Subjective Feeling frustrated Review of Systems Review of Systems: All systems reviewed & are unremarkable except as noted in HPI & below Physical Exam Physical Exam: RLE: Neurovascularly intact. Wound Vac functioning well. Decreased swelling, and erythema. Calf soft and non-tender. Results & Data ([facility]) Vital Signs (Past 12 Hours) Vital Signs Temp Pulse Resp BP Pulse Ox 07/09/20 23:12 36.9 C 90 18 148/72 H 97 Laboratory Results 07/10/20 07/10/20 07/10/20 Range/Units 08:33 05:50 05:50 WBC 18.20 H (4.8-10.8) K/uL RBC 2.86 L (4.2-5.4) M/uL Hgb 8.9 L (12.0-16.0) g/dL Hct 28.7 L (37-47) % MCV 100.3 H (80-100) fL MCH 31.1 (25-34) pg MCHC 31.0 L (32-36) g/dL RDW Std Deviation 50.8 H (36.4-46.3) fL RDW Coeff of Betito 13.9 (11.5-14.5) % Plt Count 381 (130-400) K/uL MPV 9.6 (7.4-10.4) fL Absolute Nucleated RBC 0.05 H (0-0) K/uL Nucleated RBC % (auto) 0.3 % Sodium 136 (136-145) mmol/L Potassium 4.2 (3.5-5.1) mmol/L Chloride 98 (98-107) mmol/L Carbon Dioxide 31 (21-32) mmol/L Anion Gap 7.0 (3-11) BUN 21 H (7-18) mg/dl Creatinine 0.84 (0.6-1.2) mg/dl Est Cr Clr Drug Dosing 70.6 ml/min Est GFR ( Amer) 83.4 Est GFR (Non-Af Amer) 71.9 BUN/Creatinine Ratio 25.3 H (10-20) Glucose 157 H (70-99) mg/dl POC Glucose 167 H (70-99) mg/dl Calcium 9.6 (8.5-10.1) mg/dl 07/09/20 07/09/20 07/09/20 Range/Units 20:50 17:07 11:51 WBC (4.8-10.8) K/uL RBC (4.2-5.4) M/uL Hgb (12.0-16.0) g/dL Hct (37-47) % MCV (80-100) fL MCH (25-34) pg MCHC (32-36) g/dL RDW Std Deviation (36.4-46.3) fL RDW Coeff of Betito (11.5-14.5) % Plt Count (130-400) K/uL MPV (7.4-10.4) fL Absolute Nucleated RBC (0-0) K/uL Nucleated RBC % (auto) % Sodium (136-145) mmol/L Potassium (3.5-5.1) mmol/L Chloride (98-107) mmol/L Carbon Dioxide (21-32) mmol/L Anion Gap (3-11) BUN (7-18) mg/dl Creatinine (0.6-1.2) mg/dl Est Cr Clr Drug Dosing ml/min Est GFR ( Amer) Est GFR (Non-Af Amer) BUN/Creatinine Ratio (10-20) Glucose (70-99) mg/dl POC Glucose 216 H 149 H 189 H (70-99) mg/dl Calcium (8.5-10.1) mg/dl Blood Cx 07/06/2020 + S. Aureus Blood Cx 07/09/2020 Pending
[2020-07-10] MEDS: SENNA 8.6 MG TAB PO SCH (21:58)
--- NOTE | 2020-07-10 22:37 | Hospitalist Progress Note ---
Date of Service July 10, 2020 Assessment & Plan (1) Infection associated with internal fixation device of bone of lower leg: Arose very quickly with papules noted yesterday. Otherwise, she felt her leg had just been a bit "stiff" for the last few days. - S/p I&D with Dr. Al on 07/06 - Wound cultures collected in clinic & during I&D - Blood cultures growing S. aureus. - Continue vancomycin and follow cultures. Medicine will be happy to help manage abx if needed. - Latest blood cultures are positive. ordered repeat culture on 07/09, -Patient is also reluctant for repeat blood cultures as she said they are painful. Curent blood cultures though remain negative and these were obtained after infected hardware was removed, so blood cultures should be negative. -TTE is negative, DUKEs critieria is also low. No need for NORMA at tis time. Ortho is managing wound and wound vac. -Patient will need 6 weeks of antibiotics once cultures are negative. -PICC line will be placed once cultures are negative. (2) Bacteremia: Blood cultures on 07/05 were positive. - Repeat blood cultures - Abx as above (3) Diastolic heart failure: EF was 60-65% on echo in 10/2019. Has done well with no recent exacerbations of her CHF. - Presently appears euvolemic, but did get >1 L IVFs during surgery. - Restart Lasix & spironolactone tomorrow. - Closely monitor volume status (4) Aortic stenosis: Echo in 10/2019 indicates moderate/severe , with it being moderate on exam per cardiology. - Avoid rapid drops in blood pressures as this can greatly reduce cardiac output. (5) Hypertension: BP presently 120/55. - Cardiac meds as above (6) Diabetes type 2, uncontrolled: A1c was 7.5% in 10/2019. Repeat this admission is 8.7%. - Sliding scale insulin -> Sugars overall under ok control in last 24 hours. (7) Obstructive sleep apnea of adult: Does not use CPAP/BiPap at home per patient. - Monitor O2; may have hypoxemia post-extubation. (8) DVT prophylaxis: SCDs - Heparin/other per primary team, likely after surgery Admission and Anticipated Discharge Date Admission Date: July 05, 2020 Subjective 65 yo female reports feeling well. She has no new complaints. Review of Systems Review of Systems: All systems reviewed & are unremarkable except as noted in HPI & below Physical Exam Physical Exam: Constitutional: WD/WN, vitals as above Eyes: EOM intact bilaterally; no conjunctival abnormality ENMT: external ear and nose normal, oropharynx normal Neck: trachea midline, no thyromegaly normal visual inspection Respiratory: normal respiratory effort, lungs clear to auscultation no respiratory distress Cardiovascular: RRR, no murmur, no edema Gastrointestinal (Abdomen): Inspection/Auscultation: abdomen normal to inspection; abdomen not distended Musculoskeletal: no cyanosis or clubbing, extremities motor strength 5/5 Extremities: + extremities abnormal to inspection wound vac placed Skin: no rashes, warm and dry Neurologic: moves all extremities and awake Psychiatric: Orientation: alert, oriented to person and cooperative Results & Data Results & Data ([facility]) Vital Signs (Past 12 Hours) Vital Signs Temp Pulse Resp BP Pulse Ox 07/10/20 22:06 36.8 C 80 16 127/78 98 PG Care Time/CCT Total # of Minutes Spent Total Time Spent with Patient: Total time spent is greater than 50% in coordination of care (as documented) at patient's floor/unit and/or counseling patient: Coding Level of Care Code 64619 Subseq Hosp Care Lvl 2 Diagnoses Infection associated with internal fixation device of bone of lower leg T84.629A Bacteremia R78.81 Diastolic heart failure I50.30 Aortic stenosis I35.0 Hypertension I10 Diabetes type 2, uncontrolled E11.65 Obstructive sleep apnea of adult G47.33 DVT prophylaxis Z29.9 Time Spent (min) 25
[2020-07-11] MEDS: ceFAZolin 2000MG 2,000 MG/15 ML SYR IV SCH ×4 (01:11→23:58)
[2020-07-11] MEDS: oxyCODONE HCL IR 5 MG TAB (IMMEDIATE RELEASE) PO PRN ×3 (05:51→19:49)
[2020-07-11 08:15] LABS: Hematocrit (blood only) 29.5 % (37-47); Hemoglobin 9.1 g/dL (12.0-16.0); Mean Corpuscular Hemoglobin 30.8 pg (25-34); Mean Corpuscular Hgb Conc 30.8 g/dL (32-36); Mean Platelet Volume 9.8 fL (7.4-10.4); Nucleated RBC # (auto) 0.06 K/uL (0-0); Nucleated RBC % (auto) 0.3 %; Platelet Count 402 K/uL (130-400); RDW Coefficient of Variation 13.9 % (11.5-14.5); Red Blood Count 2.95 M/uL (4.2-5.4)
[2020-07-11] MEDS: HYDROmorphone INJ 1 MG/ML SYRINGE IV PRN (08:37)
[2020-07-11 08:51] LABS: BUN Creatinine Ratio 26.2 (10-20); Creatinine Clr Calc Pharmacy 62.4 ml/min; Est GFR (African American) 71.8; Potassium 3.9 mmol/L (3.5-5.1)
[2020-07-11] MEDS: DOCUSATE SODIUM 100 MG CAP PO SCH ×2 (08:55→19:57)
[2020-07-11] MEDS: SPIRONOLACTONE 25 MG TAB PO SCH (08:55)
[2020-07-11] MEDS: carvediloL 3.125 MG TAB PO SCH ×2 (08:55→19:57)
[2020-07-11] MEDS: ATORVASTATIN 40 MG TAB PO SCH (08:56)
[2020-07-11] MEDS: POTASSIUM CHLORIDE CRTAB 20 MEQ TABCR PO SCH (08:56)
[2020-07-11] MEDS: MULTIVITAMIN TAB PO SCH (08:56)
[2020-07-11] MEDS: FUROSEMIDE 80 MG TAB PO SCH (08:56)
[2020-07-11] MEDS: FERROUS SULFATE 325 MG TAB PO SCH ×2 (08:56→19:51)
[2020-07-11] MEDS: INSULIN ASPART 100 UNITS/ML 3 ML PEN SC SCH ×4 (09:05→21:53)
--- NOTE | 2020-07-11 09:37 | Orthopedic Progress Note ---
Date of Service July 11, 2020 Assessment & Plan (1) Infection associated with internal fixation device of bone of lower leg: POD #5, s/p I&D RLE and placement of Wound Vac for infected RLE 5 months status post ORIF right tibial plateau fracture POD #3, s/p I&D RLE, hardware removal, stimulin beads, and placement of Wound Vac + MSSA bacteremia, sepsis ID consult, appreciate input. Cefazolin 2mg IV q 8hrs x 6 weeks, after blood cultures are negative (with/without vegetations). f/u with ID 3-5 weeks after d/c Blood Cultures repeated 07/09/2020 (As previous blood Cx became +)--results still pending PICC line to be placed prior to d/c, consent obtained, awaiting negative blood cultures to insert. Appreciate Cardiology input. DM diet. PT/OT. 25% PWB RLE. DVT Prophylaxis: TEDs for 3 weeks LLE, Foot pumps while in hospital, ASA 81mg BID for 6 weeks. Wound Care Nurse following, appreciate input, Wound Vac will be changed 07/13/2020. DC planning to include Wound Vac (change MWF), Blood Work (weekly CBC, BMP, ESR, CRP with results sent to PCP, Dr. Al, & ID), and PICC line. Continue care per primary service. Admission and Anticipated Discharge Date Admission Date: July 05, 2020 Subjective Patients in bed. Just finished with breakfast. Aware wound vac nurse and I are here to change her wound vac. Patient said she is meeting with case management to discuss D/C planning. Patient also aware blood cultures are still pending. Pain overall controlled. Had a dose of dilaudid in preparation for wound vac change. Tolerated PO fluids and diet. Has been PWBING with walker. Physical Exam Physical Exam: Right LE wound vac removed. anterior camacho with redness. 1+ PE. NV intact with palpable DP and PT pulses. able to move ankle, toes, and knee. Wound reveals medial and lateral incisions with sutures are intact and well approximated. open wound to lateral knee reveals no active drainage, pus, foul odor, well defined margins. Results & Data ([facility]) Vital Signs (Past 12 Hours) Vital Signs Temp Pulse Resp BP Pulse Ox 07/11/20 07:27 37.1 C 85 16 146/74 H 98 07/10/20 23:00 37 C 84 18 116/68 96 07/10/20 22:06 36.8 C 80 16 127/78 98 Laboratory Results 07/11/20 07/11/20 07/11/20 Range/Units 08:23 07:47 07:47 WBC 19.40 H (4.8-10.8) K/uL RBC 2.95 L (4.2-5.4) M/uL Hgb 9.1 L (12.0-16.0) g/dL Hct 29.5 L (37-47) % MCV 100.0 (80-100) fL MCH 30.8 (25-34) pg MCHC 30.8 L (32-36) g/dL RDW Std Deviation 50.0 H (36.4-46.3) fL RDW Coeff of Betito 13.9 (11.5-14.5) % Plt Count 402 H (130-400) K/uL MPV 9.8 (7.4-10.4) fL Absolute Nucleated RBC 0.06 H (0-0) K/uL Nucleated RBC % (auto) 0.3 % Sodium 134 L (136-145) mmol/L Potassium 3.9 (3.5-5.1) mmol/L Chloride 94 L (98-107) mmol/L Carbon Dioxide 35 H (21-32) mmol/L Anion Gap 5.0 (3-11) BUN 25 H (7-18) mg/dl Creatinine 0.95 (0.6-1.2) mg/dl Est Cr Clr Drug Dosing 62.4 ml/min Est GFR ( Amer) 71.8 Est GFR (Non-Af Amer) 62.0 BUN/Creatinine Ratio 26.2 H (10-20) Glucose 154 H (70-99) mg/dl POC Glucose 161 H (70-99) mg/dl Calcium 10.0 (8.5-10.1) mg/dl 07/10/20 07/10/20 07/10/20 Range/Units 20:42 17:04 11:45 WBC (4.8-10.8) K/uL RBC (4.2-5.4) M/uL Hgb (12.0-16.0) g/dL Hct (37-47) % MCV (80-100) fL MCH (25-34) pg MCHC (32-36) g/dL RDW Std Deviation (36.4-46.3) fL RDW Coeff of Betito (11.5-14.5) % Plt Count (130-400) K/uL MPV (7.4-10.4) fL Absolute Nucleated RBC (0-0) K/uL Nucleated RBC % (auto) % Sodium (136-145) mmol/L Potassium (3.5-5.1) mmol/L Chloride (98-107) mmol/L Carbon Dioxide (21-32) mmol/L Anion Gap (3-11) BUN (7-18) mg/dl Creatinine (0.6-1.2) mg/dl Est Cr Clr Drug Dosing ml/min Est GFR ( Amer) Est GFR (Non-Af Amer) BUN/Creatinine Ratio (10-20) Glucose (70-99) mg/dl POC Glucose 172 H 170 H 163 H (70-99) mg/dl Calcium (8.5-10.1) mg/dl
--- NOTE | 2020-07-11 18:32 | Orthopedic Progress Note ---
Date of Service July 11, 2020 Assessment & Plan (1) Infection associated with internal fixation device of bone of lower leg: POD #5, s/p I&D RLE and placement of Wound Vac for infected RLE 5 months status post ORIF right tibial plateau fracture POD #3, s/p I&D RLE, hardware removal, stimulin beads, and placement of Wound Vac + MSSA bacteremia, sepsis Appreciate Cardiology input. ID consult, appreciate input. Cefazolin 2mg IV q 8hrs x 6 weeks, after blood cultures are negative (wit h/without vegetations). f/u with ID 3-5 weeks after d/c Blood Cultures repeated 07/09/2020 (As previous blood Cx became +)--awaiting final results PICC line to be placed prior to d/c, consent obtained, awaiting negative blood cultures to insert. DM diet. PT/OT. 25% PWB RLE. DVT Prophylaxis: TEDs for 3 weeks LLE, Foot pumps while in hospital, ASA 81mg BID for 6 weeks. Wound Care Nurse following, appreciate input, Wound Vac will be changed 07/13/2020. DC planning to include Wound Vac (change MWF), Blood Work (weekly CBC, BMP, ESR, CRP with results sent to PCP, Dr. Al, & ID), and PICC line. Continue care per primary service. Admission and Anticipated Discharge Date Admission Date: July 05, 2020 Subjective Doing fine Review of Systems Review of Systems: All systems reviewed & are unremarkable except as noted in HPI & below Physical Exam Physical Exam: RLE: Neurovascularly intact. Wound Vac functioning well. Decreased swelling, and erythema. Calf soft and non-tender. Results & Data ([facility]) Vital Signs (Past 12 Hours) Vital Signs Temp Pulse Resp BP Pulse Ox 07/11/20 17:55 96 07/11/20 16:07 36.6 C 88 18 122/63 96 07/11/20 07:27 37.1 C 85 16 146/74 H 98 Laboratory Results 07/11/20 07/11/20 07/11/20 Range/Units 17:10 12:18 08:23 WBC (4.8-10.8) K/uL RBC (4.2-5.4) M/uL Hgb (12.0-16.0) g/dL Hct (37-47) % MCV (80-100) fL MCH (25-34) pg MCHC (32-36) g/dL RDW Std Deviation (36.4-46.3) fL RDW Coeff of Betito (11.5-14.5) % Plt Count (130-400) K/uL MPV (7.4-10.4) fL Absolute Nucleated RBC (0-0) K/uL Nucleated RBC % (auto) % Sodium (136-145) mmol/L Potassium (3.5-5.1) mmol/L Chloride (98-107) mmol/L Carbon Dioxide (21-32) mmol/L Anion Gap (3-11) BUN (7-18) mg/dl Creatinine (0.6-1.2) mg/dl Est Cr Clr Drug Dosing ml/min Est GFR ( Amer) Est GFR (Non-Af Amer) BUN/Creatinine Ratio (10-20) Glucose (70-99) mg/dl POC Glucose 208 H 195 H 161 H (70-99) mg/dl Calcium (8.5-10.1) mg/dl 07/11/20 07/11/20 07/10/20 Range/Units 07:47 07:47 20:42 WBC 19.40 H (4.8-10.8) K/uL RBC 2.95 L (4.2-5.4) M/uL Hgb 9.1 L (12.0-16.0) g/dL Hct 29.5 L (37-47) % MCV 100.0 (80-100) fL MCH 30.8 (25-34) pg MCHC 30.8 L (32-36) g/dL RDW Std Deviation 50.0 H (36.4-46.3) fL RDW Coeff of Betito 13.9 (11.5-14.5) % Plt Count 402 H (130-400) K/uL MPV 9.8 (7.4-10.4) fL Absolute Nucleated RBC 0.06 H (0-0) K/uL Nucleated RBC % (auto) 0.3 % Sodium 134 L (136-145) mmol/L Potassium 3.9 (3.5-5.1) mmol/L Chloride 94 L (98-107) mmol/L Carbon Dioxide 35 H (21-32) mmol/L Anion Gap 5.0 (3-11) BUN 25 H (7-18) mg/dl Creatinine 0.95 (0.6-1.2) mg/dl Est Cr Clr Drug Dosing 62.4 ml/min Est GFR ( Amer) 71.8 Est GFR (Non-Af Amer) 62.0 BUN/Creatinine Ratio 26.2 H (10-20) Glucose 154 H (70-99) mg/dl POC Glucose 172 H (70-99) mg/dl Calcium 10.0 (8.5-10.1) mg/dl Blood Cx 07/09/2020 no growth to date. Blood Cx 07/11/2020 PENDING
--- NOTE | 2020-07-11 18:58 | XRay Report ---
XR chest 2V PA/lateral CLINICAL HISTORY: hypoxia, O2 requirement COMPARISON STUDY: Chest radiograph February 06, 2020. FINDINGS: Lung volumes are normal. Opacity at the right cardiophrenic angle is unchanged. This likely reflects epicardial fat pad. No pneumothorax or pleural effusion is noted. Postoperative findings wi thin the left chest wall/breast are incidentally noted. Moderate cardiomegaly is unchanged. There is interstitial thickening. Severe osteoarthritis of the right glenohumeral joint with osteophytosis is incidentally noted. IMPRESSION: 1. Mild interstitial thickening. This may reflect mild parenchymal or infectious process. No consolid ation identified. 2. Moderate cardiomegaly. ACT 112: Negative or not required by law. Electronically signed by: Per Weaver M.D. 07/11/2020 6:56 PM
[2020-07-11] MEDS: SENNA 8.6 MG TAB PO SCH (19:58)
--- NOTE | 2020-07-11 20:34 | Hospitalist Progress Note ---
Date of Service July 11, 2020 Assessment & Plan (1) Septicemia: 2nd MSSA in setting of right tibial infection. Remains on ancef IV. echo w/o obvious endocarditis. 6-week course of IV antibiotics needed. if 07/09 blood cultures remain negative through tomorrow AM then place PICC line. (2) Infection associated with internal fixation device of bone of lower leg: POD #5 s/p Irrigation and debridement Right Lower Extremity Infection and Placement of Wound Vac by Dr Al. POD #3 s/p right Lower Extremity Incision and Drainage, Hardware Removal, Wound Vac Placement with Instillation of Stimulan Beads - also by Dr Al. appreciate ortho assistance. cultures with MSSA. cont IV ancef. PICC in am if blood cx's from 07/09 remain negative. fixation device was from 01/2020 surgery for tibila plateau fracture. (3) Chronic diastolic heart failure: either compensated or mildly hypervolemic. hypoxia suggests latter. check cxr - if pulm edema present then increase lasix to BID dosing for a few days. cont BB cont aldactone (4) Obstructive sleep apnea of adult: (5) Dyslipidemia: cont statin (6) Hypoventilation syndrome: (7) Hypertension: controlled cont current meds (8) Aortic stenosis: moderate on recent echo no valvular vegetations noted (9) Diabetes type 2, uncontrolled: HbA1C 8.7% was not on meds at home pre-hospital? BSGs high tighten novolog carb coverage add basal lantus (10) Morbid obesity with BMI of 45.0-49.9, adult: (11) Acute blood loss anemia: mild-moderate Hb 9.1 today cont ferrous sulfate 325mg BID (12) DVT prophylaxis: add lovenox 40mg daily high risk of DVT in light of partial weight-bearing status, recent surgeries, etc dispo - PT/OT feel she can return home with Admission and Anticipated Discharge Date Admission Date: July 05, 2020 Subjective patient c/o right leg pain but controlled at rest. typically NOT on O2 at home but requiring such here. denies dyspnea or orthopnea during the visit. has chronic AM cough only; no worse than usual. multiple questions about plan of care. overall, however, feeling decent today. Review of Systems Constitutional: no fever and no chills Respiratory: no dyspnea Cardiovascular: no chest pain and no paroxysmal nocturnal dyspnea Gastrointestinal: no abdominal pain Physical Exam Constitutional: + morbidly obese; no acute distress and no altered mental status ENMT: external ear and nose normal, oropharynx normal Respiratory: no respiratory distress Auscultation: + diminished lung sounds and + crackles (Bases b/l ) Cardiovascular: Rate/Rhythm: regular rate and regular rhythm Heart Sounds: normal S1, normal S2 and + murmur (2/6 systolic RUSB) Vessels: + JVD, posterior tibial pulses present and dorsalis pedis pulses present Ex tremities: + edema Gastrointestinal (Abdomen): normal bowel sounds, soft, nontender, no hepatosplenomegaly Musculoskeletal: wound vac in place right leg/camacho Psychiatric: A+Ox3, euthymic affect Results & Data Results & Data ([facility]) Vital Signs (Past 12 Hours) Vital Signs Temp Pulse Resp BP Pulse Ox 07/11/20 17:55 96 07/11/20 16:07 36.6 C 88 18 122/63 96 Laboratory Results Laboratory Results - last 24 hr 07/10/20 07/11/20 07/11/20 20:42 07:47 07:47 WBC 19.40 H RBC 2.95 L Hgb 9.1 L Hct 29.5 L MCV 100.0 MCH 30.8 MCHC 30.8 L RDW Std Deviation 50.0 H RDW Coeff of Betito 13.9 Plt Count 402 H MPV 9.8 Absolute Nucleated RBC 0.06 H Nucleated RBC % (auto) 0.3 Sodium 134 L Potassium 3.9 Chloride 94 L Carbon Dioxide 35 H Anion Gap 5.0 BUN 25 H Creatinine 0.95 Est Cr Clr Drug Dosing 62.4 Est GFR ( Amer) 71.8 Est GFR (Non-Af Amer) 62.0 BUN/Creatinine Ratio 26.2 H Glucose 154 H POC Glucose 172 H Calcium 10.0 07/11/20 07/11/20 07/11/20 08:23 12:18 17:10 WBC RBC Hgb Hct MCV MCH MCHC RDW Std Deviation RDW Coeff of Betito Plt Count MPV Absolute Nucleated RBC Nucleated RBC % (auto) Sodium Potassium Chloride Carbon Dioxide Anion Gap BUN Creatinine Est Cr Clr Drug Dosing Est GFR ( Amer) Est GFR (Non-Af Amer) BUN/Creatinine Ratio Glucose POC Glucose 161 H 195 H 208 H Calcium 07/09 blood cultures negative all prior wound cultures with MSSA PG Care Time/CCT Total # of Minutes Spent Total Time Spent with Patient: Total time spent is greater than 50% in coordination of care (as documented) at patient's floor/unit and/or counseling patient: Coding Level of Care Code 43411 Subseq Hosp Care Lvl 2 Diagnoses Septicemia A41.9 Infection associated with internal fixation device of bone of lower leg T84.629A Chronic diastolic heart failure I50.32 Obstructive sleep apnea of adult G47.33 Dyslipidemia E78.5 Hypoventilation syndrome R06.89 Hypertension I10 Aortic stenosis I35.0 Diabetes type 2, uncontrolled E11.65 Morbid obesity with BMI of 45.0-49.9, adult E66.01; Z68.42 Acute blood loss anemia D62 DVT prophylaxis Z29.9
[2020-07-12 08:40] LABS: Hematocrit (blood only) 29.9 % (37-47); Hemoglobin 9.3 g/dL (12.0-16.0); Mean Corpuscular Hemoglobin 30.9 pg (25-34); Mean Corpuscular Hgb Conc 31.1 g/dL (32-36); Mean Corpuscular Volume 99.3 fL (80-100); Nucleated RBC # (auto) 0.08 K/uL (0-0); Nucleated RBC % (auto) 0.4 %; Platelet Count 495 K/uL (130-400); RDW Coefficient of Variation 13.9 % (11.5-14.5); RDW Standard Deviation 49.4 fL (36.4-46.3); Red Blood Count 3.01 M/uL (4.2-5.4); White Blood Count 21.81 K/uL (4.8-10.8)
[2020-07-12] MEDS: oxyCODONE HCL IR 5 MG TAB (IMMEDIATE RELEASE) PO PRN ×3 (08:42→19:49)
[2020-07-12] MEDS: INSULIN ASPART 100 UNITS/ML 3 ML PEN SC SCH ×4 (08:43→21:21)
[2020-07-12] MEDS: INSULIN GLARGINE SOLOSTAR 100 UNITS/ML 3 ML PEN SC SCH (08:44)
[2020-07-12] MEDS: ceFAZolin 2000MG 2,000 MG/15 ML SYR IV SCH ×3 (08:48→23:51)
[2020-07-12] MEDS: MULTIVITAMIN TAB PO SCH (08:50)
[2020-07-12] MEDS: ATORVASTATIN 40 MG TAB PO SCH (08:50)
[2020-07-12] MEDS: POTASSIUM CHLORIDE CRTAB 20 MEQ TABCR PO SCH (08:51)
[2020-07-12] MEDS: carvediloL 3.125 MG TAB PO SCH ×2 (08:51→19:51)
[2020-07-12] MEDS: DOCUSATE SODIUM 100 MG CAP PO SCH ×2 (08:51→19:51)
[2020-07-12] MEDS: SPIRONOLACTONE 25 MG TAB PO SCH (08:51)
[2020-07-12] MEDS: FERROUS SULFATE 325 MG TAB PO SCH ×2 (08:51→19:52)
[2020-07-12] MEDS: ENOXAPARIN INJ 40 MG/0.4 ML SYR SQ SCH (08:52)
[2020-07-12 09:05] LABS: BUN Creatinine Ratio 30.2 (10-20); Calcium 9.6 mg/dl (8.5-10.1); Est GFR (Non-African American) 69.9; Potassium 3.9 mmol/L (3.5-5.1)
[2020-07-12] MEDS ORDERED: ERGOCALCIFEROL 50,000 UNITS 1250 MCG CAP PO ONE (09:36)
[2020-07-12] MEDS: FUROSEMIDE 80 MG TAB PO SCH (10:00)
--- NOTE | 2020-07-12 10:15 | Orthopedic Progress Note ---
Date of Service July 12, 2020 Assessment & Plan (1) Infection associated with internal fixation device of bone of lower leg: POD #6, s/p I&D RLE and placement of Wound Vac for infected RLE 5 months status post ORIF right tibial plateau fracture POD #4, s/p I&D RLE, hardware removal, stimulin beads, and placement of Wound Vac + MSSA bacteremia, sepsis Appreciate Cardiology input. ID consult, appreciate input. Cefazolin 2mg IV q 8hrs x 6 weeks, after blood cultures are negative (wit h/without vegetations). f/u with ID 3-5 weeks after d/c Blood Cultures repeated 07/09/2020, await final results. PICC to be placed once neg result. PICC line to be placed prior to d/c, consent obtained, DM diet. PT/OT. 25% PWB RLE. DVT Prophylaxis: TEDs for 3 weeks LLE, Foot pumps while in hospital, ASA 81mg BID for 6 weeks. Wound care nurse following. Appreciate input. Plan to change wound vac 07/13. Discussed with patient DC planning. Referrals and Consult Recommendations placed in DC summary section. DC planning to include Wound Vac (change MWF), Blood Work (weekly CBC, BMP, ESR, CRP with results sent to PCP, Dr. Al, & ID), and PICC line. Continue care per primary service. Admission and Anticipated Discharge Date Admission Date: July 05, 2020 Subjective Patient resting in bed. Needing to use rest room for a BM. No pain at rest. Feels "burning and tingling" around wound vac Aware awaiting repeat blood culture results and if - plan for picc line placement Physical Exam Physical Exam: Right Leg with wound vac intact. Redness to anterior camacho slightly improved. B LE calves are soft. Neg homans. NV intact with palpable DP and PT. Motor intact. 5/5 B EHL, TA, and gastroc strength. Results & Data ([facility]) Vital Signs (Past 12 Hours) Vital Signs Temp Pulse Resp BP Pulse Ox 07/12/20 07:15 36.9 C 81 16 138/67 95 07/11/20 23:11 37.1 C 86 18 131/73 92 Laboratory Results 07/12/20 07/12/20 07/12/20 Range/Units 08:21 07:51 07:51 WBC (4.8-10.8) K/uL RBC (4.2-5.4) M/uL Hgb (12.0-16.0) g/dL Hct (37-47) % MCV (80-100) fL MCH (25-34) pg MCHC (32-36) g/dL RDW Std Deviation (36.4-46.3) fL RDW Coeff of Betito (11.5-14.5) % Plt Count (130-400) K/uL MPV (7.4-10.4) fL Absolute Nucleated RBC (0-0) K/uL Nucleated RBC % (auto) % ESR (0-21) mm/hr Sodium (136-145) mmol/L Potassium (3.5-5.1) mmol/L Chloride (98-107) mmol/L Carbon Dioxide (21-32) mmol/L Anion Gap (3-11) BUN (7-18) mg/dl Creatinine (0.6-1.2) mg/dl Est Cr Clr Drug Dosing ml/min Est GFR ( Amer) Est GFR (Non-Af Amer) BUN/Creatinine Ratio (10-20) Glucose (70-99) mg/dl POC Glucose 193 H (70-99) mg/dl Calcium (8.5-10.1) mg/dl Vitamin B12 Pending 25-OH Vitamin D Total 18.7 L (30-100) ng/ml Folate Pending 07/12/20 07/12/20 07/12/20 Range/Units 07:51 07:51 07:51 WBC 21.81 H (4.8-10.8) K/uL RBC 3.01 L (4.2-5.4) M/uL Hgb 9.3 L (12.0-16.0) g/dL Hct 29.9 L (37-47) % MCV 99.3 (80-100) fL MCH 30.9 (25-34) pg MCHC 31.1 L (32-36) g/dL RDW Std Deviation 49.4 H (36.4-46.3) fL RDW Coeff of Betito 13.9 (11.5-14.5) % Plt Count 495 H (130-400) K/uL MPV 10.0 (7.4-10.4) fL Absolute Nucleated RBC 0.08 H (0-0) K/uL Nucleated RBC % (auto) 0.4 % ESR 71 H (0-21) mm/hr Sodium 133 L (136-145) mmol/L Potassium 3.9 (3.5-5.1) mmol/L Chloride 92 L (98-107) mmol/L Carbon Dioxide 33 H (21-32) mmol/L Anion Gap 8.0 (3-11) BUN 26 H (7-18) mg/dl Creatinine 0.86 (0.6-1.2) mg/dl Est Cr Clr Drug Dosing 69.0 ml/min Est GFR ( Amer) 81.0 Est GFR (Non-Af Amer) 69.9 BUN/Creatinine Ratio 30.2 H (10-20) Glucose 161 H (70-99) mg/dl POC Glucose (70-99) mg/dl Calcium 9.6 (8.5-10.1) mg/dl Vitamin B12 25-OH Vitamin D Total (30-100) ng/ml Folate 07/11/20 07/11/20 07/11/20 Range/Units 20:59 17:10 12:18 WBC (4.8-10.8) K/uL RBC (4.2-5.4) M/uL Hgb (12.0-16.0) g/dL Hct (37-47) % MCV (80-100) fL MCH (25-34) pg MCHC (32-36) g/dL RDW Std Deviation (36.4-46.3) fL RDW Coeff of Betito (11.5-14.5) % Plt Count (130-400) K/uL MPV (7.4-10.4) fL Absolute Nucleated RBC (0-0) K/uL Nucleated RBC % (auto) % ESR (0-21) mm/hr Sodium (136-145) mmol/L Potassium (3.5-5.1) mmol/L Chloride (98-107) mmol/L Carbon Dioxide (21-32) mmol/L Anion Gap (3-11) BUN (7-18) mg/dl Creatinine (0.6-1.2) mg/dl Est Cr Clr Drug Dosing ml/min Est GFR ( Amer) Est GFR (Non-Af Amer) BUN/Creatinine Ratio (10-20) Glucose (70-99) mg/dl POC Glucose 222 H 208 H 195 H (70-99) mg/dl Calcium (8.5-10.1) mg/dl Vitamin B12 25-OH Vitamin D Total (30-100) ng/ml Folate
--- NOTE | 2020-07-12 13:32 | Orthopedic Progress Note ---
Date of Service July 12, 2020 Assessment & Plan (1) Infection associated with internal fixation device of bone of lower leg: POD #6, s/p I&D RLE and placement of Wound Vac for infected RLE 5 months status post ORIF right tibial plateau fracture POD #4, s/p I&D RLE, hardware removal, stimulin beads, and placement of Wound Vac + MSSA bacteremia, sepsis Appreciate Cardiology input. ID consult, appreciate input. Cefazolin 2mg IV q 8hrs x 6 weeks, after blood cultures are negative (wit h/without vegetations). f/u with ID 3-5 weeks after d/c Blood Cultures repeated 07/09/2020 & 07/11/2020 remain No Growth, await final results. PICC to be placed 07/13/2020 am if Cx remain negative. PICC line to be placed prior to d/c, consent obtained, DM diet. Obtain CRP with am labs or after PICC placed. PT/OT. 25% PWB RLE. DVT Prophylaxis: TEDs for 3 weeks LLE, Foot pumps while in hospital, ASA 81mg BID for 6 weeks. Wound care nurse following. Appreciate input. Plan to change wound vac 07/13. Discussed with patient DC planning. Referrals and Consult Recommendations placed in DC summary section. DC planning to include Wound Vac (change MWF), Blood Work (weekly CBC, BMP, ESR, CRP with results sent to PCP, Dr. lA, & ID), and PICC line. Continue care per primary service. Admission and Anticipated Discharge Date Admission Date: July 05, 2020 Subjective Right leg pain controlled Review of Systems Review of Systems: All systems reviewed & are unremarkable except as noted in HPI & below Physical Exam Physical Exam: RLE: Neurovascularly intact. Wound Vac functioning well. Decreased swelling, and erythema. Calf soft and non-tender. Results & Data ([facility]) Vital Signs (Past 12 Hours) Vital Signs Temp Pulse Resp BP Pulse Ox 07/12/20 07:15 36.9 C 81 16 138/67 95 Laboratory Results 07/12/20 07/12/20 07/12/20 Range/Units 12:04 08:21 07:51 WBC (4.8-10.8) K/uL RBC (4.2-5.4) M/uL Hgb (12.0-16.0) g/dL Hct (37-47) % MCV (80-100) fL MCH (25-34) pg MCHC (32-36) g/dL RDW Std Deviation (36.4-46.3) fL RDW Coeff of Betito (11.5-14.5) % Plt Count (130-400) K/uL MPV (7.4-10.4) fL Absolute Nucleated RBC (0-0) K/uL Nucleated RBC % (auto) % ESR (0-21) mm/hr Sodium (136-145) mmol/L Potassium (3.5-5.1) mmol/L Chloride (98-107) mmol/L Carbon Dioxide (21-32) mmol/L Anion Gap (3-11) BUN (7-18) mg/dl Creatinine (0.6-1.2) mg/dl Est Cr Clr Drug Dosing ml/min Est GFR ( Amer) Est GFR (Non-Af Amer) BUN/Creatinine Ratio (10-20) Glucose (70-99) mg/dl POC Glucose 203 H 193 H (70-99) mg/dl Calcium (8.5-10.1) mg/dl Vitamin B12 25-OH Vitamin D Total 18.7 L (30-100) ng/ml Folate 07/12/20 07/12/20 07/12/20 Range/Units 07:51 07:51 07:51 WBC (4.8-10.8) K/uL RBC (4.2-5.4) M/uL Hgb (12.0-16.0) g/dL Hct (37-47) % MCV (80-100) fL MCH (25-34) pg MCHC (32-36) g/dL RDW Std Deviation (36.4-46.3) fL RDW Coeff of Betito (11.5-14.5) % Plt Count (130-400) K/uL MPV (7.4-10.4) fL Absolute Nucleated RBC (0-0) K/uL Nucleated RBC % (auto) % ESR 71 H (0-21) mm/hr Sodium 133 L (136-145) mmol/L Potassium 3.9 (3.5-5.1) mmol/L Chloride 92 L (98-107) mmol/L Carbon Dioxide 33 H (21-32) mmol/L Anion Gap 8.0 (3-11) BUN 26 H (7-18) mg/dl Creatinine 0.86 (0.6-1.2) mg/dl Est Cr Clr Drug Dosing 69.0 ml/min Est GFR ( Amer) 81.0 Est GFR (Non-Af Amer) 69.9 BUN/Creatinine Ratio 30.2 H (10-20) Glucose 161 H (70-99) mg/dl POC Glucose (70-99) mg/dl Calcium 9.6 (8.5-10.1) mg/dl Vitamin B12 Pending 25-OH Vitamin D Total (30-100) ng/ml Folate Pending 07/12/20 07/11/20 07/11/20 Range/Units 07:51 20:59 17:10 WBC 21.81 H (4.8-10.8) K/uL RBC 3.01 L (4.2-5.4) M/uL Hgb 9.3 L (12.0-16.0) g/dL Hct 29.9 L (37-47) % MCV 99.3 (80-100) fL MCH 30.9 (25-34) pg MCHC 31.1 L (32-36) g/dL RDW Std Deviation 49.4 H (36.4-46.3) fL RDW Coeff of Betito 13.9 (11.5-14.5) % Plt Count 495 H (130-400) K/uL MPV 10.0 (7.4-10.4) fL Absolute Nucleated RBC 0.08 H (0-0) K/uL Nucleated RBC % (auto) 0.4 % ESR (0-21) mm/hr Sodium (136-145) mmol/L Potassium (3.5-5.1) mmol/L Chloride (98-107) mmol/L Carbon Dioxide (21-32) mmol/L Anion Gap (3-11) BUN (7-18) mg/dl Creatinine (0.6-1.2) mg/dl Est Cr Clr Drug Dosing ml/min Est GFR ( Amer) Est GFR (Non-Af Amer) BUN/Creatinine Ratio (10-20) Glucose (70-99) mg/dl POC Glucose 222 H 208 H (70-99) mg/dl Calcium (8.5-10.1) mg/dl Vitamin B12 25-OH Vitamin D Total (30-100) ng/ml Folate Blood Cx from 07/09/2020 & 07/11/2020 continue No growth.
[2020-07-12 14:21] LABS: Folate (Folic Acid) 5.57 ng/ml (>5.38)
--- NOTE | 2020-07-12 19:14 | Hospitalist Progress Note ---
Date of Service July 12, 2020 Assessment & Plan (1) Septicemia: 2nd MSSA in setting of right tibial infection. Remains on ancef IV. echo w/o obvious endocarditis. 4-6-week course of IV antibiotics needed. 07/09 blood cultures remain negative. dispo planning. (2) Infection associated with internal fixation device of bone of lower leg: POD #6 s/p Irrigation and debridement Right Lower Extremity Infection and Placement of Wound Vac by Dr Al. POD #5 s/p right Lower Extremity Incision and Drainage, Hardware Removal, Wound Vac Placement with Instillation of Stimulan Beads - also by Dr Al. appreciate ortho assistance. cultures with MSSA. cont IV ancef x 4-6 weeks. u/s-guided IV to be placed by IV team. cont wound vac; case management working on home wound vac. fixation device was from 01/2020 surgery for tibial plateau fracture. (3) Chronic diastolic heart failure: compensated cont lasix cont BB cont aldactone (4) Obstructive sleep apnea of adult: Does not use CPAP/BiPap at home per patient. (5) Dyslipidemia: cont statin (6) Hypoventilation syndrome: (7) Hypertension: controlled cont current meds (8) Aortic stenosis: moderate on recent echo no valvular vegetations noted (9) Diabetes type 2, uncontrolled: HbA1C 8.7% was not on meds at home pre-hospital? BSGs high will need, at minimum, metformin at discharge +/- januvia (10) Morbid obesity with BMI of 45.0-49.9, adult: BMI 44.7 (11) Acute blood loss anemia: mild-moderate Hb 9.3 today cont ferrous sulfate 325mg BID also with folic acid def - replace 1mg folate x 30 days (12) Folate deficiency: (13) Vitamin D deficiency: ergocalciferol 65934 units weekly x 8 weeks minimum (14) DVT prophylaxis: lovenox 40mg daily dispo - home with HH tomorrow updated by phone today Admission and Anticipated Discharge Date Admission Date: July 05, 2020 Anticipated date of discharge: 07/13/20 Subjective no new issues overnight. picc line team attempted to place PICC; veins not adequate for PICC, but can have u/s-guided peripheral IV. patient feeling well. off O2. pain controlled. no diarrhea. Review of Systems Constitutional: no fever, no chills, no fatigue and no anorexia Respiratory: no cough, no dyspnea and no dyspnea on exertion Cardiovascular: no chest pain Physical Exam Constitutional: + morbidly obese; no acute distress and no altered mental status ENMT: external ear and nose normal, oropharynx normal Respiratory: normal respiratory effort, lungs clear to auscultation Cardiovascular: Rate/Rhythm: regular rate and regular rhythm Heart Sounds: normal S1, normal S2 and + murmur (2/6 systolic RUSB) Vessels: posterior tibial pulses present and dorsalis pedis pulses present; no JVD Extremities: no edema Gastrointestinal (Abdomen): normal bowel sounds, soft, nontender, no hepatosplenomegaly Skin: right lower leg dressings in place with wound vac Psychiatric: A+Ox3, euthymic affect Results & Data Results & Data ([facility]) Vital Signs (Past 12 Hours) Vital Signs Temp Pulse Resp BP Pulse Ox 07/12/20 14:57 36.9 C 85 16 144/68 H 91 07/12/20 07:15 36.9 C 81 16 138/67 95 Laboratory Results Laboratory Results - last 24 hr 07/11/20 07/12/20 07/12/20 20:59 07:51 07:51 WBC 21.81 H RBC 3.01 L Hgb 9.3 L Hct 29.9 L MCV 99.3 MCH 30.9 MCHC 31.1 L RDW Std Deviation 49.4 H RDW Coeff of Betito 13.9 Plt Count 495 H MPV 10.0 Absolute Nucleated RBC 0.08 H Nucleated RBC % (auto) 0.4 ESR Sodium 133 L Potassium 3.9 Chloride 92 L Carbon Dioxide 33 H Anion Gap 8.0 BUN 26 H Creatinine 0.86 Est Cr Clr Drug Dosing 69.0 Est GFR ( Amer) 81.0 Est GFR (Non-Af Amer) 69.9 BUN/Creatinine Ratio 30.2 H Glucose 161 H POC Glucose 222 H Calcium 9.6 Vitamin B12 25-OH Vitamin D Total Folate 07/12/20 07/12/20 07/12/20 07:51 07:51 07:51 WBC RBC Hgb Hct MCV MCH MCHC RDW Std Deviation RDW Coeff of Betito Plt Count MPV Absolute Nucleated RBC Nucleated RBC % (auto) ESR 71 H Sodium Potassium Chloride Carbon Dioxide Anion Gap BUN Creatinine Est Cr Clr Drug Dosing Est GFR ( Amer) Est GFR (Non-Af Amer) BUN/Creatinine Ratio Glucose POC Glucose Calcium Vitamin B12 818 25-OH Vitamin D Total 18.7 L Folate 5.57 07/12/20 07/12/20 07/12/20 08:21 12:04 17:07 WBC RBC Hgb Hct MCV MCH MCHC RDW Std Deviation RDW Coeff of Betito Plt Count MPV Absolute Nucleated RBC Nucleated RBC % (auto) ESR Sodium Potassium Chloride Carbon Dioxide Anion Gap BUN Creatinine Est Cr Clr Drug Dosing Est GFR ( Amer) Est GFR (Non-Af Amer) BUN/Creatinine Ratio Glucose POC Glucose 193 H 203 H 197 H Calcium Vitamin B12 25-OH Vitamin D Total Folate repeat blood cx's 07/08 remain negative PG Care Time/CCT Total # of Minutes Spent Total Time Spent with Patient: Total time spent is greater than 50% in coordination of care (as documented) at patient's floor/unit and/or counseling patient: Coding Level of Care Code 07382 Subseq Hosp Care Lvl 3 Diagnoses Septicemia A41.9 Infection associated with internal fixation device of bone of lower leg T84.629A Chronic diastolic heart failure I50.32 Obstructive sleep apnea of adult G47.33 Dyslipidemia E78.5 Hypoventilation syndrome R06.89 Hypertension I10 Aortic stenosis I35.0 Diabetes type 2, uncontrolled E11.65 Morbid obesity with BMI of 45.0-49.9, adult E66.01; Z68.42 Acute blood loss anemia D62 Folate deficiency E53.8 Vitamin D deficiency E55.9 DVT prophylaxis Z29.9
[2020-07-12] MEDS: SENNA 8.6 MG TAB PO SCH (19:51)
[2020-07-12] MEDS: FOLIC ACID 1 MG TAB PO SCH (21:12)
[2020-07-13] MEDS: oxyCODONE HCL IR 5 MG TAB (IMMEDIATE RELEASE) PO PRN ×3 (02:08→13:13)
[2020-07-13] MEDS: ceFAZolin 2000MG 2,000 MG/15 ML SYR IV SCH ×2 (07:43→16:51)
[2020-07-13] MEDS: INSULIN GLARGINE SOLOSTAR 100 UNITS/ML 3 ML PEN SC SCH (08:32)
[2020-07-13] MEDS: INSULIN ASPART 100 UNITS/ML 3 ML PEN SC SCH ×2 (08:33→12:59)
[2020-07-13] MEDS: carvediloL 3.125 MG TAB PO SCH (08:39)
[2020-07-13] MEDS: FUROSEMIDE 80 MG TAB PO SCH (08:39)
[2020-07-13] MEDS: DOCUSATE SODIUM 100 MG CAP PO SCH (08:39)
[2020-07-13] MEDS: MULTIVITAMIN TAB PO SCH (08:39)
[2020-07-13] MEDS: SPIRONOLACTONE 25 MG TAB PO SCH (08:39)
[2020-07-13] MEDS: POTASSIUM CHLORIDE CRTAB 20 MEQ TABCR PO SCH (08:39)
[2020-07-13] MEDS: ENOXAPARIN INJ 40 MG/0.4 ML SYR SQ SCH (08:39)
[2020-07-13] MEDS: FOLIC ACID 1 MG TAB PO SCH (08:39)
[2020-07-13] MEDS: FERROUS SULFATE 325 MG TAB PO SCH (08:40)
[2020-07-13] MEDS: ATORVASTATIN 40 MG TAB PO SCH (08:40)
[2020-07-13 10:12] LABS: Hematocrit (blood only) 28.9 % (37-47); Mean Corpuscular Hgb Conc 31.1 g/dL (32-36); Mean Corpuscular Volume 99.7 fL (80-100); Mean Platelet Volume 9.9 fL (7.4-10.4); Nucleated RBC # (auto) 0.13 K/uL (0-0); Nucleated RBC % (auto) 0.7 %; Platelet Count 459 K/uL (130-400); RDW Coefficient of Variation 13.9 % (11.5-14.5); RDW Standard Deviation 49.7 fL (36.4-46.3); White Blood Count 19.24 K/uL (4.8-10.8)
[2020-07-13 10:42] LABS: BUN Creatinine Ratio 28.7 (10-20); Creatinine Clr Calc Pharmacy 60.5 ml/min; Est GFR (African American) 69.2; Est GFR (Non-African American) 59.7; Magnesium 2.1 mg/dl (1.8-2.4); Potassium 3.6 mmol/L (3.5-5.1)
[2020-07-13] MEDS: HYDROmorphone INJ 1 MG/ML SYRINGE IV PRN (13:32)
--- NOTE | 2020-07-13 13:57 | Discharge Summary ---
Date of Service date of admission - July 05, 2020 date of discharge - July 13, 2020 Admission HPI Per Admitting Provider Patient was seen in our office today by Dr. Al. History of ORIF right tibial plateau fracture 02/06/20. She began having right proximal tibia pain about a w [place] ago. She developed a "bump" and last night it started to drain. Per patient the leg itself has become more red and warm. She also notes increased swelling. She denies fevers chills or sweats. She denies any recent injuries, recent illness. Dr Al saw patient in office. He expressed some fluid from the cyst like structure and it drained blood and yellow cloudy fluid. This are tracked to her hardware which was visible. Dr. Al feels it is best that she be direct admitted to the hospital to start IV vancomycin and for planned surgery tomorrow for irrigation and debridement of right lower extremity infection. Patient agreed to be direct admitted today. She also signed consent for surgery. Principal Diagnosis MSSA septicemia 2nd to right tibia infection/hardware infection Discharge Exam Constitutional + morbidly obese; no acute distress and no altered mental status ENMT external ear and nose normal, oropharynx normal Respiratory no respiratory distress Auscultation: + diminished lung sounds and + crackles (Bases b/l ) Cardiovascular Rate/Rhythm: regular rate and regular rhythm Heart Sounds: normal S1, normal S2 and + murmur (2/6 systolic RUSB) Vessels: posterior tibial pulses present and dorsalis pedis pulses present; no JVD Extremities: no edema Gastrointestinal (Abdomen) normal bowel sounds, soft, nontender, no hepatosplenomegaly Musculoskeletal right leg wound vac in place Psychiatric A+Ox3, euthymic affect Discharge Data Allergies Allergy/AdvReac Type Severity Reaction Status Date / Time No Known Drug Allergies Allergy Unknown Verified 02/06/20 02:36 [facility] Card[facility] - Owen Ariza MD Orthopedics - Enoch Al MD PT, OT Diabetes Education Procedures Performed Operation Date: 07/06/20 10:30 Actual Procedures Incision and debridement Right Lower Extremity Infection and Placement of Wound Vac(Right) - Enoch Al MD Operation Date: 07/08/20 10:35 Actual Procedures Right Lower Extremity Incision and Drainage, Hardware Removal, Wound Vac Placement with Instillation of Stimulan Beads(Right) - Enoch Al MD Ordered Studies 07/05/20 17:50 US venous doppler LE Bilaterally - no DVT either leg. Echocardiogram: * EF 65-70% * no regional wall motion abnormalities * no LVH * moderate aortic stenosis * no valvular vegetations Diabetes Follow up Diabetes Follow-up Needed for Newly Diagnosed Diabetes Hospital Course (1) Septicemia: 2nd MSSA in setting of right tibial infection. Echo w/o obvious endocarditis. 4-6-week course of IV antibiotics needed. Repeat blood cultures on 07/09/20 and 07/11/20 were all negative. Peripherally-inserted ultrasound-guided IV placed for her home IV antibiotics. She will take ancef 2gm IV q8h upon discharge. Discharge ESR 71 (improved from 90). Discharge CRP 7 (improved from 36). 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 Then - s/p right Lower Extremity Incision and Drainage, Hardware Removal, Wound Vac Placement with Instillation of Stimulan Beads - also by Dr Al. Cultures with MSSA. Continue IV ancef x 4-6 weeks upon discharge. Continue wound vac upon discharge. Home health services have been arranged for IV antibiotics and wound care. Wound vac to be exchanged every Saturday, Saturday, and Saturday. Will need weekly blood work including CBC, BMP, ESR, CRP. The fixation device of her tibia was from a 01/2020 surgery for a tibial plateau fracture. Weight-bearing status on discharge -- 25% (partial). Will need f/u with Dr Al and Dr Grissom, [facility] - [place] office. (3) Chronic diastolic heart failure: compensated cont lasix cont BB cont aldactone (4) Obstructive sleep apnea of adult: Does not use CPAP/BiPap at home per patient. (5) Dyslipidemia: cont statin (6) Hypoventilation syndrome: (7) Hypertension: controlled cont current meds (8) Aortic stenosis: moderate on recent echo no valvular vegetations noted (9) Diabetes type 2, uncontrolled: HbA1C 8.7% was not on meds at home pre-hospitalization at discharge advised: * metformin 500mg BID w/ meals * januvia 100mg daily * would add once-daily lantus/levemir if control remains inadequate (10) Morbid obesity with BMI of 45.0-49.9, adult: BMI 44.7 (11) Acute blood loss anemia: mild-moderate presenting hemoglobin 12.9 discharge hemoglobin 9 cont ferrous sulfate 325mg BID also with folic acid deficiency - replace 1mg folate x 30 days (12) Folate deficiency: Folate level 5.5. Folic acid 1mg daily x 30 days. (13) Vitamin D deficiency: Level 18.7. Ergocalciferol 48581 units weekly x 8 weeks minimum. Repeat level at conclusion of treatment course. (14) DVT prophylaxis: aspirin 325mg BID Total Time Total Time Spent Total Time Spent (In Minutes): 45 Total Time Includes: Examination of the Patient, Discharge Planning, Medication Reconciliation and Communication With Other Providers Discharge Plan Discharge Items Patient Disposition: Home - Home Health Services Reason For Visit: RIGHT LEG INFECTION Discharge Diagnosis: Staph infection of right leg; [address] Enoch Al with removal of hardware. Wound vac applied. Long course of IV antibiotics needed. Blood stream infection due to staph. Activity: Per Instructions section Bathing Comment: sponge baths only Driving/Machine Use: NO DRIVING Weightbearing: Right partial Non-emergency contact: Primary Care Provider, Surgeon and Specialist Call non-emergency contact if: you have any medication questions, your pain is not controlled, your pain is worsening and you have a fever Follow-up/Referrals: aLyla Childs MD [Primary Care Provider] - (see Dr Childs within 1-2 weeks for your diabetes, anemia, etc.) Enoch Al MD [Physician] - 07/20/20 2:00 pm (please make an appointment to follow-up with Dr Al for 1week after discharge from hospital and also fax all bloodwork on wkly basis phone# [phone] fax#[phone]) Tory Grissom DO [Physician] - (Dr. Grissom has an office in [place] in front of the hospital. Her office will call you with an appointment to follow your antibiotics and lab work.) Diet: Carb Consistent or DM2 Addtl Attending Provider Instructions: You were treated for staph infection of the right leg. This staph infection spread into the blood stream (also known as septicemia or bacteremia). Fortunately the staph infection did not infect the heart (your echocardiogram failed to show infection in the heart). Dr Al from [facility] performed 2 separate operations on your right leg. Ultimately the hardware was removed, and Dr Al applied a wound vac. The blood infection resolved with IV antibiotics as your most recent blood cultures are negative. Recommendations - 1. orthopedic recommendations - partial (25%) weightbearing to right leg/foot. Woundvac and IV antibiotics as previously discussed. 2. folate deficiency - folic acid 1mg daily for 30 days. 3. vitamin D deficiency - 1 capsule once weekly for 8 weeks. First dose on 07/19/20. 4. Type 2 diabetes - uncontrolled - please do the following: * check your blood sugars twice a day. Vary the time you check them. On some days do before breakfast and at bedtime. On other days check before breakfast and before dinner. Still on other days check before lunch and at bedtime. This gives you a good sense of what your sugars are doing at various times. * take metformin xr 500mg twice daily with meals * take januvia 100mg once daily * report your sugars to Dr Childs to ensure your control is satisfactory; you may need insulin in the end 5. pain control - * hydrocodone-acetaminophen 1 tablet every 6 hours as needed * do not drink alcohol while taking narcotic pain killers * do not drive * this product contains tylenol in it; thus, if you are taking it, do not take extra doses of [id number] tylenol * additional refills will need to come from Dr Childs or Dr Al 6. take probiotics daily while on the IV antibiotics to prevent diarrhea 7. you will need weekly blood work starting about 07/19/20; these results will need to go to all of your doctors 8. follow-up -- see separate section 9. obtain your flu shot this fall. 10. continue to wear a mask any time you leave your home. And please continue to socially distance to prevent coronavirus infection. Return to [facility] if -- * you have fevers over 100 degrees * you have uncontrolled right leg pain * you have severe diarrhea * you have shortness of breath or chest pain * you have any troubles with your peripheral IV * you have any other concerns Addtl [employer] Provider Instructions: * 25% Partial weightbearing right lower extremity with walker. * DVT blood clot prevention: VENTURA Stocking for 3 weeks to left lower extremity, Aspirin 325mg twice daily for 6 weeks. * Discharge planning to include Wound Vac (change Mon,Wed,Fri), Blood Work (weekly CBC, BMP, ESR, CRP with results sent to PCP, Dr. Al, & Infectious disease Dr Grissom in [place]. * Peripherally inserted ultrasound-guided IV with 4-6wks of Ancef antibiotic. * Follow-up with Dr Al 1 week after discharge ( ) * Follow-up with ID (Dr Grissom) 3-5wks after discharge Pending Studies at Discharge: No Stand-Alone Forms: [facility], Smoking Cessation Medications and DC Order Prescriptions: New folic acid 1 mg Tablet 1 mg PO QAM Qty: 30 RF: 0 (DME) OneTouch Verio test strips Strip See Rx Instructions .ROUTE .MEDSUPPLY Qty: 100 RF: 5 ergocalciferol (vitamin D2) 1,250 mcg (50,000 unit) capsule 50,000 unit PO .week Qty: 4 RF: 1 metformin 500 mg tablet extended release 24hr 500 mg PO BIDM Qty: 60 RF: 5 Januvia 100 mg tablet 100 mg PO DAILY Qty: 30 RF: 5 cefazolin 1 gram recon soln 2 g IV Q8H 28 Days Qty: 28 RF: 2 Lactinex 1 million cell tablet,chewable 1 tab PO BID Qty: 60 RF: 1 Continued spironolactone 25 mg tablet 25 mg PO DAILY Qty: 30 RF: 5 potassium chloride 20 mEq tablet extended release 20 meq PO DAILY Qty: 90 RF: 1 atorvastatin 80 mg tablet 80 mg PO DAILY Qty: 90 RF: 3 ferrous sulfate 325 mg (65 mg iron) tablet 325 mg PO BID Qty: 180 RF: 1 furosemide 40 mg tablet 80 mg PO DAILY Qty: 60 RF: 5 carvedilol 3.125 mg tablet See Patient Comments mg PO BID Qty: 180 RF: 1 acetaminophen 325 mg tablet 650 mg PO Q4H PRNRF: 0 aspirin 325 mg tablet 325 mg PO BID RF: 0 hydrocodone-acetaminophen [[place]] 5-325 mg tablet 1 tab PO Q6H PRN (Reason: pain) Qty: 20 RF: 0 Discontinued enoxaparin [Lovenox] 40 mg/0.4 mL syringe 40 mg SQ DAILY RF: 0 No Action (DME) lancets [OneTouch Delica Plus Lancet] 33 gauge misc See Rx Instructions .ROUTE .MEDSUPPLY Qty: 100 RF: 1 Discharge Orders: Discharge Order (Routine); Ordered 07/13/20 Ordered By: Tyron Bone/Other Patient Handouts: Managing Type 2 Diabetes, Diabetes: Meal Planning, A1C Admission Data Admit Date/Time: 07/05/20 15:43 Attending Provider: Tyron Baeza Admit Provider: Enoch Al Primary Care Provider: Layla Childs Other Providers: Raymon Sanchez ; Molly Faust ; Drew Bravo I. ; Suraj West II ; Sania Chacon ; Chad Lemon ; Cirilo Morales ; [facility] ; [facility] ; Carlos Beckford ; Marcos Calderon ; Owen Ariza. 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
--- NOTE | 2020-07-13 14:38 | Orthopedic Progress Note ---
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 ID consult, appreciate input. Cefazolin 2mg IV q 8hrs x 6 weeks, blood cultures are negative f/u with ID 3-5 weeks after d/c Blood Cultures repeated 07/09/2020 & 07/11/2020 remain No Growth. PICC to be placed 07/13/2020 today, consent previously obtained DM diet PT/OT. 25% PWB RLE. DVT Prophylaxis: TEDs for 3 weeks LLE, Foot pumps while in hospital, ASA 81mg BID for 6 weeks. Wound care nurse following and saw pt with myself to apply new wound vac. Aquasel applied to incisions. Foam to open wound. Appreciate input. Discussed with patient DC planning. Referrals and Consult Recommendations placed in DC summary section. DC planning to include Wound Vac (change MWF), Blood Work (weekly CBC, BMP, ESR, CRP with results sent to PCP, Dr. Al, & ID), and PICC line. Continue care per primary service. Admission and Anticipated Discharge Date Admission Date: July 05, [address] Al today. Plans for PICC line today and DC home after. Denies f/c/s. Pain controlled. Physical Exam Physical Exam: Changed wound vac with wound care nurse. Incisions healing n icely and wound edges approximated. open wound also healing nicely. wound edges well defined. no redness beyond borders. granulating tissue is noted. no foul odor. no active drainage. improved anterior camacho redness. B LE NV intact. palpable DP and PT pulses. Motor intact. Sensation intact. Calves soft. Neg homans. 1+ PE R LE. Results & Data ([facility]) Vital Signs (Past 12 Hours) Vital Signs Temp Pulse Resp BP Pulse Ox 07/13/20 08:03 36.7 C 73 16 134/65 96 Laboratory Results 07/13/20 07/13/20 07/13/20 Range/Units 12:33 09:58 09:58 WBC 19.24 H (4.8-10.8) K/uL RBC 2.90 L (4.2-5.4) M/uL Hgb 9.0 L (12.0-16.0) g/dL Hct 28.9 L (37-47) % MCV 99.7 (80-100) fL MCH 31.0 (25-34) pg MCHC 31.1 L (32-36) g/dL RDW Std Deviation 49.7 H (36.4-46.3) fL RDW Coeff of Betito 13.9 (11.5-14.5) % Plt Count 459 H (130-400) K/uL MPV 9.9 (7.4-10.4) fL Absolute Nucleated RBC 0.13 H (0-0) K/uL Nucleated RBC % (auto) 0.7 % Sodium 132 L (136-145) mmol/L Potassium 3.6 (3.5-5.1) mmol/L Chloride 94 L (98-107) mmol/L Carbon Dioxide 35 H (21-32) mmol/L Anion Gap 3.0 (3-11) BUN 28 H (7-18) mg/dl Creatinine 0.98 (0.6-1.2) mg/dl Est Cr Clr Drug Dosing 60.5 ml/min Est GFR ( Amer) 69.2 Est GFR (Non-Af Amer) 59.7 BUN/Creatinine Ratio 28.7 H (10-20) Glucose 232 H (70-99) mg/dl POC Glucose 206 H (70-99) mg/dl Calcium 9.0 (8.5-10.1) mg/dl Magnesium 2.1 (1.8-2.4) mg/dl C-Reactive Protein 7.00 H (0-0.29) mg/dl 07/13/20 07/12/20 07/12/20 Range/Units 08:25 20:35 17:07 WBC (4.8-10.8) K/uL RBC (4.2-5.4) M/uL Hgb (12.0-16.0) g/dL Hct (37-47) % MCV (80-100) fL MCH (25-34) pg MCHC (32-36) g/dL RDW Std Deviation (36.4-46.3) fL RDW Coeff of Betito (11.5-14.5) % Plt Count (130-400) K/uL MPV (7.4-10.4) fL Absolute Nucleated RBC (0-0) K/uL Nucleated RBC % (auto) % Sodium (136-145) mmol/L Potassium (3.5-5.1) mmol/L Chloride (98-107) mmol/L Carbon Dioxide (21-32) mmol/L Anion Gap (3-11) BUN (7-18) mg/dl Creatinine (0.6-1.2) mg/dl Est Cr Clr Drug Dosing ml/min Est GFR ( Amer) Est GFR (Non-Af Amer) BUN/Creatinine Ratio (10-20) Glucose (70-99) mg/dl POC Glucose 181 H 245 H 197 H (70-99) mg/dl Calcium (8.5-10.1) mg/dl Magnesium (1.8-2.4) mg/dl C-Reactive Protein (0-0.29) mg/dl
== END 2020-07-13 17:33 | disposition home health service (06) | DRG 463 ==
LOC: 3W 15:43 → SUATTDRO 15:43